=== PATIENT | female | born 1940 | race Caucasian/White ===

== ENCOUNTER 2016-03-13 22:19 | Emergency (ER) | payer MEDICARE, BC ==
[2016-03-13] MEDS ORDERED: DIAZEPAM 5 MG/ML 2 ML SYRINGE IVP STA (22:23)
[2016-03-13] MEDS ORDERED: HYDROmorphone 1 MG/ML 1 ML SYRINGE IVP STA ×2 (22:23→23:33)
--- NOTE | 2016-03-13 22:27 | ED ---
General Adult HPI - General Stated complaint: Generalized Pain Time Seen by Provider: 03/13/16 22:20 Source: RN notes reviewed - History of Present Illness Initial comments: This is a 75-year-old female who presents to the emergency department with a past medical history significant for renal failure she is on dialysis. Patient also has a history of chronic right-sided sciatica. Patient states her sciatica started acting up on Monday and is radiating down the back of her right leg like it always does. Patient states she's had 5 days of pain and couldn't take it anymore so she came to the emergency department. Patient states she's also noted some spasms in her back as well. Patient denies any recent injury or trauma. Patient denies any heavy lifting. Patient states she was much pain on Monday she missed dialysis. Patient states she has no other symptoms however other than her sciatica. Patient denies any chest pain palpitations difficulty breathing or shortness of breath. Patient denies headache patient denies numbness weakness. Patient denies any lightheadedness or dizziness. Patient denies abdominal pain patient denies nausea vomiting diarrhea. Patient denies any recent fever chills or cough - Related Data Home Medications Medication Instructions Recorded Confirmed Albuterol Nebulized [Ventolin 2.5 mg INHALATION RT-BID PRN 03/10/15 03/13/16 Nebulized] Aspirin EC [Ecotrin Low Dose] 81 mg PO DAILY 03/10/15 03/13/16 Budesonide/Formoterol Fumarate 2 puff INHALATION RT-BID 03/10/15 03/13/16 [Symbicort 160-4.5 Mcg Inhaler] Cholecalciferol [Vitamin D3] 5,000 unit PO DAILY 03/10/15 03/13/16 Clopidogrel [Plavix] 75 mg PO DAILY 03/10/15 03/13/16 Cyanocobalamin [Vitamin B-12] 500 mcg PO DAILY 03/10/15 03/13/16 Esomeprazole Magnesium [NexIUM] 40 mg PO DAILY 03/10/15 03/13/16 Montelukast [Singulair] 10 mg PO DAILY 03/10/15 03/13/16 Sevelamer [Renvela] 800 mg PO AC-TID 03/10/15 03/13/16 traZODone HCL 75 mg PO HS PRN 03/10/15 03/13/16 Insulin Detemir [Levemir] 32 unit SQ HS 07/21/15 03/13/16 Insulin Aspart [NovoLOG Flexpen] 13 units SQ AC-LUNCH 09/14/15 03/13/16 Insulin Aspart [NovoLOG Flexpen] 14 units SQ AC-SUPPER 09/14/15 03/13/16 Isosorbide Mononitrate ER [Imdur] 60 mg PO DAILY 09/14/15 03/13/16 Allopurinol [Zyloprim] 300 mg PO DAILY 12/15/15 03/13/16 Furosemide [Lasix] 40 mg PO DAILY PRN 12/15/15 03/13/16 Gabapentin 600 mg PO BID 12/15/15 03/13/16 Metolazone [Zaroxolyn] 2.5 mg PO MOFR 12/15/15 03/13/16 Midodrine HCl [ProAmatine] 10 mg PO MOWEFR 12/15/15 03/13/16 Pramipexole [Mirapex] 0.5 mg PO TID 12/15/15 03/13/16 Cyclobenzaprine [Flexeril] 10 mg PO BID 01/17/16 03/13/16 Ezetimibe [Zetia] 10 mg PO HS 01/17/16 03/13/16 HYDROcodone/APAP 5-325MG [[place] 1 tab PO Q6H PRN 01/17/16 03/13/16 5-325] Lisinopril [Zestril] 10 mg PO DAILY 01/17/16 03/13/16 Previous Rx's Medication Instructions Recorded Nitroglycerin Sl Tabs [Nitrostat] 0.4 mg SUBLINGUAL Q5M PRN #0 tab 03/26/15 Allergies Allergy/AdvReac Type Severity Reaction Status Date / Time atropine sulfate Allergy Rash/Hives Verified 03/13/16 22:32 [From Lomotil] cephalexin monohydrate Allergy Rash/Hives Verified 03/13/16 22:32 [From Keflex] diphenoxylate HCl Allergy Rash/Hives Verified 03/13/16 22:32 [From Lomotil] ibuprofen Allergy Swelling Verified 03/13/16 22:32 baclofen AdvReac Unknown Verified 03/13/16 22:32 tramadol AdvReac Unknown Verified 03/13/16 22:32 Review of Systems ROS Statement: Those systems with pertinent positive or pertinent negative responses have been documented in the HPI. ROS Other: All systems not noted in ROS Statement are negative. Past Medical History Past Medical History: Atrial Fibrillation, Asthma, Heart Failure, CVA/TIA, Diabetes Mellitus, Dialysis, Hyperlipidemia, Hypertension, Myocardial Infarction ([place]), Renal Disease Additional Past Medical History / Comment(s): Gout, neuropathy. wears O2 at home , has cpap at home. pneumonia, chf, and left sided weakness. acute renal failure, dehydration, Hemodialysis M-W-. pt stated she only has "40% lung function". pt also stated she had hepatitis as a child. Last Myocardial Infarction Date:: September 22, 2007 History of Any Multi-Drug Resistant Organisms: None Reported Past Surgical History: Bowel Resection, Heart Catheterization With Stent, Hysterectomy Additional Past Surgical History / Comment(s): Spur removal in bilateral feet twice and left shoulder once and groin, cataracts removed Past Anesthesia/Blood Transfusion Reactions: No Reported Reaction Date of Last Stent Placement:: September 22, 2007 Past Psychological History: No Psychological Hx Reported Additional Psychological History / Comment(s): patient currently lives at home with her son. Patient states she uses a walker at home stated lt leg drags a bit since stroke, son drives her to her appointments.gets visitng nurse 2x a week Smoking Status: Former smoker Past Alcohol Use History: None Reported Additional Past Alcohol Use History / Comment(s): STARTED SMOKING AT AGE 18 SMOKED 1.5 PPD ,QUIT 2007 Past Drug Use History: None Reported - Past Family History Mother Additional Family Medical History / Comment(s): pt stated was unknown. stated she had an iron lung. at age 31 Father Family Medical History: COPD, Diabetes Mellitus, Myocardial Infarction ([place]) Additional Family Medical History / Comment(s): at age 90. Sister(s) Family Medical History: Diabetes Mellitus Son(s) Family Medical History: Deep Vein Thrombosis (DVT), Myocardial Infarction ([place]) General Exam - General Exam Comments Initial Comments: GENERAL: Patient is well-developed and well-nourished. Patient is nontoxic and well- hydrated and is in mild distress. ENT: Neck is soft and supple. No significant lymphadenopathy is noted. Oropharynx is clear. Moist mucous membranes. Neck has full range of motion without eliciting any pain. EYES: The sclera were anicteric and conjunctiva were pink and moist. Extraocular movements were intact and pupils were equal round and reactive to light. Eyelids were unremarkable. PULMONARY: Unlabored respirations. Good breath sounds bilaterally. No audible rales rhonchi or wheezing was noted. CARDIOVASCULAR: There is a regular rate and rhythm without any murmurs gallops or rubs. ABDOMEN: Soft and nontender with normal bowel sounds. No palpable organomegaly was noted. There is no palpable pulsatile mass. SKIN: Skin is clear with no lesions or rashes and otherwise unremarkable. NEUROLOGIC: Patient is alert and oriented x3. Cranial nerves II through XII are grossly intact. Motor and sensory are also intact. Normal speech, volume and content. Symmetrical smile. MUSCULOSKELETAL: Normal extremities with adequate strength and full range of motion. 2+ edema bilaterally chronic cellulitis bilaterally. Patient has tenderness on palpation in the right buttocks area . Patient has positive straight leg test on the left but the pain she has is in the lower right back PSYCHIATRIC: Normal psychiatric evaluation. Course Vital Signs 03/13/16 03/13/16 22:25 23:22 Temperature 97.3 F L Pulse Rate 82 79 Respiratory 18 18 Rate Blood Pressure 128/89 105/56 O2 Sat by Pulse 97 100 Oximetry Medical Decision Making - Medical Decision Making Patient states she's getting get dialyzed tomorrow. Patient states she will take her [place] as a muscle relaxant when she gets home she has been avoiding them recently because she doesn't want to be constipated - Lab Data Result diagrams: 03/13/16 22:46 03/13/16 22:46 Lab Results 03/13/16 03/13/16 Range/Units 22:46 22:46 WBC 5.9 (3.8-10.6) k/uL RBC 3.29 L (3.80-5.40) m/uL Hgb 10.9 L (11.4-16.0) gm/dL Hct 35.9 (34.0-46.0) % MCV 109.4 H (80.0-100.0) fL MCH 33.2 (25.0-35.0) pg MCHC 30.3 L (31.0-37.0) g/dL RDW 17.5 H (11.5-15.5) % Plt Count 136 L (150-450) k/uL Neutrophils % 79 % Lymphocytes % 12 % Monocytes % 5 % Eosinophils % 3 % Basophils % 0 % Neutrophils # 4.6 (1.3-7.7) k/uL Lymphocytes # 0.7 L (1.0-4.8) k/uL Monocytes # 0.3 (0-1.0) k/uL Eosinophils # 0.2 (0-0.7) k/uL Basophils # 0.0 (0-0.2) k/uL Anisocytosis Slight Macrocytosis Marked Sodium 140 (137-145) mmol/L Potassium 5.8 H (3.5-5.1) mmol/L Chloride 101 (98-107) mmol/L Carbon Dioxide 23 (22-30) mmol/L Anion Gap 16 mmol/L BUN 82 H* (7-17) mg/dL Creatinine 5.90 H* (0.52-1.04) mg/dL Est GFR (MDRD) Af Amer 8 (>60 ml/min/1.73 sqM) Est GFR (MDRD) Non-Af 7 (>60 ml/min/1.73 sqM) Glucose 177 H (74-99) mg/dL Calcium 8.5 (8.4-10.2) mg/dL Total Bilirubin 0.7 (0.2-1.3) mg/dL AST 19 (14-36) U/L ALT 33 (9-52) U/L Alkaline Phosphatase 131 H (38-126) U/L Total Protein 7.0 (6.3-8.2) g/dL Albumin 3.8 (3.5-5.0) g/dL Disposition Clinical Impression: Chronic renal failure, Sciatica Disposition: HOME SELF-CARE Instructions: Sciatica (ED) Referrals: Chan Hernandez MD [Primary Care Provider] - 1-2 days Time of Disposition: 23:28
[2016-03-13 22:31] VITALS: RESP 18
[2016-03-13 22:55] LABS: Anisocytosis Slight; Basophils % (A) 0 %; CH 34.3; CHCM 31.5; Eosinophils # (A) 0.2 k/uL (0-0.7); Eosinophils % (A) 3 %; HCT 35.9 % (34.0-46.0); HDW 2.35; HGB 10.9 gm/dL (11.4-16.0); Luc # (Auto) 0.08; Luc % (Auto) 1; Lymphocytes # (A) 0.7 k/uL (1.0-4.8); Lymphocytes % (A) 12 %; MCH 33.2 pg (25.0-35.0); MCHC 30.3 g/dL (31.0-37.0); MCV 109.4 fL (80.0-100.0); Macrocytosis Marked; Mean Platelet Volume 8.4; Monocytes # (A) 0.3 k/uL (0-1.0); Monocytes % (A) 5 %; Neutrophils # (A) 4.6 k/uL (1.3-7.7); Neutrophils % (A) 79 %; RBC 3.29 m/uL (3.80-5.40); RDW 17.5 % (11.5-15.5); WBC 5.9 k/uL (3.8-10.6); WBC (Perox) 6.43
[2016-03-13 23:10] LABS: Calcium 8.5 mg/dL (8.4-10.2); Potassium 5.8 mmol/L (3.5-5.1); Total Bilirubin 0.7 mg/dL (0.2-1.3)
[2016-03-14 00:29] VITALS: BP 120/57; PULSE 73; TEMP 98
== END 2016-03-14 00:28 | disposition home or self-care (01) ==
LOC: EC 22:19
DX: E11.22 Type 2 diabetes mellitus with diabetic chronic kidney disease (principal); I12.9 Hypertensive chronic kidney disease with stage 1 through stage 4 chronic kidney disease, or unspecified chronic kidney disease; N18.9 Chronic kidney disease, unspecified; M54.31 Sciatica, right side; I48.91 Unspecified atrial fibrillation; J45.909 Unspecified asthma, uncomplicated; I50.9 Heart failure, unspecified; Z99.2 Dependence on renal dialysis; Z79.82 Long term (current) use of aspirin; Z79.899 Other long term (current) drug therapy; Z79.51 Long term (current) use of inhaled steroids; Z79.02 Long term (current) use of antithrombotics/antiplatelets; Z79.4 Long term (current) use of insulin; Z88.6 Allergy status to analgesic agent; Z88.1 Allergy status to other antibiotic agents; Z88.8 Allergy status to other drugs, medicaments and biological substances; M10.9 Gout, unspecified; Z99.81 Dependence on supplemental oxygen; Z95.5 Presence of coronary angioplasty implant and graft; Z87.891 Personal history of nicotine dependence
CPT/HCPCS: 99283; 96374; 96375; 96376; 36415; 80053; 85025; J3360; J1170

== ENCOUNTER 2016-04-25 19:43 | Inpatient (IN) | payer MEDICARE, BC ==
[2016-04-25] MEDS ORDERED: IV VANCOMYCIN PER PHARMACY 1 EACH MISC MISCELLANE PRN (20:40)
[2016-04-25] MEDS ORDERED: VANCOMYCIN 1,500 MG in SODIUM CHLORIDE 0.9% 250 ML IVPB STA (20:46)
[2016-04-25 20:58] LABS: Anisocytosis Slight; Basophils % (A) 1 %; CH 34.7; CHCM 31.1; Eosinophils # (A) 0.1 k/uL (0-0.7); Eosinophils % (A) 3 %; HCT 37.3 % (34.0-46.0); HDW 2.48; HGB 11.7 gm/dL (11.4-16.0); Hypochromasia Slight; Luc # (Auto) 0.15; Luc % (Auto) 3; Lymphocytes # (A) 0.6 k/uL (1.0-4.8); Lymphocytes % (A) 14 %; MCH 35.2 pg (25.0-35.0); MCHC 31.5 g/dL (31.0-37.0); Macrocytosis Marked; Mean Platelet Volume 7.6; Monocytes # (A) 0.3 k/uL (0-1.0); Monocytes % (A) 6 %; Neutrophils # (A) 3.5 k/uL (1.3-7.7); Neutrophils % (A) 74 %; RBC 3.33 m/uL (3.80-5.40); WBC 4.7 k/uL (3.8-10.6); WBC (Perox) 4.84
[2016-04-25 21:07] LABS: Magnesium 2.1 mg/dL (1.6-2.3); Total Bilirubin 1.3 mg/dL (0.2-1.3); Total Protein 7.4 g/dL (6.3-8.2)
--- NOTE | 2016-04-25 21:10 | XR ---
EXAMINATION TYPE: XR chest 1V portable DATE OF EXAM: 04/25/2016 9:00 PM COMPARISON: 01/17/2016 HISTORY: Short of breath TECHNIQUE: Single frontal view of the chest is obtained. FINDINGS: Heart is enlarged. There is mild pulmonary vascular congestion. I see no pleural effusion. There are no hilar masses. There are chest leads. IMPRESSION: Cardiomegaly. There is probably mild heart failure that is unchanged compared to old exa m. Old right-sided healed rib fractures are noted.
[2016-04-25 21:12] LABS: Potassium 6.2 mmol/L (3.5-5.1)
[2016-04-25 21:26] LABS: INR 1.2 (<1.1); Prothrombin Time 11.6 sec (9.0-12.0)
[2016-04-25 21:30] LABS: Creatine Kinase MB 1.5 ng/mL (0.0-2.4); Partial Thromboplastin Time 20.6 sec (22.0-30.0)
[2016-04-25 21:33] LABS: Troponin I 0.048 ng/mL (0.000-0.034)
[2016-04-25] MEDS ORDERED: SODIUM POLYSTYRENE SULFONATE 15 GM/60 ML BOTTLE PO STA (21:41)
[2016-04-25] MEDS ORDERED: ALBUTEROL NEBULIZED 2.5 MG/3 ML INHALATION PRN (21:43)
[2016-04-25] MEDS ORDERED: traZODone HCL 50 MG TAB PO PRN (21:43)
[2016-04-25] MEDS ORDERED: NITROGLYCERIN SL TABS 0.4 MG TAB SUBLINGUAL PRN (21:43)
--- NOTE | 2016-04-25 21:46 | ED ---
SOB HPI - General Chief Complaint: Shortness of Breath Stated Complaint: SOB/Chest Pain/pain & discharge from legs Time Seen by Provider: 04/25/16 20:23 Source: patient Mode of arrival: wheelchair Limitations: no limitations - History of Present Illness Initial Comments: This patient is a 75-year-old woman with history of end-stage renal disease, who complains of having some shortness of breath and also bilateral leg pain and swelling. The patient states that the symptoms have been worsening over the past 2-3 days. She states that her usual dialysis days are Monday and Monday, and that she is due for dialysis tomorrow morning. Her last session was on Monday and was normal. Related to the shortness of breath , the patient has had worsening if she lies flat. She has a little bit of cough with some clear sputum. She denies chest pain. Regarding the leg swelling has been getting progressively worse and she has redness and she notes that there is some weeping from the legs. MD Complaint: shortness of breath Onset/Timin -: days(s) Severity: moderate Quality: aching Consistency: constant Improves With: oxygen Worsens With: lying flat Known History Of: congestive heart failure, other (Kidney failure) Associated Symptoms: cough - Related Data Home Medications Medication Instructions Recorded Confirmed Albuterol Nebulized [Ventolin 2.5 mg INHALATION RT-QID PRN 03/10/15 04/25/16 Nebulized] Aspirin EC [Ecotrin Low Dose] 81 mg PO DAILY 03/10/15 04/25/16 Budesonide/Formoterol Fumarate 2 puff INHALATION RT-BID 03/10/15 04/25/16 [Symbicort 160-4.5 Mcg Inhaler] Cholecalciferol [Vitamin D3] 5,000 unit PO DAILY 03/10/15 04/25/16 Clopidogrel [Plavix] 75 mg PO DAILY 03/10/15 04/25/16 Cyanocobalamin [Vitamin B-12] 500 mcg PO DAILY 03/10/15 04/25/16 Esomeprazole Magnesium [NexIUM] 40 mg PO DAILY 03/10/15 04/25/16 Montelukast [Singulair] 10 mg PO DAILY 03/10/15 04/25/16 Sevelamer [Renvela] 800 mg PO AC-TID 03/10/15 04/25/16 traZODone HCL 75 mg PO HS PRN 03/10/15 04/25/16 Insulin Detemir [Levemir] 26 unit SQ HS 07/21/15 04/25/16 Insulin Aspart [NovoLOG Flexpen] 13 units SQ AC-BID@0800,1200 09/14/15 04/25/16 Insulin Aspart [NovoLOG Flexpen] 14 units SQ AC-SUPPER 09/14/15 04/25/16 Isosorbide Mononitrate ER [Imdur] 60 mg PO DAILY 09/14/15 04/25/16 Ezetimibe [Zetia] 10 mg PO HS 01/17/16 04/25/16 Allopurinol [Zyloprim] 100 mg PO DAILY 04/25/16 04/25/16 Atorvastatin [Lipitor] 80 mg PO DAILY 04/25/16 04/25/16 Gabapentin [Neurontin] 100 mg PO BID 04/25/16 04/25/16 HYDROcodone/APAP 10-325MG [[place] 1 tab PO Q4HR PRN 04/25/16 04/25/16 10-325] Ipratropium Nebulized [Atrovent 0.5 mg INHALATION RT-QID 04/25/16 04/25/16 Nebulized] Midodrine [ProAmatine] 15 mg PO MOWEFR 04/25/16 04/25/16 Pramipexole [Mirapex] 0.25 mg PO DAILY 04/25/16 04/25/16 Previous Rx's Medication Instructions Recorded Nitroglycerin Sl Tabs [Nitrostat] 0.4 mg SUBLINGUAL Q5M PRN #0 tab 03/26/15 Allergies Allergy/AdvReac Type Severity Reaction Status Date / Time atropine sulfate Allergy Rash/Hives Verified 04/25/16 19:57 [From Lomotil] cephalexin monohydrate Allergy Rash/Hives Verified 04/25/16 19:57 [From Keflex] diphenoxylate HCl Allergy Rash/Hives Verified 04/25/16 19:57 [From Lomotil] ibuprofen Allergy Swelling Verified 04/25/16 19:57 baclofen AdvReac Hallucinati Verified 04/25/16 20:47 ons tramadol AdvReac Hallucinati Verified 04/25/16 20:47 ons Review of Systems ROS Statement: Those systems with pertinent positive or pertinent negative responses have been documented in the HPI. ROS Other: All systems not noted in ROS Statement are negative. Constitutional: Reports: chills, weakness. Denies: fever Respiratory: Reports: cough, dyspnea. Denies: wheezes, hemoptysis Cardiovascular: Reports: orthopnea, edema. Denies: chest pain, palpitations, dyspnea on exertion, syncope Gastrointestinal: Denies: abdominal pain, nausea, vomiting Musculoskeletal: Denies: back pain Skin: Denies: rash Neurological: Denies: headache, weakness, numbness Past Medical History Past Medical History: Atrial Fibrillation, Asthma, Heart Failure, CVA/TIA, Diabetes Mellitus, Dialysis, Hyperlipidemia, Hypertension, Myocardial Infarction ([place]), Renal Disease Additional Past Medical History / Comment(s): Gout, neuropathy. wears O2 at home , has cpap at home. pneumonia, chf, and left sided weakness. acute renal failure, dehydration, Hemodialysis M-W-. pt stated she only has "40% lung function". pt also stated she had hepatitis as a child. Last Myocardial Infarction Date:: September 22, 2007 History of Any Multi-Drug Resistant Organisms: None Reported Past Surgical History: Bowel Resection, Heart Catheterization With Stent, Hysterectomy Additional Past Surgical History / Comment(s): Spur removal in bilateral feet twice and left shoulder once and groin, cataracts removed Past Anesthesia/Blood Transfusion Reactions: No Reported Reaction Date of Last Stent Placement:: September 22, 2007 Past Psychological History: No Psychological Hx Reported Additional Psychological History / Comment(s): patient currently lives at home with her son. Patient states she uses a walker at home stated lt leg drags a bit since stroke, son drives her to her appointments.gets visitng nurse 2x a week Smoking Status: Former smoker Past Alcohol Use History: None Reported Additional Past Alcohol Use History / Comment(s): STARTED SMOKING AT AGE 18 SMOKED 1.5 PPD ,QUIT 2007 Past Drug Use History: None Reported - Past Family History Mother Additional Family Medical History / Comment(s): pt stated was unknown. stated she had an iron lung. at age 31 Father Family Medical History: COPD, Diabetes Mellitus, Myocardial Infarction ([place]) Additional Family Medical History / Comment(s): at age 90. Sister(s) Family Medical History: Diabetes Mellitus Son(s) Family Medical History: Deep Vein Thrombosis (DVT), Myocardial Infarction ([place]) General Exam Limitations: no limitations General appearance: alert, obese Head exam: Present: atraumatic, normocephalic Eye exam: Present: normal appearance. Absent: scleral icterus, conjunctival injection ENT exam: Present: normal oropharynx Neck exam: Present: normal inspection Respiratory exam: Present: rales (Bilateral bases). Absent: respiratory distress, wheezes, rhonchi, stridor Cardiovascular Exam: Present: regular rate, irregular rhythm, systolic murmur. Absent: diastolic murmur, rubs, gallop GI/Abdominal exam: Present: soft. Absent: distended, tenderness, guarding, rebound Extremities exam: Present: normal inspection, normal capillary refill, pedal edema, other (There is erythema and warmth to the bilateral lower extremities consistent with cellulitis, greater on the right than left. On the right there is erythema from the toes to just below the knee. Patient does have a weeping ulcer lateral aspect of the leg.). Absent: calf tenderness Neurological exam: Present: alert Skin exam: Present: warm, dry, intact, erythema. Absent: petechiae (Bilateral lower extremities), pallor, mottled Course Vital Signs 04/25/16 04/25/16 19:55 22:21 Temperature 98 F 97.1 F L Pulse Rate 86 75 Respiratory 20 18 Rate Blood Pressure 120/71 104/59 O2 Sat by Pulse 99 Oximetry Medical Decision Making - Medical Decision Making Patient is 75-year-old woman who presents with bilateral lower extremity cellulitis. Started on vancomycin for this problem. Patient is also end-stage renal disease on hemodialysis and has some mild fluid overload and hyperkalemia. Patient given dose of Kayexalate and will be admitted to have dialysis. Case discussed with Dr. Munguia, as the admitting physician, consult to from nephrology, and also Dr. Hernandez, the patient's night supervisor. - Lab Data Result diagrams: 04/25/16 20:40 04/25/16 20:40 Lab Results 04/25/16 04/25/16 04/25/16 Range/Units 20:40 20:40 20:40 WBC 4.7 (3.8-10.6) k/uL RBC 3.33 L (3.80-5.40) m/uL Hgb 11.7 (11.4-16.0) gm/dL Hct 37.3 (34.0-46.0) % MCV 112.0 H (80.0-100.0) fL MCH 35.2 H (25.0-35.0) pg MCHC 31.5 (31.0-37.0) g/dL RDW 17.0 H (11.5-15.5) % Plt Count 149 L (150-450) k/uL Neutrophils % 74 % Lymphocytes % 14 % Monocytes % 6 % Eosinophils % 3 % Basophils % 1 % Neutrophils # 3.5 (1.3-7.7) k/uL Lymphocytes # 0.6 L (1.0-4.8) k/uL Monocytes # 0.3 (0-1.0) k/uL Eosinophils # 0.1 (0-0.7) k/uL Basophils # 0.0 (0-0.2) k/uL Hypochromasia Slight Anisocytosis Slight Macrocytosis Marked PT (9.0-12.0) sec INR (<1.1) APTT (22.0-30.0) sec D-Dimer (<0.60) mg/L FEU Sodium 139 (137-145) mmol/L Potassium 6.2 H* (3.5-5.1) mmol/L Chloride 99 (98-107) mmol/L Carbon Dioxide 27 (22-30) mmol/L Anion Gap 13 mmol/L BUN 42 H (7-17) mg/dL Creatinine 4.81 H (0.52-1.04) mg/dL Est GFR (MDRD) Af Amer 11 (>60 ml/min/1.73 sqM) Est GFR (MDRD) Non-Af 9 (>60 ml/min/1.73 sqM) Glucose 138 H (74-99) mg/dL Plasma Lactic Acid Wally (0.7-2.0) mmol/L Calcium 9.0 (8.4-10.2) mg/dL Magnesium 2.1 (1.6-2.3) mg/dL Total Bilirubin 1.3 (0.2-1.3) mg/dL AST 26 (14-36) U/L ALT 31 (9-52) U/L Alkaline Phosphatase 129 H (38-126) U/L Total Creatine Kinase 71 (30-135) U/L CK-MB (CK-2) 1.5 (0.0-2.4) ng/mL CK-MB (CK-2) Rel Index 2.1 Troponin I 0.048 H* (0.000-0.034) ng/mL NT-Pro-B Natriuret Pep pg/mL Total Protein 7.4 (6.3-8.2) g/dL Albumin 3.8 (3.5-5.0) g/dL 04/25/16 04/25/16 04/25/16 Range/Units 20:40 20:40 21:07 WBC (3.8-10.6) k/uL RBC (3.80-5.40) m/uL Hgb (11.4-16.0) gm/dL Hct (34.0-46.0) % MCV (80.0-100.0) fL MCH (25.0-35.0) pg MCHC (31.0-37.0) g/dL RDW (11.5-15.5) % Plt Count (150-450) k/uL Neutrophils % % Lymphocytes % % Monocytes % % Eosinophils % % Basophils % % Neutrophils # (1.3-7.7) k/uL Lymphocytes # (1.0-4.8) k/uL Monocytes # (0-1.0) k/uL Eosinophils # (0-0.7) k/uL Basophils # (0-0.2) k/uL Hypochromasia Anisocytosis Macrocytosis PT 11.6 (9.0-12.0) sec INR 1.2 (<1.1) APTT 20.6 L (22.0-30.0) sec D-Dimer 0.88 H (<0.60) mg/L FEU Sodium (137-145) mmol/L Potassium (3.5-5.1) mmol/L Chloride (98-107) mmol/L Carbon Dioxide (22-30) mmol/L Anion Gap mmol/L BUN (7-17) mg/dL Creatinine (0.52-1.04) mg/dL Est GFR (MDRD) Af Amer (>60 ml/min/1.73 sqM) Est GFR (MDRD) Non-Af (>60 ml/min/1.73 sqM) Glucose (74-99) mg/dL Plasma Lactic Acid Wally 1.6 (0.7-2.0) mmol/L Calcium (8.4-10.2) mg/dL Magnesium (1.6-2.3) mg/dL Total Bilirubin (0.2-1.3) mg/dL AST (14-36) U/L ALT (9-52) U/L Alkaline Phosphatase (38-126) U/L Total Creatine Kinase (30-135) U/L CK-MB (CK-2) (0.0-2.4) ng/mL CK-MB (CK-2) Rel Index Troponin I (0.000-0.034) ng/mL NT-Pro-B Natriuret Pep 36164 pg/mL Total Protein (6.3-8.2) g/dL Albumin (3.5-5.0) g/dL - EKG Data -: EKG Interpreted by Ct EKG shows normal: axis (Normal), intervals (Normal), QRS complexes (Normal), ST- T waves (Normal) Interpretation: other (Atrial fibrillation with a rate approximately 92 bpm) Disposition Clinical Impression: Chronic renal failure, Hyperkalemia, Cellulitis, Elevated troponin I measurement Disposition: ADMITTED IP TO THIS [facility] Condition: Serious
[2016-04-25 23:14] VITALS: BMI 33.8
[2016-04-25 23:14] LABS: Glucose,Whole Blood 101 mg/dL (75-99)
[2016-04-25] MEDS: INSULIN DETEMIR 100 UNIT/ML 10 ML VIAL SQ SCH (23:59)
[2016-04-25] MEDS: EZETIMIBE 10 MG TAB PO SCH (23:59)
[2016-04-26] MEDS ORDERED: INSULIN REGULAR 100 UNIT/ML VIAL IV ONE
[2016-04-26] MEDS ORDERED: DEXTROSE 50%-WATER 50 ML SYRINGE IVP STA (00:01)
[2016-04-26] MEDS: IPRATROPIUM-ALBUTEROL 3 ML NEB IH SCH ×5 (00:06→20:44)
[2016-04-26] MEDS: GABAPENTIN 100 MG CAP PO SCH ×3 (00:12→19:59)
[2016-04-26] MEDS: HYDROcodone/APAP 10-325MG 1 EACH TAB PO PRN ×4 (00:12→17:24)
[2016-04-26 02:08] LABS: Glucose,Whole Blood 76 mg/dL (75-99)
[2016-04-26 06:05] LABS: Glucose,Whole Blood 104 mg/dL (75-99)
[2016-04-26] MEDS: SEVELAMER 800 MG TAB PO SCH ×4 (06:07→17:54)
[2016-04-26] MEDS: PANTOPRAZOLE 40 MG TABLET PO SCH (06:10)
[2016-04-26 06:47] LABS: Calcium 8.4 mg/dL (8.4-10.2)
[2016-04-26] MEDS: SYMBICORT 160-4.5 MCG INHALER INHALATION SCH ×2 (07:17→20:44)
--- NOTE | 2016-04-26 08:10 | P.CRDCN ---
History of Present Illness Consult date: 04/26/16 Requesting physician: Daija Munguia Consult reason: shortness of breath Chief complaint: Shortness of breath and bilateral leg redness and swelling History of present illness: This is a pleasant 75-year-old female who follows with Dr. VC Arana in the office. She has a known history of coronary artery disease with prior stent placement, chronic persistent atrial fibrillation, hypertension, hyperlipidemia, congestive cardiac failure, diabetes, prior CVAs, COPD, sleep apnea, anemia, end-stage renal disease on dialysis. She presents to the hospital with symptoms of progressively worsening shortness of breath, mostly exertional in nature, positive orthopnea, progressive increase in leg swelling and redness. According to the patient, she states she's not been taking her medications at home, she felt like giving out. She is very frustrated with the way that she's been feeling over the past few years with dialysis and breathing difficulties. Chest x-ray on admission revealed cardiomegaly with mild heart failure. EKG showed atrial fibrillation with controlled ventricular response. Laboratory data was reviewed, hemoglobin 11.7, platelet count 149, d-dimer 0.88 , potassium 5.0, BUN 42, creatinine 5.0. Magnesium level 2.1, troponin 0.048, BNP level 62,600. Blood pressure 97/50 with heart rate in the 80s. At the time of my examination this morning, patient's complaints of shortness of breath however she states that when she sits still the breathing is much better than when she exerts herself even minimally. The patient states that she's also been getting intermittent pressure in the center of her chest when she exerts herself, symptoms seem to subside with rest. She also states that she has fallen at least 20 times in this past one month. Past Medical History Past Medical History: Atrial Fibrillation, Asthma, Heart Failure, CVA/TIA, Diabetes Mellitus, Dialysis, Hyperlipidemia, Hypertension, Myocardial Infarction ([place]), Renal Disease Additional Past Medical History / Comment(s): Gout, neuropathy. wears O2 at home , has cpap at home. pneumonia, chf, and left sided weakness. acute renal failure, dehydration, Hemodialysis M-W-. pt stated she only has "40% lung function". pt also stated she had hepatitis as a child. Last Myocardial Infarction Date:: September 22, 2007 History of Any Multi-Drug Resistant Organisms: None Reported Past Surgical History: Bowel Resection, Heart Catheterization With Stent, Hysterectomy Additional Past Surgical History / Comment(s): Spur removal in bilateral feet twice and left shoulder once and groin, cataracts removed Past Anesthesia/Blood Transfusion Reactions: No Reported Reaction Date of Last Stent Placement:: September 22, 2007 Past Psychological History: No Psychological Hx Reported Additional Psychological History / Comment(s): patient currently lives at home with her son. Patient states she uses a walker at home stated lt leg drags a bit since stroke, son drives her to her appointments.gets visitng nurse 2x a week Smoking Status: Former smoker Past Alcohol Use History: None Reported Additional Past Alcohol Use History / Comment(s): STARTED SMOKING AT AGE 18 SMOKED 1.5 PPD ,QUIT 2007 Past Drug Use History: None Reported - Past Family History Mother Additional Family Medical History / Comment(s): pt stated was unknown. stated she had an iron lung. at age 31 Father Family Medical History: COPD, Diabetes Mellitus, Myocardial Infarction ([place]) Additional Family Medical History / Comment(s): at age 90. Sister(s) Family Medical History: Diabetes Mellitus Son(s) Family Medical History: Deep Vein Thrombosis (DVT), Myocardial Infarction ([place]) Medications and Allergies Home Medications Medication Instructions Recorded Confirmed Type Albuterol Nebulized [Ventolin 2.5 mg INHALATION RT-QID PRN 03/10/15 04/25/16 History Nebulized] Aspirin EC [Ecotrin Low Dose] 81 mg PO DAILY 03/10/15 04/25/16 History Budesonide/Formoterol Fumarate 2 puff INHALATION RT-BID 03/10/15 04/25/16 History [Symbicort 160-4.5 Mcg Inhaler] Cholecalciferol [Vitamin D3] 5,000 unit PO DAILY 03/10/15 04/25/16 History Clopidogrel [Plavix] 75 mg PO DAILY 03/10/15 04/25/16 History Cyanocobalamin [Vitamin B-12] 500 mcg PO DAILY 03/10/15 04/25/16 History Esomeprazole Magnesium [NexIUM] 40 mg PO DAILY 03/10/15 04/25/16 History Montelukast [Singulair] 10 mg PO DAILY 03/10/15 04/25/16 History Sevelamer [Renvela] 800 mg PO AC-TID 03/10/15 04/25/16 History traZODone HCL 75 mg PO HS PRN 03/10/15 04/25/16 History Insulin Detemir [Levemir] 26 unit SQ HS 07/21/15 04/25/16 History Insulin Aspart [NovoLOG Flexpen] 13 units SQ AC-BID@0800,1200 09/14/15 04/25/16 History Insulin Aspart [NovoLOG Flexpen] 14 units SQ AC-SUPPER 09/14/15 04/25/16 History Isosorbide Mononitrate ER [Imdur] 60 mg PO DAILY 09/14/15 04/25/16 History Ezetimibe [Zetia] 10 mg PO HS 01/17/16 04/25/16 History Allopurinol [Zyloprim] 100 mg PO DAILY 04/25/16 04/25/16 History Atorvastatin [Lipitor] 80 mg PO DAILY 04/25/16 04/25/16 History Gabapentin [Neurontin] 100 mg PO BID 04/25/16 04/25/16 History HYDROcodone/APAP 10-325MG [[place] 1 tab PO Q4HR PRN 04/25/16 04/25/16 History 10-325] Ipratropium Nebulized [Atrovent 0.5 mg INHALATION RT-QID 04/25/16 04/25/16 History Nebulized] Midodrine [ProAmatine] 15 mg PO MOWEFR 04/25/16 04/25/16 History Pramipexole [Mirapex] 0.25 mg PO DAILY 04/25/16 04/25/16 History Allergies Allergy/AdvReac Type Severity Reaction Status Date / Time atropine sulfate Allergy Rash/Hives Verified 04/25/16 19:57 [From Lomotil] cephalexin monohydrate Allergy Rash/Hives Verified 04/25/16 19:57 [From Keflex] diphenoxylate HCl Allergy Rash/Hives Verified 04/25/16 19:57 [From Lomotil] ibuprofen Allergy Swelling Verified 04/25/16 19:57 baclofen AdvReac Hallucinati Verified 04/25/16 20:47 ons tramadol AdvReac Hallucinati Verified 04/25/16 20:47 ons Physical Exam Vitals: Vital Signs Temp Pulse Pulse Resp BP BP Pulse Ox 04/26/16 07:32 80 04/26/16 07:18 80 04/26/16 04:00 96.9 F L 80 18 97/54 94 L 04/26/16 00:00 96.8 F L 89 18 99/53 93 L 04/25/16 22:21 97.1 F L 75 18 104/59 Intake and Output 04/25/16 04/26/16 04/26/16 22:59 06:59 14:59 Intake Total 330 Output Total 0 Balance 330 Intake: IV 330 NS 80 Vancomycin 1,500 mg In 250 Sodium Chloride 0.9% 250 ml @ 125 mls/hr IVPB ONCE STA Rx#:[id number] Output: Urine 0 Other: # Voids 0 Weight 78.7 kg PHYSICAL EXAMINATION: HEENT: [Head is atraumatic, normocephalic. Pupils equal, round. Neck is supple. There is elevated jugular venous pressure.] HEART EXAMINATION: R S1 and S2 irregular irregular CHEST EXAMINATION: Lungs reveal diminished air entry to bilateral bases. ABDOMEN: [ Soft, nontender. Bowel sounds are heard. No organomegaly noted]. EXTREMITIES:[ 2+ peripheral pulses with 2+ evidence of peripheral edema, positive bilateral erythema. NEUROLOGIC [patient is awake, alert and oriented -3.] . Results 04/25/16 20:40 04/26/16 05:46 Comprehensive Metabolic Panel 04/26/16 Range/Units 05:46 Sodium 140 (137-145) mmol/L Potassium 5.0 (3.5-5.1) mmol/L Chloride 101 (98-107) mmol/L Carbon Dioxide 28 (22-30) mmol/L BUN 42 H (7-17) mg/dL Creatinine 5.00 H* (0.52-1.04) mg/dL Glucose 104 H (74-99) mg/dL Calcium 8.4 (8.4-10.2) mg/dL Current Medications Generic Name Dose Route Start Last Admin Trade Name Freq PRN Reason Stop Dose Admin Acetaminophen/Hydrocodone Bitart 1 each 04/25/16 21:43 04/26/16 06:06 [place] 10 PO 1 each Q4HR PRN Administration Pain Albuterol/Ipratropium 3 ml 04/25/16 22:15 04/26/16 07:17 Duoneb 0.5 Mg-3 Mg/3 Ml Soln IH 3 ml RT-QID [facility] Administration Aspirin 81 mg 04/26/16 09:00 Aspirin PO DAILY [facility] Atorvastatin Calcium 80 mg 04/26/16 09:00 Lipitor PO DAILY [facility] Budesonide/Formoterol Fumarate 2 puff 04/26/16 08:00 04/26/16 07:17 Symbicort 160-4.5 Mcg Inhaler INHALATION 2 puff RT-BID [facility] Administration Cholecalciferol 5,000 unit 04/26/16 12:00 Vitamin D3 PO DAILY@1200 [facility] Clopidogrel Bisulfate 75 mg 04/26/16 09:00 Plavix PO DAILY [facility] Cyanocobalamin 500 mcg 04/26/16 12:30 Vitamin B-12 PO W/LUNCH [facility] Ezetimibe 10 mg 04/25/16 22:00 04/25/16 23:59 Zetia PO Not Given HS [facility] Enoxaparin Sodium 30 mg 04/26/16 09:00 Lovenox SQ DAILY [facility] Gabapentin 100 mg 04/25/16 22:00 04/26/16 00:12 Neurontin PO 100 mg BID [facility] Administration Insulin Detemir 26 unit 04/25/16 22:00 04/25/16 23:59 Levemir SQ Not Given HS [facility] Insulin Human Lispro 14 unit 04/26/16 17:30 Humalog SQ AC-SUPPER [facility] Insulin Human Lispro 13 unit 04/26/16 08:00 Humalog SQ BID@0800,1200 [facility] Isosorbide Mononitrate 60 mg 04/26/16 09:00 Imdur PO DAILY [facility] Midodrine 15 mg 04/26/16 09:00 Proamatine PO MOWEFR [facility] Miscellaneous Information 1 each 04/25/16 20:40 Pharmacy To Dose Iv Vancomycin MISCELLANE DIRECTED PRN Per Protocol Montelukast Sodium 10 mg 04/26/16 09:00 Singulair PO DAILY [facility] Nitroglycerin 0.4 mg 04/25/16 21:43 Nitrostat SUBLINGUAL Q5M PRN Chest Pain Pantoprazole Sodium 40 mg 04/26/16 07:30 04/26/16 06:10 Protonix PO 40 mg AC-BRKFST [facility] Administration Pramipexole Dihydrochloride 0.25 mg 04/26/16 09:00 Mirapex PO DAILY [facility] Sevelamer Carbonate 800 mg 04/26/16 07:30 04/26/16 06:07 Renvela PO 800 mg AC-TID [facility] Administration Silver Sulfadiazine 1 applic 04/26/16 01:15 04/26/16 04:00 Silvadene Cream TOPICAL 1 applic DAILY [facility] Administration Sodium Chloride 10 ml 04/25/16 22:00 04/25/16 23:59 Saline Flush IV Not Given BID [facility] Trazodone HCl 75 mg 04/25/16 21:43 Desyrel PO HS PRN Insomnia Intake and Output 04/25/16 04/26/16 04/26/16 22:59 06:59 14:59 Intake Total 330 Output Total 0 Balance 330 Intake: IV 330 NS 80 Vancomycin 1,500 mg In 250 Sodium Chloride 0.9% 250 ml @ 125 mls/hr IVPB ONCE STA Rx#:[id number] Output: Urine 0 Other: # Voids 0 Weight 78.7 kg 04/26/16 05:46 EKG Interpretations (text) EKG shows atrial fibrillation with a controlled ventricular response Assessment and Plan Plan: Assessment and plan #1 systolic congestive heart failure acute on chronic. Most recent echocardiogram with Doppler study was performed in July of last year which revealed an ejection fraction of 40-45%. Mild to moderate mitral regurg and severe pulmonary hypertension. BNP level 62,600. #2 end-stage renal disease on dialysis, patient states she does produce minimal amounts of urine. #3 known history of coronary artery disease with prior PCI #4 hypertension Number 5 diabetes #6 chronic persistent atrial fibrillation, not on anticoagulation, patient has refused anticoagulation in the past. #7 hyperlipidemia #8 COPD #9 prior history of smoking #10 anemia, hemoglobin stable #11 sleep apnea #12 symptoms of exertional chest discomfort, initial troponin 0.048. EKG shows atrial fibrillation with no acute changes. Plan We will start the patient on a Lasix drip at 10 mg per hour. We will also obtain the office records to evaluate the patient's home medications. Repeat echocardiogram with Doppler study. Further recommendations to follow. DNP note has been reviewed, I agree with a documented findings and plan of care. Patient was seen and examined.
[2016-04-26] MEDS: ENOXAPARIN 30 MG/0.3 ML SYRINGE SQ SCH (08:37)
[2016-04-26] MEDS: ASPIRIN 81 MG CHEW PO SCH (09:18)
[2016-04-26] MEDS: FUROSEMIDE 250 MG in SODIUM CHLORIDE 0.9% 225 ML IVP SCH (09:18)
[2016-04-26] MEDS: MONTELUKAST 10 MG TAB PO SCH (09:19)
[2016-04-26] MEDS: CLOPIDOGREL 75 MG TAB PO SCH (09:19)
[2016-04-26] MEDS: MIDODRINE 5 MG TAB PO SCH ×2 (09:19→15:19)
[2016-04-26] MEDS: ATORVASTATIN 80 MG TAB PO SCH (09:19)
[2016-04-26] MEDS: ISOSORBIDE MONONITRATE ER 60 MG TAB.ER.24H PO SCH (09:19)
[2016-04-26] MEDS: PRAMIPEXOLE 0.25 MG TAB PO SCH (09:20)
[2016-04-26] MEDS: INSULIN LISPRO (humaLOG) 300 UNIT/3 ML VIAL SQ SCH ×3 (10:11→16:52)
--- NOTE | 2016-04-26 10:45 | P.PN ---
Progress Note - Text This is an addendum to the dictated cardiology consultation. The patient has a known history of chronic atrial fibrillation, refuses anticoagulation, history of CAD and end-stage renal failure who presents with symptoms of progressive dyspnea and worsening edema. Her last dialysis was on Monday. She has some chest discomfort that she feels is related to anxiety. She is very limited in her physical activity and has significant dyspnea on exertion. She has no syncopal episodes or palpitations. She falls out of her chair when she falls asleep sitting up. She has no clear PND or orthopnea. There is no significant change in her physical activity over the last few months. The patient is quite discouraged because of the lack of improvement and the significant limitations in her activity. Patient is scheduled to undergo dialysis today, we will start him on IV Lasix drip with the hope to improve her fluid volume. Her congestive heart failure as a combination of systolic and diastolic failure. Unfortunately the prognosis remains guarded. Thank you for this consult we will follow with you.
[2016-04-26 12:00] LABS: Glucose,Whole Blood 113 mg/dL (75-99)
[2016-04-26] MEDS: CYANOCOBALAMIN 500 MCG TAB PO SCH (12:05)
[2016-04-26] MEDS: CHOLECALCIFEROL 1,000 UNIT TAB PO SCH (12:05)
--- NOTE | 2016-04-26 12:09 | ECHOF ---
Referral Reason:CHF MEASUREMENTS -------- HEIGHT: 152.4 cm WEIGHT: 78.5 kg BP: RVIDd: 3.9 cm (< 3.3) IVSd: 1.5 cm (0.6 - 1.1) LVIDd: 4.1 cm (3.9 - 5.3) LVPWd: 1.3 cm (0.6 - 1.1) IVSs: 2.0 cm LVIDs: 3.2 cm LVPWs: 1.1 cm LA Diam: 5.2 cm (2.7 - 3.8) LAESV Index (A-L): 46.10 ml/m Ao Diam: 3.1 cm (2.0 - 3.7) AV Cusp: 1.2 cm (1.5 - 2.6) LA Diam: 5.1 cm (2.7 - 3.8) MV EXCURSION: 14.924 mm (> 18.000) MV EF SLOPE: 75 mm/s (70 - 150) EPSS: 0.2 cm MV E David: 1.22 m/s MV DecT: 185 ms MV A David: 0.35 m/s MV E/A Ratio: 3.49 RAP: 5.00 mmHg RVSP: 60.72 mmHg FINDINGS -------- Sinus rhythm. This was a technically adequate study. There is mild concentric left ventricular hypertrophy. Overall left ventricular systolic function is moderately impaired with, an EF between 35 - 40 %. Mitral Doppler inflow pattern suggests diastolic filling abnormality 33.54. Inferior Hypokinesis Basal inferolateral hypokinesis. The right ventricle is moderate to severely enlarged. LA is severely dilated >40 ml/m2 The right atrial size is normal. There is mild aortic valve sclerosis. There is no evidence of aortic regurgitation. Mild mitral annular calcification present. Moderate mitral regurgitation is present. Moderate tricuspid regurgitation present. There is moderate pulmonary hypertension. The right ventricular systolic pressure, as measured by Doppler, is 60.72mmHg. Trace/mild (physiologic) pulmonic regurgitation. The aortic root size is normal. There is no pericardial effusion. CONCLUSIONS -------- 1. There is mild concentric left ventricular hypertrophy. 2. Moderate mitral regurgitation is present. 3. Moderate tricuspid regurgitation present. 4. There is moderate pulmonary hypertension. 5. The right ventricular systolic pressure, as measured by Doppler, is 60.72mmHg. 6. Trace/mild (physiologic) pulmonic regurgitation. 7. The aortic root size is normal. 8. Overall left ventricular systolic function is moderately impaired with, an EF between 35 - 40 %. 9. Mitral Doppler inflow pattern suggest diastolic filling abnormality 33.54. 10. Inferior Hypokinesis 11. Basal inferolateral hypokinesis. 12. The right ventricle is moderate to severely enlarged. 13. LA is severely dilated >40 ml/m2 14. There is mild aortic valve sclerosis. 15. Mild mitral annular calcification present. AIR SAMPLER: Velma Sneed RDCS
[2016-04-26] MEDS: HYDROmorphone 1 MG/ML 1 ML SYRINGE IVP PRN (12:25)
--- NOTE | 2016-04-26 12:44 | CONS ---
DATE OF CONSULTATION: REASON FOR CONSULTATION: End-stage renal disease. HISTORY OF PRESENT ILLNESS: Patient is a 75-year-old white female with history of end-stage renal disease on hemodialysis on a Monday, Monday, Monday schedule. Recently switched to Monday, , Monday schedule as outpatient. She was admitted to the hospital with complaints of shortness of breath. She was dialyzed on Monday. She is volume overloaded again. Patient states she has not been drinking large amounts of fluid. She does have significant diastolic dysfunction and issues with diastolic heart failure previously. Echocardiogram shows moderate pulmonary hypertension with moderate tricuspid regurgitation also. Left atrium is severely dilated. Ejection fraction is at 35% to 40%. PAST MEDICAL HISTORY: End-stage renal disease, anemia of chronic disease, hypertension, asthma, history of atrial fibrillation, CVA/TIA. Type 2 diabetes, coronary artery disease, history of CT, gout, neuropathy. PAST SURGICAL HISTORY: Bowel resection, cardiac catheterization, coronary stent placement, hysterectomy, foot surgery, cataract surgery. SOCIAL HISTORY: The patient is an ex-smoker. No history of drug abuse or alcohol abuse. PARTNER MANAGEMENT CONSULTANT exam is grossly intact. REVIEW OF SYSTEMS: As per HPI. Other systems negative. Medications are reviewed. ALLERGIES INCLUDE LOMOTIL, KEFLEX, IBUPROFEN, BACLOFEN AND TRAMADOL. On examination, the patient is comfortable. She is mildly short of breath, not in any acute distress. Blood pressure is 96/50, heart rate 74 per minute. She is afebrile. Examination of the heart S1 and S2. Examination of the lungs: Bilateral breath sounds are heard. Decreased breath sounds in bases. ABDOMEN: Soft, morbidly obese. Examination of lower extremities shows chronic skin changes with edema 2+ bilaterally. PARTNER MANAGEMENT CONSULTANT exam is grossly intact. Labs show serum potassium of 5.0, sodium 140, calcium 8.4. Chest x-ray showed evidence of pulmonary vascular congestion. ASSESSMENT: 1. End-stage renal disease at evidence of volume overload. Will arrange for hemodialysis today and patient will be dialyzed again tomorrow. 2. Volume overload with evidence of cardiomyopathy, ejection fraction 30% to 35% with moderate pulmonary hypertension and tricuspid regurgitation; okay to start patient on Lasix drip since she has fair urine output, although I do not see any urine charted. If patient has no significant urine output, we will discontinue the Lasix drip. 3. Chronic kidney disease, bone mineral disorder, maintained on Renvela. PLAN: Hemodialysis today with ultrafiltration of about 3 liters as tolerated and we will give her a dose of Midodrine prior to dialysis. Thank you for this consultation. Will continue to follow the patient with you during her hospitalization.
--- NOTE | 2016-04-26 15:56 | US ---
EXAMINATION TYPE: US venous doppler duplex LE BI DATE OF EXAM: 04/26/2016 3:49 PM COMPARISON: NONE CLINICAL HISTORY: edema,dvt. SIDE PERFORMED: Bilateral VESSELS IMAGED: External Iliac Vein (EIV) Common Femoral Vein Deep Femoral Vein Greater Saphenous Vein * Femoral Vein unable to see for compression view distally Popliteal Vein Small Saphenous Vein * Proximal Calf Veins (* superficial vessels) Patient of large body habitus with extensive soft tissue edema, exam technically difficult and ceballos ited Right Leg: Appears negative for DVT in this somewhat limited study. Left Leg: Appears negative for DVT in this somewhat limited study. No evidence for DVT at this time. IMPRESSION: No evidence for DVT at this time.
[2016-04-26 17:07] LABS: Glucose,Whole Blood 58 mg/dL (75-99)
[2016-04-26] MEDS ORDERED: ALPRAZolam 0.25 MG TAB PO PRN (17:19)
[2016-04-26] MEDS ORDERED: TEMAZEPAM 15 MG CAP PO PRN (17:19)
[2016-04-26] MEDS ORDERED: MIDODRINE 5 MG TAB PO PRN (17:33)
[2016-04-26 17:36] LABS: Glucose,Whole Blood 57 mg/dL (75-99)
[2016-04-26] MEDS: ALLOPURINOL 100 MG TAB PO SCH (17:57)
--- NOTE | 2016-04-26 18:07 | P.CNPUL ---
History of Present Illness Consult date: 04/26/16 Reason for consult: dyspnea History of present illness: 75-year-old female patient, very well-known to me, coming into the hospital because of worsening shortness of breath along with signs of fluid overload and possible cellulitis of the lower extremities. The patient on admission was also found to have a potassium level of 6.2 that was treated appropriately with a combination of D50, insulin, and Kayexalate. Subsequent potassium levels improved and the patient will be undergoing dialysis today. She was given a dose of vancomycin regarding lower extremity cellulitis. Terms of her shortness of breath, this is a chronic dyspnea related to her multiple medical problems and comorbidities. The patient had a chest x-ray at time of admission that showed no evidence of acute pneumonia or any pulmonary edema or fluid overload. She is known to have cardiomyopathy with an ejection fraction of 35- 40%. She is been doing dialysis on a regular basis 3 times a week and she denies skipping any of her dialysis sessions. No chills. No fever. No change in mental status. No chest pain. 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 Last Myocardial Infarction Date:: September 22, 2007 History of Any Multi-Drug Resistant Organisms: None Reported Past Surgical History: Bowel Resection, Heart Catheterization With Stent, Hysterectomy Additional Past Surgical History / Comment(s): Spur removal in bilateral feet twice and left shoulder once and groin, cataracts removed Past Anesthesia/Blood Transfusion Reactions: No Reported Reaction Date of Last Stent Placement:: September 22, 2007 Past Psychological History: No Psychological Hx Reported Additional Psychological History / Comment(s): patient currently lives at home with her son. Patient states she uses a walker at home stated lt leg drags a bit since stroke, son drives her to her appointments.gets visitng nurse 2x a week Smoking Status: Former smoker Past Alcohol Use History: None Reported Additional Past Alcohol Use History / Comment(s): STARTED SMOKING AT AGE 18 SMOKED 1.5 PPD ,QUIT 2007 Past Drug Use History: None Reported - Past Family History Mother Additional Family Medical History / Comment(s): pt stated was unknown. stated she had an iron lung. at age 31 Father Family Medical History: COPD, Diabetes Mellitus, Myocardial Infarction ([place]) Additional Family Medical History / Comment(s): at age 90. Sister(s) Family Medical History: Diabetes Mellitus Son(s) Family Medical History: Deep Vein Thrombosis (DVT), Myocardial Infarction ([place]) Medications and Allergies Home Medications Medication Instructions Recorded Confirmed Type Albuterol Nebulized [Ventolin 2.5 mg INHALATION RT-QID PRN 03/10/15 04/25/16 History Nebulized] Aspirin EC [Ecotrin Low Dose] 81 mg PO DAILY 03/10/15 04/25/16 History Budesonide/Formoterol Fumarate 2 puff INHALATION RT-BID 03/10/15 04/25/16 History [Symbicort 160-4.5 Mcg Inhaler] Cholecalciferol [Vitamin D3] 5,000 unit PO DAILY 03/10/15 04/25/16 History Clopidogrel [Plavix] 75 mg PO DAILY 03/10/15 04/25/16 History Cyanocobalamin [Vitamin B-12] 500 mcg PO DAILY 03/10/15 04/25/16 History Esomeprazole Magnesium [NexIUM] 40 mg PO DAILY 03/10/15 04/25/16 History Montelukast [Singulair] 10 mg PO DAILY 03/10/15 04/25/16 History Sevelamer [Renvela] 800 mg PO AC-TID 03/10/15 04/25/16 History traZODone HCL 75 mg PO HS PRN 03/10/15 04/25/16 History Insulin Detemir [Levemir] 26 unit SQ HS 07/21/15 04/25/16 History Insulin Aspart [NovoLOG Flexpen] 13 units SQ AC-BID@0800,1200 09/14/15 04/25/16 History Insulin Aspart [NovoLOG Flexpen] 14 units SQ AC-SUPPER 09/14/15 04/25/16 History Isosorbide Mononitrate ER [Imdur] 60 mg PO DAILY 09/14/15 04/25/16 History Ezetimibe [Zetia] 10 mg PO HS 01/17/16 04/25/16 History Allopurinol [Zyloprim] 100 mg PO DAILY 04/25/16 04/25/16 History Atorvastatin [Lipitor] 80 mg PO DAILY 04/25/16 04/25/16 History Gabapentin [Neurontin] 100 mg PO BID 04/25/16 04/25/16 History HYDROcodone/APAP 10-325MG [[place] 1 tab PO Q4HR PRN 04/25/16 04/25/16 History 10-325] Ipratropium Nebulized [Atrovent 0.5 mg INHALATION RT-QID 04/25/16 04/25/16 History Nebulized] Midodrine [ProAmatine] 10 mg PO TUTHSA 04/25/16 04/26/16 History Pramipexole [Mirapex] 0.25 mg PO DAILY 04/25/16 04/25/16 History Midodrine [ProAmatine] 5 mg PO TUTHSA 04/26/16 04/26/16 History Allergies Allergy/AdvReac Type Severity Reaction Status Date / Time atropine sulfate Allergy Rash/Hives Verified 04/25/16 19:57 [From Lomotil] cephalexin monohydrate Allergy Rash/Hives Verified 04/25/16 19:57 [From Keflex] diphenoxylate HCl Allergy Rash/Hives Verified 04/25/16 19:57 [From Lomotil] ibuprofen Allergy Swelling Verified 04/25/16 19:57 baclofen AdvReac Hallucinati Verified 04/25/16 20:47 ons tramadol AdvReac Hallucinati Verified 04/25/16 20:47 ons Physical Exam Vitals: Vital Signs Temp Pulse Pulse Resp BP BP Pulse Ox 04/26/16 15:00 97.3 F L 80 18 97/53 98 04/26/16 11:32 80 04/26/16 11:22 80 04/26/16 11:21 97.6 F 80 18 96/50 100 04/26/16 09:00 74 18 04/26/16 08:39 97.3 F L 74 18 95/54 98 04/26/16 07:32 80 04/26/16 07:18 80 04/26/16 04:00 96.9 F L 80 18 97/54 94 L 04/26/16 00:00 96.8 F L 89 18 99/53 93 L 04/25/16 22:21 97.1 F L 75 18 104/59 Intake and Output 04/26/16 04/26/16 04/26/16 06:59 14:59 22:59 Intake Total 330 70 170 Output Total 0 0 Balance 330 70 170 Intake: IV 330 120 NS 80 120 Vancomycin 1,500 mg In 250 Sodium Chloride 0.9% 250 ml @ 125 mls/hr IVPB ONCE STA Rx#:[id number] Intake, IV Titration 70 50 Amount Furosemide 250 mg In 70 50 Sodium Chloride 0.9% 225 ml @ 10 MG/HR 10 mls/hr IVP .Q24H [facility] Rx#: [id number] Output: Urine 0 0 Other: # Voids 0 0 0 # Bowel Movements 0 Weight 78.7 kg 78.7 kg Patient Weight 04/27/16 06:59 Weight 78.7 kg Patient is calm and comfortable laying comfortably in bed. No acute distress. Following commands and answering questions appropriately.Head exam was generally normal. There was no scleral icterus or corneal arcus. Mucous membranes were moist. Oral hygiene is poor and the patient has multiple missing teeth no goiter or neck masses. No thrush. Lungs sounds are diminished in lung bases bilaterally. Cannot appreciate any wheezing. Crackles are minimal in the lung bases. Heart sounds are irregular positive S1- S2 there is no significant murmurs appreciated. Abdomen soft nontender there is no organomegaly. No direct tenderness or rebound tightness or guarding. Extremities are swollen and there is +1 pitting edema along with some superficial ulceration of the lower extremities bilaterally mainly over the shins along with some limited amount of fluid seeping from the skin and there is significant erythema extending to the ankles and the knees and suspected cellulitis. Pulses in lower extremities are quite diminished at this point. Results - Laboratory Findings CBC and BMP: 04/25/16 20:40 04/26/16 05:46 PT/INR, D-dimer PT 11.6 sec (9.0-12.0) 04/25/16 20:40 INR 1.2 (<1.1) 04/25/16 20:40 D-Dimer 0.88 mg/L FEU (<0.60) H 04/25/16 20:40 Abnormal lab findings: Abnormal Labs 04/25/16 04/26/16 04/26/16 23:12 05:46 06:02 BUN 42 H Creatinine 5.00 H* Glucose 104 H POC Glucose (mg/dL) 101 H 104 H 04/26/16 04/26/16 04/26/16 11:40 16:46 17:16 BUN Creatinine Glucose POC Glucose (mg/dL) 113 H 58 L 57 L - Diagnostic Findings Chest x-ray: image reviewed Assessment and Plan Plan: Assessment 1 chronic dyspnea, multifactorial, no signs of pulmonary edema or decompensated heart failure although the patient may be in some degree of fluid overload. 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 Plan Proceed with dialysis today. Continue vancomycin treatment. Monitor the lower extremity swelling and cellulitic changes. Apply Silvadene cream to lower oximetry wounds and appropriate dressing will be applied. Outpatient medication will be ordered resume. Monitor electrodes including potassium. Chest x-ray was reviewed. No evidence of pneumonia. Asthma is under good control. Allow this patient to use her CPAP machine from home. Unfortunately of perform self function status is poor and her overall prognosis poor based on her comorbidities.
[2016-04-26] MEDS: EZETIMIBE 10 MG TAB PO SCH (19:59)
--- NOTE | 2016-04-26 20:37 | P.CONS ---
History of Present Illness - Reason for Consult Consult date: 04/26/16 - Chief Complaint Lower extremity edema - History of Present Illness 75-year-old female presents to hospital with increasing shortness of breath. She has multiple underlying medical troubles that include end-stage renal disease, coronary artery disease, congestive heart failure, atrial fibrillation and diabetes. She's been dialysis dependent for the last year. Her scheduled be changing in the near future due to transportation problems. She does not relate to missing any recent dialysis but is now volume overloaded and also has hyperkalemia. She constantly was treated with dextrose, insulin and Kayexalate. She will have dialysis today. She was short of breath about at her baseline to slightly worse. Foresee no significant pneumonia but just has some fluid. It is noted that she has a baseline cardiomyopathy after her history of a myocardial infarction. She relates that she's not having high-grade fevers, chills or rigors. However her lower extremities have become much worse. They're much more swollen erythematous as well as uncomfortable. In the been leaking some fluid. Review of Systems HEENT:Denies headache or acute visual change. Denies sinus or mouth discomforts. Denies neck stiffness or pain. Denies significant oral cavity pain. Denies difficulty on swallowing. Lungs: Having some baseline shortness of breath and dyspnea on exertion. Was not having memo orthopnea denies hemoptysis Cardiovascular: Denies significant chest pain, chest wall pain, orthopnea, dyspnea on exertion, syncope Gastrointestinal:Denies nausea, vomiting, diarrhea, constipation, hematemesis, melena, hematochezia. No no significant change of bowel habit noticed. Musculoskeletal: denies significant myalgias or arthralgias. No new joint swelling. Denies new back pain. Skin: As per the HPI Neuro: Denies headache or visual change. Denies any new onset weakness or difficulty with ambulation. Denies falls or seizures. Psychiatric: Patient does not relate that she feels depressed but would like to consider stopping dialysis Endocrine: Chronic fatigue and weight gain Past Medical History Past Medical History: Atrial Fibrillation, Asthma, Heart Failure, CVA/TIA, Diabetes Mellitus, Dialysis, Hyperlipidemia, Hypertension, Myocardial Infarction ([place]), Renal Disease Additional Past Medical History / Comment(s): Obesity, bronchial asthma, obstructive sleep apnea, peripheral neuropathy, congestion heart failure with ejection fraction of 35-40%, multivessel coronary artery disease with previous myocardial infarction, history of CVA with some residual left-sided weakness, renal failure and the patient has end-stage renal disease and currently she is on hemodialysis 3 times a week, diabetes mellitus, peripheral neuropathy, hyperlipidemia, gout, chronic ulceration of the lower extremity with episodic cellulitis of the legs, 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 Last Myocardial Infarction Date:: September 22, 2007 History of Any Multi-Drug Resistant Organisms: None Reported Past Surgical History: Bowel Resection, Heart Catheterization With Stent, Hysterectomy Additional Past Surgical History / Comment(s): Spur removal in bilateral feet twice and left shoulder once and groin, cataracts removed Past Anesthesia/Blood Transfusion Reactions: No Reported Reaction Date of Last Stent Placement:: September 22, 2007 Past Psychological History: No Psychological Hx Reported Additional Psychological History / Comment(s): patient currently lives at home with her son. Patient states she uses a walker at home stated lt leg drags a bit since stroke, son drives her to her appointments.gets visitng nurse 2x a week. . Difficulties getting to her dialysis appointments. 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 No animal exposures. No international travel Smoking Status: Former smoker Past Alcohol Use History: None Reported Additional Past Alcohol Use History / Comment(s): STARTED SMOKING AT AGE 18 SMOKED 1.5 PPD ,QUIT 2007 Past Drug Use History: None Reported - Past Family History Mother Additional Family Medical History / Comment(s): pt stated was unknown. stated she had an iron lung. at age 31 Father Family Medical History: COPD, Diabetes Mellitus, Myocardial Infarction ([place]) Additional Family Medical History / Comment(s): at age 90. Sister(s) Family Medical History: Diabetes Mellitus Son(s) Family Medical History: Deep Vein Thrombosis (DVT), Myocardial Infarction ([place]) Medications and Allergies Home Medications and Allergies Comment(s): Current Medications Acetaminophen/Hydrocodone Bitart (Brickeys 10) 1 each PO Q4HR PRN PRN Reason: Pain Last Admin: 04/26/16 17:24 Dose: 1 each Albuterol/Ipratropium (Duoneb 0.5 Mg-3 Mg/3 Ml Soln) 3 ml IH RT-QID ZAKI Last Admin: 04/26/16 16:33 Dose: Not Given Allopurinol (Zyloprim) 100 mg PO DAILY [facility] Last Admin: 04/26/16 17:57 Dose: Not Given Alprazolam (Xanax) 0.25 mg PO TID PRN PRN Reason: Anxiety Aspirin (Aspirin) 81 mg PO DAILY [facility] Last Admin: 04/26/16 09:18 Dose: 81 mg Atorvastatin Calcium (Lipitor) 80 mg PO DAILY [facility] Last Admin: 04/26/16 09:19 Dose: 80 mg Budesonide/Formoterol Fumarate (Symbicort 160-4.5 Mcg Inhaler) 2 puff INHALATION RT-BID [facility] Last Admin: 04/26/16 07:17 Dose: 2 puff Cholecalciferol (Vitamin D3) 5,000 unit PO DAILY@1200 [facility] Last Admin: 04/26/16 12:05 Dose: 5,000 unit Clopidogrel Bisulfate (Plavix) 75 mg PO DAILY [facility] Last Admin: 04/26/16 09:19 Dose: 75 mg Cyanocobalamin (Vitamin B-12) 500 mcg PO W/LUNCH [facility] Last Admin: 04/26/16 12:05 Dose: 500 mcg Ezetimibe (Zetia) 10 mg PO HS [facility] Last Admin: 04/26/16 19:59 Dose: 10 mg Enoxaparin Sodium (Lovenox) 30 mg SQ DAILY [facility] Last Admin: 04/26/16 08:37 Dose: Not Given Gabapentin (Neurontin) 100 mg PO BID [facility] Last Admin: 04/26/16 19:59 Dose: 100 mg Hydromorphone HCl (Dilaudid) 0.25 mg IVP Q6HR PRN PRN Reason: Pain Last Admin: 04/26/16 12:25 Dose: 0.25 mg Furosemide 250 mg/ Sodium (Chloride) 250 mls @ 10 mls/hr IVP .Q24H [facility] PRN Reason: 10 MG/HR Last Admin: 04/26/16 09:18 Dose: 10 mg/hr, 10 mls/hr Vancomycin HCl 1,000 mg/ (Sodium Chloride) 250 mls @ 125 mls/hr IVPB ONCE ONE Stop: 04/26/16 22:59 Last Admin: 04/26/16 19:58 Dose: 125 mls/hr Insulin Detemir (Levemir) 26 unit SQ [facility] Last Admin: 04/25/16 23:59 Dose: Not Given Insulin Human Lispro (Humalog) 14 unit SQ AC-SUPPER [facility] Last Admin: 04/26/16 16:52 Dose: Not Given Insulin Human Lispro (Humalog) 13 unit SQ BID@0800,1200 [facility] Last Admin: 04/26/16 12:04 Dose: 5 unit Isosorbide Mononitrate (Imdur) 60 mg PO DAILY [facility] Last Admin: 04/26/16 09:19 Dose: 60 mg Midodrine (Proamatine) 5 mg PO TUTHSA PRN PRN Reason: HYPOTENSION DURING DIALYSIS Midodrine (Proamatine) 10 mg PO TuThSa PRN PRN Reason: DIALYSIS Miscellaneous Information (Pharmacy To Dose Iv Vancomycin) 1 each MISCELLANE DIRECTED PRN PRN Reason: Per Protocol Montelukast Sodium (Singulair) 10 mg PO DAILY [facility] Last Admin: 04/26/16 09:19 Dose: 10 mg Multivitamins (Theragran) 1 each PO DAILY@1200 [facility] Nitroglycerin (Nitrostat) 0.4 mg SUBLINGUAL Q5M PRN PRN Reason: Chest Pain Pantoprazole Sodium (Protonix) 40 mg PO AC-BRKFST [facility] Last Admin: 04/26/16 06:10 Dose: 40 mg Pramipexole Dihydrochloride (Mirapex) 0.25 mg PO DAILY [facility] Last Admin: 04/26/16 09:20 Dose: 0.25 mg Sevelamer Carbonate (Renvela) 1,600 mg PO AC-TID [facility] Last Admin: 04/26/16 17:54 Dose: 800 mg Silver Sulfadiazine (Silvadene Cream) 1 applic TOPICAL DAILY [facility] Last Admin: 04/26/16 12:25 Dose: 1 applic Sodium Chloride (Saline Flush) 10 ml IV BID [facility] Last Admin: 04/26/16 19:59 Dose: 10 ml Temazepam (Restoril) 15 mg PO HS PRN PRN Reason: Insomnia Trazodone HCl (Desyrel) 75 mg PO HS PRN PRN Reason: Insomnia Home Medications Medication Instructions Recorded Confirmed Type Albuterol Nebulized [Ventolin 2.5 mg INHALATION RT-QID PRN 03/10/15 04/25/16 History Nebulized] Aspirin EC [Ecotrin Low Dose] 81 mg PO DAILY 03/10/15 04/25/16 History Budesonide/Formoterol Fumarate 2 puff INHALATION RT-BID 03/10/15 04/25/16 History [Symbicort 160-4.5 Mcg Inhaler] Cholecalciferol [Vitamin D3] 5,000 unit PO DAILY 03/10/15 04/25/16 History Clopidogrel [Plavix] 75 mg PO DAILY 03/10/15 04/25/16 History Cyanocobalamin [Vitamin B-12] 500 mcg PO DAILY 03/10/15 04/25/16 History Esomeprazole Magnesium [NexIUM] 40 mg PO DAILY 03/10/15 04/25/16 History Montelukast [Singulair] 10 mg PO DAILY 03/10/15 04/25/16 History Sevelamer [Renvela] 800 mg PO AC-TID 03/10/15 04/25/16 History traZODone HCL 75 mg PO HS PRN 03/10/15 04/25/16 History Insulin Detemir [Levemir] 26 unit SQ HS 07/21/15 04/25/16 History Insulin Aspart [NovoLOG Flexpen] 13 units SQ AC-BID@0800,1200 09/14/15 04/25/16 History Insulin Aspart [NovoLOG Flexpen] 14 units SQ AC-SUPPER 09/14/15 04/25/16 History Isosorbide Mononitrate ER [Imdur] 60 mg PO DAILY 09/14/15 04/25/16 History Ezetimibe [Zetia] 10 mg PO HS 01/17/16 04/25/16 History Allopurinol [Zyloprim] 100 mg PO DAILY 04/25/16 04/25/16 History Atorvastatin [Lipitor] 80 mg PO DAILY 04/25/16 04/25/16 History Gabapentin [Neurontin] 100 mg PO BID 04/25/16 04/25/16 History HYDROcodone/APAP 10-325MG [Brickeys 1 tab PO Q4HR PRN 04/25/16 04/25/16 History 10-325] Ipratropium Nebulized [Atrovent 0.5 mg INHALATION RT-QID 04/25/16 04/25/16 History Nebulized] Midodrine [ProAmatine] 10 mg PO TUTHSA 04/25/16 04/26/16 History Pramipexole [Mirapex] 0.25 mg PO DAILY 04/25/16 04/25/16 History Midodrine [ProAmatine] 5 mg PO TUTHSA 04/26/16 04/26/16 History Allergies Allergy/AdvReac Type Severity Reaction Status Date / Time atropine sulfate Allergy Rash/Hives Verified 04/25/16 19:57 [From Lomotil] cephalexin monohydrate Allergy Rash/Hives Verified 04/25/16 19:57 [From Keflex] diphenoxylate HCl Allergy Rash/Hives Verified 04/25/16 19:57 [From Lomotil] ibuprofen Allergy Swelling Verified 04/25/16 19:57 baclofen AdvReac Hallucinati Verified 04/25/16 20:47 ons tramadol AdvReac Hallucinati Verified 04/25/16 20:47 ons Physical Exam Vitals: Vital Signs Temp Pulse Pulse Resp BP BP Pulse Ox 04/26/16 15:00 97.3 F L 80 18 97/53 98 04/26/16 11:32 80 04/26/16 11:22 80 04/26/16 11:21 97.6 F 80 18 96/50 100 04/26/16 09:00 74 18 04/26/16 08:39 97.3 F L 74 18 95/54 98 04/26/16 07:32 80 04/26/16 07:18 80 04/26/16 04:00 96.9 F L 80 18 97/54 94 L 04/26/16 00:00 96.8 F L 89 18 99/53 93 L 04/25/16 22:21 97.1 F L 75 18 104/59 Intake and Output 04/26/16 04/26/16 04/26/16 06:59 14:59 22:59 Intake Total 330 70 290 Output Total 0 0 Balance 330 70 290 Intake: IV 330 120 NS 80 120 Vancomycin 1,500 mg In 250 Sodium Chloride 0.9% 250 ml @ 125 mls/hr IVPB ONCE STA Rx#:[id number] Intake, IV Titration 70 50 Amount Furosemide 250 mg In 70 50 Sodium Chloride 0.9% 225 ml @ 10 MG/HR 10 mls/hr IVP .Q24H [facility] Rx#: [id number] Oral 120 Output: Urine 0 0 Other: # Voids 0 0 0 # Bowel Movements 0 0 Weight 78.7 kg 78.7 kg Patient Weight 04/27/16 06:59 Weight 78.7 kg 75-year-old woman who is pleasant and cooperative HEENT: Anicteric conjunctiva are pink and moist nasal mucosa grossly intact without significant lesions, there is no thrush. Edentulous Neck: The neck is supple without significant lymphadenopathy or thyromegaly. Lungs: Symmetrical air entry with basilar crackles and few expiratory wheeze without memo bronchial sounds The heart is regular with an audible S1 and S2 soft S4 2/6 systolic murmur left sternal border does not radiate PMI is nondisplaced Abdomen: Obese Positive bowel sounds soft and nontender without palpable masses or organomegaly. There was no guarding or rebound. Extremities: The upper extremities have excellent pulses they are symmetric, no significant petechiae or telangiectasia. No splinter hemorrhages were noted. Fistula for dialysis is in left arm. Has an easily palpated thrill, hand is warm. The lower extremities reveal evidence of the bilateral lower extremity edema. It is circumferential and present to the thighs bilaterally. There is dense erythema over the bilateral lower extremities with small open areas draining a scant amount of yellowish material over both legs. She would since coming to hospital and legs being elevated is slightly better. There is only tender to touch. There is no lymphadenopathy to either groin. No other abnormal lymph nodes are noted. Neuro: Awake alert oriented to person place and time. There are no acute new gross focal sensory motor deficits. Results CBC & Chem 7: 04/25/16 20:40 04/26/16 05:46 Labs: Abnormal Lab Results - Last 24 Hours (Table) 04/25/16 04/26/16 04/26/16 Range/Units 23:12 05:46 06:02 BUN 42 H (7-17) mg/dL Creatinine 5.00 H* (0.52-1.04) mg/dL Glucose 104 H (74-99) mg/dL POC Glucose (mg/dL) 101 H 104 H (75-99) mg/dL 04/26/16 04/26/16 04/26/16 Range/Units 11:40 16:46 17:16 BUN (7-17) mg/dL Creatinine (0.52-1.04) mg/dL Glucose (74-99) mg/dL POC Glucose (mg/dL) 113 H 58 L 57 L (75-99) mg/dL Laboratory Results WBC 4.7 k/uL (3.8-10.6) 04/25/16 20:40 RBC 3.33 m/uL (3.80-5.40) L 04/25/16 20:40 Hgb 11.7 gm/dL (11.4-16.0) 04/25/16 20:40 Hct 37.3 % (34.0-46.0) 04/25/16 20:40 MCV 112.0 fL (80.0-100.0) H 04/25/16 20:40 MCH 35.2 pg (25.0-35.0) H 04/25/16:40 MCHC 31.5 g/dL (31.0-37.0) 04/25/16 20:40 RDW 17.0 % (11.5-15.5) H 04/25/16 20:40 Plt Count 149 k/uL (150-450) L 04/25/16 20:40 Neutrophils % 74 % 04/25/16 20:40 Lymphocytes % 14 % 04/25/16 20:40 Monocytes % 6 % 04/25/16 20:40 Eosinophils % 3 % 04/25/16 20:40 Basophils % 1 % 04/25/16 20:40 Neutrophils # 3.5 k/uL (1.3-7.7) 04/25/16 20:40 Lymphocytes # 0.6 k/uL (1.0-4.8) L 04/25/16 20:40 Monocytes # 0.3 k/uL (0-1.0) 04/25/16 20:40 Eosinophils # 0.1 k/uL (0-0.7) 04/25/16 20:40 Basophils # 0.0 k/uL (0-0.2) 04/25/16 20:40 Hypochromasia Slight 04/25/16 20:40 Anisocytosis Slight 04/25/16 20:40 Macrocytosis Marked 04/25/16 20:40 PT 11.6 sec (9.0-12.0) 04/25/16 20:40 INR 1.2 (<1.1) 04/25/16 20:40 APTT 20.6 sec (22.0-30.0) L 04/25/16 20:40 D-Dimer 0.88 mg/L FEU (<0.60) H 04/25/16 20:40 Sodium 140 mmol/L (137-145) 04/26/16 05:46 Potassium 5.0 mmol/L (3.5-5.1) 04/26/16 05:46 Chloride 101 mmol/L (98-107) 04/26/16 05:46 Carbon Dioxide 28 mmol/L (22-30) 04/26/16 05:46 Anion Gap 11 mmol/L 04/26/16 05:46 BUN 42 mg/dL (7-17) H 04/26/16 05:46 Creatinine 5.00 mg/dL (0.52-1.04) H* 04/26/16 05:46 Est GFR (MDRD) Af Amer 10 (>60 ml/min/1.73 sqM) 04/26/16 05:46 Est GFR (MDRD) Non-Af 8 (>60 ml/min/1.73 sqM) 04/26/16 05:46 Glucose 104 mg/dL (74-99) H 04/26/16 05:46 POC Glucose (mg/dL) 57 mg/dL (75-99) L 04/26/16 17:16 POC Glu Local [employer] Legislator SHERINE Adriana Lundberg 04/26/16 17:16 Plasma Lactic Acid Wally 1.6 mmol/L (0.7-2.0) 04/25/16 21:07 Calcium 8.4 mg/dL (8.4-10.2) 04/26/16 05:46 Magnesium 2.1 mg/dL (1.6-2.3) 04/25/16 20:40 Total Bilirubin 1.3 mg/dL (0.2-1.3) 04/25/16 20:40 AST 26 U/L (14-36) 04/25/16 20:40 ALT 31 U/L (9-52) 04/25/16 20:40 Alkaline Phosphatase 129 U/L (38-126) H 04/25/16 20:40 Total Creatine Kinase 71 U/L (30-135) 04/25/16 20:40 CK-MB (CK-2) 1.5 ng/mL (0.0-2.4) 04/25/16 20:40 CK-MB (CK-2) Rel Index 2.1 04/25/16 20:40 Troponin I 0.048 ng/mL (0.000-0.034) H* 04/25/16 20:40 NT-Pro-B Natriuret Pep 90138 pg/mL 04/25/16 20:40 Total Protein 7.4 g/dL (6.3-8.2) 04/25/16 20:40 Albumin 3.8 g/dL (3.5-5.0) 04/25/16 20:40 Assessment and Plan (1) Cellulitis Narrative/Plan: 75-year-old woman who has multiple medical troubles presents to Hospital feeling shortness of breath and increasing weakness. Was found to have evidence of hyperkalemia has been treated and is receiving dialysis today. She is evidence of the bilateral lower extremity edema that is now much worse. She developed some discomfort increasing erythema and drainage. Vancomycin has been started while cultures are process. Local wound care with Silvadene and wraps has been requested. Elevation of legs while she is at rest. Adequate protein in her diet to help with her protein status. She will receiving dialysis to remove her volume overload. She may do well after discharge to have specialty stockings to help with the lower extremity edema that she is prone to. Venous and arterial Dopplers of lower extremities are requested The patient relates that she would like to consider stopping dialysis. Requesting the social media project manager to see her to make sure she is appropriate counseling for this type of decision. Status: Acute (2) Hyperkalemia Status: Acute (3) CHF (congestive heart failure) Status: Acute (4) ESRD on dialysis Status: Acute
[2016-04-26] MEDS ORDERED: VANCOMYCIN 1,000 MG in SODIUM CHLORIDE 0.9% 250 ML IVPB ONE (21:00)
--- NOTE | 2016-04-26 21:14 | HP ---
DATE OF ADMISSION: CHIEF COMPLAINT: Leg swelling as well as shortness of breath. HISTORY OF PRESENT ILLNESS: This 75-year-old woman with a past medical history of multiple medical problems, including atrial fibrillation, asthma, CHF, CVA, TIA, diabetes mellitus, hemodialysis, hypertension, hyperlipidemia, history of myocardial infarction, history of renal disease, being followed by Dr. Hernandez in the outpatient setting, was complaining of bilateral leg cellulitis, right more than left. The patient was also complaining of weeping from the legs and also complained of shortness of breath. Because of multiple complex medical issues, patient came to [facility] and was admitted for further evaluation and treatment. There is no history of any fever, rigor, chills. No history of headache, loss of consciousness, seizures. PAST MEDICAL HISTORY: 1. History of atrial fibrillation. 2. History of chronic kidney disease. 3. History of asthma. 4. CVA, TIA. 5. Diabetes mellitus, type 2. 6. History of hypertension. 7. Hyperlipidemia. 8. History of myocardial infarction. 9. History of gout. 10. Peripheral neuropathy. 11. History of chronic respiratory failure. Medication prior to admission included: 1. Proamatine 5 mg p.o. Monday, , Monday. 2. Midodrine 10 mg p.o. Monday, and Monday. 3. Zyloprim 100 mg p.o. daily. 4. Atrovent 0.5 q.i.d. 5. Lipitor 80 mg p.o. daily. 6. Ventolin 2.5 mg q.i.d. p.r.n. 7. Nexium 40 mg daily. 8. Vitamin B12 500 mcg p.o. daily. 9. Plavix 75 mg p.o. daily. 10. Vitamin D3 5000 daily. 11. Symbicort 160/4.5 two puffs b.i.d. 12. Ecotrin 81 mg. 13. Levemir 26 subcutaneously at bedtime. 14. Voss 10 mg q.4 p.r.n. 15. Neurontin 100 mg p.o. b.i.d. 16. Zetia 10 mg at bedtime. 17. NovoLog FlexPen 13 units subcutaneously b.i.d. and 14 units before supper. 18. Imdur 60 mg p.o. daily. 19. Singulair 10 mg p.o. daily. 20. Renvela 800 mg before meals t.i.d. 21. Mirapex 0.25 daily. 22. Nitrostat 0.4 sublingually q.5 p.r.n. 23. Trazodone 75 mg at bedtime p.r.n. ALLERGIES: 1. ATROPINE. 2. CEPHALEXIN. 3. DIPHENOXYLATE. 4. IBUPROFEN. 5. BACLOFEN. 6. ULTRAM. FAMILY HISTORY: History of COPD, diabetes mellitus and myocardial infarction in the family. SOCIAL HISTORY: Previous history of smoking. No currently smoking or alcohol intake. REVIEW OF SYSTEMS: ENT: Diminished hearing. Diminished vision. CARDIOVASCULAR SYSTEM: As mentioned earlier. RESPIRATORY SYSTEM: As mentioned earlier. GI: No nausea. : No dysuria. NERVOUS SYSTEM: No numbness or weakness. ALLERGY/IMMUNOLOGY: No asthma, hayfever. MUSCULOSKELETAL: As mentioned earlier. HEMATOLOGY/ONCOLOGY: As mentioned earlier. ENDOCRINE: As mentioned earlier. CONSTITUTIONAL: As mentioned earlier. DERMATOLOGY: As mentioned earlier. RHEUMATOLOGY: Negative.. PSYCHIATRY: As mentioned earlier. PHYSICAL EXAMINATION: Patient is alert and oriented x3. Pulse 80, blood pressure 97/53, respiration 18, temperature 97.2, pulse ox 98% on 2 L. HEENT: Conjunctivae normal. Oral mucosa moist. NECK: No jugular venous distention. No carotid bruit. No lymph node enlargement. CARDIOVASCULAR SYSTEM: S1, S2 muffled. Ejection systolic murmur. No S3. No S4. RESPIRATORY SYSTEM: Breath sounds diminished at the bases. A few scattered rhonchi. No crackles. ABDOMEN: Soft, non-tender. No mass palpable. LEGS: Bilateral leg edema present. Bilateral leg cellulitis. Weeping also present, especially on the right leg more than the left. Pulses diminished. LYMPHATICS: No lymph node palpable in neck, axilla or groin. SKIN: No ulcer, rash, bleeding. JOINTS: No active deformity. NERVOUS SYSTEM: Higher functions as mentioned earlier. Moves all 4 limbs. No focal motor or sensory deficit. LYMPHATICS: No lymph node palpable in neck, axillae or groin. SKIN: As mentioned earlier. LABS: Creatinine is 5. Glucose noted. WBC 4.6. Hemoglobin 11.7. MCV 112. D-dimer is 0.8. Potassium 6.2. ASSESSMENT: 1. Bilateral leg cellulitis, left more than the right. 2. Congestive heart failure, acute exacerbation, with acute on chronic systolic dysfunction; ejection fraction 35% to 40%. 3. Hyperkalemia. 4. Chronic renal failure; chronic kidney disease, stage V, on hemodialysis. 5. Troponin 0.048, indeterminate. 6. Increased mean corpuscular volume, possibly secondary to renal disease. 7. History of atrial fibrillation. 8. History of asthma. 9. History of congestive heart failure. 10. Cerebrovascular accident, transient ischemic attack. 11. History of diabetes mellitus, type 2. 12. Hyperlipidemia. 13. Hypertension. 14. History of myocardial infarction. 15. History of gout. 16. History of peripheral neuropathy. 17. Chronic hypoxic respiratory failure. 18. History of sleep apnea, on CPAP. 19. History of hemodialysis on Monday, Monday, Monday cycle. 20. Chronic obstructive pulmonary disease. 21. Hepatitis as a child. 22. History of bowel resection. 23. History of coronary artery disease and stent. 24. Remote history of nicotine dependence. 25. Obesity; body mass index 33.9. 26. NO CODE, NO CPR, NO VENT. RECOMMENDATIONS AND DISCUSSION: In this 75-year-old woman who presented with multiple complex medical issues, we will monitor the patient closely, continue the current medications, continue with symptomatic treatment. Otherwise, I would recommend broad-spectrum IV antibiotics. Cultures. Hemodialysis. We will monitor potassium. Two-D with Doppler was reviewed. We will continue to monitor. Guarded prognosis because of multiple complex medical issues. Further recommendations to follow.
[2016-04-26 21:31] LABS: Glucose,Whole Blood 99 mg/dL (75-99)
[2016-04-26] MEDS: INSULIN DETEMIR 100 UNIT/ML 10 ML VIAL SQ SCH (22:03)
[2016-04-27 06:35] LABS: Anisocytosis Slight; Basophils # (A) 0.1 k/uL (0-0.2); Basophils % (A) 1 %; CH 35.1; CHCM 30.4; Eosinophils # (A) 0.3 k/uL (0-0.7); Eosinophils % (A) 5 %; HCT 36.9 % (34.0-46.0); HDW 2.41; HGB 11.1 gm/dL (11.4-16.0); Hypochromasia Moderate; Luc # (Auto) 0.15; Luc % (Auto) 3; Lymphocytes # (A) 0.6 k/uL (1.0-4.8); Lymphocytes % (A) 11 %; MCHC 30.1 g/dL (31.0-37.0); MCV 116.2 fL (80.0-100.0); Macrocytosis Marked; Mean Platelet Volume 7.9; Monocytes # (A) 0.3 k/uL (0-1.0); Monocytes % (A) 5 %; Neutrophils # (A) 3.9 k/uL (1.3-7.7); Neutrophils % (A) 75 %; RBC 3.18 m/uL (3.80-5.40); RDW 16.9 % (11.5-15.5); WBC 5.2 k/uL (3.8-10.6); WBC (Perox) 5.88
[2016-04-27] MEDS: SEVELAMER 800 MG TAB PO SCH ×3 (06:47→17:31)
[2016-04-27 06:48] LABS: Glucose,Whole Blood 164 mg/dL (75-99)
[2016-04-27] MEDS: PANTOPRAZOLE 40 MG TABLET PO SCH (06:48)
[2016-04-27 06:51] LABS: Calcium 8.6 mg/dL (8.4-10.2); Potassium 5.8 mmol/L (3.5-5.1)
[2016-04-27] MEDS: CLOPIDOGREL 75 MG TAB PO SCH (08:16)
[2016-04-27] MEDS: FUROSEMIDE 250 MG in SODIUM CHLORIDE 0.9% 225 ML IVP SCH (08:16)
[2016-04-27] MEDS: ALLOPURINOL 100 MG TAB PO SCH (08:16)
[2016-04-27] MEDS: ATORVASTATIN 80 MG TAB PO SCH (08:16)
[2016-04-27] MEDS: ASPIRIN 81 MG CHEW PO SCH (08:16)
[2016-04-27] MEDS: ENOXAPARIN 30 MG/0.3 ML SYRINGE SQ SCH (08:17)
[2016-04-27] MEDS: GABAPENTIN 100 MG CAP PO SCH ×2 (08:17→20:55)
[2016-04-27] MEDS: MONTELUKAST 10 MG TAB PO SCH (08:18)
[2016-04-27] MEDS: ISOSORBIDE MONONITRATE ER 60 MG TAB.ER.24H PO SCH (08:18)
[2016-04-27] MEDS: PRAMIPEXOLE 0.25 MG TAB PO SCH (08:19)
[2016-04-27] MEDS: INSULIN LISPRO (humaLOG) 300 UNIT/3 ML VIAL SQ SCH ×3 (08:22→17:33)
[2016-04-27] MEDS: IPRATROPIUM-ALBUTEROL 3 ML NEB IH SCH ×4 (08:30→21:16)
[2016-04-27] MEDS: SYMBICORT 160-4.5 MCG INHALER INHALATION SCH ×2 (08:32→21:15)
[2016-04-27 08:38] LABS: Polychromasia Present
[2016-04-27] MEDS ORDERED: DOCUSATE 100 MG CAP PO PRN (10:53)
[2016-04-27] MEDS: MULTIVITAMINS, THERA 1 EACH TAB PO SCH (11:23)
[2016-04-27] MEDS: CHOLECALCIFEROL 1,000 UNIT TAB PO SCH (11:23)
[2016-04-27] MEDS: CYANOCOBALAMIN 500 MCG TAB PO SCH (11:23)
[2016-04-27] MEDS ORDERED: BISACODYL 10 MG SUPP RECTAL STA (11:39)
[2016-04-27] MEDS ORDERED: MIDODRINE 5 MG TAB PO ONE (11:47)
[2016-04-27] MEDS ORDERED: MIDODRINE 5 MG TAB PO PRN (11:49)
[2016-04-27] MEDS ORDERED: IV VANCOMYCIN PER PHARMACY 1 EACH MISC MISCELLANE PRN (12:19)
[2016-04-27 12:44] LABS: Glucose,Whole Blood 106 mg/dL (75-99)
--- NOTE | 2016-04-27 14:09 | P.PN ---
Subjective Principal diagnosis: CHF This is a pleasant 75-year-old female who follows with Dr. VC Arana in the office. She has a known history of coronary artery disease with prior stent placement, chronic persistent atrial fibrillation, hypertension, hyperlipidemia, congestive cardiac failure, diabetes, prior CVAs, COPD, sleep apnea, anemia, end-stage renal disease on dialysis. She presents to the hospital with symptoms of progressively worsening shortness of breath, mostly exertional in nature, positive orthopnea, progressive increase in leg swelling and redness. Patient was initiated on IV Lasix drip. She also underwent dialysis yesterday. Her weight is down a kilograms today. She is overall feeling significantly better. Scheduled again to undergo dialysis today. Urine output is extremely minimal. They did do a bladder scan for 500 mL. Patient is going to be straight cathed, if she continues to produce urine after that we will continue the IV Lasix drip, if patient does not produce further urine, Lasix drip will be discontinued. Blood pressure today 97/50 with a heart rate in the 80s to 90s. BUN 28, creatinine 3.7. Objective - Vital Signs Vital signs: Vital Signs Temp 97.3 F L 04/27/16 08:00 Pulse 88 04/27/16 08:45 Resp 18 04/27/16 08:00 BP 97/55 04/27/16 08:00 Pulse Ox 100 04/27/16 08:00 Intake & Output 04/26/16 04/27/16 04/27/16 18:59 06:59 18:59 Intake Total 360 60 229.667 Output Total 0 550 Balance 360 60 -320.333 Weight 78.7 kg 77.5 kg Intake: IV 120 60 NS 120 60 Intake, IV Titration 120 229.667 Amount Furosemide 250 mg In 120 229.667 Sodium Chloride 0.9% 225 ml @ 10 MG/HR 10 mls/hr IVP .Q24H [facility] Rx#: [id number] Oral 120 Output: Urine 0 550 Straight 550 Other: # Voids 0 # Bowel Movements 0 1 - Exam PHYSICAL EXAMINATION: HEENT: Head is atraumatic, normocephalic. Pupils equal, round. Neck is supple. There is no elevated jugular venous pressure. HEART EXAMINATION: Heart S1 and S2 irregular irregular CHEST EXAMINATION: Lungs are clear to auscultation and precussion. No chest wall tenderness is noted on palpation or with deep breathing. ABDOMEN: Soft, nontender. Bowel sounds are heard. No organomegaly noted. EXTREMITIES: 2+ peripheral pulses with trace evidence of peripheral edema and no calf tenderness noted. NEUROLOGIC patient is awake, alert and oriented -3. . - Labs CBC & Chem 7: 04/27/16 06:06 04/27/16 06:06 Labs: Abnormal Lab Results - Last 24 Hours (Table) 04/26/16 04/26/16 04/27/16 Range/Units 16:46 17:16 06:06 RBC 3.18 L (3.80-5.40) m/uL Hgb 11.1 L (11.4-16.0) gm/dL MCV 116.2 H (80.0-100.0) fL MCHC 30.1 L (31.0-37.0) g/dL RDW 16.9 H (11.5-15.5) % Plt Count 134 L (150-450) k/uL Lymphocytes # 0.6 L (1.0-4.8) k/uL Potassium (3.5-5.1) mmol/L BUN (7-17) mg/dL Creatinine (0.52-1.04) mg/dL Glucose (74-99) mg/dL POC Glucose (mg/dL) 58 L 57 L (75-99) mg/dL 04/27/16 04/27/16 04/27/16 Range/Units 06:06 06:32 12:00 RBC (3.80-5.40) m/uL Hgb (11.4-16.0) gm/dL MCV (80.0-100.0) fL MCHC (31.0-37.0) g/dL RDW (11.5-15.5) % Plt Count (150-450) k/uL Lymphocytes # (1.0-4.8) k/uL Potassium 5.8 H (3.5-5.1) mmol/L BUN 28 H (7-17) mg/dL Creatinine 3.70 H (0.52-1.04) mg/dL Glucose 165 H (74-99) mg/dL POC Glucose (mg/dL) 164 H 106 H (75-99) mg/dL Assessment and Plan Plan: Assessment and plan #1 systolic congestive heart failure acute on chronic. Most recent echocardiogram with Doppler study was performed in July of last year which revealed an ejection fraction of 40-45%. Mild to moderate mitral regurg and severe pulmonary hypertension. BNP level 62,600 on admission. #2 end-stage renal disease on dialysis, patient states she does produce minimal amounts of urine. #3 known history of coronary artery disease with prior PCI #4 hypertension #5 diabetes #6 chronic persistent atrial fibrillation, not on anticoagulation, patient has refused anticoagulation in the past. #7 hyperlipidemia #8 COPD #9 prior history of smoking #10 anemia, hemoglobin stable #11 sleep apnea #12 symptoms of exertional chest discomfort, initial troponin 0.048. EKG shows atrial fibrillation with no acute changes. Plan From cardiology's perspective, we will continue Lasix drip. If the patient does not produce further urine, Lasix drip will be discontinued. We will continue to monitor. DNP note has been reviewed, I agree with a documented findings and plan of care. Patient was seen and examined.
--- NOTE | 2016-04-27 15:45 | P.PN ---
Subjective 75-year-old female patient, very well-known to me, coming into the hospital because of worsening shortness of breath along with signs of fluid overload and possible cellulitis of the lower extremities. The patient on admission was also found to have a potassium level of 6.2 that was treated appropriately with a combination of D50, insulin, and Kayexalate. Subsequent potassium levels improved and the patient will be undergoing dialysis today. She was given a dose of vancomycin regarding lower extremity cellulitis. Terms of her shortness of breath, this is a chronic dyspnea related to her multiple medical problems and comorbidities. The patient had a chest x-ray at time of admission that showed no evidence of acute pneumonia or any pulmonary edema or fluid overload. She is known to have cardiomyopathy with an ejection fraction of 35- 40%. She is been doing dialysis on a regular basis 3 times a week and she denies skipping any of her dialysis sessions. No chills. No fever. No change in mental status. No chest pain. On 04/27/2016 the patient is being seen in follow-up. She underwent dialysis yesterday and she was supposed to have to undergo dialysis today and within 30 minutes to dialysis with interrupted knowing that her lines got infiltrated. Based on that, a repeat dialysis will be done tomorrow. Clinically the patient is doing well. No fever. No chills. No night sweats. No shortness of breath. Lower extremities swelling is slowly improving. Objective - Vital Signs Vital signs: Vital Signs Temp 97.1 F L 04/27/16 12:20 Pulse 87 04/27/16 12:20 Resp 18 04/27/16 12:20 BP 106/53 04/27/16 12:20 Pulse Ox 92 L 04/27/16 12:20 Intake & Output 04/26/16 04/27/16 04/27/16 18:59 06:59 18:59 Intake Total 360 60 229.667 Output Total 0 550 Balance 360 60 -320.333 Weight 78.7 kg 77.5 kg Intake: IV 120 60 NS 120 60 Intake, IV Titration 120 229.667 Amount Furosemide 250 mg In 120 229.667 Sodium Chloride 0.9% 225 ml @ 10 MG/HR 10 mls/hr IVP .Q24H [facility] Rx#: [id number] Oral 120 Output: Urine 0 550 Straight 550 Other: # Voids 0 0 # Bowel Movements 0 1 - Exam Patient is calm and comfortable laying comfortably in bed. No acute distress. Following commands and answering questions appropriately.Head exam was generally normal. There was no scleral icterus or corneal arcus. Mucous membranes were moist. Oral hygiene is poor and the patient has multiple missing teeth no goiter or neck masses. No thrush. Lungs sounds are diminished in lung bases bilaterally. Cannot appreciate any wheezing. Crackles are minimal in the lung bases. Heart sounds are irregular positive S1- S2 there is no significant murmurs appreciated. Abdomen soft nontender there is no organomegaly. No direct tenderness or rebound tightness or guarding. Extremities are swollen and there is +1 pitting edema along with some superficial ulceration of the lower extremities bilaterally mainly over the shins along with some limited amount of fluid seeping from the skin and there is significant erythema extending to the ankles and the knees and suspected cellulitis. Pulses in lower extremities are quite diminished at this point. - Labs CBC & Chem 7: 04/27/16 06:06 04/27/16 06:06 Labs: Abnormal Lab Results - Last 24 Hours (Table) 04/26/16 04/26/16 04/27/16 Range/Units 16:46 17:16 06:06 RBC 3.18 L (3.80-5.40) m/uL Hgb 11.1 L (11.4-16.0) gm/dL MCV 116.2 H (80.0-100.0) fL MCHC 30.1 L (31.0-37.0) g/dL RDW 16.9 H (11.5-15.5) % Plt Count 134 L (150-450) k/uL Lymphocytes # 0.6 L (1.0-4.8) k/uL Potassium (3.5-5.1) mmol/L BUN (7-17) mg/dL Creatinine (0.52-1.04) mg/dL Glucose (74-99) mg/dL POC Glucose (mg/dL) 58 L 57 L (75-99) mg/dL 04/27/16 04/27/16 04/27/16 Range/Units 06:06 06:32 12:00 RBC (3.80-5.40) m/uL Hgb (11.4-16.0) gm/dL MCV (80.0-100.0) fL MCHC (31.0-37.0) g/dL RDW (11.5-15.5) % Plt Count (150-450) k/uL Lymphocytes # (1.0-4.8) k/uL Potassium 5.8 H (3.5-5.1) mmol/L BUN 28 H (7-17) mg/dL Creatinine 3.70 H (0.52-1.04) mg/dL Glucose 165 H (74-99) mg/dL POC Glucose (mg/dL) 164 H 106 H (75-99) mg/dL Assessment and Plan Plan: Assessment 1 chronic dyspnea, multifactorial, no signs of pulmonary edema or decompensated heart failure although the patient may be in some degree of fluid overload. 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 Plan Patient will undergo another session of dialysis tomorrow. Continue antibiotics. Monitor the potassium levels. Condition is stable for now. We' ll continue to follow make further recommendations based on her progress. Doppler of the lower extremity showed no evidence of any DVT.
[2016-04-27] MEDS ORDERED: GELATIN SPONGE,ABSORB (SMALL) 1 EACH SPONGE ONE (16:00)
[2016-04-27 17:26] LABS: Glucose,Whole Blood 106 mg/dL (75-99)
--- NOTE | 2016-04-27 18:28 | PN ---
Patient was admitted to the hospital with shortness of breath and volume overload. She was dialyzed yesterday. She had about 3.5 L of ultrafiltration and is feeling much better. Patient was also started on Lasix drip, as it appeared that she had good urine output; however, she has not voided since yesterday, and on bladder scan she was noted to have about 500 mL of urine. A straight cath will be performed, after which she will be monitored, and if there continues to be no significant urine output, the Lasix drip will be discontinued. Patient was on dialysis today, as today is her regular treatment day, but she unfortunately developed infiltration of the needles when she moved her arm on coughing, and therefore the treatment was terminated. She had only 25 minutes of run time. On examination this morning, patient was comfortable. Blood pressure was 106/53, heart rate 87 per minute. She was afebrile. EXAMINATION OF THE HEART: S1 and S2. EXAMINATION OF THE LUNGS: Bilateral breath sounds were heard. ABDOMEN: Soft, obese. Examination of lower extremities showed bilateral extremities to be wrapped. STAFF TOXICOLOGIST EXAM: Patient was moving all 4 extremities. Labs show hemoglobin 11.1 g/dL, potassium 5.8, sodium 138. ASSESSMENT: 1. End-stage renal disease, on hemodialysis on Monday, Monday, Monday schedule as outpatient. Patient will be dialyzed again tomorrow, as she could not run her full treatment today. She had only 25 minutes of treatment, as her needles infiltrated when patient moved her arm upon coughing. We will rest the arm today and plan on dialysis again tomorrow. 2. Diastolic heart failure and volume overload, currently improved. 3. Hyperkalemia associated with end-stage renal disease. We will dialyze her tomorrow on a 2K bath. 4. Severe pulmonary hypertension. 5. Chronic obstructive pulmonary disease. 6. Chronic kidney disease bone mineral disorder, maintained on Renvela for hyperphosphatemia. PLAN: Repeat dialysis tomorrow, as patient was not able to get her treatment today secondary to infiltration of needles when patient moved her arm. Will continue to use midodrine prior to treatment to help with ultrafiltration.
[2016-04-27] MEDS: EZETIMIBE 10 MG TAB PO SCH (20:55)
[2016-04-27 20:57] LABS: Glucose,Whole Blood 122 mg/dL (75-99)
[2016-04-27] MEDS: HYDROmorphone 1 MG/ML 1 ML SYRINGE IVP PRN (21:01)
[2016-04-27] MEDS: INSULIN DETEMIR 100 UNIT/ML 10 ML VIAL SQ SCH (21:02)
--- NOTE | 2016-04-27 22:25 | PN ---
This 75-year-old woman who was admitted with bilateral leg cellulitis is being closely monitored. Patient still receiving hemodialysis at this time. The patient is feeling much better. No chest pain. No palpitations. No fever. Lower extremity ultrasound is pending at this time. Dr. Hernandez is following the patient. On exam, alert and oriented times three. Pulse 87. Blood pressure 106/56, respiratory rate 18, temperature 97.9, pulse ox 92% on room air. HEENT: Conjunctivae normal. Oral mucosa moist. NECK: No jugular venous distention. No carotid bruit. No lymph node enlargement. CARDIOVASCULAR: S1, S2 muffled. RESPIRATORY: Breath sounds diminished at the bases. A few scattered rhonchi and crackles. ABDOMEN: Soft, nontender. LEGS: Bilateral leg cellulitis. CENTRAL NERVOUS SYSTEM: No focal deficits. LABS: Hemoglobin 11.1, Sodium 130, potassium 5.8. ASSESSMENT: 1. Bilateral leg cellulitis, left more than the right. 2. Congestive heart failure acute exacerbation with acute on chronic systolic dysfunction, ejection fraction 35 to 40%. 3. Hyperkalemia. 4. Chronic renal failure with chronic kidney disease, stage V on hemodialysis. 5. Troponin 0.052 indeterminate. 6. Increased MCV, possibly secondary to renal disease. 7. History of atrial fibrillation. 8. History of asthma. 9. History of congestive heart failure. 10. History of cerebrovascular accident, transient ischemic attack. 11. Diabetes mellitus type 2. 12. Hypertension. 13. Hyperlipidemia. 14. History of myocardial infarction. 15. History of gout. 16. Peripheral neuropathy. 17. Chronic hypoxic respiratory failure. On home oxygen. 18. History of sleep apnea, on CPAP. 19. History of hemodialysis on Monday, Monday, Monday cycle. 20. History of chronic obstructive pulmonary disease. 21. Hepatitis as a child. 22. History of bowel resection. 23. History of coronary artery disease and stent. 24. History of nicotine dependence. 25. Obesity with body mass index of 33.9. 26. NO CODE, CPR, NO VENT. RECOMMENDATIONS AND DISCUSSION: Recommend to continue the current medications, continue with monitoring, symptomatic treatment. Otherwise continue antibiotics. Follow up the patient closely. Infectious disease and nephrology. Continue with hemodialysis. Guarded prognosis. Further recommendations to follow.
--- NOTE | 2016-04-27 22:34 | P.PN ---
Subjective Principal diagnosis: Lower extremity edema 75-year-old female presents to hospital with increasing shortness of breath. She has multiple underlying medical troubles that include end-stage renal disease, coronary artery disease, congestive heart failure, atrial fibrillation and diabetes. She's been dialysis dependent for the last year. Her scheduled be changing in the near future due to transportation problems. She does not relate to missing any recent dialysis but is now volume overloaded and also has hyperkalemia. She constantly was treated with dextrose, insulin and Kayexalate. She will have dialysis today. She was short of breath about at her baseline to slightly worse. Foresee no significant pneumonia but just has some fluid. It is noted that she has a baseline cardiomyopathy after her history of a myocardial infarction. She relates that she's not having high-grade fevers, chills or rigors. However her lower extremities have become much worse. They're much more swollen erythematous as well as uncomfortable. In the been leaking some fluid. Feeling better today. Dialysis however could not be completed due to difficulties at her dialysis cycle with a needle. They may try again tomorrow. She for some he does feel that her edema is improved today. She is elevated her legs but she does not routinely do while she is at home and is noticing improvement related to that. Objective - Vital Signs Vital signs: Vital Signs Temp 97 F L 04/27/16 19:53 Pulse 70 04/27/16 19:53 Resp 18 04/27/16 19:53 BP 99/50 04/27/16 19:53 Pulse Ox 99 04/27/16 19:53 Intake & Output 04/27/16 04/27/16 04/28/16 06:59 18:59 06:59 Intake Total 60 409.667 300 Output Total 550 Balance 60 -140.333 300 Weight 77.5 kg Intake: IV 60 NS 60 Intake, IV Titration 229.667 Amount Furosemide 250 mg In 229.667 Sodium Chloride 0.9% 225 ml @ 10 MG/HR 10 mls/hr IVP .Q24H [facility] Rx#: [id number] Oral 180 300 Output: Urine 550 Straight 550 Other: # Voids 0 # Bowel Movements 1 - Exam 75-year-old woman who is pleasant and cooperative HEENT: Anicteric conjunctiva are pink and moist nasal mucosa grossly intact without significant lesions, there is no thrush. Edentulous Neck: The neck is supple without significant lymphadenopathy or thyromegaly. Lungs: Symmetrical air entry with basilar crackles and few expiratory wheeze without memo bronchial sounds The heart is regular with an audible S1 and S2 soft S4 2/6 systolic murmur left sternal border does not radiate PMI is nondisplaced Abdomen: Obese Positive bowel sounds soft and nontender without palpable masses or organomegaly. There was no guarding or rebound. Extremities: The upper extremities have excellent pulses they are symmetric, no significant petechiae or telangiectasia. No splinter hemorrhages were noted. Fistula for dialysis is in left arm. Has an easily palpated thrill, hand is warm. The lower extremities reveal evidence of the bilateral lower extremity edema. It is circumferential and present to the thighs bilaterally. There is dense erythema over the bilateral lower extremities with small open areas draining a scant amount of yellowish material over both legs. She has noted since coming to hospital and legs being elevated are now further improved There is only minimal tenderness to touch. There is no lymphadenopathy to either groin. No other abnormal lymph nodes are noted. Neuro: Awake alert oriented to person place and time. There are no acute new gross focal sensory motor deficits. - Labs CBC & Chem 7: 04/27/16 06:06 04/27/16 06:06 Labs: Abnormal Lab Results - Last 24 Hours (Table) 04/27/16 04/27/16 04/27/16 Range/Units 06:06 06:06 06:32 RBC 3.18 L (3.80-5.40) m/uL Hgb 11.1 L (11.4-16.0) gm/dL MCV 116.2 H (80.0-100.0) fL MCHC 30.1 L (31.0-37.0) g/dL RDW 16.9 H (11.5-15.5) % Plt Count 134 L (150-450) k/uL Lymphocytes # 0.6 L (1.0-4.8) k/uL Potassium 5.8 H (3.5-5.1) mmol/L BUN 28 H (7-17) mg/dL Creatinine 3.70 H (0.52-1.04) mg/dL Glucose 165 H (74-99) mg/dL POC Glucose (mg/dL) 164 H (75-99) mg/dL 04/27/16 04/27/16 04/27/16 Range/Units 12:00 17:01 20:56 RBC (3.80-5.40) m/uL Hgb (11.4-16.0) gm/dL MCV (80.0-100.0) fL MCHC (31.0-37.0) g/dL RDW (11.5-15.5) % Plt Count (150-450) k/uL Lymphocytes # (1.0-4.8) k/uL Potassium (3.5-5.1) mmol/L BUN (7-17) mg/dL Creatinine (0.52-1.04) mg/dL Glucose (74-99) mg/dL POC Glucose (mg/dL) 106 H 106 H 122 H (75-99) mg/dL Laboratory Results WBC 5.2 k/uL (3.8-10.6) 04/27/16 06:06 RBC 3.18 m/uL (3.80-5.40) L 04/27/16 06:06 Hgb 11.1 gm/dL (11.4-16.0) L 04/27/16 06:06 Hct 36.9 % (34.0-46.0) 04/27/16 06:06 MCV 116.2 fL (80.0-100.0) H 04/27/16 06:06 MCH 35.0 pg (25.0-35.0) 04/27/16 06:06 MCHC 30.1 g/dL (31.0-37.0) L 04/27/16 06:06 RDW 16.9 % (11.5-15.5) H 04/27/16 06:06 Plt Count 134 k/uL (150-450) L 04/27/16 06:06 Neutrophils % 75 % 04/27/16 06:06 Lymphocytes % 11 % 04/27/16 06:06 Monocytes % 5 % 04/27/16 06:06 Eosinophils % 5 % 04/27/16 06:06 Basophils % 1 % 04/27/16 06:06 Neutrophils # 3.9 k/uL (1.3-7.7) 04/27/16 06:06 Lymphocytes # 0.6 k/uL (1.0-4.8) L 04/27/16 06:06 Monocytes # 0.3 k/uL (0-1.0) 04/27/16 06:06 Eosinophils # 0.3 k/uL (0-0.7) 04/27/16 06:06 Basophils # 0.1 k/uL (0-0.2) 04/27/16 06:06 Polychromasia Present 04/27/16 06:06 Hypochromasia Moderate 04/27/16 06:06 Poikilocytosis (manual Present 04/27/16 06:06 Anisocytosis Slight 04/27/16 06:06 Macrocytosis Marked 04/27/16 06:06 PT 11.6 sec (9.0-12.0) 04/25/16 20:40 INR 1.2 (<1.1) 04/25/16 20:40 APTT 20.6 sec (22.0-30.0) L 04/25/16 20:40 D-Dimer 0.88 mg/L FEU (<0.60) H 04/25/16 20:40 Sodium 138 mmol/L (137-145) 04/27/16 06:06 Potassium 5.8 mmol/L (3.5-5.1) H 04/27/16 06:06 Chloride 101 mmol/L (98-107) 04/27/16 06:06 Carbon Dioxide 24 mmol/L (22-30) 04/27/16 06:06 Anion Gap 13 mmol/L 04/27/16 06:06 BUN 28 mg/dL (7-17) H 04/27/16 06:06 Creatinine 3.70 mg/dL (0.52-1.04) H 04/27/16 06:06 Est GFR (MDRD) Af Amer 15 (>60 ml/min/1.73 sqM) 04/27/16 06:06 Est GFR (MDRD) Non-Af 12 (>60 ml/min/1.73 sqM) 04/27/16 06:06 Glucose 165 mg/dL (74-99) H 04/27/16 06:06 POC Glucose (mg/dL) 122 mg/dL (75-99) H 04/27/16 20:56 POC Glu Can Filling Room Sweeper ID Jacquelin Ornelas 04/27/16 20:56 Plasma Lactic Acid Wally 1.6 mmol/L (0.7-2.0) 04/25/16 21:07 Calcium 8.6 mg/dL (8.4-10.2) 04/27/16 06:06 Magnesium 2.1 mg/dL (1.6-2.3) 04/25/16 20:40 Total Bilirubin 1.3 mg/dL (0.2-1.3) 04/25/16 20:40 AST 26 U/L (14-36) 04/25/16 20:40 ALT 31 U/L (9-52) 04/25/16 20:40 Alkaline Phosphatase 129 U/L (38-126) H 04/25/16 20:40 Total Creatine Kinase 71 U/L (30-135) 04/25/16 20:40 CK-MB (CK-2) 1.5 ng/mL (0.0-2.4) 04/25/16 20:40 CK-MB (CK-2) Rel Index 2.1 04/25/16 20:40 Troponin I 0.048 ng/mL (0.000-0.034) H* 04/25/16 20:40 NT-Pro-B Natriuret Pep 90255 pg/mL 04/25/16 20:40 Total Protein 7.4 g/dL (6.3-8.2) 04/25/16 20:40 Albumin 3.8 g/dL (3.5-5.0) 04/25/16 20:40 Microbiology 04/25/16 21:18 Blood Blood Culture - Preliminary No Growth after 24 hours Assessment and Plan (1) Cellulitis Narrative/Plan: 75-year-old woman who has multiple medical troubles presents to Hospital feeling shortness of breath and increasing weakness. Was found to have evidence of hyperkalemia has been treated and is receiving dialysis today. She is evidence of the bilateral lower extremity edema that is now much worse. She developed some discomfort increasing erythema and drainage. Vancomycin has been started while cultures are process. Local wound care with Silvadene and wraps has been requested. Elevation of legs while she is at rest. Adequate protein in her diet to help with her protein status. She will receiving dialysis to remove her volume overload. She may do well after discharge to have specialty stockings to help with the lower extremity edema that she is prone to. Venous and arterial Dopplers of lower extremities are requested Patient is improved today. Continue the local care. Cultures are negative. There is no leukocytosis. We'll discontinue vancomycin therapy. Status: Acute (2) Hyperkalemia Status: Acute (3) CHF (congestive heart failure) Status: Acute (4) ESRD on dialysis Status: Acute
[2016-04-28 05:54] LABS: Glucose,Whole Blood 80 mg/dL (75-99)
[2016-04-28] MEDS: PANTOPRAZOLE 40 MG TABLET PO SCH (06:16)
[2016-04-28] MEDS: SEVELAMER 800 MG TAB PO SCH ×3 (06:16→17:30)
[2016-04-28 07:07] LABS: Anisocytosis Slight; Basophils % (A) 0 %; CHCM 30.1; Eosinophils # (A) 0.2 k/uL (0-0.7); Eosinophils % (A) 5 %; HCT 34.3 % (34.0-46.0); HGB 10.5 gm/dL (11.4-16.0); Hypochromasia Moderate; Luc # (Auto) 0.13; Luc % (Auto) 3; Lymphocytes # (A) 0.7 k/uL (1.0-4.8); Lymphocytes % (A) 15 %; MCH 34.6 pg (25.0-35.0); MCHC 30.5 g/dL (31.0-37.0); MCV 113.5 fL (80.0-100.0); Macrocytosis Marked; Mean Platelet Volume 7.5; Monocytes # (A) 0.3 k/uL (0-1.0); Monocytes % (A) 7 %; Neutrophils # (A) 3.3 k/uL (1.3-7.7); Neutrophils % (A) 71 %; RBC 3.02 m/uL (3.80-5.40); RDW 16.5 % (11.5-15.5); WBC 4.7 k/uL (3.8-10.6); WBC (Perox) 4.72
[2016-04-28 07:26] LABS: Calcium 8.6 mg/dL (8.4-10.2); Potassium 4.8 mmol/L (3.5-5.1)
[2016-04-28] MEDS: FUROSEMIDE 250 MG in SODIUM CHLORIDE 0.9% 225 ML IVP SCH (08:21)
[2016-04-28] MEDS: INSULIN LISPRO (humaLOG) 300 UNIT/3 ML VIAL SQ SCH ×3 (08:22→17:27)
[2016-04-28] MEDS: ENOXAPARIN 30 MG/0.3 ML SYRINGE SQ SCH ×2 (08:51→09:04)
[2016-04-28] MEDS: HYDROmorphone 1 MG/ML 1 ML SYRINGE IVP PRN (08:51)
[2016-04-28] MEDS: ASPIRIN 81 MG CHEW PO SCH (08:53)
[2016-04-28] MEDS: IPRATROPIUM-ALBUTEROL 3 ML NEB IH SCH ×4 (08:53→19:48)
[2016-04-28] MEDS: ALLOPURINOL 100 MG TAB PO SCH ×2 (08:53→09:09)
[2016-04-28] MEDS: GABAPENTIN 100 MG CAP PO SCH ×2 (08:53→20:52)
[2016-04-28] MEDS: SYMBICORT 160-4.5 MCG INHALER INHALATION SCH ×2 (08:53→19:48)
[2016-04-28] MEDS: ATORVASTATIN 80 MG TAB PO SCH (08:53)
[2016-04-28] MEDS: CLOPIDOGREL 75 MG TAB PO SCH (08:53)
[2016-04-28] MEDS: MONTELUKAST 10 MG TAB PO SCH (08:54)
[2016-04-28] MEDS: PRAMIPEXOLE 0.25 MG TAB PO SCH (08:54)
[2016-04-28] MEDS: ISOSORBIDE MONONITRATE ER 60 MG TAB.ER.24H PO SCH (08:54)
[2016-04-28 11:47] LABS: Glucose,Whole Blood 132 mg/dL (75-99)
[2016-04-28] MEDS: MIDODRINE 5 MG TAB PO PRN (12:15)
[2016-04-28] MEDS: MULTIVITAMINS, THERA 1 EACH TAB PO SCH (12:16)
[2016-04-28] MEDS: CYANOCOBALAMIN 500 MCG TAB PO SCH (12:16)
[2016-04-28] MEDS: CHOLECALCIFEROL 1,000 UNIT TAB PO SCH (12:16)
--- NOTE | 2016-04-28 12:44 | P.PN ---
Subjective Principal diagnosis: CHF This is a pleasant 75-year-old female who follows with Dr. VC Arana in the office. She has a known history of coronary artery disease with prior stent placement, chronic persistent atrial fibrillation, hypertension, hyperlipidemia, congestive cardiac failure, diabetes, prior CVAs, COPD, sleep apnea, anemia, end-stage renal disease on dialysis. She presents to the hospital with symptoms of progressively worsening shortness of breath, mostly exertional in nature, positive orthopnea, progressive increase in leg swelling and redness. Patient was initiated on IV Lasix drip. Scheduled to go under dialysis again today. IV Lasix drip was discontinued, patient has had no further noted urine production. Today she is feeling much better again overall. Breathing is stable, edema down. Objective - Vital Signs Vital signs: Vital Signs Temp 97 F L 04/28/16 08:25 Pulse 80 04/28/16 12:14 Resp 16 04/28/16 12:14 BP 100/49 04/28/16 12:14 Pulse Ox 95 04/28/16 12:14 Intake & Output 04/27/16 04/28/16 04/28/16 18:59 06:59 18:59 Intake Total 409.667 520 120 Output Total 550 500 Balance -140.333 20 120 Intake: IV 220 Furosemide 250 mg In 110 Sodium Chloride 0.9% 225 ml @ 10 MG/HR 10 mls/hr IVP .Q24H ZAKI Rx#: [id number] NS 110 Intake, IV Titration 229.667 Amount Furosemide 250 mg In 229.667 Sodium Chloride 0.9% 225 ml @ 10 MG/HR 10 mls/hr IVP .Q24H ZAKI Rx#: [id number] Oral 180 300 120 Output: Urine 550 500 Straight 550 500 Other: # Voids 0 - Exam PHYSICAL EXAMINATION: HEENT: Head is atraumatic, normocephalic. Pupils equal, round. Neck is supple. There is no elevated jugular venous pressure. HEART EXAMINATION: Heart S1 and S2 irregular irregular CHEST EXAMINATION: Lungs are clear to auscultation and precussion. No chest wall tenderness is noted on palpation or with deep breathing. ABDOMEN: Soft, nontender. Bowel sounds are heard. No organomegaly noted. EXTREMITIES: 2+ peripheral pulses with trace evidence of peripheral edema and no calf tenderness noted. NEUROLOGIC patient is awake, alert and oriented -3. . - Labs CBC & Chem 7: 04/28/16 06:37 04/28/16 06:37 Labs: Abnormal Lab Results - Last 24 Hours (Table) 04/27/16 04/27/16 04/27/16 Range/Units 12:00 17:01 20:56 RBC (3.80-5.40) m/uL Hgb (11.4-16.0) gm/dL MCV (80.0-100.0) fL MCHC (31.0-37.0) g/dL RDW (11.5-15.5) % Plt Count (150-450) k/uL Lymphocytes # (1.0-4.8) k/uL BUN (7-17) mg/dL Creatinine (0.52-1.04) mg/dL POC Glucose (mg/dL) 106 H 106 H 122 H (75-99) mg/dL 04/28/16 04/28/16 04/28/16 Range/Units 06:37 06:37 11:45 RBC 3.02 L (3.80-5.40) m/uL Hgb 10.5 L (11.4-16.0) gm/dL MCV 113.5 H (80.0-100.0) fL MCHC 30.5 L (31.0-37.0) g/dL RDW 16.5 H (11.5-15.5) % Plt Count 127 L (150-450) k/uL Lymphocytes # 0.7 L (1.0-4.8) k/uL BUN 38 H (7-17) mg/dL Creatinine 4.51 H (0.52-1.04) mg/dL POC Glucose (mg/dL) 132 H (75-99) mg/dL Assessment and Plan Plan: Assessment and plan #1 systolic congestive heart failure acute on chronic. Echo cardiogram with Doppler study revealed an ejection fraction of 35-40%. #2 end-stage renal disease on dialysis, patient states she does produce minimal amounts of urine. #3 known history of coronary artery disease with prior PCI #4 hypertension #5 diabetes #6 chronic persistent atrial fibrillation, not on anticoagulation, patient has refused anticoagulation in the past. #7 hyperlipidemia #8 COPD #9 prior history of smoking #10 anemia, hemoglobin stable #11 sleep apnea #12 symptoms of exertional chest discomfort, initial troponin 0.048. EKG shows atrial fibrillation with no acute changes. Plan From cardiology's perspective, IV Lasix drip has been discontinued. We will continue current medications. Discharge 1 cleared by nephrology and primary doctor. DNP note has been reviewed, I agree with a documented findings and plan of care. Patient was seen and examined.
--- NOTE | 2016-04-28 15:08 | PN ---
Patient is seen for follow-up for end-stage renal disease. She could not be dialyzed yesterday as her arm infiltrated 25 minutes into treatment. Patient is being dialyzed today. She is comfortable. She denies any major complaints. She had about 500 mL of urine overnight and had straight cath done at about 3:00 a.m. Lasix drip is now discontinued. On examination, blood pressure is 100/49, heart rate 76 per minute. She is afebrile. Examination of the heart S1 and S2. Examination of the lungs: Bilateral breath sounds are heard. Abdomen is soft, obese. Examination of lower extremities shows bilateral extremities to be wrapped, edema 2+ is noted bilaterally with chronic skin changes. Labs show potassium 4.8, sodium 137. Hemoglobin 10.5 g/dL. ASSESSMENT: 1. End-stage renal disease on hemodialysis now on a Monday, , Monday schedule as outpatient. Patient has recently switched. 2. Volume overload, currently improved. We will plan to dialyze her again tomorrow if she is still in the hospital. 3. Severe pulmonary hypertension. 4. Chronic obstructive pulmonary disease. 5. History of cerebrovascular accident. 6. Metabolic bone disease. PLAN: Hemodialysis today and repeat in a.m. if patient is still in the hospital.
[2016-04-28] MEDS: HYDROcodone/APAP 10-325MG 1 EACH TAB PO PRN (15:09)
--- NOTE | 2016-04-28 16:41 | P.PN ---
Katelyn Hermosillo is a pleasant 75-year-old female patient, very well-known to me, coming into the hospital because of worsening shortness of breath along with signs of fluid overload and possible cellulitis of the lower extremities. The patient on admission was also found to have a potassium level of 6.2 that was treated appropriately with a combination of D50, insulin, and Kayexalate. Subsequent potassium levels improved and the patient will be undergoing dialysis today. She was given a dose of vancomycin regarding lower extremity cellulitis. Terms of her shortness of breath, this is a chronic dyspnea related to her multiple medical problems and comorbidities. The patient had a chest x-ray at time of admission that showed no evidence of acute pneumonia or any pulmonary edema or fluid overload. She is known to have cardiomyopathy with an ejection fraction of 35-40%. She is been doing dialysis on a regular basis 3 times a week and she denies skipping any of her dialysis sessions. No chills. No fever. No change in mental status. No chest pain. On 04/27/2016 the patient is being seen in follow-up. She underwent dialysis yesterday and she was supposed to have to undergo dialysis today and within 30 minutes to dialysis with interrupted knowing that her lines got infiltrated. Based on that, a repeat dialysis will be done tomorrow. Clinically the patient is doing well. No fever. No chills. No night sweats. No shortness of breath. Lower extremities swelling is slowly improving. She is seen again today 04/28/2016 in follow-up on the selective care unit. She is awake and alert in no acute distress. Yesterday her dialysis treatment was discontinued early secondary to infiltration of her lines. She is due for repeat dialysis today. She denies any worsening shortness of breath, cough or congestion. The cellulitis of the lower extremities is slightly improved. The cultures reveal no growth. He is afebrile. No leukocytosis. Objective - Vital Signs Vital signs: Vital Signs Temp 97 F L 04/28/16 08:25 Pulse 76 04/28/16 15:38 Resp 16 04/28/16 12:14 BP 100/49 04/28/16 12:14 Pulse Ox 95 04/28/16 12:14 Intake & Output 04/27/16 04/28/16 04/28/16 18:59 06:59 18:59 Intake Total 409.667 520 720 Output Total 550 500 Balance -140.333 20 720 Intake: IV 220 10 Furosemide 250 mg In 110 10 Sodium Chloride 0.9% 225 ml @ 10 MG/HR 10 mls/hr IVP .Q24H ZAKI Rx#: [id number] NS 110 Intake, IV Titration 229.667 Amount Furosemide 250 mg In 229.667 Sodium Chloride 0.9% 225 ml @ 10 MG/HR 10 mls/hr IVP .Q24H ZAKI Rx#: [id number] Oral 180 300 710 Output: Urine 550 500 Straight 550 500 Other: # Voids 0 0 - Exam Patient is calm and comfortable laying comfortably in bed. No acute distress. Following commands and answering questions appropriately.Head exam was generally normal. There was no scleral icterus or corneal arcus. Mucous membranes were moist. Oral hygiene is poor and the patient has multiple missing teeth no goiter or neck masses. No thrush. Lungs sounds are diminished in lung bases bilaterally. Cannot appreciate any wheezing. Crackles are minimal in the lung bases. Heart sounds are irregular positive S1- S2 there is no significant murmurs appreciated. Abdomen soft nontender there is no organomegaly. No direct tenderness or rebound tightness or guarding. Extremities are swollen and there is +1 pitting edema along with some superficial ulceration of the lower extremities bilaterally mainly over the shins along with some limited amount of fluid seeping from the skin and there is significant erythema extending to the ankles and the knees and suspected cellulitis. Pulses in lower extremities are quite diminished at this point. - Labs CBC & Chem 7: 04/28/16 06:37 04/28/16 06:37 Labs: Abnormal Lab Results - Last 24 Hours (Table) 04/27/16 04/27/16 04/28/16 Range/Units 17:01 20:56 06:37 RBC 3.02 L (3.80-5.40) m/uL Hgb 10.5 L (11.4-16.0) gm/dL MCV 113.5 H (80.0-100.0) fL MCHC 30.5 L (31.0-37.0) g/dL RDW 16.5 H (11.5-15.5) % Plt Count 127 L (150-450) k/uL Lymphocytes # 0.7 L (1.0-4.8) k/uL BUN (7-17) mg/dL Creatinine (0.52-1.04) mg/dL POC Glucose (mg/dL) 106 H 122 H (75-99) mg/dL 04/28/16 04/28/16 Range/Units 06:37 11:45 RBC (3.80-5.40) m/uL Hgb (11.4-16.0) gm/dL MCV (80.0-100.0) fL MCHC (31.0-37.0) g/dL RDW (11.5-15.5) % Plt Count (150-450) k/uL Lymphocytes # (1.0-4.8) k/uL BUN 38 H (7-17) mg/dL Creatinine 4.51 H (0.52-1.04) mg/dL POC Glucose (mg/dL) 132 H (75-99) mg/dL Assessment and Plan Plan: Assessment 1 chronic dyspnea, multifactorial, no signs of pulmonary edema or decompensated heart failure although the patient may be in some degree of fluid overload. 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 Plan The patient was seen and evaluated by Dr. Hernandez. We'll continue with her current medications. She is stable from the pulmonary standpoint. She is to utilize her home CPAP nightly and throughout the day as needed. We will increase her activity as tolerated. We'll continue to follow make further recommendations based on her clinical status.
[2016-04-28] MEDS: HEPARIN SODIUM,PORCINE 5,000 UNIT/ML 1 ML VIAL SQ SCH ×2 (16:44→22:56)
[2016-04-28 16:52] LABS: Glucose,Whole Blood 44 mg/dL (75-99)
[2016-04-28 17:03] LABS: Glucose,Whole Blood 74 mg/dL (75-99)
--- NOTE | 2016-04-28 20:33 | PN ---
This 75-year-old female patient who was admitted ( ) exacerbation was initially on IV Lasix, which was subsequently discontinued, and patient was started on ( ). Patient has end-stage renal disease and patient's ejection fraction is 35% to 40%. Patient has bilateral lower extremity chronic venostasis. Patient is feeling better, undergoing hemodialysis, around 3.5 L, and patient will undergo hemodialysis tomorrow. Possibility of discharge after that. Patient still has a bit of crackles on the lung exam. REVIEW OF SYSTEMS: CARDIOVASCULAR: No chest pain, no orthopnea, no PND, no palpitations. PULMONARY: Improved shortness of breath. GASTROINTESTINAL: No diarrhea, nausea or vomiting. No abdominal pain. Normoactive bowel sounds. NEUROLOGIC: No headaches, no weakness, no numbness. Medications were reviewed. PHYSICAL EXAMINATION: VITAL SIGNS: Temperature 97.0, pulse of 86, respiratory rate of 16, blood pressure 101/50. Saturating at 95% on 2 L of oxygen by nasal cannula. GENERAL: The patient is alert and oriented x3, not in any acute distress. Well developed, well nourished. HEENT: Pupils are round and equally reacting to light. EOMI. No scleral icterus. No conjunctival pallor. Normocephalic, atraumatic. No pharyngeal erythema. No thyromegaly. CARDIOVASCULAR: S1 and S2 present. No murmurs, rubs, or gallops. PULMONARY: Bibasilar crackles were heard. Patient still has a little bit of JVD. ABDOMEN: Soft, nontender, nondistended, normoactive bowel sounds. No palpable organomegaly. MUSCULOSKELETAL: No joint swelling or deformity. EXTREMITIES: No cyanosis, clubbing, or pedal edema. NEUROLOGICAL: Gross neurological examination did not reveal any focal deficits. SKIN: No rashes. LABORATORY DATA: CBC, CMP are abnormal for elevated creatinine of 4.51 and BUN of 38. ASSESSMENT AND PLAN: 1. Acute hypoxic respiratory failure secondary to congestive heart failure, chronic systolic dysfunction, with acute exacerbation. 2. End-stage renal disease. Patient is currently on hemodialysis, which contributed to her pulmonary edema, too. 3. Hyperkalemia due to renal failure, which resolved at this point of time. 4. Bilateral chronic venostasis without any signs or symptoms of infection. Antibiotics were discontinued. 5. Atrial fibrillation. Patient is declining any kind of anticoagulation. Patient has even declined DVT prophylaxis with subcutaneous heparin. Enoxaparin was discontinued. 6. Obstructive sleep apnea, on CPAP. Patient will continue with CPAP machine. 7. History of cerebrovascular accident in the past. 8. Peripheral neuropathy. 9. Hyperlipidemia.
[2016-04-28 20:46] LABS: Glucose,Whole Blood 133 mg/dL (75-99)
[2016-04-28] MEDS: EZETIMIBE 10 MG TAB PO SCH (20:53)
[2016-04-28] MEDS: INSULIN DETEMIR 100 UNIT/ML 10 ML VIAL SQ SCH (20:59)
--- NOTE | 2016-04-28 22:31 | P.PN ---
Subjective Principal diagnosis: Lower extremity edema 75-year-old female presents to hospital with increasing shortness of breath. She has multiple underlying medical troubles that include end-stage renal disease, coronary artery disease, congestive heart failure, atrial fibrillation and diabetes. She's been dialysis dependent for the last year. Her scheduled be changing in the near future due to transportation problems. She does not relate to missing any recent dialysis but is now volume overloaded and also has hyperkalemia. She constantly was treated with dextrose, insulin and Kayexalate. She will have dialysis today. She was short of breath about at her baseline to slightly worse. Foresee no significant pneumonia but just has some fluid. It is noted that she has a baseline cardiomyopathy after her history of a myocardial infarction. She relates that she's not having high-grade fevers, chills or rigors. However her lower extremities have become much worse. They're much more swollen erythematous as well as uncomfortable. In the been leaking some fluid. Feeling better today. Dialysis yesterday could not be completed due to difficulties at her dialysis cycle with a needle. She for some he does feel that her edema is improved today. She is elevated her legs but she does not routinely do while she is at home and is noticing improvement related to that. Head dialysis and with this has been having some improved edema today Objective - Vital Signs Vital signs: Vital Signs Temp 97.6 F 04/28/16 19:27 Pulse 76 04/28/16 19:51 Resp 16 04/28/16 19:27 BP 109/51 04/28/16 19:27 Pulse Ox 97 04/28/16 19:27 Intake & Output 04/28/16 04/28/16 04/29/16 06:59 18:59 06:59 Intake Total 520 840 Output Total 500 Balance 20 840 Intake: IV 220 10 Furosemide 250 mg In 110 10 Sodium Chloride 0.9% 225 ml @ 10 MG/HR 10 mls/hr IVP .Q24H ZAKI Rx#: [id number] NS 110 Oral 300 830 Output: Urine 500 Straight 500 Other: # Voids 0 - Exam 75-year-old woman who is pleasant and cooperative HEENT: Anicteric conjunctiva are pink and moist nasal mucosa grossly intact without significant lesions, there is no thrush. Edentulous Neck: The neck is supple without significant lymphadenopathy or thyromegaly. Lungs: Symmetrical air entry with basilar crackles and few expiratory wheeze without memo bronchial sounds The heart is regular with an audible S1 and S2 soft S4 2/6 systolic murmur left sternal border does not radiate PMI is nondisplaced Abdomen: Obese Positive bowel sounds soft and nontender without palpable masses or organomegaly. There was no guarding or rebound. Extremities: The upper extremities have excellent pulses they are symmetric, no significant petechiae or telangiectasia. No splinter hemorrhages were noted. Fistula for dialysis is in left arm. Has an easily palpated thrill, hand is warm. The lower extremities reveal evidence of the bilateral lower extremity edema. It is circumferential and present to the thighs bilaterally. There is dense erythema over the bilateral lower extremities with small open areas draining a scant amount of yellowish material over both legs. She has noted since coming to hospital and legs being elevated are now further improved There is only minimal tenderness to touch. There is no lymphadenopathy to either groin. No other abnormal lymph nodes are noted. Neuro: Awake alert oriented to person place and time. There are no acute new gross focal sensory motor deficits. - Labs CBC & Chem 7: 04/28/16 06:37 04/28/16 06:37 Labs: Abnormal Lab Results - Last 24 Hours (Table) 04/28/16 04/28/16 04/28/16 Range/Units 06:37 06:37 11:45 RBC 3.02 L (3.80-5.40) m/uL Hgb 10.5 L (11.4-16.0) gm/dL MCV 113.5 H (80.0-100.0) fL MCHC 30.5 L (31.0-37.0) g/dL RDW 16.5 H (11.5-15.5) % Plt Count 127 L (150-450) k/uL Lymphocytes # 0.7 L (1.0-4.8) k/uL BUN 38 H (7-17) mg/dL Creatinine 4.51 H (0.52-1.04) mg/dL POC Glucose (mg/dL) 132 H (75-99) mg/dL 04/28/16 04/28/16 04/28/16 Range/Units 16:42 16:57 20:34 RBC (3.80-5.40) m/uL Hgb (11.4-16.0) gm/dL MCV (80.0-100.0) fL MCHC (31.0-37.0) g/dL RDW (11.5-15.5) % Plt Count (150-450) k/uL Lymphocytes # (1.0-4.8) k/uL BUN (7-17) mg/dL Creatinine (0.52-1.04) mg/dL POC Glucose (mg/dL) 44 L 74 L 133 H (75-99) mg/dL Laboratory Results WBC 4.7 k/uL (3.8-10.6) 04/28/16 06:37 RBC 3.02 m/uL (3.80-5.40) L 04/28/16 06:37 Hgb 10.5 gm/dL (11.4-16.0) L 04/28/16 06:37 Hct 34.3 % (34.0-46.0) 04/28/16 06:37 MCV 113.5 fL (80.0-100.0) H 04/28/16 06:37 MCH 34.6 pg (25.0-35.0) 04/28/16 06:37 MCHC 30.5 g/dL (31.0-37.0) L 04/28/16 06:37 RDW 16.5 % (11.5-15.5) H 04/28/16 06:37 Plt Count 127 k/uL (150-450) L 04/28/16 06:37 Neutrophils % 71 % 04/28/16 06:37 Lymphocytes % 15 % 04/28/16 06:37 Monocytes % 7 % 04/28/16 06:37 Eosinophils % 5 % 04/28/16 06:37 Basophils % 0 % 04/28/16 06:37 Neutrophils # 3.3 k/uL (1.3-7.7) 04/28/16 06:37 Lymphocytes # 0.7 k/uL (1.0-4.8) L 04/28/16 06:37 Monocytes # 0.3 k/uL (0-1.0) 04/28/16 06:37 Eosinophils # 0.2 k/uL (0-0.7) 04/28/16 06:37 Basophils # 0.0 k/uL (0-0.2) 04/28/16 06:37 Polychromasia Present 04/27/16 06:06 Hypochromasia Moderate 04/28/16 06:37 Poikilocytosis (manual Present 04/27/16 06:06 Anisocytosis Slight 04/28/16 06:37 Macrocytosis Marked 04/28/16 06:37 PT 11.6 sec (9.0-12.0) 04/25/16 20:40 INR 1.2 (<1.1) 04/25/16 20:40 APTT 20.6 sec (22.0-30.0) L 04/25/16 20:40 D-Dimer 0.88 mg/L FEU (<0.60) H 04/25/16 20:40 Sodium 137 mmol/L (137-145) 04/28/16 06:37 Potassium 4.8 mmol/L (3.5-5.1) 04/28/16 06:37 Chloride 101 mmol/L (98-107) 04/28/16 06:37 Carbon Dioxide 23 mmol/L (22-30) 04/28/16 06:37 Anion Gap 13 mmol/L 04/28/16 06:37 BUN 38 mg/dL (7-17) H 04/28/16 06:37 Creatinine 4.51 mg/dL (0.52-1.04) H 04/28/16 06:37 Est GFR (MDRD) Af Amer 12 (>60 ml/min/1.73 sqM) 04/28/16 06:37 Est GFR (MDRD) Non-Af 10 (>60 ml/min/1.73 sqM) 04/28/16 06:37 Glucose 81 mg/dL (74-99) 04/28/16 06:37 POC Glucose (mg/dL) 133 mg/dL (75-99) H 04/28/16 20:34 POC Glu [employer] Sales [employer] ID Alla Gallegos 04/28/16 20:34 Plasma Lactic Acid Wally 1.6 mmol/L (0.7-2.0) 04/25/16 21:07 Calcium 8.6 mg/dL (8.4-10.2) 04/28/16 06:37 Magnesium 2.1 mg/dL (1.6-2.3) 04/25/16 20:40 Total Bilirubin 1.3 mg/dL (0.2-1.3) 04/25/16 20:40 AST 26 U/L (14-36) 04/25/16 20:40 ALT 31 U/L (9-52) 04/25/16 20:40 Alkaline Phosphatase 129 U/L (38-126) H 04/25/16 20:40 Total Creatine Kinase 71 U/L (30-135) 04/25/16 20:40 CK-MB (CK-2) 1.5 ng/mL (0.0-2.4) 04/25/16 20:40 CK-MB (CK-2) Rel Index 2.1 04/25/16 20:40 Troponin I 0.048 ng/mL (0.000-0.034) H* 04/25/16 20:40 NT-Pro-B Natriuret Pep 86547 pg/mL 04/25/16 20:40 Total Protein 7.4 g/dL (6.3-8.2) 04/25/16 20:40 Albumin 3.8 g/dL (3.5-5.0) 04/25/16 20:40 Random Vancomycin 12.8 ug/mL 04/28/16 06:37 Microbiology 04/25/16 21:18 Blood Blood Culture - Preliminary No Growth after 48 hours Assessment and Plan (1) Cellulitis Narrative/Plan: 75-year-old woman who has multiple medical troubles presents to Hospital feeling shortness of breath and increasing weakness. Was found to have evidence of hyperkalemia has been treated and is receiving dialysis today. She is evidence of the bilateral lower extremity edema that is now much worse. She developed some discomfort increasing erythema and drainage. Vancomycin has been started while cultures are process. Local wound care with Silvadene and wraps has been requested. Elevation of legs while she is at rest. Adequate protein in her diet to help with her protein status. She will receiving dialysis to remove her volume overload. She may do well after discharge to have specialty stockings to help with the lower extremity edema that she is prone to. Venous and arterial Dopplers of lower extremities are requested Patient is improved today. Continue the local care. Cultures are negative. There is no leukocytosis. Vancomycin therapy discontinued with no worsening. Patient instructed in the importance of elevation. Status: Acute (2) Hyperkalemia Status: Acute (3) CHF (congestive heart failure) Status: Acute (4) ESRD on dialysis Status: Acute
[2016-04-29] MEDS ORDERED: NA PHOS,M-B/NA PHOS,DI-BA 133 ML ENEMA RECTAL STA (00:33)
[2016-04-29] MEDS ORDERED: GLYCERIN ADULT SUPPOSITORY 1 EACH RECTAL PRN (00:33)
[2016-04-29] MEDS ORDERED: MAGNESIUM HYDROXIDE 2,400 MG/10 ML CUP PO ONE (01:15)
[2016-04-29 06:48] LABS: Anisocytosis Slight; Basophils % (A) 0 %; CH 34.6; CHCM 31.1; Eosinophils # (A) 0.2 k/uL (0-0.7); Eosinophils % (A) 5 %; HCT 33.3 % (34.0-46.0); HDW 2.64; HGB 10.6 gm/dL (11.4-16.0); Hypochromasia Slight; Luc # (Auto) 0.12; Luc % (Auto) 3; Lymphocytes # (A) 0.6 k/uL (1.0-4.8); Lymphocytes % (A) 13 %; MCH 35.5 pg (25.0-35.0); MCHC 31.7 g/dL (31.0-37.0); MCV 111.9 fL (80.0-100.0); Macrocytosis Marked; Mean Platelet Volume 8.9; Monocytes # (A) 0.2 k/uL (0-1.0); Monocytes % (A) 5 %; Neutrophils # (A) 3.2 k/uL (1.3-7.7); Neutrophils % (A) 73 %; RBC 2.97 m/uL (3.80-5.40); RDW 16.7 % (11.5-15.5); WBC 4.4 k/uL (3.8-10.6); WBC (Perox) 4.97
[2016-04-29 07:10] LABS: Calcium 8.8 mg/dL (8.4-10.2); Magnesium 1.8 mg/dL (1.6-2.3); Potassium 4.5 mmol/L (3.5-5.1)
[2016-04-29] MEDS: INSULIN LISPRO (humaLOG) 300 UNIT/3 ML VIAL SQ SCH (07:41)
[2016-04-29] MEDS: HEPARIN SODIUM,PORCINE 5,000 UNIT/ML 1 ML VIAL SQ SCH (07:42)
[2016-04-29 07:46] LABS: Glucose,Whole Blood 98 mg/dL (75-99)
[2016-04-29 07:51] LABS: Manual Review Performed
[2016-04-29] MEDS: SEVELAMER 800 MG TAB PO SCH ×2 (07:54→14:24)
[2016-04-29] MEDS: PANTOPRAZOLE 40 MG TABLET PO SCH (07:55)
[2016-04-29] MEDS: ATORVASTATIN 80 MG TAB PO SCH (08:04)
[2016-04-29] MEDS: CLOPIDOGREL 75 MG TAB PO SCH (08:04)
[2016-04-29] MEDS: GABAPENTIN 100 MG CAP PO SCH (08:04)
[2016-04-29] MEDS: ASPIRIN 81 MG CHEW PO SCH (08:04)
[2016-04-29] MEDS: ALLOPURINOL 100 MG TAB PO SCH (08:04)
[2016-04-29] MEDS: MONTELUKAST 10 MG TAB PO SCH (08:04)
[2016-04-29] MEDS: PRAMIPEXOLE 0.25 MG TAB PO SCH (08:04)
[2016-04-29] MEDS: ISOSORBIDE MONONITRATE ER 60 MG TAB.ER.24H PO SCH (08:04)
[2016-04-29 08:16] VITALS: BP 101/51; TEMP 98.2
[2016-04-29 08:26] VITALS: RESP 16
[2016-04-29] MEDS: IPRATROPIUM-ALBUTEROL 3 ML NEB IH SCH ×2 (08:34→12:12)
[2016-04-29] MEDS: SYMBICORT 160-4.5 MCG INHALER INHALATION SCH (08:35)
--- NOTE | 2016-04-29 09:18 | XR ---
EXAMINATION TYPE: XR chest 1V DATE OF EXAM: 04/29/2016 9:06 AM HISTORY: Shortness of breath. COMPARISON: 04/25/2016 TECHNIQUE: Single view of the chest is submitted. FINDINGS: Demonstrated are scattered senescent parenchymal change. There is prominence of the pulmonary interstitium with pulmonary venous congestion. Mild cardiomegaly also seen. Hilar and mediastinal structures are within normal limits. Degenerative changes are seen of the dorsal spine. IMPRESSION: 1. Correlate for mild interstitial edema.
[2016-04-29 11:16] LABS: Glucose,Whole Blood 164 mg/dL (75-99)
[2016-04-29] MEDS: MIDODRINE 5 MG TAB PO PRN (11:27)
[2016-04-29 12:23] LABS: Hepatitis B Surface Ag Index 0.08
[2016-04-29 12:24] VITALS: PULSE 78
[2016-04-29] MEDS ORDERED: INSULIN LISPRO (humaLOG) 300 UNIT/3 ML VIAL SQ SCH (12:30)
--- NOTE | 2016-04-29 13:24 | PN ---
Patient is seen for follow-up for end-stage renal disease. She has been dialyzed on a daily basis for severe fluid overload on initial admission. Her volume status has significantly improved. The patient will be dialyzed again for about 2 hours today and she can be discharged after dialysis. On examination, blood pressure is 101/51, heart rate 83 per minute. She is afebrile. Examination of the heart S1 and S2. Examination of lungs: Decreased breath sounds at the bases. Abdomen is soft, obese. Examination of lower extremities shows bilateral extremities to be wrapped. Her edema has improved. Labs show sodium 137, potassium 4.5. Hemoglobin 10.6 g/dL. ASSESSMENT: 1. End-stage renal disease on hemodialysis on a Monday, , Monday schedule as outpatient. Patient will be dialyzed today for about 2 to 2-1/2 hours and then she can be discharged. She will follow up as outpatient on Monday for her regular outpatient schedule. 2. Fluid overload, currently improved. 3. Chronic diastolic heart failure. 4. Severe pulmonary hypertension. 5. Chronic obstructive pulmonary disease. 6. History of cerebrovascular accident. 7. Chronic kidney disease bone mineral disorder maintained on Renvela. 8. Type 2 diabetes. PLAN: The patient is stable for discharge post dialysis. Follow up as outpatient tomorrow.
[2016-04-29] MEDS ORDERED: GELATIN SPONGE,ABSORB (SMALL) 1 EACH SPONGE ONE (13:30)
[2016-04-29] MEDS: MULTIVITAMINS, THERA 1 EACH TAB PO SCH (14:24)
[2016-04-29] MEDS: CYANOCOBALAMIN 500 MCG TAB PO SCH (14:24)
[2016-04-29] MEDS: CHOLECALCIFEROL 1,000 UNIT TAB PO SCH (14:24)
--- NOTE | 2016-04-29 15:46 | P.PN ---
Katelyn Hermosillo is a pleasant 75-year-old female patient, very well-known to me, coming into the hospital because of worsening shortness of breath along with signs of fluid overload and possible cellulitis of the lower extremities. The patient on admission was also found to have a potassium level of 6.2 that was treated appropriately with a combination of D50, insulin, and Kayexalate. Subsequent potassium levels improved and the patient will be undergoing dialysis today. She was given a dose of vancomycin regarding lower extremity cellulitis. Terms of her shortness of breath, this is a chronic dyspnea related to her multiple medical problems and comorbidities. The patient had a chest x-ray at time of admission that showed no evidence of acute pneumonia or any pulmonary edema or fluid overload. She is known to have cardiomyopathy with an ejection fraction of 35-40%. She is been doing dialysis on a regular basis 3 times a week and she denies skipping any of her dialysis sessions. No chills. No fever. No change in mental status. No chest pain. On 04/27/2016 the patient is being seen in follow-up. She underwent dialysis yesterday and she was supposed to have to undergo dialysis today and within 30 minutes to dialysis with interrupted knowing that her lines got infiltrated. Based on that, a repeat dialysis will be done tomorrow. Clinically the patient is doing well. No fever. No chills. No night sweats. No shortness of breath. Lower extremities swelling is slowly improving. She is seen again today 04/28/2016 in follow-up on the selective care unit. She is awake and alert in no acute distress. Yesterday her dialysis treatment was discontinued early secondary to infiltration of her lines. She is due for repeat dialysis today. She denies any worsening shortness of breath, cough or congestion. The cellulitis of the lower extremities is slightly improved. The cultures reveal no growth. He is afebrile. No leukocytosis. The patient is seen again today 04/29/2016 in follow-up on the regular medical floor. She is awake and alert in no acute distress. She did receive another dialysis treatment earlier today. Current creatinine 3.95. She is doing quite well. Chest x-ray shows mild interstitial edema. She denies any worsening shortness of breath, cough or congestion. She is maintaining good O2 saturations in the upper 90s on 2 L/m per nasal cannula. Afebrile. Blood cultures reveal no growth to date. No leukocytosis. Objective - Vital Signs Vital signs: Vital Signs Temp 98.2 F 04/29/16 07:00 Pulse 78 04/29/16 12:21 Resp 16 04/29/16 08:00 BP 101/51 04/29/16 07:00 Pulse Ox 86 L 04/29/16 10:10 Intake & Output 04/28/16 04/29/16 04/29/16 18:59 06:59 18:59 Intake Total 840 360 10 Output Total 0 Balance 840 360 10 Intake: IV 10 160 10 Furosemide 250 mg In 10 Sodium Chloride 0.9% 225 ml @ 10 MG/HR 10 mls/hr IVP .Q24H ZAKI Rx#: [id number] NS 160 10 Oral 830 200 Output: Urine 0 Other: # Voids 0 0 # Bowel Movements 2 - Exam Patient is calm and comfortable laying comfortably in bed. No acute distress. Following commands and answering questions appropriately.Head exam was generally normal. There was no scleral icterus or corneal arcus. Mucous membranes were moist. Oral hygiene is poor and the patient has multiple missing teeth no goiter or neck masses. No thrush. Lungs sounds are diminished in lung bases bilaterally. Cannot appreciate any wheezing. Crackles are minimal in the lung bases. Heart sounds are irregular positive S1- S2 there is no significant murmurs appreciated. Abdomen soft nontender there is no organomegaly. No direct tenderness or rebound tightness or guarding. Extremities are swollen and there is +1 pitting edema along with some superficial ulceration of the lower extremities bilaterally mainly over the shins along with some limited amount of fluid seeping from the skin and there is significant erythema extending to the ankles and the knees and suspected cellulitis. Pulses in lower extremities are quite diminished at this point. - Labs CBC & Chem 7: 04/29/16 06:35 04/29/16 06:35 Labs: Abnormal Lab Results - Last 24 Hours (Table) 04/28/16 04/28/16 04/28/16 Range/Units 16:42 16:57 20:34 RBC (3.80-5.40) m/uL Hgb (11.4-16.0) gm/dL Hct (34.0-46.0) % MCV (80.0-100.0) fL MCH (25.0-35.0) pg RDW (11.5-15.5) % Plt Count (150-450) k/uL Lymphocytes # (1.0-4.8) k/uL BUN (7-17) mg/dL Creatinine (0.52-1.04) mg/dL Glucose (74-99) mg/dL POC Glucose (mg/dL) 44 L 74 L 133 H (75-99) mg/dL 04/29/16 04/29/16 04/29/16 Range/Units 06:35 06:35 11:14 RBC 2.97 L (3.80-5.40) m/uL Hgb 10.6 L (11.4-16.0) gm/dL Hct 33.3 L (34.0-46.0) % MCV 111.9 H (80.0-100.0) fL MCH 35.5 H (25.0-35.0) pg RDW 16.7 H (11.5-15.5) % Plt Count 132 L (150-450) k/uL Lymphocytes # 0.6 L (1.0-4.8) k/uL BUN 31 H (7-17) mg/dL Creatinine 3.95 H (0.52-1.04) mg/dL Glucose 103 H (74-99) mg/dL POC Glucose (mg/dL) 164 H (75-99) mg/dL Assessment and Plan Plan: Assessment 1 chronic dyspnea, multifactorial, no signs of pulmonary edema or decompensated heart failure although the patient may be in some degree of fluid overload. 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 Plan The patient was seen and evaluated by Dr. Hernandez. She is cleared for discharge from the pulmonary standpoint. Continue her home BiPAP. She can continue her current home pulmonary medications including albuterol updraft treatments 4 times a day and when necessary, Symbicort, Singulair. She'll follow-up in our office in 1 week's time. We will repeat her chest x-ray then. He is encouraged to call sooner if any recurrence of symptoms or other questions or concerns.
--- NOTE | 2016-04-29 17:47 | P.PN ---
Subjective Principal diagnosis: Lower extremity edema 75-year-old female presents to hospital with increasing shortness of breath. She has multiple underlying medical troubles that include end-stage renal disease, coronary artery disease, congestive heart failure, atrial fibrillation and diabetes. She's been dialysis dependent for the last year. Her scheduled be changing in the near future due to transportation problems. She does not relate to missing any recent dialysis but is now volume overloaded and also has hyperkalemia. She constantly was treated with dextrose, insulin and Kayexalate. She will have dialysis today. She was short of breath about at her baseline to slightly worse. Foresee no significant pneumonia but just has some fluid. It is noted that she has a baseline cardiomyopathy after her history of a myocardial infarction. She relates that she's not having high-grade fevers, chills or rigors. However her lower extremities have become much worse. They're much more swollen erythematous as well as uncomfortable. In the been leaking some fluid. Feeling better today. Dialysis yesterday , do as an outpatient tomorrow She notes that her edema is improved today. She is elevated her legs but she does not routinely do while she is at home and is noticing improvement related to that also. The current cycles of dialysis have helped her edema. Objective - Vital Signs Vital signs: Vital Signs Temp 98.2 F 04/29/16 07:00 Pulse 78 04/29/16 12:21 Resp 16 04/29/16 08:00 BP 101/51 04/29/16 07:00 Pulse Ox 86 L 04/29/16 10:10 Intake & Output 04/28/16 04/29/16 04/29/16 18:59 06:59 18:59 Intake Total 840 360 10 Output Total 0 Balance 840 360 10 Intake: IV 10 160 10 Furosemide 250 mg In 10 Sodium Chloride 0.9% 225 ml @ 10 MG/HR 10 mls/hr IVP .Q24H ZAKI Rx#: [id number] NS 160 10 Oral 830 200 Output: Urine 0 Other: # Voids 0 0 # Bowel Movements 2 - Exam 75-year-old woman who is pleasant and cooperative HEENT: Anicteric conjunctiva are pink and moist nasal mucosa grossly intact without significant lesions, there is no thrush. Edentulous Neck: The neck is supple without significant lymphadenopathy or thyromegaly. Lungs: Symmetrical air entry with basilar crackles and few expiratory wheeze without memo bronchial sounds The heart is regular with an audible S1 and S2 soft S4 2/6 systolic murmur left sternal border does not radiate PMI is nondisplaced Abdomen: Obese Positive bowel sounds soft and nontender without palpable masses or organomegaly. There was no guarding or rebound. Extremities: The upper extremities have excellent pulses they are symmetric, no significant petechiae or telangiectasia. No splinter hemorrhages were noted. Fistula for dialysis is in left arm. Has an easily palpated thrill, hand is warm. The lower extremities reveal evidence of the bilateral lower extremity edema. It is circumferential and present to the thighs bilaterally. There is dense erythema over the bilateral lower extremities with small open areas draining a scant amount of yellowish material over both legs. She has noted since coming to hospital and legs being elevated are now further improved There is only minimal tenderness to touch. There is no lymphadenopathy to either groin. No other abnormal lymph nodes are noted. Neuro: Awake alert oriented to person place and time. There are no acute new gross focal sensory motor deficits. - Labs CBC & Chem 7: 04/29/16 06:35 04/29/16 06:35 Labs: Abnormal Lab Results - Last 24 Hours (Table) 04/28/16 04/29/16 04/29/16 Range/Units 20:34 06:35 06:35 RBC 2.97 L (3.80-5.40) m/uL Hgb 10.6 L (11.4-16.0) gm/dL Hct 33.3 L (34.0-46.0) % MCV 111.9 H (80.0-100.0) fL MCH 35.5 H (25.0-35.0) pg RDW 16.7 H (11.5-15.5) % Plt Count 132 L (150-450) k/uL Lymphocytes # 0.6 L (1.0-4.8) k/uL BUN 31 H (7-17) mg/dL Creatinine 3.95 H (0.52-1.04) mg/dL Glucose 103 H (74-99) mg/dL POC Glucose (mg/dL) 133 H (75-99) mg/dL 04/29/16 Range/Units 11:14 RBC (3.80-5.40) m/uL Hgb (11.4-16.0) gm/dL Hct (34.0-46.0) % MCV (80.0-100.0) fL MCH (25.0-35.0) pg RDW (11.5-15.5) % Plt Count (150-450) k/uL Lymphocytes # (1.0-4.8) k/uL BUN (7-17) mg/dL Creatinine (0.52-1.04) mg/dL Glucose (74-99) mg/dL POC Glucose (mg/dL) 164 H (75-99) mg/dL Laboratory Results WBC 4.4 k/uL (3.8-10.6) 04/29/16 06:35 RBC 2.97 m/uL (3.80-5.40) L 04/29/16 06:35 Hgb 10.6 gm/dL (11.4-16.0) L 04/29/16 06:35 Hct 33.3 % (34.0-46.0) L 04/29/16 06:35 MCV 111.9 fL (80.0-100.0) H 04/29/16 06:35 MCH 35.5 pg (25.0-35.0) H 04/29/16 06:35 MCHC 31.7 g/dL (31.0-37.0) 04/29/16 06:35 RDW 16.7 % (11.5-15.5) H 04/29/16 06:35 Plt Count 132 k/uL (150-450) L 04/29/16 06:35 Neutrophils % 73 % 04/29/16 06:35 Lymphocytes % 13 % 04/29/16 06:35 Monocytes % 5 % 04/29/16 06:35 Eosinophils % 5 % 04/29/16 06:35 Basophils % 0 % 04/29/16 06:35 Neutrophils # 3.2 k/uL (1.3-7.7) 04/29/16 06:35 Lymphocytes # 0.6 k/uL (1.0-4.8) L 04/29/16 06:35 Monocytes # 0.2 k/uL (0-1.0) 04/29/16 06:35 Eosinophils # 0.2 k/uL (0-0.7) 04/29/16 06:35 Basophils # 0.0 k/uL (0-0.2) 04/29/16 06:35 Manual Slide Review Performed 04/29/16 06:35 Polychromasia Present 04/27/16 06:06 Hypochromasia Slight 04/29/16 06:35 Poikilocytosis (manual Present 04/29/16 06:35 Anisocytosis Slight 04/29/16 06:35 Macrocytosis Marked 04/29/16 06:35 PT 11.6 sec (9.0-12.0) 04/25/16 20:40 INR 1.2 (<1.1) 04/25/16 20:40 APTT 20.6 sec (22.0-30.0) L 04/25/16 20:40 D-Dimer 0.88 mg/L FEU (<0.60) H 04/25/16 20:40 Sodium 137 mmol/L (137-145) 04/29/16 06:35 Potassium 4.5 mmol/L (3.5-5.1) 04/29/16 06:35 Chloride 98 mmol/L (98-107) 04/29/16 06:35 Carbon Dioxide 29 mmol/L (22-30) 04/29/16 06:35 Anion Gap 10 mmol/L 04/29/16 06:35 BUN 31 mg/dL (7-17) H 04/29/16 06:35 Creatinine 3.95 mg/dL (0.52-1.04) H 04/29/16 06:35 Est GFR (MDRD) Af Amer 13 (>60 ml/min/1.73 sqM) 04/29/16 06:35 Est GFR (MDRD) Non-Af 11 (>60 ml/min/1.73 sqM) 04/29/16 06:35 Glucose 103 mg/dL (74-99) H 04/29/16 06:35 POC Glucose (mg/dL) 164 mg/dL (75-99) H 04/29/16 11:14 POC Glu [employer]rentice ID Paula Vaughan 04/29/16 11:14 Plasma Lactic Acid Wally 1.6 mmol/L (0.7-2.0) 04/25/16 21:07 Calcium 8.8 mg/dL (8.4-10.2) 04/29/16 06:35 Magnesium 1.8 mg/dL (1.6-2.3) 04/29/16 06:35 Total Bilirubin 1.3 mg/dL (0.2-1.3) 04/25/16 20:40 AST 26 U/L (14-36) 04/25/16 20:40 ALT 31 U/L (9-52) 04/25/16 20:40 Alkaline Phosphatase 129 U/L (38-126) H 04/25/16 20:40 Total Creatine Kinase 71 U/L (30-135) 04/25/16 20:40 CK-MB (CK-2) 1.5 ng/mL (0.0-2.4) 04/25/16 20:40 CK-MB (CK-2) Rel Index 2.1 04/25/16 20:40 Troponin I 0.048 ng/mL (0.000-0.034) H* 04/25/16 20:40 NT-Pro-B Natriuret Pep 92009 pg/mL 04/25/16 20:40 Total Protein 7.4 g/dL (6.3-8.2) 04/25/16 20:40 Albumin 3.8 g/dL (3.5-5.0) 04/25/16 20:40 Random Vancomycin 12.8 ug/mL 04/28/16 06:37 Hep Bs Antigen Negative 04/29/16 06:35 Microbiology 04/25/16 21:18 Blood Blood Culture - Preliminary No Growth after 72 hours Assessment and Plan (1) Cellulitis Narrative/Plan: 75-year-old woman who has multiple medical troubles presents to Hospital feeling shortness of breath and increasing weakness. Was found to have evidence of hyperkalemia has been treated and is receiving dialysis today. She is evidence of the bilateral lower extremity edema that is now much worse. She developed some discomfort increasing erythema and drainage. Vancomycin has been started while cultures are process. Local wound care with Silvadene and wraps has been requested. Elevation of legs while she is at rest. Adequate protein in her diet to help with her protein status. She will receiving dialysis to remove her volume overload. She may do well after discharge to have specialty stockings to help with the lower extremity edema that she is prone to. Venous and arterial Dopplers of lower extremities are requested Patient is improved today. Continue the local care. Cultures are negative. There is no leukocytosis. Vancomycin therapy discontinued with no worsening. Patient instructed in the importance of elevation. Status: Acute (2) Hyperkalemia Status: Acute (3) CHF (congestive heart failure) Status: Acute (4) ESRD on dialysis Status: Acute
--- NOTE | 2016-04-29 19:23 | DS ---
DATE OF ADMISSION: 04/25/2016 DATE OF DISCHARGE: 04/29/2016 PROGRESS NOTE/DISCHARGE SUMMARY: 75-year-old female admitted with CHF exacerbation and pulmonary edema. Patient does have chronic systolic dysfunction with ejection fraction of 35 to 40% and patient is admitted for acute exacerbation. Patient also has end stage renal disease because of which patient did not do well with IV Lasix and patient was initiated on hemodialysis and patient did undergo hemodialysis yesterday and patient hemodialysis will be done today as well as chest x-ray showing mild pulmonary which is expected to improve with hemodialysis and after that patient will be discharged. Patient is still requiring 2 L of oxygen, does wear 2 L of oxygen at home, up and ambulation, she is desaturating hopefully after a few sets of hemodialysis we can recheck her oxygen requirements upon ambulation and probably if oxygen can be stopped it can be stopped at that time and patient is not on YANELI inhibitor because of her unsettled creatinine from the past and also end stage renal disease. Blood pressure is on the low-normal side as well. Patient is actually on Midodrine and regarding her blood sugars, blood sugars are going down on some occasions because of which I decreased the premeal insulin as well as Levemir upon discharge. REVIEW OF SYSTEMS: CARDIOVASCULAR: No chest pain, no orthopnea, no PND, no palpitations. PULMONARY: Denied any shortness of breath. No cough or hemoptysis. GASTROINTESTINAL: No diarrhea, nausea or vomiting. No abdominal pain. Normoactive bowel sounds. NEUROLOGIC: No headaches, no weakness, no numbness. Medications were reviewed. PHYSICAL EXAMINATION: VITAL SIGNS: Temperature 98.2, pulse of 74, respiratory rate of 16, blood pressure is 101/51. Saturating at 86% upon ambulation without oxygen which means the patient will require oxygen at home. GENERAL: The patient is alert and oriented x3, not in any acute distress. Well developed, well nourished. HEENT: Pupils are round and equally reacting to light. EOMI. No scleral icterus. No conjunctival pallor. Normocephalic, atraumatic. No pharyngeal erythema. No thyromegaly. CARDIOVASCULAR: S1 and S2 present. No murmurs, rubs, or gallops. PULMONARY: Lung examinations minimal bibasilar crackles are still heard. Patient still has little bit of elevated JVD. ABDOMEN: Soft, nontender, nondistended, normoactive bowel sounds. No palpable organomegaly. MUSCULOSKELETAL: No joint swelling or deformity. EXTREMITIES: No cyanosis, clubbing, or pedal edema. NEUROLOGICAL: Gross neurological examination did not reveal any focal deficits. SKIN: No rashes. CBC BMP are significant for elevated BUN and creatinine 31 and 3.95 which is actually an improvement since yesterday. ASSESSMENT AND PLAN: 1. Acute hypoxic respiratory failure secondary to congestive heart failure, chronic systolic dysfunction with acute exacerbation. 2. End stage renal disease on hemodialysis and the patient did have pulmonary edema which is secondary to systolic dysfunction as well as renal dysfunction. 3. Hyperkalemia which resolved and that is the reason, the patient cannot be on secondary to renal failure and this is the reason the patient cannot be on YANELI inhibitor. 4. Bilateral chronic venostasis without any signs or symptoms of cellulitis. Will not require any antibiotics but the patient will need specialty stockings for that. 5. Atrial fibrillation, obstructive sleep apnea. 6. Cerebrovascular accident. 7. Peripheral neuropathy. 8. Hyperlipidemia. Patient if cleared by other consultants will be discharged home with home care. Patient will follow with Dr. Hernandez in 3 to 5 days. Activity as tolerated. Cardiac and diabetic 1800 calorie diet. Please refer to my depart summary for further list of discharge medications. Spent greater than 35 minutes in total discharge process.
--- NOTE | 2016-05-04 12:12 | P.ARTDOP ---
Arterial Doppler LOWER EXTREMITY ARTERIAL DOPPLER: DATE OF SERVICE: 04/27/2016 Reason for study: []. Doppler waveforms: Multiphasic bilaterally throughout. Pulse volume recording: Normal configuration. Pressure gradients: Mild distal gradients. Ankle-brachial indices: 0.92 on the right and one on the left. Toe pressures: 56 on the right, 48 on the left Impression: Suspect normal proximal flow. Either vasospasm or very distal disease at the infra-ankle area.
== END 2016-04-29 16:01 | disposition home health service (06) | DRG 291 ==
LOC: EC 19:43 → 6SEL 21:41 → 5MS5E 04-28 18:37
PROVIDERS: ADMIT Internal Medicine; ATTEND Internal Medicine
PROC: 5A1D60Z (ICD-10-PCS; principal; 2016-04-26)
DX: I13.2 Hypertensive heart and chronic kidney disease with heart failure and with stage 5 chronic kidney disease, or end stage renal disease (principal); N18.6 End stage renal disease; J96.21 Acute and chronic respiratory failure with hypoxia; E88.89 Other specified metabolic disorders; E11.22 Type 2 diabetes mellitus with diabetic chronic kidney disease; I27.2 Other secondary pulmonary hypertension; I50.33 Acute on chronic diastolic (congestive) heart failure; I48.1 Persistent atrial fibrillation; I69.354 Hemiplegia and hemiparesis following cerebral infarction affecting left non-dominant side; L03.115 Cellulitis of right lower limb; L03.116 Cellulitis of left lower limb; I07.1 Rheumatic tricuspid insufficiency; D63.8 Anemia in other chronic diseases classified elsewhere; Z99.2 Dependence on renal dialysis; E11.42 Type 2 diabetes mellitus with diabetic polyneuropathy; E78.5 Hyperlipidemia, unspecified; E83.39 Other disorders of phosphorus metabolism; E87.5 Hyperkalemia; F41.9 Anxiety disorder, unspecified; G47.33 Obstructive sleep apnea (adult) (pediatric); I25.10 Atherosclerotic heart disease of native coronary artery without angina pectoris; I25.2 Old myocardial infarction; I08.1 Rheumatic disorders of both mitral and tricuspid valves; I42.9 Cardiomyopathy, unspecified; I48.2 Chronic atrial fibrillation; J44.9 Chronic obstructive pulmonary disease, unspecified; J45.909 Unspecified asthma, uncomplicated; L89.891 Pressure ulcer of other site, stage 1; M10.9 Gout, unspecified; Z79.02 Long term (current) use of antithrombotics/antiplatelets; Z79.4 Long term (current) use of insulin; Z82.49 Family history of ischemic heart disease and other diseases of the circulatory system; Z86.14 Personal history of Methicillin resistant Staphylococcus aureus infection; Z87.891 Personal history of nicotine dependence; Z95.5 Presence of coronary angioplasty implant and graft; Z99.81 Dependence on supplemental oxygen; Z79.899 Other long term (current) drug therapy; Z88.6 Allergy status to analgesic agent; Z88.2 Allergy status to sulfonamides; E66.9 Obesity, unspecified; Z68.33 Body mass index [BMI] 33.0-33.9, adult
CPT/HCPCS: 36415; 71010; 80048; 80053; 80202; 82550; 82553; 83605; 83735; 83880; 84484; 85025; 85379; 85610; 85730; 87040; 87340; 90935; 93005; 93306; 93923; 93970; 94640; 96365; 99285

== ENCOUNTER 2016-05-19 16:42 | Inpatient (IN) | payer MEDICARE, BC ==
--- NOTE | 2016-05-19 17:05 | ED ---
General Adult HPI - General Chief complaint: Shortness of Breath Stated complaint: SOB Time Seen by Provider: 05/19/16 16:45 Source: EMS, RN notes reviewed, old records reviewed Mode of arrival: EMS Limitations: physical limitation - History of Present Illness Initial comments: This is a 75-year-old female here for evaluation. Patient states she does suffer from diarrhea for a week. Continuous diarrhea with no vomiting no blood. Patient is noted medications. Patient does admit to not taking any of her medications for quite some time now a month. Patient also admits is given doubts for the past week as she has been feeling well. Again denies fever no shortness of breath no chest pain. Continued diarrhea with nausea and vomiting. Decreased appetite and anorexia. - Related Data Home Medications Medication Instructions Recorded Confirmed Aspirin EC [Ecotrin Low Dose] 81 mg PO DAILY 03/10/15 05/19/16 Budesonide/Formoterol Fumarate 2 puff INHALATION RT-BID 03/10/15 05/19/16 [Symbicort 160-4.5 Mcg Inhaler] Cholecalciferol [Vitamin D3] 5,000 unit PO DAILY 03/10/15 05/19/16 Clopidogrel [Plavix] 75 mg PO DAILY 03/10/15 05/19/16 Cyanocobalamin [Vitamin B-12] 500 mcg PO DAILY 03/10/15 05/19/16 Esomeprazole Magnesium [NexIUM] 40 mg PO DAILY 03/10/15 05/19/16 Montelukast [Singulair] 10 mg PO DAILY 03/10/15 05/19/16 Sevelamer [Renvela] 800 mg PO AC-TID 03/10/15 05/19/16 traZODone HCL 75 mg PO HS PRN 03/10/15 05/19/16 Isosorbide Mononitrate ER [Imdur] 60 mg PO DAILY 09/14/15 05/19/16 Ezetimibe [Zetia] 10 mg PO HS 01/17/16 05/19/16 Allopurinol [Zyloprim] 100 mg PO DAILY 04/25/16 05/19/16 Midodrine [ProAmatine] 10 mg PO TUTHSA 04/25/16 05/19/16 Pramipexole [Mirapex] 0.25 mg PO HS 04/25/16 05/19/16 Midodrine [ProAmatine] 5 mg PO TUTHSA 04/26/16 05/19/16 Docusate [Colace] 100 mg PO DAILY 05/19/16 05/19/16 Furosemide [Lasix] 40 mg PO DAILY 05/19/16 05/19/16 Gabapentin [Neurontin] 300 mg PO DAILY 05/19/16 05/19/16 HYDROcodone/APAP 5-325MG [[place] 1 tab PO Q6H PRN 05/19/16 05/19/16 5-325] Metolazone [Zaroxolyn] 2.5 mg PO Q48H 05/19/16 05/19/16 Metoprolol Tartrate [Lopressor] 25 mg PO BID 05/19/16 05/19/16 Spironolactone [Aldactone] 25 mg PO DAILY 05/19/16 05/19/16 Torsemide [Demadex] 20 mg PO DAILY 05/19/16 05/19/16 Previous Rx's Medication Instructions Recorded Nitroglycerin Sl Tabs [Nitrostat] 0.4 mg SUBLINGUAL Q5M PRN #0 tab 03/26/15 Insulin Aspart [NovoLOG Flexpen] 10 units SQ AC-TID #0 04/29/16 Insulin Detemir [Levemir] 22 unit SQ HS #0 04/29/16 Allergies Allergy/AdvReac Type Severity Reaction Status Date / Time atropine sulfate Allergy Rash/Hives Verified 05/19/16 17:07 [From Lomotil] cephalexin monohydrate Allergy Rash/Hives Verified 05/19/16 17:07 [From Keflex] diphenoxylate HCl Allergy Rash/Hives Verified 05/19/16 17:07 [From Lomotil] ibuprofen Allergy Swelling Verified 05/19/16 17:07 baclofen AdvReac Hallucinati Verified 05/19/16 17:07 ons tramadol AdvReac Hallucinati Verified 05/19/16 17:07 ons Review of Systems ROS Statement: Those systems with pertinent positive or pertinent negative responses have been documented in the HPI. ROS Other: All systems not noted in ROS Statement are negative. Past Medical History Past Medical History: Atrial Fibrillation, Asthma, Heart Failure, CVA/TIA, Diabetes Mellitus, Dialysis, Hyperlipidemia, Hypertension, Myocardial Infarction ([place]), Renal Disease Additional Past Medical History / Comment(s): Obesity, bronchial asthma, obstructive sleep apnea, peripheral neuropathy, congestion heart failure with ejection fraction of 35-40%, multivessel coronary artery disease with previous myocardial infarction, history of CVA with some residual left-sided weakness, renal failure and the patient has end-stage renal disease and currently she is on hemodialysis 3 times a week, diabetes mellitus, peripheral neuropathy, hyperlipidemia, gout, chronic ulceration of the lower extremity with episodic cellulitis of the legs, 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 Last Myocardial Infarction Date:: September 22, 2007 History of Any Multi-Drug Resistant Organisms: None Reported Past Surgical History: Bowel Resection, Heart Catheterization With Stent, Hysterectomy Additional Past Surgical History / Comment(s): Spur removal in bilateral feet twice and left shoulder once and groin, cataracts removed Past Anesthesia/Blood Transfusion Reactions: No Reported Reaction Date of Last Stent Placement:: September 22, 2007 Past Psychological History: No Psychological Hx Reported Additional Psychological History / Comment(s): patient currently lives at home with her son. Patient states she uses a walker at home stated lt leg drags a bit since stroke, son drives her to her appointments.gets visitng nurse 2x a week. . Difficulties getting to her dialysis appointments. 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 No animal exposures. No international travel Smoking Status: Former smoker Past Alcohol Use History: None Reported Additional Past Alcohol Use History / Comment(s): STARTED SMOKING AT AGE 18 SMOKED 1.5 PPD ,QUIT 2007 Past Drug Use History: None Reported - Past Family History Mother Additional Family Medical History / Comment(s): pt stated was unknown. stated she had an iron lung. at age 32 Father Family Medical History: COPD, Diabetes Mellitus, Myocardial Infarction ([place]) Additional Family Medical History / Comment(s): at age 90. Sister(s) Family Medical History: Diabetes Mellitus Son(s) Family Medical History: Deep Vein Thrombosis (DVT), Myocardial Infarction ([place]) General Exam Limitations: physical limitation General appearance: alert, in no apparent distress, lethargic Head exam: Present: atraumatic, normocephalic, normal inspection Eye exam: Present: normal appearance, PERRL, EOMI. Absent: scleral icterus, conjunctival injection, periorbital swelling ENT exam: Present: normal exam, mucous membranes moist Neck exam: Present: normal inspection. Absent: tenderness, meningismus, lymphadenopathy Respiratory exam: Present: normal lung sounds bilaterally. Absent: respiratory distress, wheezes, rales, rhonchi, stridor Cardiovascular Exam: Present: regular rate, normal rhythm, normal heart sounds. Absent: systolic murmur, diastolic murmur, rubs, gallop, clicks GI/Abdominal exam: Present: soft, normal bowel sounds. Absent: distended, tenderness, guarding, rebound, rigid Extremities exam: Present: normal inspection, full ROM, normal capillary refill. Absent: tenderness, pedal edema, joint swelling, calf tenderness Back exam: Present: normal inspection Neurological exam: Present: alert, oriented X3, CN II-XII intact Psychiatric exam: Present: normal affect, normal mood Skin exam: Present: warm, dry, intact, normal color. Absent: rash Course Vital Signs 05/19/16 16:45 Temperature 97 F L Pulse Rate 99 Respiratory 22 Rate Blood Pressure 174/113 O2 Sat by Pulse 97 Oximetry - Reevaluation(s) Reevaluation #1: 05/19/16 17:42 patien still feeling weak, nauseous, not well EKG Findings - EKG Comments: EKG Findings:: EKG shows A. fib rate of 99, QRS 134, QTc 456 Medical Decision Making - Medical Decision Making 75 female ear with noncompliant, not taking medications not related to dialysis for the past week. Patient be admitted for nephrology evaluation and current and continue treatment of therapy - Lab Data Result diagrams: 05/19/16 17:48 05/19/16 17:48 Critical Care Time Critical Care Time: Yes Total Critical Care Time: 31 Disposition Clinical Impression: Non-compliant behavior, Elevated troponin I measurement, Acute renal failure on dialysis, Hyperkalemia Disposition: ADMITTED IP TO THIS [facility] Condition: Serious
[2016-05-19] MEDS ORDERED: SODIUM CHLORIDE 0.9% 1,000 ML IV ONE ×2 (17:43→18:12)
[2016-05-19 17:58] LABS: Anisocytosis Slight; Basophils % (A) 0 %; CH 35.7; CHCM 30.8; Eosinophils # (A) 0.1 k/uL (0-0.7); Eosinophils % (A) 2 %; HCT 36.1 % (34.0-46.0); HDW 2.23; HGB 11.3 gm/dL (11.4-16.0); Hypochromasia Slight; Luc # (Auto) 0.19; Luc % (Auto) 4; Lymphocytes # (A) 0.9 k/uL (1.0-4.8); Lymphocytes % (A) 17 %; MCH 36.5 pg (25.0-35.0); MCHC 31.3 g/dL (31.0-37.0); MCV 116.5 fL (80.0-100.0); Macrocytosis Marked; Mean Platelet Volume 8.4; Monocytes # (A) 0.3 k/uL (0-1.0); Monocytes % (A) 6 %; Neutrophils # (A) 3.6 k/uL (1.3-7.7); Neutrophils % (A) 72 %; RBC 3.09 m/uL (3.80-5.40); RDW 16.3 % (11.5-15.5); WBC 5.1 k/uL (3.8-10.6); WBC (Perox) 5.36
[2016-05-19 18:04] LABS: INR 1.4 (<1.1); Partial Thromboplastin Time 22.6 sec (22.0-30.0); Prothrombin Time 13.6 sec (9.0-12.0)
[2016-05-19 18:08] LABS: Calcium 8.4 mg/dL (8.4-10.2); Magnesium 2.3 mg/dL (1.6-2.3); Total Bilirubin 1.4 mg/dL (0.2-1.3); Total Protein 7.7 g/dL (6.3-8.2)
[2016-05-19 18:11] LABS: Potassium 7.5 mmol/L (3.5-5.1)
[2016-05-19] MEDS ORDERED: INSULIN REGULAR 100 UNIT/ML VIAL IV ONE (18:12)
[2016-05-19 18:16] LABS: Manual Review Performed; Polychromasia Present
[2016-05-19] MEDS: DEXTROSE 50%-WATER 50 ML SYRINGE IVP STA (18:38)
[2016-05-19 18:55] LABS: Troponin I 0.042 ng/mL (0.000-0.034)
[2016-05-19] MEDS ORDERED: traZODone HCL 50 MG TAB PO PRN (20:16)
[2016-05-19] MEDS ORDERED: NITROGLYCERIN SL TABS 0.4 MG TAB SUBLINGUAL PRN (20:16)
--- NOTE | 2016-05-19 20:36 | XR ---
EXAMINATION TYPE: XR chest 1V portable DATE OF EXAM: 05/19/2016 8:31 PM COMPARISON: NONE HISTORY: Weakness, CHF, renal failure, and chest pain. TECHNIQUE: Single frontal view of the chest is obtained. FINDINGS: There is redemonstration of cardia megaly. There is improvement in the previously seen pul monary vascular congestion, now mild. There is tortuosity of the descending thoracic aorta. Degenerat francisco changes are appreciated of the visualized thoracic spine. IMPRESSION: Improved pulmonary vascular congestion, now mild and stable cardiomegaly.
[2016-05-19] MEDS ORDERED: INSULIN DETEMIR 100 UNIT/ML 10 ML VIAL SQ SCH (21:00)
[2016-05-19] MEDS ORDERED: GELATIN SPONGE,ABSORB (SMALL) 1 EACH SPONGE ONE (21:40)
--- NOTE | 2016-05-19 22:28 | HP ---
DATE OF ADMISSION: 05/19/2016 CHIEF COMPLAINT: Shortness of breath. HISTORY OF PRESENT ILLNESS: This 75-year-old woman with a past medical history of multiple medical problems, including history of atrial fibrillation, history of asthma, CHF, CVA, TIA, history of diabetes mellitus, chronic kidney disease, stage IV, hemodialysis, history of hypertension, hyperlipidemia, history of myocardial infarction, renal disease, history of bowel resection, CAD, stent, being monitored by Dr. Hernandez in the outpatient setting, apparently was having diarrhea on multiple occasions for the last one week. The patient apparently missed at least 3 of her hemodialysis appointments. The patient is complaining of significant shortness of breath and the patient was taken to [facility] and admitted for further evaluation and treatment. Evaluation currently showed features of CHF. Creatinine was found to be 6.6. Troponin 0.042. There is no history of any fever, rigor, or chills. No history of any headache, loss of consciousness, seizures. PAST MEDICAL HISTORY: 1. History of atrial fibrillation. 2. History of asthma. 3. CHF. 4. History of CVA, TIA. 5. Diabetes mellitus, type 2. 6. Chronic kidney disease, stage IV. 7. Hyperlipidemia. 8. Hypertension. 9. History of myocardial infarction. 10. Obesity. 11. History of CAD, stent. HOME MEDICATIONS: 1. Midodrine (Proamatine) 5 mg p.o. Monday and . 2. Trazodone 75 mg p.o. at bedtime p.r.n. 3. Demadex 20 mg p.o. daily. 4. Aldactone 25 mg p.o. daily. 5. Renvela 800 mg before meals t.i.d. 6. Mirapex 0.2 at bedtime. 7. Nitrostat 0.4 sublingually q.5 p.r.n. 8. Singulair 10 mg p.o. daily. 9. Proamatine 10 mg Monday, and Monday. 10. Lopressor 25 mg b.i.d. 11. Zaroxolyn 2.5 mg q.48 hours. 12. Imdur 60 mg p.o. daily. 13. Levemir 22 units subcutaneously at bedtime. 14. NovoLog FlexPen 10 units before meals t.i.d. 15. Hydrocodone 5 mg q.6 p.r.n. 16. Neurontin 300 mg p.o. daily. 17. Lasix 40 mg p.o. daily. 18. Zetia 10 mg p.o. at bedtime. 19. Nexium 40 mg p.o. daily. 20. Colace 100 mg p.o. daily. 21. Vitamin B12 500 mcg p.o. daily. 22. Plavix 75 mg p.o. daily. 23. Vitamin D3 5000 daily. 24. Symbicort 160/4.5 two puffs b.i.d. 25. Ecotrin 81 mg p.o. daily. 26. Zyloprim 100 mg p.o. daily. ALLERGIES: 1. ATROPINE. 2. CEPHALEXIN. 3. DIPHENOXYLATE. 4. IBUPROFEN. 5. BACLOFEN. 6. ULTRAM. FAMILY HISTORY: History of COPD, diabetes mellitus, myocardial infarction in the family. SOCIAL HISTORY: Previous history of smoking. No current smoking or alcohol intake. REVIEW OF SYSTEMS: ENT: Diminished hearing. Diminished vision. CARDIOVASCULAR SYSTEM: As mentioned earlier. RESPIRATORY: As mentioned earlier. GI: As mentioned earlier. : No dysuria. NERVOUS SYSTEM: No numbness. Generalized weakness. ALLERGY/IMMUNOLOGY: No asthma or hayfever. MUSCULOSKELETAL: As mentioned earlier. HEMATOLOGY/ONCOLOGY: No history of anemia. ENDOCRINE: As mentioned earlier. CONSTITUTIONAL: As mentioned earlier. DERMATOLOGY: Negative. RHEUMATOLOGY: Negative. PSYCHIATRY: As mentioned earlier. PHYSICAL EXAMINATION: Alert and oriented x3. Pulse 79, blood pressure 100/56, respiration 18, temperature 97 degrees, pulse ox 93% on room air. HEENT: Conjunctivae normal. Oral mucosa: erythematous tongue present. Discomfort also present, according to the patient. NECK: No jugular venous distention. No carotid bruit. No lymph node enlargement. CARDIOVASCULAR SYSTEM: S1, S2 muffled. Ejection systolic murmur. No S3. No S4. RESPIRATORY SYSTEM: Breath sounds diminished at the bases. Bilateral scattered rhonchi and crackles. ABDOMEN: Soft, obese, nontender. LEGS: Minimal leg edema. NERVOUS SYSTEM: Higher functions as mentioned earlier. Moves all 4 limbs. No focal motor or sensory deficit. LYMPHATICS: No lymph node palpable in neck, axillae or groin. SKIN: No ulcer, rash, bleeding. JOINTS: No active deformity. LABS: WBC 5.1, hemoglobin 11.3, MCV 116.5. INR is 1.4. Sodium 137, patient 7.5. Creatinine is 6.61. Troponin 0.042. ASSESSMENT: 1. Acute on chronic renal failure secondary to missed dialysis. 2. Severe hyperkalemia. 3. Hyponatremia. 4. Possible congestive heart failure, acute exacerbation, secondary to acute on chronic diastolic dysfunction secondary to missed hemodialysis. 5. Anemia, macrocytic, secondary to renal failure. 6. Chronic kidney disease, stage IV, on hemodialysis. 7. Increased random blood sugar. 8. Increased bilirubin. 9. Troponin 0.042, indeterminate. 10. History of atrial fibrillation. 11. History of asthma. 12. History of congestive heart failure. 13. History of cerebrovascular accident, transient ischemic attack. 14. Diabetes mellitus, type 2. 15. History of hyperlipidemia. 16. Hypertension. 17. Myocardial infarction. 18. Obstructive sleep apnea. 19. History of peripheral neuropathy. 20. Congestive heart failure with chronic systolic dysfunction; ejection fraction 35% to 40%. 21. Multi-vessel coronary artery disease. 22. 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 23. Hyperlipidemia. 24. Gout. 25. Bilateral leg cellulitis and chronic ulcerations. 26. History of methicillin-resistant Staphylococcus aureus. 27. History of coronary artery disease with stent. 28. Remote history nicotine dependence. 29. Obesity; body mass index of 32. RECOMMENDATIONS AND DISCUSSION: In this 75-year-old woman who presented with multiple complex medical issues, we will monitor the patient closely, continue the current medications, continue symptomatic treatment. Emergent hemodialysis has been arranged for severe hyperkalemia as well as features of fluid overload. Other than that, we will continue the rest of the medications. I would also recommend PT, OT evaluation. Social work consultation regarding the compliance with hemodialysis. The prognosis is extremely guarded because of multiple complex medical problems. I would also recommend nephrology and cardiology consultations. I would recommend that the patient follow up with closely and Dr. Hernandez as well. Discussed with the patient, who understands and agrees. Further recommendations to follow. A copy of this dictation is being forwarded to Dr. Hernandez, who is the primary physician. See orders for further details. The exact etiology of diarrhea is unknown. Most likely it could be viral or related to renal failure as well. Will closely monitor. [facility]
[2016-05-19 23:23] LABS: Glucose,Whole Blood 45 mg/dL (75-99)
[2016-05-19] MEDS: EZETIMIBE 10 MG TAB PO SCH (23:31)
[2016-05-19] MEDS: PRAMIPEXOLE 0.25 MG TAB PO SCH (23:31)
[2016-05-19] MEDS: HEPARIN SODIUM,PORCINE 5,000 UNIT/ML 1 ML VIAL SQ SCH ×2 (23:31→23:34)
[2016-05-19 23:45] LABS: Glucose,Whole Blood 71 mg/dL (75-99)
[2016-05-20] MEDS: METOPROLOL TARTRATE 25 MG TAB PO SCH ×3 (01:11→23:07)
[2016-05-20 04:03] LABS: Calcium 7.9 mg/dL (8.4-10.2); Total Bilirubin 0.9 mg/dL (0.2-1.3); Total Protein 6.8 g/dL (6.3-8.2)
[2016-05-20 04:12] LABS: Potassium 6.3 mmol/L (3.5-5.1)
[2016-05-20 04:19] LABS: Anisocytosis Slight; Basophils % (A) 1 %; CH 34.9; CHCM 30.5; Eosinophils # (A) 0.2 k/uL (0-0.7); Eosinophils % (A) 4 %; HCT 35.4 % (34.0-46.0); HDW 2.22; HGB 10.9 gm/dL (11.4-16.0); Hypochromasia Slight; Luc # (Auto) 0.17; Luc % (Auto) 4; Lymphocytes # (A) 0.8 k/uL (1.0-4.8); Lymphocytes % (A) 16 %; MCH 35.3 pg (25.0-35.0); MCHC 30.7 g/dL (31.0-37.0); MCV 114.9 fL (80.0-100.0); Macrocytosis Marked; Mean Platelet Volume 8.1; Monocytes # (A) 0.2 k/uL (0-1.0); Monocytes % (A) 5 %; Neutrophils # (A) 3.4 k/uL (1.3-7.7); Neutrophils % (A) 71 %; RBC 3.08 m/uL (3.80-5.40); RDW 16.1 % (11.5-15.5); WBC 4.9 k/uL (3.8-10.6); WBC (Perox) 4.49
[2016-05-20] MEDS: HYDROcodone/APAP 5-325MG 1 EACH TAB PO PRN (06:03)
[2016-05-20 06:09] LABS: Manual Review Performed
[2016-05-20 06:11] LABS: Glucose,Whole Blood 185 mg/dL (75-99)
[2016-05-20 06:12] LABS: Polychromasia Present
[2016-05-20] MEDS: PANTOPRAZOLE 40 MG TABLET PO SCH (07:32)
[2016-05-20] MEDS: SEVELAMER 800 MG TAB PO SCH ×3 (07:32→17:14)
[2016-05-20] MEDS: SYMBICORT 160-4.5 MCG INHALER INHALATION SCH ×2 (08:06→20:32)
--- NOTE | 2016-05-20 08:26 | P.NPCON ---
History of Present Illness - Reason for Consult end stage renal disease - History of Present Illness Reason for consultation: End-stage renal disease History of present illness: Patient is a 75-year-old female seen in renal consultation for end- stage renal disease. She is maintained on hemodialysis on a Monday schedule. Patient missed her last 2 treatments of hemodialysis and her last hemodialysis treatment was on May 14. Patient states she' s been feeling quite weak and has been having loose bowel movements. Patient states last night she had 2 loose bowel movements and they were darker than usual. According to the nurse she did not have any bowel movements overnight. She does have dyspnea however this appears to be her baseline. She has history of severe pulmonary hypertension as well as chronic hypotension. Feels nauseous but denies any vomiting or diarrhea. Appetite is fair. Vital signs are stable. General: The patient appeared well nourished and normally developed. HEENT: Head exam is unremarkable. Neck is without jugular venous distension. LUNGS: Lungs are clear to auscultation and percussion. Breath sounds decreased. HEART: Rate and Rhythm are regular. First and second heart sounds normal. No murmurs, rubs or gallops. ABDOMEN: Abdominal exam reveals normal bowel sounds. Non-tender and non- distended. No evidence of peritonitis. EXTREMITITES: 1+ edema. Chronic changes. Past Medical History Past Medical History: Atrial Fibrillation, Asthma, Heart Failure, CVA/TIA, Diabetes Mellitus, Dialysis, Hyperlipidemia, Hypertension, Myocardial Infarction ([place]), Renal Disease Additional Past Medical History / Comment(s): Obesity, bronchial asthma, obstructive sleep apnea, peripheral neuropathy, congestion heart failure with ejection fraction of 35-40%, multivessel coronary artery disease with previous myocardial infarction, history of CVA with some residual left-sided weakness, renal failure and the patient has end-stage renal disease and currently she is on hemodialysis 3 times a week, diabetes mellitus, gout, chronic ulceration of the lower extremity with episodic cellulitis of the legs, history of MRSA infection of the lower extremities bilaterally Last Myocardial Infarction Date:: September 22, 2007 History of Any Multi-Drug Resistant Organisms: None Reported Past Surgical History: Bowel Resection, Heart Catheterization With Stent, Hysterectomy Additional Past Surgical History / Comment(s): Spur removal in bilateral feet twice and left shoulder once and groin, cataracts removed Past Anesthesia/Blood Transfusion Reactions: No Reported Reaction Date of Last Stent Placement:: September 22, 2007 Past Psychological History: No Psychological Hx Reported Additional Psychological History / Comment(s): patient currently lives at home with her son. Patient states she uses a walker at home stated lt leg drags a bit since stroke, patient uses [facility] bus to get to appointments, visiting nurse 3x a week. Difficulties getting to her dialysis appointments. 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 No animal exposures. No international travel Smoking Status: Former smoker Past Alcohol Use History: None Reported Additional Past Alcohol Use History / Comment(s): STARTED SMOKING AT AGE 18 SMOKED 1.5 PPD ,QUIT 2007 Past Drug Use History: None Reported - Past Family History Mother Additional Family Medical History / Comment(s): pt stated was unknown. stated she had an iron lung. at age 32 Father Family Medical History: COPD, Diabetes Mellitus, Myocardial Infarction ([place]) Additional Family Medical History / Comment(s): at age 90. Sister(s) Family Medical History: Diabetes Mellitus Son(s) Family Medical History: Deep Vein Thrombosis (DVT), Myocardial Infarction ([place]) Medications and Allergies Home Medications Medication Instructions Recorded Confirmed Type Aspirin EC [Ecotrin Low Dose] 81 mg PO DAILY 03/10/15 05/20/16 History Budesonide/Formoterol Fumarate 2 puff INHALATION RT-BID 03/10/15 05/20/16 History [Symbicort 160-4.5 Mcg Inhaler] Cholecalciferol [Vitamin D3] 5,000 unit PO DAILY 03/10/15 05/20/16 History Clopidogrel [Plavix] 75 mg PO DAILY 03/10/15 05/20/16 History Cyanocobalamin [Vitamin B-12] 500 mcg PO DAILY 03/10/15 05/20/16 History Esomeprazole Magnesium [NexIUM] 40 mg PO DAILY 03/10/15 05/20/16 History Montelukast [Singulair] 10 mg PO DAILY 03/10/15 05/20/16 History Sevelamer [Renvela] 800 mg PO AC-TID 03/10/15 05/20/16 History traZODone HCL 75 mg PO HS PRN 03/10/15 05/20/16 History Isosorbide Mononitrate ER [Imdur] 60 mg PO DAILY 09/14/15 05/20/16 History Ezetimibe [Zetia] 10 mg PO HS 01/17/16 05/20/16 History Allopurinol [Zyloprim] 100 mg PO DAILY 04/25/16 05/20/16 History Midodrine [ProAmatine] 10 mg PO TUTHSA 04/25/16 05/20/16 History Pramipexole [Mirapex] 0.25 mg PO HS 04/25/16 05/20/16 History Midodrine [ProAmatine] 5 mg PO TUTHSA 04/26/16 05/20/16 History Docusate [Colace] 100 mg PO DAILY 05/19/16 05/20/16 History Furosemide [Lasix] 40 mg PO DAILY 05/19/16 05/20/16 History Gabapentin [Neurontin] 300 mg PO DAILY 05/19/16 05/20/16 History HYDROcodone/APAP 5-325MG [[place] 1 tab PO Q6H PRN 05/19/16 05/20/16 History 5-325] Metolazone [Zaroxolyn] 2.5 mg PO Q48H 05/19/16 05/20/16 History Metoprolol Tartrate [Lopressor] 25 mg PO BID 05/19/16 05/20/16 History Spironolactone [Aldactone] 25 mg PO DAILY 05/19/16 05/20/16 History Torsemide [Demadex] 20 mg PO DAILY 05/19/16 05/20/16 History Allergies Allergy/AdvReac Type Severity Reaction Status Date / Time atropine sulfate Allergy Rash/Hives Verified 05/19/16 22:38 [From Lomotil] cephalexin monohydrate Allergy Rash/Hives Verified 05/19/16 22:38 [From Keflex] diphenoxylate HCl Allergy Rash/Hives Verified 05/19/16 22:38 [From Lomotil] ibuprofen Allergy Swelling Verified 05/19/16 22:38 baclofen AdvReac Hallucinati Verified 05/19/16 22:38 ons tramadol AdvReac Hallucinati Verified 05/19/16 22:38 ons Physical Exam Vitals: Vital Signs Temp Pulse Pulse Resp BP BP Pulse Ox 05/20/16 04:00 97.3 F L 84 18 92/53 95 05/20/16 00:00 97.8 F 72 18 90/51 94 L 05/19/16 22:04 97.0 F L 74 18 94/57 97 05/19/16 18:43 79 18 100/57 96 Intake and Output 05/19/16 05/20/16 05/20/16 22:59 06:59 14:59 Intake Total 100 Balance 100 Intake: IV 100 Sodium Chloride 0.9% 1, 100 000 ml @ 100 mls/hr IV . Q10H ONE Rx#:[id number] Other: Voiding Method Toilet # Bowel Movements 1 Weight 82 kg Results - Lab Results Most recent lab results Calcium 7.9 mg/dL (8.4-10.2) L 05/20/16 03:31 Phosphorus 7.0 mg/dL (2.5-4.5) H 05/19/16 17:48 Magnesium 2.3 mg/dL (1.6-2.3) 05/19/16 17:48 05/20/16 03:31 05/20/16 03:31 Assessment and Plan Plan: Assessment: #1. End-stage renal disease maintained on hemodialysis on a Monday schedule. #2. Hyperkalemia secondary to noncompliance with hemodialysis. #3. Chronic kidney disease mineral bone disease. #4. Severe pulmonary hypertension. #5. Chronic hypotension related to underlying cardiac status. #5. Loose bowel movements. Appears to have resolved. Plan: Hemodialysis today with goal 2 liters ultrafiltration. Another treatment tomorrow per her outpatient schedule. Midodrine 10 mg 3 times daily. Check phosphorus level. Maintain Renvela with meals. Nephrocaps daily. If again has diarrhea, will check stool for culture and C. diff as well. Thank you for the consultation. I will continue to follow the patient with you during her hospital stay.
--- NOTE | 2016-05-20 08:59 | CONS ---
DATE OF CONSULTATION: REASON FOR CONSULTATION: Cardiac evaluation and treatment. Patient is known to have atherosclerotic heart disease with history of stenting in 2007, follows with my associate, Dr. Chintan Arana. Patient has been known to have multiple medical problems atrial fibrillation, chronic and history of severe diabetes mellitus, chronic renal failure on dialysis, history of [place]. Patient missed 3 dialysis treatments, came into the hospital with hyperkalemia and patient is started on dialysis yesterday. Her potassium was 6.4. Patient denies any chest pain or pressure. Patient lives by herself on limited activities with multiple medical problems as mentioned above with multiple allergies also, which include ATROPINE, CEPHALEXIN, DIPHENOXYLATE, IBUPROFEN, BACLOFEN, ULTRAM. At this time patient's creatinine was noted to be 6.6. Troponin is mildly elevated, which is not critical value and probably with a creatinine of 6.6, it does not carry much value on it. Patient's past medical history has been coronary artery disease with unstable angina, chronic renal failure, stage IV on dialysis, hypertension, hyperlipidemia, history of atrial fibrillation, diabetes mellitus, history of CVA. REVIEW OF SYSTEMS: Essentially unremarkable other than what is stated in the presenting illness. Patient's home medications include: Demadex 20 mg p.o. daily, Aldactone 25 mg p.o. daily. We will discontinue the Aldactone because of the hyperkalemia. Renvela 800 mg p.o. t.i.d., Mirapex 0.2 mg p.o. at bedtime, midodrine 5 mg on Tuesdays and , trazodone 75 mg p.o. at bedtime p.r.n. , Singulair 10 mg, protamine 10 mg p.o. and Saturdays, Lopressor 25 mg p.o. daily, Zaroxolyn 2.5 mg q.48 hours, Imdur 60 mg p.o. daily, Levemir 22 units subcutaneously at bedtime, NovoLog FlexPen 10 units before meals t.i.d., hydrocodone 5 mg q.6 hours, Neurontin 300 mg p.o. daily, Lasix 40 mg p.o. daily, Zetia. There is a double dosing Zetia and Demadex, probably Demadex will be discontinued. Zetia 10 mg p.o. daily, Nexium 40 mg, Colace 100 mg p.o. daily, Plavix 75 mg, Symbicort 160/4.5 two puffs b.i.d. , aspirin 1 tablet daily, Zyloprim 100 mg p.o. daily. Physical examination revealed a 75-year-old female not in acute distress, oriented x3 with a pulse rate 80 beats per minute and regular, blood pressure of 100/60 mmHg, respirations is 18. HEAD: Normocephalic. HEENT unremarkable. NECK: Neck is supple. No ( ) enlargement. No JVD. CARDIAC EXAMINATION: S1 and S2. Short systolic murmur noted. No S3 or S4. LUNGS: Clinically clear except for crackles and scattered rhonchi. ABDOMEN: Soft. No organomegaly. EXTREMITIES: Minimal pedal edema. RETAIL SALES ADVISOR EXAMINATION: Grossly within normal limits. ASSESSMENT: 1. Acute on chronic renal failure on dialysis, missed 3 dialysis treatments with severe hyperkalemia. 2. Atherosclerotic heart disease, unstable angina. 3. Probably fluid retention secondary to not be on the dialysis. 4. Chronic kidney disease on dialysis. 5. Hypertension. 6. Hyperlipidemia. 7. Diabetes. 8. Asthma. 9. History of cerebrovascular accident. 10. Ejection fractions are around 35% to 40%. Concur with current therapy and going back on the dialysis. No cardiac interventions at the present time unless patient has any other problems.
[2016-05-20] MEDS ORDERED: ENOXAPARIN 40 MG/0.4 ML SYRINGE SQ SCH (09:00)
[2016-05-20] MEDS: HEPARIN SODIUM,PORCINE 5,000 UNIT/ML 1 ML VIAL SQ SCH ×2 (09:39→20:23)
[2016-05-20] MEDS: ISOSORBIDE MONONITRATE ER 60 MG TAB.ER.24H PO SCH (09:39)
[2016-05-20] MEDS: CHOLECALCIFEROL 1,000 UNIT TAB PO SCH (09:40)
[2016-05-20] MEDS: MONTELUKAST 10 MG TAB PO SCH (09:40)
[2016-05-20] MEDS: TORSEMIDE 20 MG TAB PO SCH (09:40)
[2016-05-20] MEDS: CLOPIDOGREL 75 MG TAB PO SCH (09:40)
[2016-05-20] MEDS: GABAPENTIN 300 MG CAP PO SCH (09:40)
[2016-05-20] MEDS: FUROSEMIDE 40 MG TAB PO SCH (09:41)
[2016-05-20] MEDS: ALLOPURINOL 100 MG TAB PO SCH (09:41)
[2016-05-20] MEDS: ASPIRIN 81 MG CHEW PO SCH (09:41)
[2016-05-20] MEDS: CYANOCOBALAMIN 500 MCG TAB PO SCH (09:41)
[2016-05-20] MEDS: METOLAZONE 2.5 MG TAB PO SCH (09:42)
[2016-05-20] MEDS: INSULIN LISPRO (humaLOG) 300 UNIT/3 ML VIAL SQ SCH ×2 (09:42→12:22)
[2016-05-20] MEDS: FOLIC ACID-VIT B COMPLEX-VIT C 1 CAP PO SCH (09:44)
[2016-05-20 11:45] LABS: Glucose,Whole Blood 104 mg/dL (75-99)
[2016-05-20] MEDS: MIDODRINE 5 MG TAB PO SCH ×2 (12:22→17:14)
[2016-05-20 14:12] VITALS: BMI 36.5
--- NOTE | 2016-05-20 16:00 | P.CNPUL ---
History of Present Illness Consult date: 05/20/16 Chief complaint: fluid overload, end-stage renal disease History of present illness: 75-year-old female patient is well-known to me. The patient is currently suffering from a incisional disease and she is currently on hemodialysis 3 days a week. The patient skipped 3 of her last dialysis sessions and she states that she was unable to go to the dialysis center for the past week as the patient was having episodes of diarrhea and she was unable to get herself to the bus which takes her back and forth to dialysis. Based on that, the patient became progressively more weak, lethargic, and she developed significant volume overload with increased edema in lower extremities bilaterally. No shortness of breath at rest however with activity she was getting progressively more dyspneic. She was having occasional double vision. No headache. No change in mental status. No focal neurological deficits. Diarrhea has subsided and there has been no further episodes of diarrhea since the patient come to the hospital. No nausea. No vomiting. No chest pain. No fever chills or night sweats. Potassium level was high at time of admission at 7.5 and the patient had a component of metabolic acidosis with a bicarb level of 19. No leukocytosis. Influenza screen was negative. Hyperkalemia was treated and the patient will be undergoing dialysis today. She has been already evaluated by nephrology. Follow-up potassium level from this morning is down to 6.3. She has single episode of hypoglycemia with a blood sugar initially was at 45. Subsequent blood sugars are all above 100. Review of Systems impaired performance and functional status. The patient is quite debilitated due to her multiple medical pounds and comorbidities. She has had multiple hospitalizations for complications of cardiac disease and renal failure. To my knowledge the patient does not have any previous history of C. diff colitis.she has had however previous urine checked infection with Klebsiella pneumoniae Past Medical History Past Medical History: Atrial Fibrillation, Asthma, Heart Failure, CVA/TIA, Diabetes Mellitus, Dialysis, Hyperlipidemia, Hypertension, Myocardial Infarction ([place]), Renal Disease Additional Past Medical History / Comment(s): Obesity, bronchial asthma, obstructive sleep apnea, peripheral neuropathy, congestion heart failure with ejection fraction of 35-40%, multivessel coronary artery disease with previous myocardial infarction, history of CVA with some residual left-sided weakness, renal failure and the patient has end-stage renal disease and currently she is on hemodialysis 3 times a week, diabetes mellitus, gout, chronic ulceration of the lower extremity with episodic cellulitis of the legs, history of MRSA infection of the lower extremities bilaterally, previous history of Klebsiella pneumonia urine checked infection Last Myocardial Infarction Date:: September 22, 2007 History of Any Multi-Drug Resistant Organisms: None Reported Past Surgical History: Bowel Resection, Heart Catheterization With Stent, Hysterectomy Additional Past Surgical History / Comment(s): Spur removal in bilateral feet twice and left shoulder once and groin, cataracts removed Past Anesthesia/Blood Transfusion Reactions: No Reported Reaction Date of Last Stent Placement:: September 22, 2007 Past Psychological History: No Psychological Hx Reported Additional Psychological History / Comment(s): patient currently lives at home with her son. Patient states she uses a walker at home stated lt leg drags a bit since stroke, patient uses [employer] bus to get to appointments, visiting nurse 3x a week. Difficulties getting to her dialysis appointments. 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 No animal exposures. No international travel Smoking Status: Former smoker Past Alcohol Use History: None Reported Additional Past Alcohol Use History / Comment(s): STARTED SMOKING AT AGE 18 SMOKED 1.5 PPD ,QUIT 2007 Past Drug Use History: None Reported - Past Family History Mother Additional Family Medical History / Comment(s): pt stated was unknown. stated she had an iron lung. at age 31 Father Family Medical History: COPD, Diabetes Mellitus, Myocardial Infarction ([place]) Additional Family Medical History / Comment(s): at age 90. Sister(s) Family Medical History: Diabetes Mellitus Son(s) Family Medical History: Deep Vein Thrombosis (DVT), Myocardial Infarction ([place]) Medications and Allergies Home Medications Medication Instructions Recorded Confirmed Type Aspirin EC [Ecotrin Low Dose] 81 mg PO DAILY 03/10/15 05/20/16 History Budesonide/Formoterol Fumarate 2 puff INHALATION RT-BID 03/10/15 05/20/16 History [Symbicort 160-4.5 Mcg Inhaler] Cholecalciferol [Vitamin D3] 5,000 unit PO DAILY 03/10/15 05/20/16 History Clopidogrel [Plavix] 75 mg PO DAILY 03/10/15 05/20/16 History Cyanocobalamin [Vitamin B-12] 500 mcg PO DAILY 03/10/15 05/20/16 History Esomeprazole Magnesium [NexIUM] 40 mg PO DAILY 03/10/15 05/20/16 History Montelukast [Singulair] 10 mg PO DAILY 03/10/15 05/20/16 History Sevelamer [Renvela] 800 mg PO AC-TID 03/10/15 05/20/16 History traZODone HCL 75 mg PO HS PRN 03/10/15 05/20/16 History Isosorbide Mononitrate ER [Imdur] 60 mg PO DAILY 09/14/15 05/20/16 History Ezetimibe [Zetia] 10 mg PO HS 01/17/16 05/20/16 History Allopurinol [Zyloprim] 100 mg PO DAILY 04/25/16 05/20/16 History Midodrine [ProAmatine] 10 mg PO [facility] 04/25/16 05/20/16 History Pramipexole [Mirapex] 0.25 mg PO HS 04/25/16 05/20/16 History Midodrine [ProAmatine] 5 mg PO TUTA 04/26/16 05/20/16 History Docusate [Colace] 100 mg PO DAILY 05/19/16 05/20/16 History Furosemide [Lasix] 40 mg PO DAILY 05/19/16 05/20/16 History Gabapentin [Neurontin] 300 mg PO DAILY 05/19/16 05/20/16 History HYDROcodone/APAP 5-325MG [[place] 1 tab PO Q6H PRN 05/19/16 05/20/16 History 5-325] Metolazone [Zaroxolyn] 2.5 mg PO Q48H 05/19/16 05/20/16 History Metoprolol Tartrate [Lopressor] 25 mg PO BID 05/19/16 05/20/16 History Spironolactone [Aldactone] 25 mg PO DAILY 05/19/16 05/20/16 History Torsemide [Demadex] 20 mg PO DAILY 05/19/16 05/20/16 History Allergies Allergy/AdvReac Type Severity Reaction Status Date / Time atropine sulfate Allergy Rash/Hives Verified 05/19/16 22:38 [From Lomotil] cephalexin monohydrate Allergy Rash/Hives Verified 05/19/16 22:38 [From Keflex] diphenoxylate HCl Allergy Rash/Hives Verified 05/19/16 22:38 [From Lomotil] ibuprofen Allergy Swelling Verified 05/19/16 22:38 baclofen AdvReac Hallucinati Verified 05/19/16 22:38 ons tramadol AdvReac Hallucinati Verified 05/19/16 22:38 ons Physical Exam Vitals: Vital Signs Temp Pulse Pulse Resp BP BP Pulse Ox 05/20/16 15:17 96.8 F L 73 18 104/55 94 L 05/20/16 12:00 96.9 F L 68 18 79/51 97 05/20/16 08:00 96.8 F L 79 18 106/52 97 05/20/16 04:00 97.3 F L 84 18 92/53 95 05/20/16 00:00 97.8 F 72 18 90/51 94 L 05/19/16 22:04 97.0 F L 74 18 94/57 97 05/19/16 18:43 79 18 100/57 96 Intake and Output 05/20/16 05/20/16 05/20/16 06:59 14:59 22:59 Intake Total 298 Output Total 0 Balance 298 Intake: Oral 298 Output: Emesis 0 Other: Voiding Method Toilet Toilet Toilet # Bowel Movements 1 Weight 82 kg 82 kg Patient Weight 05/21/16 06:59 Weight 82 kg Head exam was generally normal. There was no scleral icterus or corneal arcus. Mucous membranes were moist.Neck was supple and without jugular venous distension, thyromegaly, or carotid bruits. Carotids were easily palpable bilaterally. There was no adenopathy. The patient has significant crowding of the posterior pharynx and the patient has a short neck. No JVDs. His got poor oral hygiene and dental hygiene. Lung sounds are diminished in lung bases along with some limited bibasilar crackles. Heart sounds are irregular, positive S1-S2 and there is no significant murmurs appreciated. Abdomen is obese soft nontender. No direct tenderness, no rebound tests or guarding. Extremities show extensive edema in lower oximetry is bilaterally. No open wounds or sores or cellulitis. Neurologically she is awake alert and following commands and answering questions appropriately. However she remains quite weak and she is having difficulty with mobility and gait and balance. Results - Laboratory Findings CBC and BMP: 05/20/16 03:31 05/20/16 03:31 PT/INR, D-dimer PT 13.6 sec (9.0-12.0) H 05/19/16 17:48 INR 1.4 (<1.1) 05/19/16 17:48 Abnormal lab findings: Abnormal Labs 05/19/16 05/19/16 05/19/16 17:48 17:48 17:48 RBC 3.09 L Hgb 11.3 L MCV 116.5 H MCH 36.5 H MCHC RDW 16.3 H Plt Count 138 L Lymphocytes # 0.9 L PT 13.6 H Sodium 136 L Potassium 7.5 H* Carbon Dioxide 19 L BUN 87 H* Creatinine 6.61 H* Glucose 106 H POC Glucose (mg/dL) Calcium Phosphorus 7.0 H Total Bilirubin 1.4 H AST 38 H Alkaline Phosphatase 156 H CK-MB (CK-2) Troponin I Albumin 05/19/16 05/19/16 05/19/16 17:48 23:12 23:32 RBC Hgb MCV MCH MCHC RDW Plt Count Lymphocytes # PT Sodium Potassium Carbon Dioxide BUN Creatinine Glucose POC Glucose (mg/dL) 45 L 71 L Calcium Phosphorus Total Bilirubin AST Alkaline Phosphatase CK-MB (CK-2) 3.0 H* Troponin I 0.042 H* Albumin 05/20/16 05/20/16 05/20/16 03:31 03:31 06:09 RBC 3.08 L Hgb 10.9 L MCV 114.9 H MCH 35.3 H MCHC 30.7 L RDW 16.1 H Plt Count 128 L Lymphocytes # 0.8 L PT Sodium Potassium 6.3 H* Carbon Dioxide BUN 57 H Creatinine 4.97 H Glucose 177 H POC Glucose (mg/dL) 185 H Calcium 7.9 L Phosphorus Total Bilirubin AST Alkaline Phosphatase 132 H CK-MB (CK-2) Troponin I Albumin 3.4 L 05/20/16 11:43 RBC Hgb MCV MCH MCHC RDW Plt Count Lymphocytes # PT Sodium Potassium Carbon Dioxide BUN Creatinine Glucose POC Glucose (mg/dL) 104 H Calcium Phosphorus Total Bilirubin AST Alkaline Phosphatase CK-MB (CK-2) Troponin I Albumin - Diagnostic Findings Chest x-ray: image reviewed Assessment and Plan Plan: Assessment 1 fluid overload secondary to missed dialysis for one week. The patient will be restarted back on dialysis 2 acute hyperkalemia being managed and the potassium level is down to 6.3. 3 end-stage renal disease and currently on hemodialysis 3 times a week 4 limited diarrhea, recovered to rule out underlying C. diff colitis. Note that the patient has not had any further episodes of diarrhea since she arrived to the hospital 5 congestion heart failure with an ejection fraction of 35% with severe pulmonary hypertension 6 coronary artery disease with previous episodes of myocardial infarction 7 CVA, history of with left-sided residual weakness 8 obstructive sleep apnea. 9 Bronchial asthma 10 diabetes mellitus with complications of diabetic nephropathy and retinopathy and peripheral neuropathy 11 ataxia and increased risk of fall 12 hyperlipidemia 13 chronic atrial fibrillation, the patient's rate is controlled yet she has not been a good candidate for long-term and to coagulation due to previous episodes of bleeding complications 14 chronic lower extremity edema 15 peripheral neuropathy 16 chronic ulceration of the lower extremities with previous episodes of cellulitis including MRSA infection, currently inactive in stable Plan Pulmonary status is stable. Despite fluid overload there is no overt signs of heart failure. Chest x-ray was reviewed. Resume routine bronchodilators. Resume CPAP overnight. Resume hemodialysis and the patient will be undergoing ultrafiltration to optimize the fluid balance. Monitor the potassium. Nephrology consultation. Monitor the diarrhea and if needed check for C. diff infection. We'll continue to follow.. Prognosis unfortunately poor baseline above-mentioned comorbidities.
[2016-05-20] MEDS: DEXTROSE 50%-WATER 50 ML SYRINGE IVP ONE ×2 (16:42→18:27)
--- NOTE | 2016-05-20 16:45 | PN ---
DATE OF SERVICE: 05/20/2016 This 75-year-old woman who was admitted with shortness of breath has features of acute on chronic renal failure. The patient apparently missed hemodialysis for 3 days. The patient also has features of CHF and fluid load and severe hyperkalemia. Patient had hemodialysis yesterday. Hemodialysis is being planned for today, also. Potassium is 6.3. Creatinine is 4.97. Chest x-ray shows improvement. There is no history of any fever, rigor, or chills. Past medical history reviewed. REVIEW OF SYSTEMS: CARDIOVASCULAR SYSTEM: As mentioned earlier. RESPIRATORY SYSTEM: As mentioned earlier. GI: As mentioned earlier. : As mentioned earlier. NERVOUS SYSTEM: As mentioned earlier. Current medications are reviewed and include: 1. [place] 5 mg q.6 p.r.n. 2. Zyloprim 100 mg daily. 3. Aspirin 81 mg daily. 4. Symbicort 160/4.5 two puffs daily. 5. Vitamin D3 5000 daily. 6. Plavix 75 mg p.o. daily. 7. Vitamin B12 500 mcg p.o. daily. 8. Zetia 10 mg p.o. at bedtime. 9. Lasix 40 mg p.o. daily. 10. Neurontin 300 mg p.o. daily. 11. Heparin 5000 units subcutaneously b.i.d. 12. Levemir 22 units subcutaneously at bedtime. 13. Humalog 10 units before meals t.i.d. 14. Imdur 60 mg p.o. daily. 15. Zaroxolyn 2.5 q.48 hours. 16. Lopressor 25 mg p.o. b.i.d. 17. Midodrine 10 mg before meals t.i.d. 18. Singulair 10 mg daily. 19. Multivitamins 1 p.o. daily. 20. Nephrocaps 1 p.o. daily. 21. Nitrostat 0.4 sublingually p.r.n. 22. Protonix 40 mg p.o. daily. 23. Mirapex 0.25 mg at bedtime. 24. Renvela 800 mg before meals t.i.d. 25. Demadex 20 mg p.o. daily. 26. Desyrel 75 mg at bedtime p.r.n. PHYSICAL EXAMINATION: Patient is alert and oriented x2. Pulse 68, blood pressure 79/51, respiration 18, temperature 96.9, pulse ox 97% on 2 L. HEENT: Conjunctivae normal. Oral mucosa moist. NECK: No jugular venous distention. No carotid bruit. No lymph node enlargement. Pale. CARDIOVASCULAR SYSTEM: S1, S2 muffled. Ejection systolic murmur. RESPIRATORY SYSTEM: Breath sounds diminished at the bases. Scattered rhonchi and crackles. ABDOMEN: Soft, nontender. No mass palpable. LEGS: No edema. No swelling. NERVOUS SYSTEM: Higher functions as mentioned earlier. Moves all 4 limbs. No focal deficit. Labs at this time show WBC 4.9, hemoglobin 10.9, MCV 149. Potassium noted. Influenza negative. ASSESSMENT: 1. Acute on chronic renal failure secondary to missed hemodialysis with chronic kidney disease, stage V, on hemodialysis. 2. Severe hyperkalemia, on hemodialysis. 3. Hyponatremia. 4. Congestive heart failure, acute exacerbation, with acute on chronic systolic dysfunction; ejection fraction 35% to 40%, with fluid overload secondary to missed hemodialysis. 5. Anemia, macrocytic, secondary to renal failure. 6. Chronic kidney disease, stage V, on hemodialysis. 7. Increased random blood sugar. 8. Increased bilirubin. 9. Troponin 0.042, indeterminate. 10. History of atrial fibrillation. 11. History of asthma. 12. History of congestive heart failure. 13. History of cerebrovascular accident, transient ischemic attack. 14. Diabetes mellitus, type 2. 15. History of hyperlipidemia. 16. History of hypertension. 17. History of myocardial infarction. 18. History of obstructive sleep apnea. 19. History of diabetic peripheral neuropathy. 20. Multi-vessel coronary artery disease history. 21. Gout. 22. Bilateral leg cellulitis and chronic ulcerations. 23. History of methicillin-resistant Staphylococcus aureus. 24. History of coronary artery disease and stent. 25. Remote history of nicotine dependence. 26. Obesity with body mass index of 32. 27. FULL CODE. RECOMMENDATIONS AND DISCUSSION: In this 75-year-old woman who presented with multiple complex medical issues, we will monitor the patient closely, continue the current medications, continue with symptomatic treatment. Otherwise, continue with hemodialysis. Monitor potassium closely. Monitor. fluid/electrolyte balance also closely. Guarded prognosis. Discussed with the case therapist. Consider possibility of palliative care by the patient. Once again, the prognosis is guarded. Further recommendations to follow. MTDD
[2016-05-20 17:02] LABS: Glucose,Whole Blood 32 mg/dL (75-99)
[2016-05-20 17:35] LABS: Glucose,Whole Blood 106 mg/dL (75-99)
[2016-05-20 17:35] LABS: Glucose,Whole Blood 93 mg/dL (75-99)
[2016-05-20] MEDS ORDERED: DEXTROSE 50%-WATER 50 ML SYRINGE IVP ONE ×2 (18:26→20:54)
[2016-05-20 18:43] LABS: Glucose,Whole Blood 57 mg/dL (75-99)
[2016-05-20 19:09] LABS: Glucose,Whole Blood 66 mg/dL (75-99)
[2016-05-20] MEDS ORDERED: DEXTROSE 5% IN WATER 1,000 ML IV SCH (19:15)
[2016-05-20 19:45] LABS: Glucose,Whole Blood 67 mg/dL (75-99)
[2016-05-20 19:45] LABS: Glucose,Whole Blood 75 mg/dL (75-99)
[2016-05-20 20:09] LABS: Glucose,Whole Blood 63 mg/dL (75-99)
[2016-05-20 20:32] LABS: Glucose,Whole Blood 55 mg/dL (75-99)
[2016-05-20 20:53] LABS: Glucose,Whole Blood 44 mg/dL (75-99)
[2016-05-20] MEDS: DEXTROSE 50%-WATER 50 ML SYRINGE IVP STA (20:54)
[2016-05-20 21:21] LABS: Glucose,Whole Blood 127 mg/dL (75-99)
[2016-05-20 22:39] LABS: Glucose,Whole Blood 98 mg/dL (75-99)
[2016-05-20] MEDS: EZETIMIBE 10 MG TAB PO SCH (23:07)
[2016-05-20] MEDS: PRAMIPEXOLE 0.25 MG TAB PO SCH (23:07)
[2016-05-20 23:56] LABS: Glucose,Whole Blood 116 mg/dL (75-99)
[2016-05-21 02:10] LABS: Glucose,Whole Blood 144 mg/dL (75-99)
[2016-05-21 05:58] LABS: Glucose,Whole Blood 114 mg/dL (75-99)
[2016-05-21] MEDS: SEVELAMER 800 MG TAB PO SCH ×3 (06:27→17:55)
[2016-05-21] MEDS: PANTOPRAZOLE 40 MG TABLET PO SCH (06:27)
[2016-05-21] MEDS: MIDODRINE 5 MG TAB PO SCH ×3 (06:27→17:55)
[2016-05-21 06:46] LABS: Basophils % (A) 0 %; CHCM 30.1; Eosinophils # (A) 0.2 k/uL (0-0.7); Eosinophils % (A) 3 %; HCT 34.8 % (34.0-46.0); HDW 2.37; HGB 10.7 gm/dL (11.4-16.0); Hypochromasia Moderate; Luc # (Auto) 0.19; Luc % (Auto) 3; Lymphocytes # (A) 0.5 k/uL (1.0-4.8); Lymphocytes % (A) 9 %; MCH 35.8 pg (25.0-35.0); MCHC 30.7 g/dL (31.0-37.0); MCV 116.5 fL (80.0-100.0); Macrocytosis Marked; Mean Platelet Volume 8.4; Monocytes # (A) 0.5 k/uL (0-1.0); Monocytes % (A) 9 %; Neutrophils # (A) 4.5 k/uL (1.3-7.7); Neutrophils % (A) 77 %; RBC 2.99 m/uL (3.80-5.40); RDW 15.9 % (11.5-15.5); WBC 5.9 k/uL (3.8-10.6); WBC (Perox) 6.03
[2016-05-21 06:59] LABS: Phosphorous 5.4 mg/dL (2.5-4.5); Potassium 5.9 mmol/L (3.5-5.1)
[2016-05-21 07:02] LABS: Manual Review Performed
[2016-05-21] MEDS ORDERED: INSULIN LISPRO (humaLOG) 300 UNIT/3 ML VIAL SQ SCH (07:30)
--- NOTE | 2016-05-21 08:13 | P.PN ---
Subjective Patient is seen in follow-up for end-stage renal disease. She is maintained on hemodialysis on a Monday schedule. Patient missed 2 treatments of hemodialysis prior to admission and was noted to be hyperkalemic. She underwent hemodialysis the last 2 days and is scheduled to undergo another treatment today. Currently resting in bed. Denies any chest pain or shortness of breath. Denies diarrhea. No active complaints at this time. Vital signs are stable. General: The patient appeared well nourished and normally developed. HEENT: Head exam is unremarkable. Neck is without jugular venous distension. LUNGS: Lungs are clear to auscultation and percussion. Breath sounds decreased. HEART: Rate and Rhythm are regular. First and second heart sounds normal. No murmurs, rubs or gallops. ABDOMEN: Abdominal exam reveals normal bowel sounds. Non-tender and non- distended. No evidence of peritonitis. EXTREMITITES: Trace edema. Objective - Vital Signs Vital signs: Vital Signs Temp 96.7 F L 05/21/16 03:50 Pulse 79 05/21/16 03:50 Resp 16 05/21/16 03:50 BP 117/70 05/21/16 03:50 Pulse Ox 93 L 05/21/16 03:50 Intake & Output 05/20/16 05/21/16 05/21/16 18:59 06:59 18:59 Intake Total 298 800 Output Total 0 Balance 298 800 Weight 82 kg 82.5 kg Intake: IV 800 Dextrose 5% in Water 1, 800 000 ml @ 50 mls/hr IV . Q20H [facility] Rx#:[id number] Oral 298 Output: Emesis 0 Other: Voiding Method Toilet Toilet - Labs CBC & Chem 7: 05/21/16 05:59 05/21/16 05:59 Labs: Abnormal Lab Results - Last 24 Hours (Table) 05/20/16 05/20/16 05/20/16 Range/Units 11:43 16:35 17:02 RBC (3.80-5.40) m/uL Hgb (11.4-16.0) gm/dL MCV (80.0-100.0) fL MCH (25.0-35.0) pg MCHC (31.0-37.0) g/dL RDW (11.5-15.5) % Plt Count (150-450) k/uL Lymphocytes # (1.0-4.8) k/uL Potassium (3.5-5.1) mmol/L BUN (7-17) mg/dL Creatinine (0.52-1.04) mg/dL Glucose (74-99) mg/dL POC Glucose (mg/dL) 104 H 32 L 106 H (75-99) mg/dL Calcium (8.4-10.2) mg/dL Phosphorus (2.5-4.5) mg/dL 05/20/16 05/20/16 05/20/16 Range/Units 18:23 18:48 19:43 RBC (3.80-5.40) m/uL Hgb (11.4-16.0) gm/dL MCV (80.0-100.0) fL MCH (25.0-35.0) pg MCHC (31.0-37.0) g/dL RDW (11.5-15.5) % Plt Count (150-450) k/uL Lymphocytes # (1.0-4.8) k/uL Potassium (3.5-5.1) mmol/L BUN (7-17) mg/dL Creatinine (0.52-1.04) mg/dL Glucose (74-99) mg/dL POC Glucose (mg/dL) 57 L 66 L 67 L (75-99) mg/dL Calcium (8.4-10.2) mg/dL Phosphorus (2.5-4.5) mg/dL 05/20/16 05/20/16 05/20/16 Range/Units 20:09 20:31 20:52 RBC (3.80-5.40) m/uL Hgb (11.4-16.0) gm/dL MCV (80.0-100.0) fL MCH (25.0-35.0) pg MCHC (31.0-37.0) g/dL RDW (11.5-15.5) % Plt Count (150-450) k/uL Lymphocytes # (1.0-4.8) k/uL Potassium (3.5-5.1) mmol/L BUN (7-17) mg/dL Creatinine (0.52-1.04) mg/dL Glucose (74-99) mg/dL POC Glucose (mg/dL) 63 L 55 L 44 L (75-99) mg/dL Calcium (8.4-10.2) mg/dL Phosphorus (2.5-4.5) mg/dL 05/20/16 05/20/16 05/21/16 Range/Units 21:20 23:54 02:04 RBC (3.80-5.40) m/uL Hgb (11.4-16.0) gm/dL MCV (80.0-100.0) fL MCH (25.0-35.0) pg MCHC (31.0-37.0) g/dL RDW (11.5-15.5) % Plt Count (150-450) k/uL Lymphocytes # (1.0-4.8) k/uL Potassium (3.5-5.1) mmol/L BUN (7-17) mg/dL Creatinine (0.52-1.04) mg/dL Glucose (74-99) mg/dL POC Glucose (mg/dL) 127 H 116 H 144 H (75-99) mg/dL Calcium (8.4-10.2) mg/dL Phosphorus (2.5-4.5) mg/dL 05/21/16 05/21/16 05/21/16 Range/Units 05:54 05:59 05:59 RBC 2.99 L (3.80-5.40) m/uL Hgb 10.7 L (11.4-16.0) gm/dL MCV 116.5 H (80.0-100.0) fL MCH 35.8 H (25.0-35.0) pg MCHC 30.7 L (31.0-37.0) g/dL RDW 15.9 H (11.5-15.5) % Plt Count 97 L (150-450) k/uL Lymphocytes # 0.5 L (1.0-4.8) k/uL Potassium 5.9 H (3.5-5.1) mmol/L BUN 39 H (7-17) mg/dL Creatinine 3.86 H (0.52-1.04) mg/dL Glucose 119 H (74-99) mg/dL POC Glucose (mg/dL) 114 H (75-99) mg/dL Calcium 8.0 L (8.4-10.2) mg/dL Phosphorus 5.4 H (2.5-4.5) mg/dL Assessment and Plan Plan: Assessment: #1. End-stage renal disease maintained on hemodialysis on a Monday schedule. #2. Hyperkalemia secondary to noncompliance with hemodialysis. Improved. #3. Chronic kidney disease mineral bone disease. #4. Severe pulmonary hypertension. #5. Chronic hypotension related to underlying cardiac status. #5. Loose bowel movements. Appears to have resolved. Plan: Hemodialysis today with goal 2 liters ultrafiltration. Midodrine 10 mg 3 times daily. Maintain Renvela with meals. Nephrocaps daily. If again has diarrhea, will check stool for culture and C. diff as well.
[2016-05-21] MEDS: SYMBICORT 160-4.5 MCG INHALER INHALATION SCH ×2 (08:39→19:59)
[2016-05-21] MEDS: HEPARIN SODIUM,PORCINE 5,000 UNIT/ML 1 ML VIAL SQ SCH ×2 (11:23→20:14)
[2016-05-21 11:36] LABS: Glucose,Whole Blood 136 mg/dL (75-99)
[2016-05-21] MEDS ORDERED: MIDODRINE 5 MG TAB PO SCH ×2 (12:00→15:00)
--- NOTE | 2016-05-21 12:03 | P.PN ---
Subjective Principal diagnosis: CAD/CHF This is a pleasant 75-year-old female patient who sees Dr. VC Arana as an outpatient with known history of CAD, chronic A. fib, hypertension, dyslipidemia, and into stage renal disease on hemodialysis, presented to the hospital not feeling well. The patient was found to be hyperkalemic. She was not compliant with her dialysis. She was seen and evaluated by the nephrology service and she was restarted on dialysis again. From the cardiac standpoint overview, she denies having any chest pain or discomfort. She continues to have shortness of breath which seems to be chronic. Objective - Vital Signs Vital signs: Vital Signs Temp 97.1 F L 05/21/16 11:24 Pulse 70 05/21/16 11:24 Resp 20 05/21/16 11:24 BP 93/53 05/21/16 11:24 Pulse Ox 92 L 05/21/16 11:24 Intake & Output 05/20/16 05/21/16 05/21/16 18:59 06:59 18:59 Intake Total 298 800 Output Total 0 Balance 298 800 Weight 82 kg 82.5 kg Intake: IV 800 Dextrose 5% in Water 1, 800 000 ml @ 50 mls/hr IV . Q20H [facility] Rx#:[id number] Oral 298 Output: Emesis 0 Other: Voiding Method Toilet Toilet Toilet - Constitutional General appearance: Present: no acute distress - Labs CBC & Chem 7: 05/21/16 05:59 05/21/16 05:59 Labs: Abnormal Lab Results - Last 24 Hours (Table) 05/20/16 05/20/16 05/20/16 Range/Units 16:35 17:02 18:23 RBC (3.80-5.40) m/uL Hgb (11.4-16.0) gm/dL MCV (80.0-100.0) fL MCH (25.0-35.0) pg MCHC (31.0-37.0) g/dL RDW (11.5-15.5) % Plt Count (150-450) k/uL Lymphocytes # (1.0-4.8) k/uL Potassium (3.5-5.1) mmol/L BUN (7-17) mg/dL Creatinine (0.52-1.04) mg/dL Glucose (74-99) mg/dL POC Glucose (mg/dL) 32 L 106 H 57 L (75-99) mg/dL Calcium (8.4-10.2) mg/dL Phosphorus (2.5-4.5) mg/dL 05/20/16 05/20/16 05/20/16 Range/Units 18:48 19:43 20:09 RBC (3.80-5.40) m/uL Hgb (11.4-16.0) gm/dL MCV (80.0-100.0) fL MCH (25.0-35.0) pg MCHC (31.0-37.0) g/dL RDW (11.5-15.5) % Plt Count (150-450) k/uL Lymphocytes # (1.0-4.8) k/uL Potassium (3.5-5.1) mmol/L BUN (7-17) mg/dL Creatinine (0.52-1.04) mg/dL Glucose (74-99) mg/dL POC Glucose (mg/dL) 66 L 67 L 63 L (75-99) mg/dL Calcium (8.4-10.2) mg/dL Phosphorus (2.5-4.5) mg/dL 05/20/16 05/20/16 05/20/16 Range/Units 20:31 20:52 21:20 RBC (3.80-5.40) m/uL Hgb (11.4-16.0) gm/dL MCV (80.0-100.0) fL MCH (25.0-35.0) pg MCHC (31.0-37.0) g/dL RDW (11.5-15.5) % Plt Count (150-450) k/uL Lymphocytes # (1.0-4.8) k/uL Potassium (3.5-5.1) mmol/L BUN (7-17) mg/dL Creatinine (0.52-1.04) mg/dL Glucose (74-99) mg/dL POC Glucose (mg/dL) 55 L 44 L 127 H (75-99) mg/dL Calcium (8.4-10.2) mg/dL Phosphorus (2.5-4.5) mg/dL 05/20/16 05/21/16 05/21/16 Range/Units 23:54 02:04 05:54 RBC (3.80-5.40) m/uL Hgb (11.4-16.0) gm/dL MCV (80.0-100.0) fL MCH (25.0-35.0) pg MCHC (31.0-37.0) g/dL RDW (11.5-15.5) % Plt Count (150-450) k/uL Lymphocytes # (1.0-4.8) k/uL Potassium (3.5-5.1) mmol/L BUN (7-17) mg/dL Creatinine (0.52-1.04) mg/dL Glucose (74-99) mg/dL POC Glucose (mg/dL) 116 H 144 H 114 H (75-99) mg/dL Calcium (8.4-10.2) mg/dL Phosphorus (2.5-4.5) mg/dL 05/21/16 05/21/16 05/21/16 Range/Units 05:59 05:59 11:35 RBC 2.99 L (3.80-5.40) m/uL Hgb 10.7 L (11.4-16.0) gm/dL MCV 116.5 H (80.0-100.0) fL MCH 35.8 H (25.0-35.0) pg MCHC 30.7 L (31.0-37.0) g/dL RDW 15.9 H (11.5-15.5) % Plt Count 97 L (150-450) k/uL Lymphocytes # 0.5 L (1.0-4.8) k/uL Potassium 5.9 H (3.5-5.1) mmol/L BUN 39 H (7-17) mg/dL Creatinine 3.86 H (0.52-1.04) mg/dL Glucose 119 H (74-99) mg/dL POC Glucose (mg/dL) 136 H (75-99) mg/dL Calcium 8.0 L (8.4-10.2) mg/dL Phosphorus 5.4 H (2.5-4.5) mg/dL Assessment and Plan Plan: Assessment End-stage renal disease on hemodialysis Chronic A. fib with controlled heart rate Coronary artery disease and prior stenting Multiple comorbid conditions Plan Continue the patient on the current medical treatment The patient denies having any chest pain or worsening shortness of breath at this point Continue following up with her
--- NOTE | 2016-05-21 12:34 | P.PN ---
Subjective 75-year-old female patient is well-known to me. The patient is currently suffering from a incisional disease and she is currently on hemodialysis 3 days a week. The patient skipped 3 of her last dialysis sessions and she states that she was unable to go to the dialysis center for the past week as the patient was having episodes of diarrhea and she was unable to get herself to the bus which takes her back and forth to dialysis. Based on that, the patient became progressively more weak, lethargic, and she developed significant volume overload with increased edema in lower extremities bilaterally. No shortness of breath at rest however with activity she was getting progressively more dyspneic. She was having occasional double vision. No headache. No change in mental status. No focal neurological deficits. Diarrhea has subsided and there has been no further episodes of diarrhea since the patient come to the hospital. No nausea. No vomiting. No chest pain. No fever chills or night sweats. Potassium level was high at time of admission at 7.5 and the patient had a component of metabolic acidosis with a bicarb level of 19. No leukocytosis. Influenza screen was negative. Hyperkalemia was treated and the patient will be undergoing dialysis today. She has been already evaluated by nephrology. Follow-up potassium level from this morning is down to 6.3. She has single episode of hypoglycemia with a blood sugar initially was at 45. Subsequent blood sugars are all above 100. The patient is seen again today 05/21/2016 on the selective care unit. She is awake and alert in no acute distress. She is due for dialysis again today. Current creatinine 3.86. She denies any worsening shortness of breath, cough or congestion. she is maintaining good O2 saturations in the 90s on 2 L/m per nasal cannula. Afebrile. She remains quite weak and debilitated. We've asked physical therapy to start working with the patient. Objective - Vital Signs Vital signs: Vital Signs Temp 97.1 F L 05/21/16 11:24 Pulse 70 05/21/16 11:24 Resp 20 05/21/16 11:24 BP 93/53 05/21/16 11:24 Pulse Ox 92 L 05/21/16 11:24 Intake & Output 05/20/16 05/21/16 05/21/16 18:59 06:59 18:59 Intake Total 298 800 Output Total 0 Balance 298 800 Weight 82 kg 82.5 kg Intake: IV 800 Dextrose 5% in Water 1, 800 000 ml @ 50 mls/hr IV . Q20H [facility] Rx#:[id number] Oral 298 Output: Emesis 0 Other: Voiding Method Toilet Toilet Toilet - Exam Head exam was generally normal. There was no scleral icterus or corneal arcus. Mucous membranes were moist.Neck was supple and without jugular venous distension, thyromegaly, or carotid bruits. Carotids were easily palpable bilaterally. There was no adenopathy. The patient has significant crowding of the posterior pharynx and the patient has a short neck. No JVDs. His got poor oral hygiene and dental hygiene. Lung sounds are diminished in lung bases along with some limited bibasilar crackles. Heart sounds are irregular, positive S1-S2 and there is no significant murmurs appreciated. Abdomen is obese soft nontender. No direct tenderness, no rebound tests or guarding. Extremities show extensive edema in lower oximetry is bilaterally. No open wounds or sores or cellulitis. Neurologically she is awake alert and following commands and answering questions appropriately. However she remains quite weak and she is having difficulty with mobility and gait and balance. - Labs CBC & Chem 7: 05/21/16 05:59 05/21/16 05:59 Labs: Abnormal Lab Results - Last 24 Hours (Table) 05/20/16 05/20/16 05/20/16 Range/Units 16:35 17:02 18:23 RBC (3.80-5.40) m/uL Hgb (11.4-16.0) gm/dL MCV (80.0-100.0) fL MCH (25.0-35.0) pg MCHC (31.0-37.0) g/dL RDW (11.5-15.5) % Plt Count (150-450) k/uL Lymphocytes # (1.0-4.8) k/uL Potassium (3.5-5.1) mmol/L BUN (7-17) mg/dL Creatinine (0.52-1.04) mg/dL Glucose (74-99) mg/dL POC Glucose (mg/dL) 32 L 106 H 57 L (75-99) mg/dL Calcium (8.4-10.2) mg/dL Phosphorus (2.5-4.5) mg/dL 05/20/16 05/20/16 05/20/16 Range/Units 18:48 19:43 20:09 RBC (3.80-5.40) m/uL Hgb (11.4-16.0) gm/dL MCV (80.0-100.0) fL MCH (25.0-35.0) pg MCHC (31.0-37.0) g/dL RDW (11.5-15.5) % Plt Count (150-450) k/uL Lymphocytes # (1.0-4.8) k/uL Potassium (3.5-5.1) mmol/L BUN (7-17) mg/dL Creatinine (0.52-1.04) mg/dL Glucose (74-99) mg/dL POC Glucose (mg/dL) 66 L 67 L 63 L (75-99) mg/dL Calcium (8.4-10.2) mg/dL Phosphorus (2.5-4.5) mg/dL 05/20/16 05/20/16 05/20/16 Range/Units 20:31 20:52 21:20 RBC (3.80-5.40) m/uL Hgb (11.4-16.0) gm/dL MCV (80.0-100.0) fL MCH (25.0-35.0) pg MCHC (31.0-37.0) g/dL RDW (11.5-15.5) % Plt Count (150-450) k/uL Lymphocytes # (1.0-4.8) k/uL Potassium (3.5-5.1) mmol/L BUN (7-17) mg/dL Creatinine (0.52-1.04) mg/dL Glucose (74-99) mg/dL POC Glucose (mg/dL) 55 L 44 L 127 H (75-99) mg/dL Calcium (8.4-10.2) mg/dL Phosphorus (2.5-4.5) mg/dL 05/20/16 05/21/16 05/21/16 Range/Units 23:54 02:04 05:54 RBC (3.80-5.40) m/uL Hgb (11.4-16.0) gm/dL MCV (80.0-100.0) fL MCH (25.0-35.0) pg MCHC (31.0-37.0) g/dL RDW (11.5-15.5) % Plt Count (150-450) k/uL Lymphocytes # (1.0-4.8) k/uL Potassium (3.5-5.1) mmol/L BUN (7-17) mg/dL Creatinine (0.52-1.04) mg/dL Glucose (74-99) mg/dL POC Glucose (mg/dL) 116 H 144 H 114 H (75-99) mg/dL Calcium (8.4-10.2) mg/dL Phosphorus (2.5-4.5) mg/dL 05/21/16 05/21/16 05/21/16 Range/Units 05:59 05:59 11:35 RBC 2.99 L (3.80-5.40) m/uL Hgb 10.7 L (11.4-16.0) gm/dL MCV 116.5 H (80.0-100.0) fL MCH 35.8 H (25.0-35.0) pg MCHC 30.7 L (31.0-37.0) g/dL RDW 15.9 H (11.5-15.5) % Plt Count 97 L (150-450) k/uL Lymphocytes # 0.5 L (1.0-4.8) k/uL Potassium 5.9 H (3.5-5.1) mmol/L BUN 39 H (7-17) mg/dL Creatinine 3.86 H (0.52-1.04) mg/dL Glucose 119 H (74-99) mg/dL POC Glucose (mg/dL) 136 H (75-99) mg/dL Calcium 8.0 L (8.4-10.2) mg/dL Phosphorus 5.4 H (2.5-4.5) mg/dL Assessment and Plan Plan: Assessment 1 fluid overload secondary to missed dialysis for one week. The patient will be restarted back on dialysis 2 acute hyperkalemia being managed and the potassium level is down to 6.3. 3 end-stage renal disease and currently on hemodialysis 3 times a week 4 limited diarrhea, recovered to rule out underlying C. diff colitis. Note that the patient has not had any further episodes of diarrhea since she arrived to the hospital 5 congestion heart failure with an ejection fraction of 35% with severe pulmonary hypertension 6 coronary artery disease with previous episodes of myocardial infarction 7 CVA, history of with left-sided residual weakness 8 obstructive sleep apnea. 9 Bronchial asthma 10 diabetes mellitus with complications of diabetic nephropathy and retinopathy and peripheral neuropathy 11 ataxia and increased risk of fall 12 hyperlipidemia 13 chronic atrial fibrillation, the patient's rate is controlled yet she has not been a good candidate for long-term and to coagulation due to previous episodes of bleeding complications 14 chronic lower extremity edema 15 peripheral neuropathy 16 chronic ulceration of the lower extremities with previous episodes of cellulitis including MRSA infection, currently inactive in stable Plan: The patient was seen and evaluated by Dr. Hernandez. She is receiving hemodialysis again today. We will have physical therapy work with the patient and make sure she is ambulatory prior to her discharge possibly within the next 24-48 hours. We'll continue with her current medications. We'll continue to follow.
[2016-05-21] MEDS: ASPIRIN 81 MG CHEW PO SCH (13:26)
[2016-05-21] MEDS: FOLIC ACID-VIT B COMPLEX-VIT C 1 CAP PO SCH (13:26)
[2016-05-21] MEDS: GABAPENTIN 300 MG CAP PO SCH (14:31)
[2016-05-21] MEDS: CHOLECALCIFEROL 1,000 UNIT TAB PO SCH (14:31)
[2016-05-21] MEDS: CYANOCOBALAMIN 500 MCG TAB PO SCH (14:32)
[2016-05-21] MEDS: CLOPIDOGREL 75 MG TAB PO SCH (16:07)
[2016-05-21] MEDS: ISOSORBIDE MONONITRATE ER 60 MG TAB.ER.24H PO SCH (16:07)
[2016-05-21] MEDS: ALLOPURINOL 100 MG TAB PO SCH (16:08)
[2016-05-21] MEDS: TORSEMIDE 20 MG TAB PO SCH (16:08)
[2016-05-21] MEDS: MONTELUKAST 10 MG TAB PO SCH (16:08)
[2016-05-21] MEDS: HYDROcodone/APAP 5-325MG 1 EACH TAB PO PRN (16:46)
[2016-05-21] MEDS: METOPROLOL TARTRATE 25 MG TAB PO SCH (16:48)
[2016-05-21] MEDS: FUROSEMIDE 40 MG TAB PO SCH (16:48)
--- NOTE | 2016-05-21 17:51 | XR ---
EXAMINATION TYPE: XR chest 1V portable DATE OF EXAM: 05/21/2016 4:50 PM COMPARISON: Prior chest x-ray 19 May 2016 HISTORY: Congestive heart failure TECHNIQUE: Single frontal view of the chest is obtained. FINDINGS: Similar findings. The heart is enlarged. Interstitium and central vascularity are prominen t. Patient is rotated. There is retrocardiac density. IMPRESSION: Findings may represent congestive heart failure, there may be left lower lobe atelectasi s versus edema, effusion, difficult to exclude pneumonia, follow-up recommended
[2016-05-21] MEDS: METOPROLOL TARTRATE 12.5 MG TAB PO SCH (20:15)
[2016-05-21] MEDS: EZETIMIBE 10 MG TAB PO SCH (20:15)
[2016-05-21] MEDS: PRAMIPEXOLE 0.25 MG TAB PO SCH (20:15)
--- NOTE | 2016-05-21 20:52 | PN ---
DATE OF SERVICE: 05/21/2016 This 75-year-old woman was admitted with CHF exacerbation, also had noncompliance with medication. Patient also had diarrhea on and off for the last several days. The patient on hemodialysis. Patient apparently stopped some other medications. Patient has features of CHF. The patient also stopped dialysis for 3 times and the patient has severe hyperkalemia on admission and patient had dialysis 2 consecutive days and potassium has improved to 5.9 at this time. Shortness of breath is also improving. The patient also has MCV 116.5. PAST MEDICAL HISTORY: Reviewed. REVIEW OF SYSTEMS: CARDIOVASCULAR: No angina, palpitations. RESPIRATORY: As mentioned earlier. GI: As mentioned earlier. : As mentioned earlier. Current medications are reviewed and include: 1. Jefferson 5 mg every 6 hours p.r.n. 2. Zyloprim 100 mg daily. 3. Aspirin 81 mg. 4. Symbicort 160/4.5, 2 puffs b.i.d. 5. Vitamin D3 5000 units. 6. Plavix 75 mg daily. 7. Vitamin B12 500 mg daily. 8. Zetia 10 mg q.h.s. 9. Neurontin 300 mg daily. 10. Heparin 5 subcu b.i.d. 11. Imdur 60 mg daily. 12. Zaroxolyn 2.5 q.48 hours. 13. Lopressor 12.5 mg b.i.d. 14. Midodrine 10 mg a.c. t.i.d. 15. Singulair 10 mg p.o. daily. 16. Multivitamin 1 p.o. daily. 17. Nephrocaps 1 daily. 18. Nitrostat 0.4 sublingual p.r.n. 19. Protonix 40 mg daily. 21. Renvela 800 mg t.i.d. 22. Demadex 20 mg p.o. daily. 23. Desyrel 75 mg q.h.s. p.r.n. PHYSICAL EXAM: The patient is alert and oriented x3. Pulse 80, blood pressure 97/52, respirations 20, temperature 96.7, pulse ox 96% on 2L. HEENT: Conjunctivae normal. Oral mucosa moist. NECK: No jugular venous distension. No carotid bruits. No lymph node enlargement. CARDIOVASCULAR: S1 and S2 muffled. RESPIRATORY: Breath sounds diminished at the bases. There are scattered rhonchi and expiratory wheezing and crackles also heard. ABDOMEN: Soft, obese, nontender. LEGS: Bilateral leg edema. NERVOUS SYSTEM: No focal deficits. Mild diffuse weakness. LABS: WBC 5.0, hemoglobin 10.7, MCV 116.5. Creatinine is 3.86. ASSESSMENT: 1. Acute on chronic renal failure secondary to missed hemodialysis with chronic kidney disease, stage 4, on hemodialysis. 2. Congestive heart failure exacerbation, with systolic dysfunction, ejection fraction 35% to 40% with fluid overload secondary to missed hemodialysis. 3. Gait dysfunction and severe weakness. 4. Severe hyperkalemia on hemodialysis. 5. Hyponatremia. 6. Anemia, normocytic secondary to chronic kidney disease. 7. Chronic disease stage 5 on hemodialysis. 8. Increased random blood sugar. 9. Increased bilirubin. 10. Troponin 0.042, indeterminate. 11. History of atrial fibrillation. 12. History of asthma. 13. History of congestive heart failure. 14. History of cerebrovascular accident, transient ischemic attack. 15. Diabetes mellitus type 2. 16. History of hyperlipidemia. 17. Hypertension, essential. 18. History of myocardial infarction. 19. History of sleep apnea. 20. Diabetic peripheral neuropathy. 21. Multivessel coronary artery disease history. 22. Gout history. 23. Bilateral leg cellulitis and chronic ulcerations. 24. History of methicillin-resistant Staphylococcus aureus. 25. History of coronary artery disease and stent. 26. Remote history of nicotine dependence. 27. Obesity with a body mass index of 32. 28. FULL CODE. RECOMMENDATIONS AND DISCUSSION: Recommend to continue current medications, continue with monitoring and symptomatology treatment. Continue with hemodialysis. Potassium is still elevated. Low-potassium diet, Kayexalate. Will repeat potassium, continue to monitor. Other than that, I would also recommend a followup chest x-ray. PT, OT evaluation, possible ECF rehab. Guarded prognosis because of multiple complex medical issues. Further recommendations to follow. I discussed with the patient, who understands. BELLA
[2016-05-21 21:25] LABS: Glucose,Whole Blood 138 mg/dL (75-99)
[2016-05-22] MEDS: HYDROcodone/APAP 5-325MG 1 EACH TAB PO PRN (01:45)
[2016-05-22] MEDS: SYMBICORT 160-4.5 MCG INHALER INHALATION SCH ×2 (08:05→20:16)
[2016-05-22 08:22] LABS: Glucose,Whole Blood 103 mg/dL (75-99)
[2016-05-22 08:23] LABS: Calcium 8.6 mg/dL (8.4-10.2); Potassium 5.6 mmol/L (3.5-5.1)
[2016-05-22] MEDS: ISOSORBIDE MONONITRATE ER 60 MG TAB.ER.24H PO SCH (08:40)
[2016-05-22] MEDS: HEPARIN SODIUM,PORCINE 5,000 UNIT/ML 1 ML VIAL SQ SCH ×2 (08:40→20:49)
[2016-05-22] MEDS: METOPROLOL TARTRATE 12.5 MG TAB PO SCH ×2 (08:40→20:50)
[2016-05-22] MEDS: SEVELAMER 800 MG TAB PO SCH ×3 (08:40→17:20)
[2016-05-22] MEDS: TORSEMIDE 20 MG TAB PO SCH (08:41)
[2016-05-22] MEDS: CHOLECALCIFEROL 1,000 UNIT TAB PO SCH (08:41)
[2016-05-22] MEDS: MIDODRINE 5 MG TAB PO SCH ×3 (08:41→17:20)
[2016-05-22] MEDS: CLOPIDOGREL 75 MG TAB PO SCH (08:41)
[2016-05-22] MEDS: PANTOPRAZOLE 40 MG TABLET PO SCH (08:42)
[2016-05-22] MEDS: ALLOPURINOL 100 MG TAB PO SCH (08:42)
[2016-05-22] MEDS: METOLAZONE 2.5 MG TAB PO SCH (08:42)
[2016-05-22] MEDS: GABAPENTIN 300 MG CAP PO SCH (08:42)
[2016-05-22] MEDS: ASPIRIN 81 MG CHEW PO SCH (08:42)
[2016-05-22] MEDS: MONTELUKAST 10 MG TAB PO SCH (08:43)
--- NOTE | 2016-05-22 09:17 | P.PN ---
Subjective Patient is seen in follow-up for end-stage renal disease. She is maintained on hemodialysis on a Monday schedule. Patient missed 2 treatments of hemodialysis prior to admission and was noted to be hyperkalemic. She underwent hemodialysis the last 3 days. Currently resting in bed. Denies any chest pain or worsening of shortness of breath. Denies diarrhea - does have loose BMs. No active complaints at this time. Vital signs are stable. General: The patient appeared well nourished and normally developed. HEENT: Head exam is unremarkable. Neck is without jugular venous distension. LUNGS: Lungs are clear to auscultation and percussion. Breath sounds decreased. HEART: Rate and Rhythm are regular. First and second heart sounds normal. No murmurs, rubs or gallops. ABDOMEN: Abdominal exam reveals normal bowel sounds. Non-tender and non- distended. No evidence of peritonitis. EXTREMITITES: Trace edema. Objective - Vital Signs Vital signs: Vital Signs Temp 99.0 F 05/21/16 23:00 Pulse 74 05/22/16 00:00 Resp 18 05/22/16 00:00 BP 96/44 05/21/16 23:00 Pulse Ox 89 L 05/22/16 08:06 Intake & Output 05/21/16 05/22/16 05/22/16 18:59 06:59 18:59 Intake Total 80 480 Output Total 1532 Balance -1452 480 Intake: Oral 80 480 Output: Other 1532 Other: Voiding Method Toilet Toilet # Voids 0 0 - Labs CBC & Chem 7: 05/21/16 05:59 05/22/16 07:40 Labs: Abnormal Lab Results - Last 24 Hours (Table) 05/21/16 05/21/16 05/22/16 Range/Units 11:35 21:12 07:40 Potassium 5.6 H (3.5-5.1) mmol/L BUN 31 H (7-17) mg/dL Creatinine 3.59 H (0.52-1.04) mg/dL Glucose 104 H (74-99) mg/dL POC Glucose (mg/dL) 136 H 138 H (75-99) mg/dL 05/22/16 Range/Units 08:08 Potassium (3.5-5.1) mmol/L BUN (7-17) mg/dL Creatinine (0.52-1.04) mg/dL Glucose (74-99) mg/dL POC Glucose (mg/dL) 103 H (75-99) mg/dL Assessment and Plan Plan: Assessment: #1. End-stage renal disease maintained on hemodialysis on a Monday schedule. #2. Hyperkalemia secondary to noncompliance with hemodialysis. Improved. #3. Chronic kidney disease mineral bone disease. #4. Severe pulmonary hypertension. #5. Chronic hypotension related to underlying cardiac status. #5. Loose bowel movements. Plan: Hemodialysis Monday with goal 2 liters ultrafiltration. Midodrine 10 mg 3 times daily. Maintain Renvela with meals. Nephrocaps daily. If again has diarrhea, will check stool for culture and C. diff as well. Possible discharge tomorrow to rehab. Patient states she's had issues with transportation as she cannot drive anymore but has been using the bus to get to dialysis.
[2016-05-22 09:23] LABS: Anisocytosis Slight; Basophils # (A) 0.1 k/uL (0-0.2); Basophils % (A) 1 %; CH 35.3; CHCM 29.7; Eosinophils # (A) 0.2 k/uL (0-0.7); Eosinophils % (A) 2 %; HCT 38.6 % (34.0-46.0); HDW 2.43; HGB 11.6 gm/dL (11.4-16.0); Hypochromasia Marked; Luc # (Auto) 0.35; Luc % (Auto) 4; Lymphocytes # (A) 1.6 k/uL (1.0-4.8); Lymphocytes % (A) 19 %; MCHC 30.1 g/dL (31.0-37.0); MCV 119.7 fL (80.0-100.0); Macrocytosis Marked; Mean Platelet Volume 8.7; Monocytes # (A) 0.6 k/uL (0-1.0); Monocytes % (A) 8 %; Neutrophils # (A) 5.6 k/uL (1.3-7.7); Neutrophils % (A) 66 %; RBC 3.23 m/uL (3.80-5.40); RDW 16.2 % (11.5-15.5); WBC 8.4 k/uL (3.8-10.6); WBC (Perox) 8.22
[2016-05-22 09:59] LABS: Polychromasia Present
--- NOTE | 2016-05-22 10:23 | P.PN ---
Subjective Principal diagnosis: CAD/CHF This is a pleasant 75-year-old female patient who sees Dr. VC Arana as an outpatient with known history of CAD, chronic A. fib, hypertension, dyslipidemia, and into stage renal disease on hemodialysis, presented to the hospital not feeling well. The patient was found to be hyperkalemic. She was not compliant with her dialysis. She was seen and evaluated by the nephrology service and she was restarted on dialysis again. From the cardiac standpoint overview, she denies having any chest pain or discomfort. She continues to have shortness of breath which seems to be chronic. As a matter of fact, the patient is on 2 L of oxygen at home. Objective - Vital Signs Vital signs: Vital Signs Temp 96.9 F L 05/22/16 07:00 Pulse 78 05/22/16 07:00 Resp 18 05/22/16 08:00 BP 105/60 05/22/16 07:00 Pulse Ox 89 L 05/22/16 08:06 Intake & Output 05/21/16 05/22/16 05/22/16 18:59 06:59 18:59 Intake Total 80 480 Output Total 1532 0 Balance -1452 480 0 Intake: Oral 80 480 Output: Emesis 0 Other 1532 Other: Voiding Method Toilet Toilet # Voids 0 0 0 - Constitutional General appearance: Present: no acute distress - Respiratory Respiratory: bilateral: rales - Cardiovascular Rhythm: irregularly irregular Heart sounds: normal: S1, S2 - Labs CBC & Chem 7: 05/22/16 07:40 05/22/16 07:40 Labs: Abnormal Lab Results - Last 24 Hours (Table) 05/21/16 05/21/16 05/22/16 Range/Units 11:35 21:12 07:40 RBC 3.23 L (3.80-5.40) m/uL MCV 119.7 H (80.0-100.0) fL MCH 36.0 H (25.0-35.0) pg MCHC 30.1 L (31.0-37.0) g/dL RDW 16.2 H (11.5-15.5) % Plt Count 132 L (150-450) k/uL Potassium (3.5-5.1) mmol/L BUN (7-17) mg/dL Creatinine (0.52-1.04) mg/dL Glucose (74-99) mg/dL POC Glucose (mg/dL) 136 H 138 H (75-99) mg/dL 05/22/16 05/22/16 Range/Units 07:40 08:08 RBC (3.80-5.40) m/uL MCV (80.0-100.0) fL MCH (25.0-35.0) pg MCHC (31.0-37.0) g/dL RDW (11.5-15.5) % Plt Count (150-450) k/uL Potassium 5.6 H (3.5-5.1) mmol/L BUN 31 H (7-17) mg/dL Creatinine 3.59 H (0.52-1.04) mg/dL Glucose 104 H (74-99) mg/dL POC Glucose (mg/dL) 103 H (75-99) mg/dL Assessment and Plan Plan: Assessment End-stage renal disease on hemodialysis Chronic A. fib with controlled heart rate Coronary artery disease and prior stenting Multiple comorbid conditions Plan Continue the patient on the current medical treatment The patient denies having any chest pain or worsening shortness of breath at this point Follow-up with the patient on when necessary case
[2016-05-22 12:18] LABS: Glucose,Whole Blood 155 mg/dL (75-99)
[2016-05-22] MEDS: FOLIC ACID-VIT B COMPLEX-VIT C 1 CAP PO SCH (12:55)
[2016-05-22] MEDS: CYANOCOBALAMIN 500 MCG TAB PO SCH (12:55)
[2016-05-22 17:41] LABS: Glucose,Whole Blood 113 mg/dL (75-99)
[2016-05-22 20:39] LABS: Glucose,Whole Blood 187 mg/dL (75-99)
[2016-05-22] MEDS: PRAMIPEXOLE 0.25 MG TAB PO SCH (20:49)
[2016-05-22] MEDS: EZETIMIBE 10 MG TAB PO SCH (20:49)
[2016-05-23] MEDS: HYDROcodone/APAP 5-325MG 1 EACH TAB PO PRN ×2 (06:16→11:15)
[2016-05-23 07:23] LABS: Glucose,Whole Blood 123 mg/dL (75-99)
[2016-05-23] MEDS: ISOSORBIDE MONONITRATE ER 60 MG TAB.ER.24H PO SCH (08:18)
[2016-05-23] MEDS: METOPROLOL TARTRATE 12.5 MG TAB PO SCH (08:18)
[2016-05-23] MEDS: SYMBICORT 160-4.5 MCG INHALER INHALATION SCH ×2 (08:20→20:17)
[2016-05-23] MEDS: SEVELAMER 800 MG TAB PO SCH ×3 (08:20→18:04)
[2016-05-23] MEDS: PANTOPRAZOLE 40 MG TABLET PO SCH (08:20)
[2016-05-23] MEDS: MIDODRINE 5 MG TAB PO SCH ×3 (08:20→18:04)
[2016-05-23] MEDS: ALLOPURINOL 100 MG TAB PO SCH (08:21)
[2016-05-23] MEDS: ASPIRIN 81 MG CHEW PO SCH (08:21)
[2016-05-23] MEDS: CLOPIDOGREL 75 MG TAB PO SCH (08:21)
[2016-05-23] MEDS: TORSEMIDE 20 MG TAB PO SCH (08:22)
[2016-05-23] MEDS: MONTELUKAST 10 MG TAB PO SCH (08:22)
[2016-05-23] MEDS: GABAPENTIN 300 MG CAP PO SCH (08:22)
[2016-05-23] MEDS: HEPARIN SODIUM,PORCINE 5,000 UNIT/ML 1 ML VIAL SQ SCH ×2 (08:22→20:54)
[2016-05-23 10:02] LABS: Anisocytosis Slight; Basophils % (A) 1 %; CHCM 30.1; Eosinophils # (A) 0.3 k/uL (0-0.7); Eosinophils % (A) 4 %; HCT 35.2 % (34.0-46.0); HDW 2.53; HGB 10.5 gm/dL (11.4-16.0); Hypochromasia Moderate; Luc # (Auto) 0.19; Luc % (Auto) 3; Lymphocytes # (A) 0.9 k/uL (1.0-4.8); Lymphocytes % (A) 14 %; MCH 34.9 pg (25.0-35.0); MCHC 29.8 g/dL (31.0-37.0); Macrocytosis Marked; Mean Platelet Volume 7.7; Monocytes # (A) 0.5 k/uL (0-1.0); Monocytes % (A) 9 %; Neutrophils # (A) 4.1 k/uL (1.3-7.7); Neutrophils % (A) 69 %; RBC 3.01 m/uL (3.80-5.40); RDW 16.1 % (11.5-15.5); WBC (Perox) 6.83
--- NOTE | 2016-05-23 10:17 | P.PN ---
Subjective Patient is seen in follow-up for end-stage renal disease. She is maintained on hemodialysis on a Monday schedule. Patient missed 2 treatments of hemodialysis prior to admission and was noted to be hyperkalemic. She underwent hemodialysis for 3 consecutive days upon admission. Currently resting in bed. Denies any chest pain or worsening of shortness of breath. Denies diarrhea - does have loose BMs. No active complaints at this time. Vital signs are stable. General: The patient appeared well nourished and normally developed. HEENT: Head exam is unremarkable. Neck is without jugular venous distension. LUNGS: Lungs are clear to auscultation and percussion. Breath sounds decreased. HEART: Rate and Rhythm are regular. First and second heart sounds normal. No murmurs, rubs or gallops. ABDOMEN: Abdominal exam reveals normal bowel sounds. Non-tender and non- distended. No evidence of peritonitis. EXTREMITITES: Trace edema. Objective - Vital Signs Vital signs: Vital Signs Temp 96.6 F L 05/22/16 22:16 Pulse 71 05/23/16 07:00 Resp 18 05/23/16 07:00 BP 90/53 05/23/16 07:00 Pulse Ox 97 05/23/16 07:00 Intake & Output 05/22/16 05/23/16 05/23/16 18:59 06:59 18:59 Intake Total 350 Output Total 0 Balance 0 350 Intake: Oral 350 Output: Emesis 0 Other: Voiding Method Toilet Toilet Toilet # Voids 2 2 - Labs CBC & Chem 7: 05/23/16 07:56 05/22/16 07:40 Labs: Abnormal Lab Results - Last 24 Hours (Table) 05/22/16 05/22/16 05/22/16 Range/Units 12:05 17:35 20:37 RBC (3.80-5.40) m/uL Hgb (11.4-16.0) gm/dL MCV (80.0-100.0) fL MCHC (31.0-37.0) g/dL RDW (11.5-15.5) % Plt Count (150-450) k/uL POC Glucose (mg/dL) 155 H 113 H 187 H (75-99) mg/dL 03/20/17 03/20/17 Range/Units 07:05 07:56 RBC 3.01 L (3.80-5.40) m/uL Hgb 10.5 L (11.4-16.0) gm/dL MCV 117.0 H (80.0-100.0) fL MCHC 29.8 L (31.0-37.0) g/dL RDW 16.1 H (11.5-15.5) % Plt Count 129 L (150-450) k/uL POC Glucose (mg/dL) 123 H (75-99) mg/dL Assessment and Plan Plan: Assessment: #1. End-stage renal disease maintained on hemodialysis on a Monday schedule. #2. Hyperkalemia secondary to noncompliance with hemodialysis. Improved. #3. Chronic kidney disease mineral bone disease. #4. Severe pulmonary hypertension. #5. Chronic hypotension related to underlying cardiac status. #5. Loose bowel movements. Plan: Hemodialysis Monday with goal 2 liters ultrafiltration. Midodrine 10 mg 3 times daily. Maintain Renvela with meals. Nephrocaps daily. If again has diarrhea, will check stool for culture and C. diff as well. Possible discharge tomorrow to rehab. Patient states she's had issues with transportation as she cannot drive anymore but has been using the bus to get to dialysis. Patient prefers to go home.
[2016-05-23 10:19] LABS: Calcium 8.2 mg/dL (8.4-10.2); Potassium 5.8 mmol/L (3.5-5.1)
[2016-05-23] MEDS: CHOLECALCIFEROL 1,000 UNIT TAB PO SCH (11:14)
[2016-05-23] MEDS: CYANOCOBALAMIN 500 MCG TAB PO SCH (11:15)
[2016-05-23] MEDS: FOLIC ACID-VIT B COMPLEX-VIT C 1 CAP PO SCH (11:15)
--- NOTE | 2016-05-23 11:16 | PN ---
DATE OF SERVICE: 05/22/2016 This 75-year-old woman who was admitted with acute on chronic renal failure, also has significant respiratory difficulties. No chest pain or palpitations. The patient had hemodialysis today. Cardiology and multiple consultants are following the patient closely. No fever, no cough. On exam, alert, oriented x3. Pulse 63, blood pressure 93/50, respirations 20, temperature 97.2. Pulse ox is 90% on 2 L. HEENT: Conjunctivae normal. NECK: No JVD. No carotid bruits. RESPIRATORY: Breath sounds diminished at the bases. Few scattered rhonchi and crackles. ABDOMEN: Soft, nontender. No masses palpable. EXTREMITIES: Legs, minimal edema. NERVOUS SYSTEM: Diffusely weak. LABS: WBC 8.7, 98.7, creatinine 2.5, potassium 4.6. ASSESSMENT: 1. Acute on chronic renal failure secondary to missed hemodialysis with chronic kidney disease stage V, on hemodialysis. 2. Congestive heart failure, acute exacerbation, with acute on chronic systolic dysfunction. Ejection fraction 35% to 40% with fluid overload secondary to missed hemodialysis. 3. Gait dysfunction and severe weakness. 4. Severe hyperkalemia on presentation, on hemodialysis. 5. Hyponatremia. 6. Anemia, normocytic anemia, secondary to chronic kidney disease. 7. Chronic kidney disease, stage V, on hemodialysis. 8. Increased random blood sugar. 9. Increased bilirubin. 10. Troponin 0.04, indeterminate. 11. History of atrial fibrillation. 12. History of asthma. 13. History of cerebrovascular accident, transient ischemic attack. 14. History of diabetes type 2. 15. History of hyperlipidemia. 16. History of hypertension. 17. History of myocardial infarction. 18. History of sleep apnea. 19. History of diabetic peripheral neuropathy. 20. Multivessel coronary artery disease. 21. History of gout. 22. Bilateral leg cellulitis and chronic ulcerations. 23. History of methicillin resistant staphylococcus aureus. 24. History of coronary artery disease with stent. 25. Remote history of nicotine dependence. 26. Obesity with body mass index of 30. 27. FULL CODE. RECOMMENDATIONS AND DISCUSSION: This 75-year-old woman presented with multiple complex medical issues. We will monitor the patient closely. Continue the current medications. Continue symptomatic treatment. Otherwise at this time I recommend to continue to monitor fluids and electrolytes closely. Follow with nephrology. Guarded prognosis because of multiple complex medical issues. Further recommendations to follow. MTDD
[2016-05-23 12:13] LABS: Glucose,Whole Blood 134 mg/dL (75-99)
[2016-05-23 17:18] LABS: Glucose,Whole Blood 163 mg/dL (75-99)
[2016-05-23 20:10] LABS: Glucose,Whole Blood 171 mg/dL (75-99)
[2016-05-23] MEDS: EZETIMIBE 10 MG TAB PO SCH (20:53)
[2016-05-23] MEDS: PRAMIPEXOLE 0.25 MG TAB PO SCH (20:54)
[2016-05-24] MEDS: METOPROLOL TARTRATE 12.5 MG TAB PO SCH ×3 (00:59→20:44)
[2016-05-24 07:24] LABS: Glucose,Whole Blood 108 mg/dL (75-99)
[2016-05-24] MEDS: SYMBICORT 160-4.5 MCG INHALER INHALATION SCH ×2 (07:24→19:20)
[2016-05-24 07:58] LABS: Anisocytosis Slight; Basophils % (A) 0 %; CHCM 30.1; Eosinophils # (A) 0.2 k/uL (0-0.7); Eosinophils % (A) 3 %; HCT 38.3 % (34.0-46.0); HDW 2.52; HGB 11.5 gm/dL (11.4-16.0); Hypochromasia Moderate; Luc # (Auto) 0.22; Luc % (Auto) 3; Lymphocytes # (A) 0.8 k/uL (1.0-4.8); Lymphocytes % (A) 12 %; MCHC 29.9 g/dL (31.0-37.0); Macrocytosis Marked; Mean Platelet Volume 8.4; Monocytes # (A) 0.4 k/uL (0-1.0); Monocytes % (A) 6 %; Neutrophils # (A) 5.4 k/uL (1.3-7.7); Neutrophils % (A) 77 %; RBC 3.27 m/uL (3.80-5.40); RDW 16.1 % (11.5-15.5); WBC 7.1 k/uL (3.8-10.6); WBC (Perox) 7.53
[2016-05-24 08:19] LABS: Calcium 8.8 mg/dL (8.4-10.2)
[2016-05-24] MEDS: MIDODRINE 5 MG TAB PO SCH ×3 (08:32→17:11)
[2016-05-24] MEDS: ASPIRIN 81 MG CHEW PO SCH (08:32)
[2016-05-24] MEDS: CLOPIDOGREL 75 MG TAB PO SCH (08:32)
[2016-05-24] MEDS: PANTOPRAZOLE 40 MG TABLET PO SCH (08:32)
[2016-05-24] MEDS: SEVELAMER 800 MG TAB PO SCH ×3 (08:32→17:12)
[2016-05-24] MEDS: GABAPENTIN 300 MG CAP PO SCH (08:32)
[2016-05-24] MEDS: HEPARIN SODIUM,PORCINE 5,000 UNIT/ML 1 ML VIAL SQ SCH ×2 (08:32→20:42)
[2016-05-24] MEDS: ALLOPURINOL 100 MG TAB PO SCH (08:32)
[2016-05-24] MEDS: METOLAZONE 2.5 MG TAB PO SCH (08:33)
[2016-05-24] MEDS: ISOSORBIDE MONONITRATE ER 60 MG TAB.ER.24H PO SCH (08:33)
[2016-05-24] MEDS: MONTELUKAST 10 MG TAB PO SCH (08:33)
[2016-05-24 09:22] LABS: Potassium 6.5 mmol/L (3.5-5.1)
--- NOTE | 2016-05-24 10:16 | PN ---
DATE OF SERVICE: 05/23/2016 This 75-year-old woman who was admitted with acute on chronic renal failure as well as congestive heart failure acute exacerbation, is being closely monitored. The patient missed hemodialysis but is currently back on hemodialysis. The strength is also improving. The patient is able to ambulate with a walker. No fever. No fever. Occasional cough reported. On exam, alert, oriented x3. Pulse 79, blood pressure 114/50, respiration 18, temperature 97.4, pulse ox 92% on 2 L. HEENT: Conjunctivae normal. NECK: No JVD. CARDIOVASCULAR: S1 and S2 muffled. LUNGS: Breath sounds diminished at the bases. Few scattered rhonchi and crackles. ABDOMEN: Soft, nontender. EXTREMITIES: Bilateral leg edema. NERVOUS SYSTEM: Diffusely weak. No focal deficits. LABS: WBC 6, hemoglobin 10.5, sodium 130, potassium 5.8. ASSESSMENT: 1. Acute on chronic renal failure secondary to missed hemodialysis with chronic kidney diseases stage V, on hemodialysis. 2. Congestive heart failure, acute exacerbation, with acute on chronic systolic dysfunction, ejection fraction 35% to 40%, secondary to fluid overload, secondary to missed hemodialysis. 3. Gait dysfunction and severe weakness. 4. History of severe hyperkalemia on presentation, on hemodialysis secondary to acute on chronic kidney failure. 5. Hyponatremia. 6. Anemia, normocytic anemia now secondary to chronic disease. 7. Chronic kidney stage V on hemodialysis. 8. Increased random blood sugar. 9. Increased bilirubin. 10. Troponin 0.05, indeterminate. 11. Atrial fibrillation, paroxysmal. 12. History of asthma. 13. History of cerebrovascular accident, transient ischemic attack. 14. History of diabetes type 2. 15. History of hyperlipidemia. 16. Hypertension. 17. History of myocardial infarction. 18. History of sleep apnea. 19. History of diabetic neuropathy. 20. Multivessel coronary artery disease, history. 21. History of gout. 22. Leg cellulitis and chronic ulcerations. 23. History of methicillin-resistant Staphylococcus aureus. 24. History of coronary artery disease and stent. 25. Remote history of nicotine dependence. 26. Obesity with body mass index of 30. 27. FULL CODE. RECOMMENDATIONS: Recommend to continue current medications, continue with monitoring and symptomatic treatment. Otherwise at this time I would recommend to follow closely with nephrology, possible hemodialysis. Increase ambulation. At this time the patient would like to go home with home care rather than ECF rehab. Guarded prognosis because of multiple complex medical issues. Further recommendations to follow.
--- NOTE | 2016-05-24 10:53 | P.PN ---
Subjective Patient is seen in follow-up for end-stage renal disease. She is maintained on hemodialysis on a Monday schedule. Patient missed 2 treatments of hemodialysis prior to admission and was noted to be hyperkalemic. She underwent hemodialysis for 3 consecutive days upon admission. Currently undergoing hemodialysis. Her potassium level was elevated at 6.5 this morning. Denies any chest pain or worsening of shortness of breath. Denies diarrhea - does have loose BMs. No active complaints at this time. Vital signs are stable. General: The patient appeared well nourished and normally developed. HEENT: Head exam is unremarkable. Neck is without jugular venous distension. LUNGS: Lungs are clear to auscultation and percussion. Breath sounds decreased. HEART: Rate and Rhythm are regular. First and second heart sounds normal. No murmurs, rubs or gallops. ABDOMEN: Abdominal exam reveals normal bowel sounds. Non-tender and non- distended. No evidence of peritonitis. EXTREMITITES: Trace edema. Objective - Vital Signs Vital signs: Vital Signs Temp 96.8 F L 05/24/16 07:00 Pulse 76 05/24/16 08:00 Resp 20 05/24/16 08:00 BP 120/67 05/24/16 07:00 Pulse Ox 91 L 05/24/16 07:00 Intake & Output 05/23/16 05/24/16 05/24/16 18:59 06:59 18:59 Intake Total 840 Output Total 0 Balance 840 Intake: Oral 840 Output: Emesis 0 Other: Voiding Method Toilet Toilet Toilet # Voids 1 1 - Labs CBC & Chem 7: 05/24/16 07:29 05/24/16 07:29 Labs: Abnormal Lab Results - Last 24 Hours (Table) 05/23/16 05/23/16 05/23/16 Range/Units 07:56 12:08 17:12 RBC 3.01 L (3.80-5.40) m/uL Hgb 10.5 L (11.4-16.0) gm/dL MCV 117.0 H (80.0-100.0) fL MCHC 29.8 L (31.0-37.0) g/dL RDW 16.1 H (11.5-15.5) % Plt Count 129 L (150-450) k/uL Lymphocytes # 0.9 L (1.0-4.8) k/uL Potassium (3.5-5.1) mmol/L BUN (7-17) mg/dL Creatinine (0.52-1.04) mg/dL Glucose (74-99) mg/dL POC Glucose (mg/dL) 134 H 163 H (75-99) mg/dL 05/23/16 05/24/16 05/24/16 Range/Units 20:08 07:19 07:29 RBC 3.27 L (3.80-5.40) m/uL Hgb (11.4-16.0) gm/dL MCV 117.0 H (80.0-100.0) fL MCHC 29.9 L (31.0-37.0) g/dL RDW 16.1 H (11.5-15.5) % Plt Count 148 L (150-450) k/uL Lymphocytes # 0.8 L (1.0-4.8) k/uL Potassium (3.5-5.1) mmol/L BUN (7-17) mg/dL Creatinine (0.52-1.04) mg/dL Glucose (74-99) mg/dL POC Glucose (mg/dL) 171 H 108 H (75-99) mg/dL 05/24/16 Range/Units 07:29 RBC (3.80-5.40) m/uL Hgb (11.4-16.0) gm/dL MCV (80.0-100.0) fL MCHC (31.0-37.0) g/dL RDW (11.5-15.5) % Plt Count (150-450) k/uL Lymphocytes # (1.0-4.8) k/uL Potassium 6.5 H* (3.5-5.1) mmol/L BUN 47 H (7-17) mg/dL Creatinine 5.94 H* (0.52-1.04) mg/dL Glucose 109 H (74-99) mg/dL POC Glucose (mg/dL) (75-99) mg/dL Assessment and Plan Plan: Assessment: #1. End-stage renal disease maintained on hemodialysis on a Monday schedule. #2. Hyperkalemia secondary to noncompliance with hemodialysis. #3. Chronic kidney disease mineral bone disease. #4. Severe pulmonary hypertension. #5. Chronic hypotension related to underlying cardiac status. #5. Loose bowel movements. Plan: Hemodialysis today with goal 2-3 liters ultrafiltration. Midodrine 10 mg 3 times daily. Maintain Renvela with meals. Nephrocaps daily. Stable to be discharged home from nephrology standpoint after dialysis today. I encouraged her to be compliant with her dialysis treatments as an outpatient.
[2016-05-24 11:38] LABS: Glucose,Whole Blood 116 mg/dL (75-99)
[2016-05-24] MEDS ORDERED: GELATIN SPONGE,ABSORB (SMALL) 1 EACH SPONGE ONE (13:00)
[2016-05-24] MEDS: CHOLECALCIFEROL 1,000 UNIT TAB PO SCH (14:33)
[2016-05-24] MEDS: CYANOCOBALAMIN 500 MCG TAB PO SCH (14:34)
[2016-05-24] MEDS: FOLIC ACID-VIT B COMPLEX-VIT C 1 CAP PO SCH (14:35)
[2016-05-24] MEDS: TORSEMIDE 20 MG TAB PO SCH (14:35)
[2016-05-24 17:15] LABS: Glucose,Whole Blood 150 mg/dL (75-99)
[2016-05-24 18:26] LABS: Hemoglobin A1C 6.3 % (4.2-6.1)
[2016-05-24] MEDS: INSULIN LISPRO (humaLOG) 300 UNIT/3 ML VIAL SQ SCH ×2 (18:26→21:32)
[2016-05-24] MEDS: PRAMIPEXOLE 0.25 MG TAB PO SCH (20:41)
[2016-05-24] MEDS: EZETIMIBE 10 MG TAB PO SCH (20:41)
[2016-05-24 20:59] LABS: Glucose,Whole Blood 160 mg/dL (75-99)
--- NOTE | 2016-05-24 23:24 | PN ---
DATE OF SERVICE: 05/24/2016 This 75-year-old woman who was admitted with acute on chronic renal failure also had severe hyperkalemia today. The patient also had problems with the dialysis catheter today. Patient was originally scheduled to be discharged today. Patient is being closely monitored. She also had diarrhea; please note Kayexalate has been used sparingly. Past medical history reviewed. REVIEW OF SYSTEMS: CARDIOVASCULAR SYSTEM: No angina, palpitations. RESPIRATORY SYSTEM: As mentioned earlier. GI: As mentioned earlier. : No dysuria, retention. NERVOUS SYSTEM: As mentioned earlier. Current medications are reviewed and include: 1. [place] 5 mg q.6 p.r.n. 2. Zyloprim 100 mg daily. 3. Aspirin 81 mg daily. 4. Symbicort 160/4.5 two puffs b.i.d. 5. Vitamin D3 5000 daily. 6. Plavix 75 mg daily. 7. Vitamin B12 500 p.o. daily. 8. Zetia 10 mg at bedtime. 9. Neurontin 300 mg daily. 10. Heparin 5000 units subcutaneously b.i.d. 11. Humalog scale. 12. Imdur 60 mg p.o. daily. 13. Zaroxolyn 2.5 mg q.48 hours. 14. Lopressor 12.5 mg b.i.d. 15. Proamatine 10 mg before meals t.i.d. 16. Singulair 10 mg p.o. daily. 17. Nephrocaps. 18. Nitrostat 0.4 sublingually p.r.n. 19. Protonix 40 mg before breakfast. 20. Mirapex 0.25 mg at bedtime. 21. Renvela 800 mg before meals t.i.d. 22. Demadex 20 mg p.o. daily. 23. Desyrel 75 mg at bedtime p.r.n. PHYSICAL EXAMINATION: Patient is alert and oriented x3. Pulse is 69, blood pressure 78/52, respiration 22, temperature 97 degrees, pulse ox 90% on 2 L. HEENT: Conjunctivae normal. Oral mucosa moist. NECK: No jugular venous distention. No carotid bruit. No lymph node enlargement. CARDIOVASCULAR SYSTEM: S1, S2 muffled. RESPIRATORY SYSTEM: Breath sounds diminished at the bases. A few scattered rhonchi and crackles. ABDOMEN: Soft, nontender. No mass palpable. LEGS: No edema. No swelling. NERVOUS SYSTEM: Diffusely weak. LABS: WBC 7.1, hemoglobin 11.5. Sodium 136, potassium 6.5. Creatinine is 5.94. ASSESSMENT: 1. Acute on chronic renal failure secondary to missed hemodialysis with chronic kidney disease, stage IV, on hemodialysis. 2. Congestive heart failure, acute exacerbation, with acute on chronic systolic dysfunction, ejection fraction 35% to 40%, secondary to fluid overload secondary to missed hemodialysis. 3. Severe hyperkalemia secondary to renal failure. 4. Gait dysfunction and severe weakness. 5. Relative hypotension. 6. History of hyponatremia. 7. Anemia, normocytic; anemia of chronic disease. 8. Chronic kidney disease, stage V, on hemodialysis. 9. Increased random blood sugar. 10. Increased bilirubin. 11. Troponin 0.05, indeterminate. 12. Atrial fibrillation, paroxysmal. 13. History of asthma. 14. History of cerebrovascular accident, transient ischemic attack. 15. History of diabetes mellitus, type 2. 16. History of hyperlipidemia. 17. Hypertension. 18. History of myocardial infarction. 19. History of sleep apnea. 20. History of diabetic neuropathy. 21. Multi-vessel coronary artery disease history. 22. History of gout. 23. Leg cellulitis and chronic ulcerations. 24. History of methicillin-resistant Staphylococcus aureus. 25. History of coronary artery disease and stent. 26. Remote history of nicotine dependence. 27. Obesity; body mass index of 30. 28. FULL CODE. RECOMMENDATIONS AND DISCUSSION: I recommend to continue with the current medications, continue with the monitoring, symptomatic treatment. Otherwise, at this time I would recommend continuing with hemodialysis. Monitor electrolytes closely. If the blood pressure, we will hold the blood pressure medication midodrine. I would also recommend PT, OT to evaluate the patient and consider the possibility of ECF rehab also because of the multiple complex medical issues, as mentioned earlier. Once again, the prognosis is guarded. Further recommendations to follow. ARTUROD
[2016-05-25 07:21] LABS: Glucose,Whole Blood 93 mg/dL (75-99)
[2016-05-25] MEDS: MONTELUKAST 10 MG TAB PO SCH (07:23)
[2016-05-25] MEDS: METOPROLOL TARTRATE 12.5 MG TAB PO SCH ×2 (07:23→22:57)
[2016-05-25] MEDS: TORSEMIDE 20 MG TAB PO SCH (07:23)
[2016-05-25] MEDS: PANTOPRAZOLE 40 MG TABLET PO SCH (07:23)
[2016-05-25] MEDS: MIDODRINE 5 MG TAB PO SCH ×3 (07:23→19:37)
[2016-05-25] MEDS: ISOSORBIDE MONONITRATE ER 60 MG TAB.ER.24H PO SCH (07:24)
[2016-05-25] MEDS: SEVELAMER 800 MG TAB PO SCH ×3 (07:24→19:37)
[2016-05-25] MEDS: INSULIN LISPRO (humaLOG) 300 UNIT/3 ML VIAL SQ SCH ×4 (07:24→22:58)
[2016-05-25] MEDS: HEPARIN SODIUM,PORCINE 5,000 UNIT/ML 1 ML VIAL SQ SCH ×2 (07:25→22:57)
[2016-05-25] MEDS: ALLOPURINOL 100 MG TAB PO SCH (07:26)
[2016-05-25] MEDS: GABAPENTIN 300 MG CAP PO SCH (07:27)
[2016-05-25] MEDS: CLOPIDOGREL 75 MG TAB PO SCH (07:27)
[2016-05-25] MEDS: ASPIRIN 81 MG CHEW PO SCH (07:27)
[2016-05-25] MEDS: SYMBICORT 160-4.5 MCG INHALER INHALATION SCH ×2 (08:08→20:42)
[2016-05-25 08:37] LABS: Calcium 8.7 mg/dL (8.4-10.2); Total Bilirubin 1.2 mg/dL (0.2-1.3); Total Protein 6.6 g/dL (6.3-8.2)
[2016-05-25 08:38] LABS: Anisocytosis Slight; CH 34.9; CHCM 30.4; HCT 35.7 % (34.0-46.0); HDW 2.63; HGB 11.2 gm/dL (11.4-16.0); Hypochromasia Moderate; MCH 36.1 pg (25.0-35.0); MCHC 31.3 g/dL (31.0-37.0); MCV 115.4 fL (80.0-100.0); Macrocytosis Marked; Mean Platelet Volume 7.9; RBC 3.09 m/uL (3.80-5.40); RDW 16.2 % (11.5-15.5); WBC 6.3 k/uL (3.8-10.6); WBC (Perox) 6.93
--- NOTE | 2016-05-25 11:18 | P.PN ---
Subjective Patient is seen in follow-up for end-stage renal disease. She is maintained on hemodialysis on a Monday schedule. Patient missed 2 treatments of hemodialysis prior to admission and was noted to be hyperkalemic. She underwent hemodialysis for 3 consecutive days upon admission. Denies any chest pain or worsening of shortness of breath. Denies diarrhea - does have loose BMs. No active complaints at this time. There were issues with clotting off the AV graft yesterday during dialysis. Vital signs are stable. General: The patient appeared well nourished and normally developed. HEENT: Head exam is unremarkable. Neck is without jugular venous distension. LUNGS: Lungs are clear to auscultation and percussion. Breath sounds decreased. HEART: Rate and Rhythm are regular. First and second heart sounds normal. No murmurs, rubs or gallops. ABDOMEN: Abdominal exam reveals normal bowel sounds. Non-tender and non- distended. No evidence of peritonitis. EXTREMITITES: Trace edema. Thrill present in AV graft. Objective - Vital Signs Vital signs: Vital Signs Temp 98.4 F 05/25/16 09:14 Pulse 78 05/25/16 09:14 Resp 16 05/25/16 09:14 BP 132/68 05/25/16 09:14 Pulse Ox 98 05/25/16 09:14 Intake & Output 05/24/16 05/25/16 05/25/16 18:59 06:59 18:59 Intake Total 120 830 Balance 120 830 Intake: Oral 120 830 Other: Voiding Method Toilet Toilet Toilet # Voids 0 2 - Labs CBC & Chem 7: 05/25/16 08:11 05/25/16 08:11 Labs: Abnormal Lab Results - Last 24 Hours (Table) 05/24/16 05/24/16 05/24/16 Range/Units 07:29 11:09 17:12 RBC (3.80-5.40) m/uL Hgb (11.4-16.0) gm/dL MCV (80.0-100.0) fL MCH (25.0-35.0) pg RDW (11.5-15.5) % Plt Count (150-450) k/uL Lymphocytes # (1.0-4.8) k/uL Sodium (137-145) mmol/L Chloride (98-107) mmol/L BUN (7-17) mg/dL Creatinine (0.52-1.04) mg/dL Glucose (74-99) mg/dL POC Glucose (mg/dL) 116 H 150 H (75-99) mg/dL Hemoglobin A1c 6.3 H (4.2-6.1) % Albumin (3.5-5.0) g/dL 05/24/16 05/25/16 05/25/16 Range/Units 20:58 08:11 08:11 RBC 3.09 L (3.80-5.40) m/uL Hgb 11.2 L (11.4-16.0) gm/dL MCV 115.4 H (80.0-100.0) fL MCH 36.1 H (25.0-35.0) pg RDW 16.2 H (11.5-15.5) % Plt Count 143 L (150-450) k/uL Lymphocytes # 0.9 L (1.0-4.8) k/uL Sodium 133 L (137-145) mmol/L Chloride 97 L (98-107) mmol/L BUN 31 H (7-17) mg/dL Creatinine 4.45 H (0.52-1.04) mg/dL Glucose 102 H (74-99) mg/dL POC Glucose (mg/dL) 160 H (75-99) mg/dL Hemoglobin A1c (4.2-6.1) % Albumin 3.3 L (3.5-5.0) g/dL Assessment and Plan Plan: Assessment: #1. End-stage renal disease maintained on hemodialysis on a Monday schedule. #2. Hyperkalemia secondary to noncompliance with hemodialysis. #3. Chronic kidney disease mineral bone disease. #4. Severe pulmonary hypertension. #5. Chronic hypotension related to underlying cardiac status. #5. Loose bowel movements. Plan: Hemodialysis tomorrow with goal 2-3 liters ultrafiltration. Midodrine 10 mg 3 times daily. Maintain Renvela with meals. Nephrocaps daily. Vascular surgery following. Scheduled for potential fistulogram today.
[2016-05-25 11:36] LABS: Add Differential Manual Differential; Manual Review Performed
[2016-05-25 11:40] LABS: Band Neutrophils % 0.5 %; Metamyelocytes % 0.5 %; Myelocytes % 0.5 %; Nucleated Red Blood Cells 0 /100 WBC (0-0); Total Cells Counted 200
[2016-05-25 11:47] LABS: Glucose,Whole Blood 90 mg/dL (75-99)
--- NOTE | 2016-05-25 12:08 | P.PN ---
Progress Note - Text Patient is experiencing numbness, severe pain, and tingling in left hand with hemodialysis. This was less frequent recently but now has been present for 4 treatments in a row. States that this is similar to a past event when it was noted that she had a fistula stenosis and required angioplasty; her angioplasty was done in February 2016. She states that sometimes she develops numbness in her left hand when she is not undergoing dialysis. This is transient. PE; left arm; fistula is patent; there is a pulse noted proximally just distal to the AV anastomosis and a thrill noted distally in the venous limb of the fistula. The left radial pulse is palpable and the left hand is viable. Risks and benefits of left arm fistulogram and related procedures discussed with patient including infection, bleeding, site complications, left hand ischemia, recurrence of stenosis requiring re-intervention and possible stent placement vs. surgical intervention. Patient understands the risks and benfits of the procedure and is willing to have it performed. Scheduled in the very near future.
[2016-05-25] MEDS ORDERED: LIDOCAINE 2% INJ 20 MG/ML (20 ML MDV) ONE (13:01)
[2016-05-25] MEDS: CHOLECALCIFEROL 1,000 UNIT TAB PO SCH (13:03)
[2016-05-25] MEDS: CYANOCOBALAMIN 500 MCG TAB PO SCH (13:03)
[2016-05-25] MEDS ORDERED: CLINDAMYCIN 600 MG in DEXTROSE 5% IN WATER 50 ML IVPB STA ×2 (13:16)
[2016-05-25] MEDS ORDERED: fentaNYL (PF) 50 MCG/ML 2 ML AMP ONE (13:20)
[2016-05-25] MEDS ORDERED: fentaNYL (PF) 50 MCG/ML 2 ML AMP IV ONE (13:23)
[2016-05-25] MEDS ORDERED: MIDAZOLAM 2 MG/2 ML VIAL ONE (13:26)
[2016-05-25] MEDS ORDERED: MIDAZOLAM 2 MG/2 ML VIAL IVP ONE (13:28)
[2016-05-25] MEDS ORDERED: HEPARIN SODIUM 1,000 UNIT/ML VIAL ONE (13:42)
[2016-05-25] MEDS ORDERED: HEPARIN SODIUM 1,000 UNIT/ML VIAL IV ONE (13:43)
[2016-05-25] MEDS ORDERED: IODIXANOL 320 MG/ML 100 ML IV ONE (14:34)
[2016-05-25] MEDS ORDERED: SODIUM CHLORIDE 0.9% 500 ML IV ONE (14:35)
--- NOTE | 2016-05-25 14:43 | P.PCN ---
Date of Procedure: 05/25/16 Preoperative Diagnosis: failing left transposed basilic vein fistula Postoperative Diagnosis: same Procedure(s) Performed: fistulogram, central venogram, FLIGHT ENGINEER INSPECTOR of arterial limb stenosis with 5x40 and 6x40 balloon Anesthesia: other Surgeon: Georgina Gutiérrez Estimated Blood Loss (ml): 20 Pathology: none sent Condition: stable Disposition: floor Indications for Procedure: failing left arm fistula Operative Findings: high grade stenosis of arterial limb of fistula Description of Procedure: see dictation
--- NOTE | 2016-05-25 15:21 | IR ---
EXAMINATION TYPE: IR bar captain venous DATE OF EXAM: 05/25/2016 3:18 PM COMPARISON: NONE HISTORY: Dialysis Fluoroscopy was applied to the referring clinician. See dictated report from vascular surgery.
[2016-05-25] MEDS: FOLIC ACID-VIT B COMPLEX-VIT C 1 CAP PO SCH (16:02)
[2016-05-25 16:53] LABS: Glucose,Whole Blood 114 mg/dL (75-99)
[2016-05-25 20:06] LABS: Glucose,Whole Blood 146 mg/dL (75-99)
[2016-05-25] MEDS ORDERED: ALBUTEROL NEBULIZED 2.5 MG/3 ML INHALATION PRN (20:59)
[2016-05-25] MEDS: PRAMIPEXOLE 0.25 MG TAB PO SCH (22:57)
[2016-05-25] MEDS: EZETIMIBE 10 MG TAB PO SCH (22:58)
[2016-05-26] MEDS: guaiFENesin SYRUP 100MG/5ML 200 MG/10 ML CUP PO PRN ×2 (00:13→08:02)
[2016-05-26] MEDS: HYDROcodone/APAP 5-325MG 1 EACH TAB PO PRN (01:18)
[2016-05-26 07:19] LABS: Glucose,Whole Blood 158 mg/dL (75-99)
[2016-05-26] MEDS: INSULIN LISPRO (humaLOG) 300 UNIT/3 ML VIAL SQ SCH ×2 (07:43→12:20)
[2016-05-26] MEDS: METOPROLOL TARTRATE 12.5 MG TAB PO SCH (07:45)
[2016-05-26] MEDS: SEVELAMER 800 MG TAB PO SCH ×2 (07:45→12:20)
[2016-05-26] MEDS: ASPIRIN 81 MG CHEW PO SCH (07:45)
[2016-05-26] MEDS: ISOSORBIDE MONONITRATE ER 60 MG TAB.ER.24H PO SCH (07:45)
[2016-05-26] MEDS: METOLAZONE 2.5 MG TAB PO SCH (07:45)
[2016-05-26] MEDS: MIDODRINE 5 MG TAB PO SCH ×2 (07:45→12:16)
[2016-05-26] MEDS: CLOPIDOGREL 75 MG TAB PO SCH (07:46)
[2016-05-26] MEDS: ALLOPURINOL 100 MG TAB PO SCH (07:46)
[2016-05-26] MEDS: PANTOPRAZOLE 40 MG TABLET PO SCH (07:46)
[2016-05-26] MEDS: TORSEMIDE 20 MG TAB PO SCH (07:47)
[2016-05-26] MEDS: HEPARIN SODIUM,PORCINE 5,000 UNIT/ML 1 ML VIAL SQ SCH (07:47)
[2016-05-26] MEDS: MONTELUKAST 10 MG TAB PO SCH (07:47)
[2016-05-26] MEDS: GABAPENTIN 300 MG CAP PO SCH (07:47)
[2016-05-26] MEDS: SYMBICORT 160-4.5 MCG INHALER INHALATION SCH (08:00)
[2016-05-26 08:02] VITALS: BP 117/55; PULSE 81; RESP 18; TEMP 96.8
--- NOTE | 2016-05-26 08:25 | PN ---
DATE OF SERVICE: 05/25/2016 This 75-year-old woman who was admitted with acute and chronic renal failure secondary to missed hemodialysis is being closely monitored. The patient also underwent fistulogram and a PTBA of arterial limb stenosis by Dr. Gutiérrez. No chest pain. No palpitation. No fever. Occasional cough is reported. On exam, alert and oriented times three. Pulse is 78, blood pressure 102/55. respiratory rate 15, temperature 98 degrees, pulse ox 98% on 2 L. HEENT: Conjunctivae normal. NECK: No jugular venous distention. CARDIOVASCULAR: S1, S2 muffled. RESPIRATORY: Breath sounds diminished at the bases. A few scattered rhonchi. ABDOMEN: Soft, nontender. LEGS: No edema. No swelling. CENTRAL NERVOUS SYSTEM: No focal deficits. LABS: Hemoglobin 11.2, sodium 133. ASSESSMENT: 1. Acute on chronic renal failure secondary to missed hemodialysis with chronic kidney disease Stage IV for hemodialysis. 2. Congestive heart failure acute exacerbation acute on chronic systolic dysfunction, ejection fraction 35 to 40% secondary to fluid overload secondary to missed hemodialysis. 3. Severe hyperkalemia from acute renal failure. 4. Failing left transposed basilic vein fistula status post fistulogram as well as EDUCATIONAL CONSULTANT of arterial limb stenosis with balloon. 5. Gait dysfunction and severe weakness. 6. Relative hypotension. 7. History of hyponatremia. 8. Anemia, normocytic, anemia of chronic disease. 9. Chronic kidney disease, stage V on hemodialysis. 10. Increased random blood sugar. 11. Increased bilirubin. 12. Troponin 0.06, indeterminate. 13. Atrial fibrillation paroxysmal. 14. History of asthma. 15. History of cerebrovascular accident, transient ischemic attack. 16. History of diabetes type 2. 17. History of hyperlipidemia. 18. History of hypertension. 19. History of myocardial infarction. 20. History of sleep apnea. 21. History of diabetic peripheral neuropathy. 22. Two vessel coronary artery disease, history. 23. History of gout. 24. Leg cellulitis and chronic ulceration. 25. History Methicillin-resistant Staph aureus. 26. History of coronary artery disease and stent. 27. Remote history of nicotine dependence. 28. Obesity body mass index of 30. 29. FULL CODE. RECOMMENDATIONS AND DISCUSSION: Recommend to continue current medications. Continue with monitoring, symptomatic treatment. Otherwise, at this time, I would recommend continue with fluid and electrolytes balance management. Otherwise, closely monitored. Hemodialysis tomorrow. Guarded prognosis. Further recommendations to follow.
--- NOTE | 2016-05-26 10:42 | OP ---
DATE OF SERVICE: 05/25/2016 SURGEON: Georgina Gutiérrez M.D. PREOPERATIVE DIAGNOSIS: Failing left transposed basilic vein fistula. POSTOPERATIVE DIAGNOSIS: Failing left transposed basilic vein fistula. OPERATION: Fistulogram, central venogram, angioplasty of arterial limb stenosis of fistula. ANESTHESIA: Local with IV sedation. INDICATIONS: The patient is a 75-year-old woman with a left basilic vein transposition for hemodialysis. She was noted to have pain and tingling in her left hand during hemodialysis, that was similar to a previous episode where she had an arterial limb stenosis that required angioplasty. On physical exam, the patient had a pulse in the arterial limb of her fistula and a thrill distally, suggesting an area of stenosis. She was unable to have her dialysis treatment completed secondary to clotting of the system on 05/24/2016. The patient is currently scheduled for fistulogram and related procedures. DESCRIPTION OF PROCEDURE: After induction of adequate IV sedation, the patient's left arm was prepped and draped in the usual sterile fashion. The area overlying the venous limb of the fistula was infiltrated with a solution of a 1% lidocaine and a 21 gauge needle was placed. An 0.0181 was threaded toward the arterial limb of the fistula, followed by sheath and core. The wire and core were removed. A fistulogram was performed, findings are noted below. There was a 4 cm area of high-grade stenosis in the arteria limb of the fistula, just distal to the AV anastomosis. The patient was given 3000 units of heparin IV. An 0.035 glidewire was threaded into the arterial limb of the fistula and finally into the brachial artery. The area of stenosis was initially dilated with a 5 mm balloon with approximately 60% to 70% residual stenosis. Finally, a 6 mm balloon was used to dilate the area with approximately 40% to 50% residual stenosis. There was a small area of extravasation noted outside the fistula suggesting a small rupture. There was excellent flow through the fistula at the completion of this portion of the procedure. No further intervention was performed. All wires, catheters and sheaths were removed. Hemostasis was assured with a 4-0 nylon pursestring suture. The patient was returned to her room in satisfactory condition. She had a thrill throughout her fistula. She had a palpable left radial pulse. Her left hand was viable. There was no evidence of an expanding hematoma at the fistula site. IMPRESSION: 1. Widely patent arteriovenous anastomosis with patent brachial artery. 2. High-grade (greater than 80%) 4 cm length stenosis at the arterial limb of a transposed basilic vein fistula, left arm. This was successfully dilated with a 5 and 6 mm balloon with a residual of 40% to 50%. There was a small amount of extravasation noted at the completion of the procedure that was self-contained. 3. Widely patent venous limb, left transposed basilic vein fistula. 4. Widely patent left axillary, subclavian and brachiocephalic veins. Widely patent superior vena cava. MTDD
--- NOTE | 2016-05-26 11:14 | P.PN ---
Subjective Patient is seen in follow-up for end-stage renal disease. She is maintained on hemodialysis on a Monday schedule. Patient missed 2 treatments of hemodialysis prior to admission and was noted to be hyperkalemic. She underwent hemodialysis for 3 consecutive days upon admission. Denies any chest pain or worsening of shortness of breath. Denies diarrhea - does have loose BMs. No active complaints at this time. There were issues with clotting off the AV graft yesterday during dialysis and she underwent SANDBLAST OPERATOR of the arterial limb on 05/25. Vital signs are stable. General: The patient appeared well nourished and normally developed. HEENT: Head exam is unremarkable. Neck is without jugular venous distension. LUNGS: Lungs are clear to auscultation and percussion. Breath sounds decreased. HEART: Rate and Rhythm are regular. First and second heart sounds normal. No murmurs, rubs or gallops. ABDOMEN: Abdominal exam reveals normal bowel sounds. Non-tender and non- distended. No evidence of peritonitis. EXTREMITITES: Trace edema. Thrill present in AV graft. Objective - Vital Signs Vital signs: Vital Signs Temp 96.8 F L 05/26/16 07:00 Pulse 81 05/26/16 07:00 Resp 18 05/26/16 07:00 BP 117/55 05/26/16 07:00 Pulse Ox 96 05/26/16 07:00 Intake & Output 05/25/16 05/26/16 05/26/16 18:59 06:59 18:59 Intake Total 594 720 Output Total 0 Balance 594 720 0 Intake: IV 354 Oral 240 720 Output: Emesis 0 Other: Voiding Method Toilet Toilet Toilet # Voids 1 1 1 - Labs CBC & Chem 7: 05/25/16 08:11 05/25/16 08:11 Labs: Abnormal Lab Results - Last 24 Hours (Table) 05/25/16 05/25/16 05/25/16 Range/Units 08:11 16:51 20:04 RBC 3.09 L (3.80-5.40) m/uL Hgb 11.2 L (11.4-16.0) gm/dL MCV 115.4 H (80.0-100.0) fL MCH 36.1 H (25.0-35.0) pg RDW 16.2 H (11.5-15.5) % Plt Count 143 L (150-450) k/uL POC Glucose (mg/dL) 114 H 146 H (75-99) mg/dL 05/26/16 Range/Units 07:17 RBC (3.80-5.40) m/uL Hgb (11.4-16.0) gm/dL MCV (80.0-100.0) fL MCH (25.0-35.0) pg RDW (11.5-15.5) % Plt Count (150-450) k/uL POC Glucose (mg/dL) 158 H (75-99) mg/dL Assessment and Plan Plan: Assessment: #1. End-stage renal disease maintained on hemodialysis on a Monday schedule. #2. Hyperkalemia secondary to noncompliance with hemodialysis. #3. Chronic kidney disease mineral bone disease. #4. Severe pulmonary hypertension. #5. Chronic hypotension related to underlying cardiac status. #5. Loose bowel movements. Plan: Hemodialysis today with goal 2-3 liters ultrafiltration. Midodrine 10 mg 3 times daily. Maintain Renvela with meals. Nephrocaps daily. Vascular surgery following. She will need further intervention in the near future. Patient wishes to follow-up with Dr. Yousif as an outpatient.
[2016-05-26 11:21] LABS: Glucose,Whole Blood 158 mg/dL (75-99)
[2016-05-26] MEDS: CHOLECALCIFEROL 1,000 UNIT TAB PO SCH (12:19)
[2016-05-26] MEDS: CYANOCOBALAMIN 500 MCG TAB PO SCH (12:19)
[2016-05-26] MEDS: FOLIC ACID-VIT B COMPLEX-VIT C 1 CAP PO SCH (12:19)
[2016-05-26] MEDS ORDERED: GELATIN SPONGE,ABSORB (SMALL) 1 EACH SPONGE ONE (15:00)
--- NOTE | 2016-05-27 14:34 | DS ---
DATE OF ADMISSION: 05/19/2016 DATE OF DISCHARGE: 05/26/2016 FINAL DIAGNOSES: 1. Acute on chronic renal failure secondary to missed hemodialysis with chronic kidney disease stage IV, on hemodialysis. 2. Congestive heart failure, acute exacerbation, with acute on chronic systolic dysfunction, ejection fraction 35 to 40% secondary to fluid overload, secondary to missed hemodialysis. 3. Severe hyperkalemia from acute renal failure improved. 4. Failing left transposed basilic vein fistula status post fistulogram as well as DIRECTOR SURGICAL of the arterial limb stenosis with balloon. 5. Gait dysfunction with severe weakness. 6. Relative hypotension, improved. 7. History of hyponatremia. 8. Anemia, normocytic, anemia of chronic disease. 9. Increased random blood sugar. 10. Increased bilirubin. 11. Troponin 0.06 indeterminate. 12. Atrial fibrillation, paroxysmal, chronic. 13. History of asthma. 14. History of cerebrovascular accident, transient ischemic attack. 15. History of diabetes type 2. 16. History of hyperlipidemia. 17. History of hypertension. 18. History of myocardial infarction. 19. History of sleep apnea. 20. History of diabetic peripheral neuropathy. 21. Two vessel coronary artery disease history. 22. History of gout. 23. History of leg cellulitis and ( ). 24. History of Methicillin-resistant Staph aureus. 25. History of coronary artery disease/stent. 26. History of remote history of nicotine dependence. 27. Obesity with body mass index ( ). 28. FULL CODE. DISCHARGE DISPOSITION: The patient will be discharged in stable condition with guarded prognosis. Total time taken 35 minutes. HISTORY OF PRESENT ILLNESS: This 75-year-old woman with a past medical history of multiple medical problems as mentioned earlier, being followed by no primary physician in the outpatient setting, has acute on chronic failure, because of missed hemodialysis. Patient had some diarrhea. The patient was restarted on hemodialysis. The patient also has hyperkalemia, congestive heart failure which is improved significantly. Dialysis AV fistula was not working but Dr. Gutiérrez saw the patient and performed fistulogram and ( ) arterial limb. The patient improved significantly. On exam, vital signs stable. CARDIOVASCULAR: S1, S2 muffled. Respiratory: A few scattered rhonchi. Abdomen soft, nontender. Nervous system: No focal deficits. DISCHARGE ADVICE AND MEDICATIONS: 1. Diet is cardiac. 2. Activity limited until follow-up. 3. Follow up with Dr. Hernandez in 2 to 3 days. 4. Follow up with Dr. Gutiérrez as advised. 5. Medications are albuterol 2.5 q.i.d. p.r.n. 6. Zyloprim 100 mg p.o. daily. 7. Ecotrin 81 mg p.o. daily. 8. Symbicort 2 puffs b.i.d. 9. Vitamin D3, 5000 daily. 10. Plavix 75 mg daily. 11. Vitamin B12 500 mcg p.o. daily. 12. Colace 100 milligrams p.o. daily. 13. esomoprazole 40 mg p.o. daily. 14. Zetia 10 mg q.h.s. 15. Folvite 1 p.o. daily. 16. Neurontin 300 mg p.o. daily. 17. [place] 5 mg q.6 p.r.n. 18. Humalog a.c. and at bedtime, that is 150 to 200 2 units, 200 to 250 4 units, 250-300 6 units, 300 to 350 8 units and 350 to 400 10 units, more than 400, call. 19. Imdur ER 60 mg p.o. daily. 20. Zaroxolyn 2.5 mg q.48 hours. 21. Lopressor 12.5 b.i.d. 22. ProAmatine 10 mg a.c. t.i.d. 23. Singulair 10 mg p.o. daily. 24. Nitrostat 0.4 sublingual p.r.n. 25. mirapex 0.25 mg q.h.s. 26. renvela 800 mg p.o. t.i.d. 27. Demadex 20 mg p.o. daily. 28. Guaifenesin 200 mg p.o. t.i.d. 29. Trazodone 75 mg q.h.s. p.r.n. Once again, the patient will be discharged in stable condition with guarded prognosis. MTDD
== END 2016-05-26 17:40 | disposition home health service (06) | DRG 252 ==
LOC: EC 16:42 → 6SEL 17:43 → 5MS5E 05-21 16:24
PROVIDERS: ADMIT Hospitalist; ATTEND Hospitalist
PROC: 5A1D60Z (ICD-10-PCS; 2016-05-19)
PROC: B3111ZZ Fluoroscopy of Right Brachiocephalic-Subclavian Artery using Low Osmolar Contrast (ICD-10-PCS; 2016-05-25)
PROC: B51W1ZZ Fluoroscopy of Dialysis Shunt/Fistula using Low Osmolar Contrast (ICD-10-PCS; 2016-05-25)
PROC: 03783ZZ Dilation of Left Brachial Artery, Percutaneous Approach (ICD-10-PCS; principal; 2016-05-25 12:50)
DX: I13.2 Hypertensive heart and chronic kidney disease with heart failure and with stage 5 chronic kidney disease, or end stage renal disease (principal); I50.23 Acute on chronic systolic (congestive) heart failure; N17.9 Acute kidney failure, unspecified; E87.2 Acidosis; I27.2 Other secondary pulmonary hypertension; N18.6 End stage renal disease; I95.89 Other hypotension; E87.1 Hypo-osmolality and hyponatremia; I69.354 Hemiplegia and hemiparesis following cerebral infarction affecting left non-dominant side; T82.858A Stenosis of other vascular prosthetic devices, implants and grafts, initial encounter; I48.0 Paroxysmal atrial fibrillation; Z99.81 Dependence on supplemental oxygen; E87.5 Hyperkalemia; E11.319 Type 2 diabetes mellitus with unspecified diabetic retinopathy without macular edema; E11.21 Type 2 diabetes mellitus with diabetic nephropathy; E11.42 Type 2 diabetes mellitus with diabetic polyneuropathy; E11.22 Type 2 diabetes mellitus with diabetic chronic kidney disease; D63.1 Anemia in chronic kidney disease; I48.2 Chronic atrial fibrillation; Z99.2 Dependence on renal dialysis; E87.79 Other fluid overload; E11.649 Type 2 diabetes mellitus with hypoglycemia without coma; E78.5 Hyperlipidemia, unspecified; I25.2 Old myocardial infarction; T50.0X5A Adverse effect of mineralocorticoids and their antagonists, initial encounter; G47.33 Obstructive sleep apnea (adult) (pediatric); J45.909 Unspecified asthma, uncomplicated; I25.10 Atherosclerotic heart disease of native coronary artery without angina pectoris; R19.7 Diarrhea, unspecified; D53.9 Nutritional anemia, unspecified; H53.2 Diplopia; R53.1 Weakness; M10.9 Gout, unspecified; E66.9 Obesity, unspecified; R26.9 Unspecified abnormalities of gait and mobility; R11.0 Nausea; R74.8 Abnormal levels of other serum enzymes; R20.0 Anesthesia of skin; H54.7 Unspecified visual loss; H91.90 Unspecified hearing loss, unspecified ear; Z88.6 Allergy status to analgesic agent; Z71.3 Dietary counseling and surveillance; Z95.5 Presence of coronary angioplasty implant and graft; Z88.1 Allergy status to other antibiotic agents; Z88.5 Allergy status to narcotic agent; Z88.8 Allergy status to other drugs, medicaments and biological substances; Z83.3 Family history of diabetes mellitus; Z82.5 Family history of asthma and other chronic lower respiratory diseases; Z86.14 Personal history of Methicillin resistant Staphylococcus aureus infection; Z82.49 Family history of ischemic heart disease and other diseases of the circulatory system; Z87.891 Personal history of nicotine dependence; Z79.899 Other long term (current) drug therapy; Z79.4 Long term (current) use of insulin; Z79.02 Long term (current) use of antithrombotics/antiplatelets; Z68.32 Body mass index [BMI] 32.0-32.9, adult; Z86.19 Personal history of other infectious and parasitic diseases; Z87.440 Personal history of urinary (tract) infections; Z79.82 Long term (current) use of aspirin; Z79.891 Long term (current) use of opiate analgesic; Z90.49 Acquired absence of other specified parts of digestive tract; Z91.15 Patient's noncompliance with renal dialysis; Z91.14 Patient's other noncompliance with medication regimen; Z91.81 History of falling; Z98.42 Cataract extraction status, left eye; Z98.41 Cataract extraction status, right eye; Z90.710 Acquired absence of both cervix and uterus
CPT/HCPCS: 36415; 36902; 71010; 76080; 80048; 80053; 82550; 82553; 83036; 83735; 84100; 84484; 85025; 85610; 85730; 87502; 90935; 93005; 94640; 94760; 96361; 96374; 96375; 99291

== ENCOUNTER 2016-06-06 12:01 | Inpatient (IN) | payer MEDICARE, BC ==
[2016-06-06] MEDS ORDERED: IPRATROPIUM-ALBUTEROL 3 ML NEB INHALATION STA (12:18)
[2016-06-06] MEDS ORDERED: VANCOMYCIN 1,500 MG in SODIUM CHLORIDE 0.9% 250 ML IVPB STA (12:20)
[2016-06-06] MEDS ORDERED: IV VANCOMYCIN PER PHARMACY 1 EACH MISC MISCELLANE PRN (12:20)
[2016-06-06] MEDS ORDERED: NITROGLYCERIN OINT 1 INCH/GM PACKET TOPICAL STA (12:21)
[2016-06-06] MEDS ORDERED: ASPIRIN 81 MG CHEW PO STA (12:21)
[2016-06-06 12:45] LABS: Basophils % (A) 1 %; CH 35.5; CHCM 30.8; Eosinophils # (A) 0.1 k/uL (0-0.7); Eosinophils % (A) 2 %; HCT 37.3 % (34.0-46.0); HDW 2.42; HGB 11.7 gm/dL (11.4-16.0); Hypochromasia Slight; Luc # (Auto) 0.15; Luc % (Auto) 2; Lymphocytes # (A) 0.6 k/uL (1.0-4.8); Lymphocytes % (A) 10 %; MCH 36.5 pg (25.0-35.0); MCHC 31.5 g/dL (31.0-37.0); MCV 115.8 fL (80.0-100.0); Macrocytosis Marked; Mean Platelet Volume 7.9; Monocytes # (A) 0.3 k/uL (0-1.0); Monocytes % (A) 4 %; Neutrophils % (A) 81 %; RBC 3.22 m/uL (3.80-5.40); RDW 15.7 % (11.5-15.5); WBC 6.2 k/uL (3.8-10.6); WBC (Perox) 6.53
[2016-06-06 12:57] LABS: Partial Thromboplastin Time 22.6 sec (22.0-30.0)
[2016-06-06 13:01] LABS: Total Bilirubin 1.8 mg/dL (0.2-1.3); Total Protein 7.7 g/dL (6.3-8.2)
[2016-06-06 13:07] LABS: INR 1.4 (<1.1); Prothrombin Time 14.1 sec (9.0-12.0)
--- NOTE | 2016-06-06 13:14 | XR ---
EXAMINATION TYPE: XR chest 2V DATE OF EXAM: 06/06/2016 1:09 PM HISTORY: difficulty breathing. REFERENCE: Previous study dated 05/21/2016. FINDINGS: The lungs are overinflated. The heart is enlarged. There is vascular congestion and pulmona ry edema. I suspect small effusions. IMPRESSION: 1. COPD. 2. CARDIOMEGALY. 3. CHANGES CONSISTENT WITH CONGESTIVE HEART FAILURE.
[2016-06-06 13:15] LABS: Potassium 7.5 mmol/L (3.5-5.1)
[2016-06-06] MEDS ORDERED: ALBUTEROL NEB (CONC) 2.5 MG/0.5 ML INHALATION ONE (13:16)
[2016-06-06] MEDS ORDERED: DEXTROSE 50%-WATER 50 ML SYRINGE IVP ONE ×2 (13:16→18:25)
[2016-06-06] MEDS ORDERED: SODIUM BICARB 8.4% 50 ML SYR (1 MEQ/ML) IV ONE (13:16)
[2016-06-06] MEDS ORDERED: INSULIN REGULAR 100 UNIT/ML VIAL IV ONE (13:16)
--- NOTE | 2016-06-06 13:16 | ED ---
General Adult HPI - General Chief complaint: Shortness of Breath Stated complaint: kanika Time Seen by Provider: 06/06/16 12:07 Source: patient, EMS Mode of arrival: EMS Limitations: physical limitation - History of Present Illness Initial comments: This 75-year-old female presents complaining of difficulty in breathing present for last 2 days. She's felt dizzy at times and very weak. She states that she is weak to the point that she cannot ambulate. She has a history of renal failure and normally gets dialysis on Tuesdays, , and Saturdays. She missed her Monday dialysis as she was having diarrhea. She denies any fevers or chills. She states that her left shunt apparently collapsed of this past week. She then developed some left breast swelling and redness. She also complains of occasional left-sided chest pressure. She does complain of bilateral lower extremity chronic edema. She states that she may have slightly injured her right leg transferring and vehicle to come here and is complaining of exquisite pain to her right lateral leg distal to the knee. She complains of some bruising to this area as well. She denies any other complaints or modifying factors. - Related Data Home Medications Medication Instructions Recorded Confirmed Aspirin EC [Ecotrin Low Dose] 81 mg PO DAILY 03/10/15 06/06/16 Budesonide/Formoterol Fumarate 2 puff INHALATION RT-BID 03/10/15 06/06/16 [Symbicort 160-4.5 Mcg Inhaler] Cholecalciferol [Vitamin D3] 5,000 unit PO DAILY 03/10/15 06/06/16 Clopidogrel [Plavix] 75 mg PO DAILY 03/10/15 06/06/16 Cyanocobalamin [Vitamin B-12] 500 mcg PO DAILY 03/10/15 06/06/16 Esomeprazole Magnesium [NexIUM] 40 mg PO DAILY 03/10/15 06/06/16 Montelukast [Singulair] 10 mg PO DAILY 03/10/15 06/06/16 Sevelamer [Renvela] 800 mg PO AC-TID 03/10/15 06/06/16 traZODone HCL 75 mg PO HS PRN 03/10/15 06/06/16 Isosorbide Mononitrate ER [Imdur] 60 mg PO DAILY 09/14/15 06/06/16 Ezetimibe [Zetia] 10 mg PO HS 01/17/16 06/06/16 Allopurinol [Zyloprim] 100 mg PO DAILY 04/25/16 06/06/16 Pramipexole [Mirapex] 0.25 mg PO HS 04/25/16 06/06/16 Docusate [Colace] 100 mg PO DAILY 05/19/16 06/06/16 Gabapentin [Neurontin] 300 mg PO DAILY 05/19/16 06/06/16 HYDROcodone/APAP 5-325MG [[place] 1 tab PO Q6H PRN 05/19/16 06/06/16 5-325] Metolazone [Zaroxolyn] 2.5 mg PO Q48H 05/19/16 06/06/16 Torsemide [Demadex] 20 mg PO DAILY 05/19/16 06/06/16 Previous Rx's Medication Instructions Recorded Nitroglycerin Sl Tabs [Nitrostat] 0.4 mg SUBLINGUAL Q5M PRN #0 tab 03/26/15 Albuterol Nebulized [Ventolin 2.5 mg INHALATION RT-QID #120 nebu 05/26/16 Nebulized] Folic Acid-Vit B Complex-Vit C 1 each PO DAILY@1200 #30 cap 05/26/16 [Nephrocaps] INSULIN LISPRO (HumaLOG) [humaLOG] 0 unit SQ ACHS #1 vial 05/26/16 Metoprolol Tartrate [Lopressor] 12.5 mg PO BID #60 tab 05/26/16 Midodrine [ProAmatine] 10 mg PO AC-TID tab 05/26/16 guaiFENesin SYRUP 100MG/5ML 200 mg PO TID PRN #0 cup 05/26/16 [Robitussin] Allergies Allergy/AdvReac Type Severity Reaction Status Date / Time atropine sulfate Allergy Rash/Hives Verified 06/06/16 13:21 [From Lomotil] cephalexin monohydrate Allergy Rash/Hives Verified 06/06/16 13:21 [From Keflex] diphenoxylate HCl Allergy Rash/Hives Verified 06/06/16 13:21 [From Lomotil] ibuprofen Allergy Swelling Verified 06/06/16 13:21 baclofen AdvReac Hallucinati Verified 06/06/16 13:21 ons tramadol AdvReac Hallucinati Verified 06/06/16 13:21 ons Review of Systems ROS Statement: Those systems with pertinent positive or pertinent negative responses have been documented in the HPI. ROS Other: All systems not noted in ROS Statement are negative. Past Medical History Past Medical History: Atrial Fibrillation, Asthma, Heart Failure, CVA/TIA, Diabetes Mellitus, Dialysis, Hyperlipidemia, Hypertension, Myocardial Infarction ([place]), Renal Disease Additional Past Medical History / Comment(s): Obesity, bronchial asthma, obstructive sleep apnea, peripheral neuropathy, congestion heart failure with ejection fraction of 35-40%, multivessel coronary artery disease with previous myocardial infarction, history of CVA with some residual left-sided weakness, renal failure and the patient has end-stage renal disease and currently she is on hemodialysis 3 times a week, diabetes mellitus, gout, chronic ulceration of the lower extremity with episodic cellulitis of the legs, history of MRSA infection of the lower extremities bilaterally, previous history of Klebsiella pneumonia urine checked infection Last Myocardial Infarction Date:: September 22, 2007 History of Any Multi-Drug Resistant Organisms: None Reported Past Surgical History: Bowel Resection, Heart Catheterization With Stent, Hysterectomy Additional Past Surgical History / Comment(s): Spur removal in bilateral feet twice and left shoulder once and groin, cataracts removed Past Anesthesia/Blood Transfusion Reactions: No Reported Reaction Date of Last Stent Placement:: September 22, 2007 Past Psychological History: No Psychological Hx Reported Additional Psychological History / Comment(s): patient currently lives at home with her son. Patient states she uses a walker at home stated lt leg drags a bit since stroke, patient uses senior bus to get to appointments, visiting nurse 3x a week. Difficulties getting to her dialysis appointments. 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 No animal exposures. No international travel Smoking Status: Former smoker Past Alcohol Use History: None Reported Additional Past Alcohol Use History / Comment(s): STARTED SMOKING AT AGE 18 SMOKED 1.5 PPD ,QUIT 2007 Past Drug Use History: None Reported - Past Family History Mother Additional Family Medical History / Comment(s): pt stated was unknown. stated she had an iron lung. at age 31 Father Family Medical History: COPD, Diabetes Mellitus, Myocardial Infarction ([place]) Additional Family Medical History / Comment(s): at age 90. Sister(s) Family Medical History: Diabetes Mellitus Son(s) Family Medical History: Deep Vein Thrombosis (DVT), Myocardial Infarction ([place]) General Exam - General Exam Comments Initial Comments: GENERAL: The patient is well nourished and well hydrated. VITAL SIGNS: Heart rate, blood pressure, respiratory rate reviewed as recorded in nurse's notes. EYES: Pupils are round and reactive. Extraocular movements are intact. No conjunctival / lid redness or swelling. ENT: No external evidence of injury, swelling, or ecchymosis. Airway is patent. Throat is clear. NECK: Nontender. No swelling or evidence of injury. No subcutaneous emphysema. Trachea is midline. No thyroid mass. HEART: Regular rate and rhythm. Good peripheral pulses. LUNGS/CHEST: Breath sounds clear and equal bilaterally. No rales, rhonchi, or wheezes. No ecchymosis, subcutaneous emphysema, or tenderness. ABDOMEN: Abdomen soft without tenderness. No palpable masses or organomegaly. No peritoneal signs. No abdominal wall swelling or ecchymosis. EXTREMITIES: No extremity tenderness. Normal muscle tone and function. No thoracolumbar tenderness. NEUROLOGIC: Sensation is grossly intact. Cranial nerve exam reveals face is symmetrical, tongue is midline, speech is clear. SKIN: No abrasions or ecchymosis is noted. No induration or masses noted. The patient has a shunt present in her left proximal arm. A good thrill is noted. No signs of erythema or drainage. PSYCHIATRIC: Alert and oriented. Appropriate behavior and judgment. Breast exam: There is significant swelling noted to the left breast with mild erythema but no evidence of abscess. Limitations: physical limitation Course Vital Signs 06/06/16 06/06/16 06/06/16 12:03 12:09 12:41 Temperature 96.9 F L Pulse Rate 47 L 89 Respiratory 18 18 20 Rate Blood Pressure 100/56 114/68 O2 Sat by Pulse 98 99 Oximetry 06/06/16 06/06/16 06/06/16 13:06 13:16 14:10 Temperature Pulse Rate 87 86 66 Respiratory Rate Blood Pressure O2 Sat by Pulse Oximetry 06/06/16 14:20 Temperature Pulse Rate 67 Respiratory 18 Rate Blood Pressure 107/59 O2 Sat by Pulse 98 Oximetry Medical Decision Making - Medical Decision Making The patient is seen and examined. All diagnostics are reviewed. The EKG shows atrial fibrillation with a heart rate of 89. There is no acute ST-T wave changes identified. The QRS duration is 124, and the QTc interval is 491. The chest x-ray shows evidence of congestive heart failure with cardiomegaly and COPD. The laboratory came back showing a severely elevated creatinine at 6.68 and potassium at 7.5. Patient is given bicarb, dextrose, insulin, Kayexalate, and an albuterol breathing treatment. It is felt as though the congestive heart failure is related to fluid overload from her missing her dialysis. It is felt as though she would require admission to the hospital for further treatment. She is also given some aspirin, Nitropaste, and vancomycin. Case is discussed with Dr. Riddle and she will arrange dialysis for this afternoon. Case is discussed with Dr. Hernandez and he would like the patient to be on vancomycin for the left breast cellulitis and would like the patient admitted to Dr. Cunningham's group. Case will be discussed with internal medicine in the near future and patient will be admitted to the hospital for further treatment. - Lab Data Result diagrams: 06/06/16 12:25 06/06/16 12:25 Lab Results 06/06/16 06/06/16 06/06/16 Range/Units 12:25 12:25 12:25 WBC 6.2 (3.8-10.6) k/uL RBC 3.22 L (3.80-5.40) m/uL Hgb 11.7 (11.4-16.0) gm/dL Hct 37.3 (34.0-46.0) % MCV 115.8 H (80.0-100.0) fL MCH 36.5 H (25.0-35.0) pg MCHC 31.5 (31.0-37.0) g/dL RDW 15.7 H (11.5-15.5) % Plt Count 177 (150-450) k/uL Neutrophils % 81 % Lymphocytes % 10 % Monocytes % 4 % Eosinophils % 2 % Basophils % 1 % Neutrophils # 5.0 (1.3-7.7) k/uL Lymphocytes # 0.6 L (1.0-4.8) k/uL Monocytes # 0.3 (0-1.0) k/uL Eosinophils # 0.1 (0-0.7) k/uL Basophils # 0.0 (0-0.2) k/uL Manual Slide Review Performed Polychromasia Present Hypochromasia Slight Macrocytosis Marked PT (9.0-12.0) sec INR (<1.1) APTT (22.0-30.0) sec Sodium 136 L (137-145) mmol/L Potassium 7.5 H* (3.5-5.1) mmol/L Chloride 97 L (98-107) mmol/L Carbon Dioxide 20 L (22-30) mmol/L Anion Gap 19 mmol/L BUN 61 H (7-17) mg/dL Creatinine 6.68 H* (0.52-1.04) mg/dL Est GFR (MDRD) Af Amer 7 (>60 ml/min/1.73 sqM) Est GFR (MDRD) Non-Af 6 (>60 ml/min/1.73 sqM) Glucose 81 (74-99) mg/dL Calcium 9.0 (8.4-10.2) mg/dL Total Bilirubin 1.8 H (0.2-1.3) mg/dL AST 32 (14-36) U/L ALT 28 (9-52) U/L Alkaline Phosphatase 128 H (38-126) U/L Total Creatine Kinase 43 (30-135) U/L CK-MB (CK-2) 1.9 (0.0-2.4) ng/mL CK-MB (CK-2) Rel Index 4.4 Troponin I 0.038 H* (0.000-0.034) ng/mL NT-Pro-B Natriuret Pep pg/mL Total Protein 7.7 (6.3-8.2) g/dL Albumin 4.0 (3.5-5.0) g/dL 06/06/16 06/06/16 Range/Units 12:25 12:25 WBC (3.8-10.6) k/uL RBC (3.80-5.40) m/uL Hgb (11.4-16.0) gm/dL Hct (34.0-46.0) % MCV (80.0-100.0) fL MCH (25.0-35.0) pg MCHC (31.0-37.0) g/dL RDW (11.5-15.5) % Plt Count (150-450) k/uL Neutrophils % % Lymphocytes % % Monocytes % % Eosinophils % % Basophils % % Neutrophils # (1.3-7.7) k/uL Lymphocytes # (1.0-4.8) k/uL Monocytes # (0-1.0) k/uL Eosinophils # (0-0.7) k/uL Basophils # (0-0.2) k/uL Manual Slide Review Polychromasia Hypochromasia Macrocytosis PT 14.1 H (9.0-12.0) sec INR 1.4 (<1.1) APTT 22.6 (22.0-30.0) sec Sodium (137-145) mmol/L Potassium (3.5-5.1) mmol/L Chloride (98-107) mmol/L Carbon Dioxide (22-30) mmol/L Anion Gap mmol/L BUN (7-17) mg/dL Creatinine (0.52-1.04) mg/dL Est GFR (MDRD) Af Amer (>60 ml/min/1.73 sqM) Est GFR (MDRD) Non-Af (>60 ml/min/1.73 sqM) Glucose (74-99) mg/dL Calcium (8.4-10.2) mg/dL Total Bilirubin (0.2-1.3) mg/dL AST (14-36) U/L ALT (9-52) U/L Alkaline Phosphatase (38-126) U/L Total Creatine Kinase (30-135) U/L CK-MB (CK-2) (0.0-2.4) ng/mL CK-MB (CK-2) Rel Index Troponin I (0.000-0.034) ng/mL NT-Pro-B Natriuret Pep 89650 pg/mL Total Protein (6.3-8.2) g/dL Albumin (3.5-5.0) g/dL Disposition Clinical Impression: Congestive heart failure with cardiomyopathy, Chest pain, Diabetes, Chronic a- fib, Weakness, Chronic renal failure, Renal failure (ARF), acute on chronic, Cellulitis of left breast, Contusion of right leg, Elevated troponin Disposition: ADMITTED IP TO THIS [facility] Condition: Fair Referrals: Chan Hernandez MD [Primary Care Provider] - 1-2 days Time of Disposition: 13:28 Decision Date: 06/06/16 Decision Time: 13:28
[2016-06-06 13:34] LABS: Manual Review Performed; Polychromasia Present
[2016-06-06 13:38] LABS: Creatine Kinase MB 1.9 ng/mL (0.0-2.4)
[2016-06-06 13:42] LABS: Troponin I 0.038 ng/mL (0.000-0.034)
[2016-06-06] MEDS ORDERED: HYDROmorphone 1 MG/ML 1 ML SYRINGE IVP STA (14:00)
[2016-06-06] MEDS: SODIUM POLYSTYRENE SULFONATE 15 GM/60 ML BOTTLE PO SCH ×2 (14:01→21:38)
--- NOTE | 2016-06-06 14:40 | XR ---
EXAMINATION TYPE: XR tibia fibula RT DATE OF EXAM ORDERED: 06/06/2016 2:35 PM HISTORY: Pain. COMPARISON: None. FINDINGS: There is peaking of intercondylar spines. There is medial joint space loss. No fracture or dislocation is seen. No bony destructive lesion is seen. IMPRESSION: 1. NO ACUTE OSSEOUS LESION. 2. OSTEOARTHRITIS OF THE RIGHT KNEE.
[2016-06-06] MEDS ORDERED: ASPIRIN 325 MG TAB PO STA (14:59)
[2016-06-06 15:03] LABS: Glucose,Whole Blood 92 mg/dL (75-99)
[2016-06-06] MEDS ORDERED: guaiFENesin SYRUP 100MG/5ML 200 MG/10 ML CUP PO PRN (15:05)
[2016-06-06] MEDS ORDERED: NITROGLYCERIN SL TABS 0.4 MG TAB SUBLINGUAL PRN (15:05)
[2016-06-06] MEDS ORDERED: traZODone HCL 50 MG TAB PO PRN (15:05)
[2016-06-06] MEDS ORDERED: GELATIN SPONGE,ABSORB (SMALL) 1 EACH SPONGE ONE (16:00)
--- NOTE | 2016-06-06 17:28 | US ---
EXAMINATION TYPE: US venous doppler duplex LE BI DATE OF EXAM: 06/06/2016 5:23 PM COMPARISON: on PACS CLINICAL HISTORY: Pain. Bilateral leg pain and swelling SIDE PERFORMED: Bilateral VESSELS IMAGED: External Iliac Vein (EIV) Common Femoral Vein Deep Femoral Vein Greater Saphenous Vein * Femoral Vein Popliteal Vein Small Saphenous Vein * Proximal Calf Veins (* superficial vessels) Suboptimal visualization due to bilateral leg edema Right Leg: appears negative for acute DVT Left Leg: appears negative for acute DVT IMPRESSION: Normal exam. No evidence of deep venous thrombosis in the left and right leg.
[2016-06-06 18:07] LABS: Glucose,Whole Blood 61 mg/dL (75-99)
[2016-06-06 18:31] LABS: Glucose,Whole Blood 66 mg/dL (75-99)
[2016-06-06] MEDS: INSULIN LISPRO (humaLOG) 300 UNIT/3 ML VIAL SQ SCH ×2 (18:35→21:38)
[2016-06-06] MEDS: ALBUTEROL NEBULIZED 2.5 MG/3 ML INHALATION SCH ×2 (18:35→20:03)
[2016-06-06] MEDS: SEVELAMER 800 MG TAB PO SCH (18:36)
[2016-06-06] MEDS: MIDODRINE 5 MG TAB PO SCH (18:36)
[2016-06-06 18:43] LABS: Glucose,Whole Blood 147 mg/dL (75-99)
[2016-06-06] MEDS: SYMBICORT 160-4.5 MCG INHALER INHALATION SCH (20:03)
[2016-06-06 20:27] LABS: Glucose,Whole Blood 144 mg/dL (75-99)
--- NOTE | 2016-06-06 21:03 | P.CNPUL ---
History of Present Illness Consult date: 06/06/16 Reason for consult: dyspnea History of present illness: 75-year-old female patient who is coming into the emergency department this afternoon because of progressive increase in shortness of breath over the past few days. The patient is very well-known to me. I taken care of Ayala for years. Unfortunately health in general is gradually declining. Her condition decompensated since the patient went on dialysis approximately year ago. Currently she still requiring dialysis 3 times a week Tuesdays and Saturdays. She has a AV fistula in her left upper extremity that was recently angioplastied by vascular surgery. The patient was in the hospital approximately 3 weeks ago due to failure to present to the dialysis center for dialysis for almost a week. Back then she came into the hospital because of fluid overload and hyperkalemia. She did the same thing this week and she missed dialysis on Monday. As such her last dialysis was approximately 4 days ago. She came in with worsening shortness of breath. She has some signs of fluid overload. She has increased edema in lower extremities and early lytic changes. She also had developed a mastitis of her left breast and it was noted during her earlier office visit with her breast was getting more erythematous and swollen. I discussed this with Dr. Riddle penile also put the patient on Augmentin. The plan was to add vancomycin during dialysis however the patient did not make it to dialysis as the patient was having diarrhea and she did not want to go to the dialysis center due to concern of having an accident. She is not known to have any C. diff colitis. It's possible that the diarrhea was antibiotic-induced knowing that she was started on Augmentin. No bloody bowel movements. No abdominal pain. No abdominal distention. No nausea or vomiting. No fever or chills. No other complaints otherwise. Her potassium level at time of admission was at 7.3. The patient received insulin with dextrose along with bicarb and calcium. No complications related was given. EKG is not showing any acute changes consistent with potassium cardiotoxicity. Her EKG showing controlled atrial fibrillation. The chest x- ray showed cardiomegaly and changes consistent with CHF with pulmonary vessel congestion. She is currently on 2 L of oxygen by nasal cannula and his saturations around 95%. The patient will be started on dialysis soon. Review of Systems Progressive debility secondary to above-mentioned comorbidities. The patient is considering hospice care and to stop dialysis. Past Medical History Past Medical History: Atrial Fibrillation, Asthma, Heart Failure, CVA/TIA, Diabetes Mellitus, Dialysis, GERD/Reflux, Hyperlipidemia, Hypertension, Myocardial Infarction (SC), Osteoarthritis (OA), Renal Disease Additional Past Medical History / Comment(s): Obesity,hiatal [id number] LITERS N /C, bronchial asthma, obstructive sleep apnea-"has cPAP but does'nt use it", peripheral neuropathy, congestion heart failure with ejection fraction of 35-40% , multivessel coronary artery disease with previous myocardial infarction, atrial fibrillation, history of CVA with some residual left-sided weakness, renal failure and the patient has end-stage renal disease and currently she is on hemodialysis 3 times a week(), diabetes mellitus, gout, chronic ulceration of the lower extremity with episodic cellulitis of the legs,spoke with infection control-no documeated mrsa on record her but had history of MSSA ALONG WITH GRAM-NEGATIVE INFECTION INCLUDING ACINETOBACTER AND STENOTROPHOMONAS LT ANKLE 12-16-15 , previous history of Klebsiella pneumonia urine checked infection,osteoporsois, diverticular dx Last Myocardial Infarction Date:: September 22, 2007 History of Any Multi-Drug Resistant Organisms: None Reported Past Surgical History: Bowel Resection, Heart Catheterization With Stent, Hysterectomy Additional Past Surgical History / Comment(s): Spur removal in bilateral feet twice and left shoulder once , cataracts removed, bowel resection for a previous bowel obstruction, left oophorectomy for a benign tumor, hysterectomy, right oophorectomy, colonoscopy , fistulogram angioplasty arterial limb stenosis of fistual(lt arm) Past Anesthesia/Blood Transfusion Reactions: No Reported Reaction Date of Last Stent Placement:: September 22, 2007 Past Psychological History: Depression Additional Psychological History / Comment(s): patient currently lives at home with her son. Patient states she uses a walker at home stated lt leg drags a bit since stroke, patient uses senior bus to get to appointments, visiting nurse . Difficulties getting to her dialysis appointments. PT stated has some depression d/t all medical problems but no thoughts of wanting to harm self. Smoking Status: Former smoker Past Alcohol Use History: None Reported Additional Past Alcohol Use History / Comment(s): STARTED SMOKING AT AGE 18 SMOKED 1.5 PPD ,QUIT 2007 Past Drug Use History: None Reported - Past Family History Mother Additional Family Medical History / Comment(s): pt stated was unknown. stated she had an iron lung. at age 32 Father Family Medical History: COPD, Diabetes Mellitus, Myocardial Infarction (SC) Additional Family Medical History / Comment(s): at age 90. Sister(s) Family Medical History: Diabetes Mellitus Son(s) Family Medical History: Deep Vein Thrombosis (DVT), Myocardial Infarction (SC) Medications and Allergies Home Medications Medication Instructions Recorded Confirmed Type Aspirin EC [Ecotrin Low Dose] 81 mg PO DAILY 03/10/15 06/06/16 History Budesonide/Formoterol Fumarate 2 puff INHALATION RT-BID 03/10/15 06/06/16 History [Symbicort 160-4.5 Mcg Inhaler] Cholecalciferol [Vitamin D3] 5,000 unit PO DAILY 03/10/15 06/06/16 History Clopidogrel [Plavix] 75 mg PO DAILY 03/10/15 06/06/16 History Cyanocobalamin [Vitamin B-12] 500 mcg PO DAILY 03/10/15 06/06/16 History Esomeprazole Magnesium [NexIUM] 40 mg PO DAILY 03/10/15 06/06/16 History Montelukast [Singulair] 10 mg PO DAILY 03/10/15 06/06/16 History Sevelamer [Renvela] 800 mg PO AC-TID 03/10/15 06/06/16 History traZODone HCL 75 mg PO HS PRN 03/10/15 06/06/16 History Isosorbide Mononitrate ER [Imdur] 60 mg PO DAILY 09/14/15 06/06/16 History Ezetimibe [Zetia] 10 mg PO HS 01/17/16 06/06/16 History Allopurinol [Zyloprim] 100 mg PO DAILY 04/25/16 06/06/16 History Pramipexole [Mirapex] 0.25 mg PO HS 04/25/16 06/06/16 History Docusate [Colace] 100 mg PO DAILY 05/19/16 06/06/16 History Gabapentin [Neurontin] 300 mg PO DAILY 05/19/16 06/06/16 History HYDROcodone/APAP 5-325MG [Leigh 1 tab PO Q6H PRN 05/19/16 06/06/16 History 5-325] Metolazone [Zaroxolyn] 2.5 mg PO Q48H 05/19/16 06/06/16 History Torsemide [Demadex] 20 mg PO DAILY 05/19/16 06/06/16 History Allergies Allergy/AdvReac Type Severity Reaction Status Date / Time atropine sulfate Allergy Rash/Hives Verified 06/06/16 13:21 [From Lomotil] cephalexin monohydrate Allergy Rash/Hives Verified 06/06/16 13:21 [From Keflex] diphenoxylate HCl Allergy Rash/Hives Verified 06/06/16 13:21 [From Lomotil] ibuprofen Allergy Swelling Verified 06/06/16 13:21 baclofen AdvReac Hallucinati Verified 06/06/16 13:21 ons tramadol AdvReac Hallucinati Verified 06/06/16 13:21 ons Physical Exam Vitals: Vital Signs Temp Pulse Resp BP Pulse Ox 06/06/16 20:17 71 06/06/16 20:05 75 06/06/16 19:00 77 14 86/52 97 06/06/16 18:45 97.5 F L 70 14 79/48 99 06/06/16 18:00 97.6 F 67 16 98/54 100 06/06/16 17:30 97.4 F L 65 16 99/58 94 L 06/06/16 16:30 97.5 F L 71 16 104/57 95 06/06/16 15:32 97.6 F 73 16 102/57 95 06/06/16 15:06 72 16 100/56 95 Intake and Output 06/06/16 06/06/16 06/06/16 06:59 14:59 22:59 Intake Total 5 Balance 5 Intake: IV 5 0.9 normal saline 5 Other: Voiding Method Bedpan Weight 86.1 kg Patient Weight 06/07/16 06:59 Weight 86.1 kg Head exam was generally normal. There was no scleral icterus or corneal arcus. Mucous membranes were moist. Neck is short and supple and the patient has significant crowding of the posterior pharynx. There is no goiter or neck masses. Lungs sounds are diminished and there is some bibasilar crackles. No wheezes or rhonchi. Heart sounds are irregular, positive S1-S2 and there is accentuation of the second heart sound.Abdominal exam revealed normal bowel sounds. The abdomen was soft, non-tender, and without masses, organomegaly, or appreciable enlargement of the abdominal aorta. Extremities are swollen and there is some mild erythema in the lower extremity below the knees all the way down to the ankles. No open wounds or sores. Neurologically, the patient is awake and alert and she is moving all 4 extremities without any limitation. Examination of the left breast shows some swelling and tenderness and erythema and the size of the breast is approximately 2.5 times the normal size. No active drainage from the nipple. No open wounds or sores. Results - Laboratory Findings CBC and BMP: 06/06/16 12:25 06/06/16 14:23 PT/INR, D-dimer PT 14.1 sec (9.0-12.0) H 06/06/16 12:25 INR 1.4 (<1.1) 06/06/16 12:25 Abnormal lab findings: Abnormal Labs 06/06/16 06/06/16 06/06/16 18:03 18:23 18:40 POC Glucose (mg/dL) 61 L 66 L 147 H 06/06/16 20:26 POC Glucose (mg/dL) 144 H - Diagnostic Findings Chest x-ray: image reviewed Assessment and Plan Plan: Assessment 1 acute shortness of breath on top of chronic hypoxic respiratory failure. The patient is in CHF/fluid overload that the patient missed a session of dialysis days ago and she's been off dialysis for almost 4 days. 2 acute hyperkalemia secondary to above 3 end-stage renal disease on hemodialysis, 3 times a week, TTS 4 left breast mastitis 5 lower extremity cellulitis suspected with chronic edema in lower extremities with negative Dopplers for DVT 6 multivessel coronary artery disease, not candidate for any interventions. The patient has been involved in previous NSTEMI 7 CHF with impaired LV function of 3035% ejection fraction 8 chronic atrial fibrillation, not a candidate for anticoagulation 9 chronic bronchial asthma 10 obstructive sleep apnea. 11 diabetes mellitus that has been difficult to control over the years along with diabetic nephropathy and retinopathy 12 hyperlipidemia 13 hypotension, on midodrine and doubt septic 14 wound infection lower extremities including MSSA and gram negatives bacteria 15 CVA with some residual left-sided weakness 16 chronic anemia, hemoglobin stable at 11.7 17 gout 18 previous history of urine checked infection with Klebsiella pneumoniae 19 diarrhea, possibly antibiotic induced Plan Completed dialysis and repeat the potassium level. May need to be done for another dialysis session tomorrow. This will be coordinated with nephrology. Start the patient IV vancomycin. The first dose was given to her to the emergency department and the trough levels will be measures during dialysis and this can be continued accordingly. Resume outpatient medications. Long-term prognosis poor baseline above-mentioned comorbidities. We'll check stool for C. diff if diarrhea recurs. We'll continue to follow. Consider hospice of the patient and her family are agreeable.
[2016-06-06] MEDS: METOPROLOL TARTRATE 12.5 MG TAB PO SCH (21:39)
[2016-06-06] MEDS: MELATONIN 3 MG TABLET PO SCH (21:44)
[2016-06-06] MEDS: ALPRAZolam 0.25 MG TAB PO PRN (21:44)
[2016-06-06] MEDS: PRAMIPEXOLE 0.25 MG TAB PO SCH (21:44)
[2016-06-06] MEDS: EZETIMIBE 10 MG TAB PO SCH (21:44)
--- NOTE | 2016-06-06 22:36 | HP ---
DATE OF ADMISSION: 06/06/2016 CHIEF COMPLAINT: Shortness of breath and diarrhea. HISTORY OF PRESENT ILLNESS: This 75-year-old woman with a past history of multiple medical problems including atrial fibrillation, history of chronic renal failure and history of congestive heart failure, history of asthma, diabetes, history of GERD, hypertension, hyperlipidemia, myocardial infarction, being followed by Dr. Hernandez in the outpatient setting was recently admitted to [facility] with features of acute on chronic renal failure and congestive heart failure. The patient apparently missed hemodialysis previously. The patient had diarrhea, but after hospital admission, the patient improved significantly. Patient went home, but the diarrhea recurred according to her and the patient missed hemodialysis for Monday. The patient complaining of shortness of breath and the patient unable to walk and the patient came to [facility] and admitted to the hospital for further evaluation and treatment. The patient has severe hyperkalemia 7.5, creatinine 6.68. The patient also had florid congestive heart failure in the chest x-ray. The patient admitted. Emergent hemodialysis being arranged at this time. There is no history of fever, rigors, chills, no history of headache, loss of consciousness or seizures. Past medical history of renal failure, history of congestive heart failure, history of atrial fibrillation, asthma, cerebrovascular accident, transient ischemic attack, Type 2 diabetes mellitus, GERD, hypertension, hyperlipidemia. Medications prior to admission include home medications are: 1. Trazodone 75 mg q.h.s. p.r.n. 2. 200 mg p.o. t.i.d. p.r.n. 4. Renvela t.i.d. 5. 0.25 mg q.h.s. 6. Nitrostat 0.4 sublingual q5 p.r.n. 7. Singulair 10 mg daily. 8. ProAmatine 10 mg a.c. t.i.d. 9. Lopressor 12.5 mg p.o. b.i.d. 10. Zaroxolyn 2.5 mg q.48 hours. 11. Imdur 60 mg b.i.d. 12. Humalog a.c. and q.h.s. 13. [place] 5 mg q.6h p.r.n. 14. Neurontin 300 mg p.o. daily. 15. Nephrocaps one p.o. daily. 16. Zetia 10 mg daily. 17. Nexium 40 mg p.o. daily. 18. Colace 100 mg p.o. daily. 19. Vitamin B12 500 mcg p.o. daily. 20. Plavix 75 mg p.o. daily. 21. Vitamin D3 5000 daily. 22. Symbicort 160/4.5, 2 puffs b.i.d. 23. Ecotrin 81 mg p.o. daily. 24. Zyloprim 100 mg p.o. daily. 25. Ventolin 2.5 q.i.d. ALLERGIES ARE ATROPINE, CEPHALEXIN AND IBUPROFEN, ULTRAM. FAMILY HISTORY: History of COPD, diabetes mellitus, myocardial infarction. SOCIAL HISTORY: History of smoking previously. No history of alcohol or smoking currently. REVIEW OF SYSTEMS: ENT: Diminishing hearing, diminished vision. CARDIOVASCULAR SYSTEM: As mentioned earlier. RESPIRATORY: As mentioned earlier. GI: As mentioned earlier. : As mentioned earlier. CENTRAL NERVOUS SYSTEM: No numbness. Generalized weakness. Allergy/immunology: No asthma or hayfever. MUSCULOSKELETAL: As mentioned earlier. HEMATOLOGY/ONCOLOGY: As mentioned earlier. ENDOCRINE: As mentioned earlier. CONSTITUTIONAL: As mentioned earlier. DERMATOLOGY: Negative. RHEUMATOLOGY: Negative. PSYCHIATRY: As mentioned earlier. PHYSICAL EXAMINATION: The patient is alert and oriented times three. Pulse 67, blood pressure 107/59, respirations 18, temperature normal, pulse ox 98% on 2 liters. HEENT: Conjunctivae normal. Oral mucosa is moist. NECK: Jugular venous distention at the root of the neck. CARDIOVASCULAR: ejection systolic murmur RESPIRATORY: Bilateral scattered rhonchi and crackles. ABDOMEN: Soft, obese, nontender. LEGS: Bilateral leg edema. Nervous system: Higher functions as mentioned earlier. Moves all 4 limbs. Mild diffuse weakness. LYMPHATICS: No lymph nodes palpable in the neck, axillae or groin. SKIN: No ulcer, rash or bleeding. LABS: WBC 6.2, hemoglobin 11.7. MCV 115. INR is 1.4, potassium 7.5. Sodium 136, troponin 0.038. The chest x-ray was noted as chronic obstructive pulmonary disease, cardiomegaly, congestive heart failure and venous Doppler pending. osteoarthritis of the right knee. ASSESSMENT: 1. Congestive heart failure, acute exacerbation, with acute on chronic systolic dysfunction, ejection 35 to 40% with fluid overload secondary to missed hemodialysis. 2. Chronic kidney diseases stage V on hemodialysis. 3. Severe hyperkalemia from renal hemodialysis. 4. Failed left transposed basilic vein fistula status post fistulogram as well as [employer] of arterial limb and stenosis ballooned recently. 5. Gait dysfunction and severe weakness. 6. Degenerative joint disease and knee joint arthritis. 7. Anemia, normocytic anemia of chronic disease. 8. Atrial fibrillation, paroxysmal chronic. 9. History of asthma, chronic intermittent. 10. History of cerebrovascular accident, transient ischemic attack. 11. History of diabetes type 2. 12. Hypertension, essential. 13. Hyperlipidemia. 14. History of myocardial infarction. 15. History of sleep apnea. 16. History of diabetic peripheral neuropathy. 17. History two vessel coronary disease. 18. History of gout. 19. History of leg cellulitis. 20. History of Methicillin-resistant Staph aureus. 21. History of coronary artery disease and stent. 22. Remote history of nicotine dependence. 23. Obesity with body mass index of 34.9. 24. FULL CODE. RECOMMENDATIONS AND DISCUSSION: In this 75-year-old woman who presented with multiple complex medical issues, we will monitor the patient closely. Continue with the current medications. Continue symptomatic treatment. Otherwise, resume the home medications. Monitor blood sugars closely. I would also recommend nephrology consultation and urgent hemodialysis. Repeat labs. As far as diarrhea is concerned I will consult gastroenterology as well. Check stool for Clostridium difficile and stool studies. Guarded prognosis because of multiple complex medical issues. Further recommendations to follow. MTDD
[2016-06-06 22:45] LABS: Hemoglobin A1C 5.9 % (4.2-6.1)
[2016-06-06] MEDS ORDERED: NOREPINEPHRINE 16 MG in SODIUM CHLORIDE 0.9% 250 ML IV SCH (23:00)
[2016-06-07 00:23] LABS: Calcium 8.6 mg/dL (8.4-10.2); Potassium 5.4 mmol/L (3.5-5.1); Total Bilirubin 1.4 mg/dL (0.2-1.3); Total Protein 7.3 g/dL (6.3-8.2)
[2016-06-07 00:42] LABS: Troponin I 0.031 ng/mL (0.000-0.034)
[2016-06-07 05:20] LABS: CH 35.3; HCT 34.9 % (34.0-46.0); HDW 2.39; HGB 11.4 gm/dL (11.4-16.0); Hypochromasia Slight; MCH 37.5 pg (25.0-35.0); MCHC 32.7 g/dL (31.0-37.0); MCV 114.6 fL (80.0-100.0); Macrocytosis Marked; Mean Platelet Volume 7.5; RBC 3.04 m/uL (3.80-5.40); RDW 15.6 % (11.5-15.5); WBC 8.2 k/uL (3.8-10.6)
[2016-06-07 05:37] LABS: Calcium 8.5 mg/dL (8.4-10.2); Magnesium 2.2 mg/dL (1.6-2.3); Phosphorous 5.7 mg/dL (2.5-4.5)
[2016-06-07 05:47] LABS: Potassium 6.2 mmol/L (3.5-5.1)
[2016-06-07 05:53] LABS: Creatine Kinase MB 1.6 ng/mL (0.0-2.4); Troponin I 0.032 ng/mL (0.000-0.034)
[2016-06-07 07:28] LABS: Glucose,Whole Blood 108 mg/dL (75-99)
[2016-06-07] MEDS: ALBUTEROL NEBULIZED 2.5 MG/3 ML INHALATION SCH ×4 (07:48→21:36)
[2016-06-07] MEDS: SYMBICORT 160-4.5 MCG INHALER INHALATION SCH ×2 (07:48→21:36)
[2016-06-07] MEDS: SEVELAMER 800 MG TAB PO SCH ×3 (08:09→18:00)
[2016-06-07] MEDS: INSULIN LISPRO (humaLOG) 300 UNIT/3 ML VIAL SQ SCH ×4 (08:09→20:57)
[2016-06-07] MEDS: PANTOPRAZOLE 40 MG TABLET PO SCH (08:10)
[2016-06-07] MEDS: MIDODRINE 5 MG TAB PO SCH ×3 (08:10→18:00)
[2016-06-07] MEDS: ALLOPURINOL 100 MG TAB PO SCH (08:11)
[2016-06-07] MEDS: ASPIRIN 81 MG CHEW PO SCH (08:11)
[2016-06-07] MEDS: CHOLECALCIFEROL 1,000 UNIT TAB PO SCH (08:11)
[2016-06-07] MEDS: CLOPIDOGREL 75 MG TAB PO SCH (08:11)
[2016-06-07] MEDS: CYANOCOBALAMIN 500 MCG TAB PO SCH (08:12)
[2016-06-07] MEDS: GABAPENTIN 300 MG CAP PO SCH (08:12)
[2016-06-07] MEDS: METOLAZONE 2.5 MG TAB PO SCH (08:13)
[2016-06-07] MEDS: MONTELUKAST 10 MG TAB PO SCH (08:14)
[2016-06-07] MEDS: ISOSORBIDE MONONITRATE ER 60 MG TAB.ER.24H PO SCH (08:23)
[2016-06-07] MEDS: DOCUSATE 100 MG CAP PO SCH (08:23)
[2016-06-07] MEDS: METOPROLOL TARTRATE 12.5 MG TAB PO SCH ×2 (08:23→20:57)
[2016-06-07] MEDS: TORSEMIDE 20 MG TAB PO SCH (08:24)
[2016-06-07] MEDS ORDERED: VANCOMYCIN 1,500 MG in SODIUM CHLORIDE 0.9% 250 ML IVPB ONE (08:30)
--- NOTE | 2016-06-07 08:38 | P.CONS ---
History of Present Illness - Reason for Consult Consult date: 06/07/16 diarrhea Requesting physician: Isaiah Cunningham - History of Present Illness 75-year-old femalewith a past medical history of end-stage renal disease hemodialysis, atrial fibrillation, bowel resection for obstruction,asthma/COPD O2 dependent, heart failure, CVA/TIA, diabetes mellitus,GERD, hyperlipidemia, hypertension, AZ, MSSA, and osteoarthritis. Admitted with shortness of breath over the last few days missed dialysis treatment,as well as left breast cellulitis. Considering hospice possibly stopping dialysis. Consultation requested for diarrhea. Patient states she's had nonbloodydiarrhea for the last 4 months treating it with Imodium with improvement. Since hospital admission no episodes of diarrhea. Denies abdominal pain. Recent antibiotic use Augmentin. No recent colonoscopy. Patient states she has been told she is not medically stable for such a procedure.hemoglobin 11.4. White count 8.2. MCV 114. Platelet 160. Potassium 6.2. Sodium 136. BUN 43. Creatinine 4.9. Review of Systems Constitutional: Denies fever, chills, sweats, weight gain, or loss. HEENT: Negative for migraines, blurred vision or loss, earaches, drainage, tinnitus, oral mucosal lesions, dysphagia, or odynophagia. CARDIAC: heart failure. AZ. CAD.Atrial fibrillation. Negative for chest pain. RESPIRATORY:COPD. Asthma. chronic shortness of breath, denieshemoptysis, cough , or sputum production. GI: See HPI for pertinent findings. : Negative for hematuria, urgency, frequency, polyuria, or dysuria. GYNc: Negative vaginal discharge.left breast erythema. MUSCULOSKELETAL: Negative for muscle aches, swelling, arthritis, and arthralgias. NEUROLOGIC: history of CVA-TIA. nephrology: end-stage renal disease hemodialysis dependent ENDOCRINE: Negative for thyroid problems. SKIN: left breast cellulitis. Chronic lower extremity venous stasis skin changes with mild erythema.Negative for rash or itching. PSYCHIATRIC: Negative history for depression and anxiety Past Medical History Past Medical History: Atrial Fibrillation, Asthma, Heart Failure, CVA/TIA, Diabetes Mellitus, Dialysis, GERD/Reflux, Hyperlipidemia, Hypertension, Myocardial Infarction (AZ), Osteoarthritis (OA), Renal Disease Additional Past Medical History / Comment(s): Obesity,hiatal [id number] LITERS N /C, bronchial asthma, obstructive sleep apnea-"has cPAP but does'nt use it", peripheral neuropathy, congestion heart failure with ejection fraction of 35-40% , multivessel coronary artery disease with previous myocardial infarction, atrial fibrillation, history of CVA with some residual left-sided weakness, renal failure and the patient has end-stage renal disease and currently she is on hemodialysis 3 times a week(t-ur-sat), diabetes mellitus, gout, chronic ulceration of the lower extremity with episodic cellulitis of the legs,spoke with infection control-no documeated mrsa on record her but had history of MSSA ALONG WITH GRAM-NEGATIVE INFECTION INCLUDING ACINETOBACTER AND STENOTROPHOMONAS LT ANKLE 12-15- , previous history of Klebsiella pneumonia urine checked infection,osteoporsois, diverticular dx Last Myocardial Infarction Date:: September 22, 2007 History of Any Multi-Drug Resistant Organisms: None Reported Past Surgical History: Bowel Resection, Heart Catheterization With Stent, Hysterectomy Additional Past Surgical History / Comment(s): Spur removal in bilateral feet twice and left shoulder once , cataracts removed, bowel resection for a previous bowel obstruction, left oophorectomy for a benign tumor, hysterectomy, right oophorectomy, colonoscopy , fistulogram angioplasty arterial limb stenosis of fistual(lt arm) Past Anesthesia/Blood Transfusion Reactions: No Reported Reaction Date of Last Stent Placement:: September 22, 2007 Past Psychological History: Depression Additional Psychological History / Comment(s): patient currently lives at home with her son. Patient states she uses a walker at home stated lt leg drags a bit since stroke, patient uses senior bus to get to appointments, visiting nurse . Difficulties getting to her dialysis appointments. PT stated has some depression d/t all medical problems but no thoughts of wanting to harm self. Smoking Status: Former smoker Past Alcohol Use History: None Reported Additional Past Alcohol Use History / Comment(s): STARTED SMOKING AT AGE 18 SMOKED 1.5 PPD ,QUIT 2007 Past Drug Use History: None Reported - Past Family History Mother Additional Family Medical History / Comment(s): pt stated was unknown. stated she had an iron lung. at age 32 Father Family Medical History: COPD, Diabetes Mellitus, Myocardial Infarction (AZ) Additional Family Medical History / Comment(s): at age 90. Sister(s) Family Medical History: Diabetes Mellitus Son(s) Family Medical History: Deep Vein Thrombosis (DVT), Myocardial Infarction (AZ) Medications and Allergies Home Medications Medication Instructions Recorded Confirmed Type Aspirin EC [Ecotrin Low Dose] 81 mg PO DAILY 03/10/15 06/06/16 History Budesonide/Formoterol Fumarate 2 puff INHALATION RT-BID 03/10/15 06/06/16 History [Symbicort 160-4.5 Mcg Inhaler] Cholecalciferol [Vitamin D3] 5,000 unit PO DAILY 03/10/15 06/06/16 History Clopidogrel [Plavix] 75 mg PO DAILY 03/10/15 06/06/16 History Cyanocobalamin [Vitamin B-12] 500 mcg PO DAILY 03/10/15 06/06/16 History Esomeprazole Magnesium [NexIUM] 40 mg PO DAILY 03/10/15 06/06/16 History Montelukast [Singulair] 10 mg PO DAILY 03/10/15 06/06/16 History Sevelamer [Renvela] 800 mg PO AC-TID 03/10/15 06/06/16 History traZODone HCL 75 mg PO HS PRN 03/10/15 06/06/16 History Isosorbide Mononitrate ER [Imdur] 60 mg PO DAILY 09/14/15 06/06/16 History Ezetimibe [Zetia] 10 mg PO HS 01/17/16 06/06/16 History Allopurinol [Zyloprim] 100 mg PO DAILY 04/25/16 06/06/16 History Pramipexole [Mirapex] 0.25 mg PO HS 04/25/16 06/06/16 History Docusate [Colace] 100 mg PO DAILY 05/19/16 06/06/16 History Gabapentin [Neurontin] 300 mg PO DAILY 05/19/16 06/06/16 History HYDROcodone/APAP 5-325MG [[place] 1 tab PO Q6H PRN 05/19/16 06/06/16 History 5-325] Metolazone [Zaroxolyn] 2.5 mg PO Q48H 05/19/16 06/06/16 History Torsemide [Demadex] 20 mg PO DAILY 05/19/16 06/06/16 History Allergies Allergy/AdvReac Type Severity Reaction Status Date / Time atropine sulfate Allergy Rash/Hives Verified 06/06/16 13:21 [From Lomotil] cephalexin monohydrate Allergy Rash/Hives Verified 06/06/16 13:21 [From Keflex] diphenoxylate HCl Allergy Rash/Hives Verified 06/06/16 13:21 [From Lomotil] ibuprofen Allergy Swelling Verified 06/06/16 13:21 baclofen AdvReac Hallucinati Verified 06/06/16 13:21 ons tramadol AdvReac Hallucinati Verified 06/06/16 13:21 ons Physical Exam Vitals: Vital Signs Temp Pulse Resp BP Pulse Ox 06/07/16 07:59 87 06/07/16 07:48 76 06/07/16 07:00 78 23 86/64 93 L 06/07/16 06:00 75 22 97/47 93 L 06/07/16 05:00 77 17 100/48 94 L 06/07/16 04:00 77 28 H 98/49 93 L 06/07/16 03:00 75 14 105/51 95 06/07/16 02:30 78 14 101/48 94 L 06/07/16 02:00 65 13 102/48 94 L 06/07/16 01:00 79 12 99/44 97 06/07/16 00:00 97.1 F L 78 12 115/53 95 06/06/16 23:00 72 16 73/37 96 06/06/16 22:30 76 72/36 97 06/06/16 22:00 78 56/39 99 06/06/16 21:30 65 87/47 100 06/06/16 21:00 71 16 90/46 100 06/06/16 20:30 73 71/44 99 06/06/16 20:17 71 06/06/16 20:05 75 06/06/16 20:00 96.5 F L 75 12 80/41 98 06/06/16 19:30 70 74/44 99 06/06/16 19:00 77 14 86/52 97 06/06/16 18:45 97.5 F L 70 14 79/48 99 06/06/16 18:00 97.6 F 67 16 98/54 100 06/06/16 17:30 97.4 F L 65 16 99/58 94 L 06/06/16 16:30 97.5 F L 71 16 104/57 95 06/06/16 15:32 97.6 F 73 16 102/57 95 06/06/16 15:06 72 16 100/56 95 Intake and Output 06/06/16 06/07/16 06/07/16 22:59 06:59 14:59 Intake Total 20 76.557 9.184 Balance 20 76.557 9.184 Intake: IV 20 45 0.9 normal saline 20 45 Intake, IV Titration 31.557 9.184 Amount Norepinephrine 16 mg In 31.557 9.184 Sodium Chloride 0.9% 250 ml @ Titrate IV .Q0M [facility] Rx#:[id number] Other: Voiding Method Bedpan Bedpan Weight 86.1 kg 83.8 kg General appearance: The patient is alert, oriented, in no acute distress. HET: Head is normocephalic and atraumatic. Pupils are equal and reactive. Oropharynx is clear without lesions. Neck: Supple without lymphadenopathy. Trachea midline. Heart: S1 S2. Lungs: diminished bases bilaterally. Abdomen: Soft, nontender, nondistended with bowel sounds. No peritoneal signs. No palpable organomegaly or masses. Extremities: bilateral lower extremity mild edema with mild erythema chronic venous stasis skin-like changes. Neurological: No focal deficits. Strength and sensation are grossly intact. Breast: erythema to left breast. No palpable masses bilaterally. No nipple discharge bilaterally. Results CBC & Chem 7: 06/07/16 04:53 06/07/16 04:53 Labs: Abnormal Lab Results - Last 24 Hours (Table) 06/06/16 06/06/16 06/06/16 Range/Units 18:03 18:23 18:40 RBC (3.80-5.40) m/uL MCV (80.0-100.0) fL MCH (25.0-35.0) pg RDW (11.5-15.5) % Sodium (137-145) mmol/L Potassium (3.5-5.1) mmol/L BUN (7-17) mg/dL Creatinine (0.52-1.04) mg/dL Glucose (74-99) mg/dL POC Glucose (mg/dL) 61 L 66 L 147 H (75-99) mg/dL Phosphorus (2.5-4.5) mg/dL Total Bilirubin (0.2-1.3) mg/dL 06/06/16 06/06/16 06/07/16 Range/Units 20:26 23:58 04:53 RBC 3.04 L (3.80-5.40) m/uL MCV 114.6 H (80.0-100.0) fL MCH 37.5 H (25.0-35.0) pg RDW 15.6 H (11.5-15.5) % Sodium (137-145) mmol/L Potassium 5.4 H (3.5-5.1) mmol/L BUN 41 H (7-17) mg/dL Creatinine 4.80 H (0.52-1.04) mg/dL Glucose 101 H (74-99) mg/dL POC Glucose (mg/dL) 144 H (75-99) mg/dL Phosphorus (2.5-4.5) mg/dL Total Bilirubin 1.4 H (0.2-1.3) mg/dL 06/07/16 06/07/16 Range/Units 04:53 07:27 RBC (3.80-5.40) m/uL MCV (80.0-100.0) fL MCH (25.0-35.0) pg RDW (11.5-15.5) % Sodium 136 L (137-145) mmol/L Potassium 6.2 H* (3.5-5.1) mmol/L BUN 43 H (7-17) mg/dL Creatinine 4.90 H (0.52-1.04) mg/dL Glucose 112 H (74-99) mg/dL POC Glucose (mg/dL) 108 H (75-99) mg/dL Phosphorus 5.7 H (2.5-4.5) mg/dL Total Bilirubin (0.2-1.3) mg/dL Assessment and Plan (1) Diarrhea Narrative/Plan: acute diarrheal illness 1 month possibly antibiotic-induced however underlying self-limiting infectious colitis possible inflammatory cannot be entirely excluded. Currently diarrhea has abated. Status: Acute (2) End stage renal disease on dialysis Status: Acute (3) Cellulitis of left breast Status: Acute (4) Shortness of breath Status: Acute Plan: 1. If diarrhea recurs will obtain stool studies including clostridium difficile toxin. 2. Patient is not iinterested in colonoscopy at this time she feels she is not medically stable to undergo procedure. 3. We'll follow with you. Thank you for this kind referral and the opportunity to participate in the care of your patient. This consultation was discussed with Dr. Baird. The impression and plan of care have been directed as dictated.
[2016-06-07] MEDS ORDERED: ASPIRIN 325 MG TAB PO SCH (09:00)
[2016-06-07] MEDS ORDERED: ENOXAPARIN 40 MG/0.4 ML SYRINGE SQ SCH (09:00)
--- NOTE | 2016-06-07 10:10 | P.PN ---
Subjective 75-year-old female patient who is coming into the emergency department this afternoon because of progressive increase in shortness of breath over the past few days. The patient is very well-known to me. I taken care of Ayala for years. Unfortunately health in general is gradually declining. Her condition decompensated since the patient went on dialysis approximately year ago. Currently she still requiring dialysis 3 times a week Tuesdays and Saturdays. She has a AV fistula in her left upper extremity that was recently angioplastied by vascular surgery. The patient was in the hospital approximately 3 weeks ago due to failure to present to the dialysis center for dialysis for almost a week. Back then she came into the hospital because of fluid overload and hyperkalemia. She did the same thing this week and she missed dialysis on Monday. As such her last dialysis was approximately 4 days ago. She came in with worsening shortness of breath. She has some signs of fluid overload. She has increased edema in lower extremities and early lytic changes. She also had developed a mastitis of her left breast and it was noted during her earlier office visit with her breast was getting more erythematous and swollen. I discussed this with Dr. Riddle penile also put the patient on Augmentin. The plan was to add vancomycin during dialysis however the patient did not make it to dialysis as the patient was having diarrhea and she did not want to go to the dialysis center due to concern of having an accident. She is not known to have any C. diff colitis. It's possible that the diarrhea was antibiotic-induced knowing that she was started on Augmentin. No bloody bowel movements. No abdominal pain. No abdominal distention. No nausea or vomiting. No fever or chills. No other complaints otherwise. Her potassium level at time of admission was at 7.3. The patient received insulin with dextrose along with bicarb and calcium. No complications related was given. EKG is not showing any acute changes consistent with potassium cardiotoxicity. Her EKG showing controlled atrial fibrillation. The chest x- ray showed cardiomegaly and changes consistent with CHF with pulmonary vessel congestion. She is currently on 2 L of oxygen by nasal cannula and his saturations around 95%. The patient will be started on dialysis soon. The patient is seen again today in follow-up 06/07/2016 in the intensive care unit. She did require some pressor support throughout the evening and currently on levophed at 4 mcg/m. Her current potassium is 6.2, creatinine 4.90 She did undergo dialysis yesterday and the plan is for repeat dialysis today. She denies any worsening shortness of breath, cough or congestion. She is maintaining good O2 saturations in the mid 90s on 2 L/m per nasal cannula. She's been afebrile. No leukocytosis. She's been initiated on vancomycin. Her left breast is slightly improved today as compared to yesterday. An ultrasound is pending. Dopplers of the lower extremity is negative. X-ray of the right lower extremity is negative for fracture. There is some continued pain and bruising. No open areas no weeping. Objective - Vital Signs Vital signs: Vital Signs Temp 97.1 F L 06/07/16 00:00 Pulse 87 06/07/16 07:59 Resp 23 06/07/16 07:00 BP 86/64 06/07/16 07:00 Pulse Ox 93 L 06/07/16 07:00 Intake & Output 06/06/16 06/07/16 06/07/16 18:59 06:59 18:59 Intake Total 96.557 9.184 Balance 96.557 9.184 Weight 86.1 kg 83.8 kg Intake: IV 65 0.9 normal saline 65 Intake, IV Titration 31.557 9.184 Amount Norepinephrine 16 mg In 31.557 9.184 Sodium Chloride 0.9% 250 ml @ Titrate IV .Q0M [facility] Rx#:[id number] Other: Voiding Method Bedpan - Exam GENERAL EXAM: Alert, active, comfortable in no apparent distress. HEAD: Normocephalic. EYES: Normal reaction of pupils, equal size. NOSE: Clear with pink turbinates. THROAT: There is crowding the posterior pharynx. Short. No erythema or exudates. NECK: No masses, no JVD. CHEST: No chest wall deformity. LUNGS: Equal air entry with crackles in the posterior bases.. CVS: S1 and S2 normal with no audible murmurs, regular rhythm. ABDOMEN: Obese, normal bowel sounds, no guarding or rigidity. SKIN: Cellulitis of the lower extremities, left breast. CENTRAL NERVOUS SYSTEM: No focal deficits, tone is normal in all 4 extremities. Extremities: Redness and edema of the lower extremities. Ecchymosis of the right lateral lower extremity. Peripheral pulses are intact. - Labs CBC & Chem 7: 06/07/16 04:53 06/07/16 04:53 Labs: Abnormal Lab Results - Last 24 Hours (Table) 06/06/16 06/06/16 06/06/16 Range/Units 18:03 18:23 18:40 RBC (3.80-5.40) m/uL MCV (80.0-100.0) fL MCH (25.0-35.0) pg RDW (11.5-15.5) % Sodium (137-145) mmol/L Potassium (3.5-5.1) mmol/L BUN (7-17) mg/dL Creatinine (0.52-1.04) mg/dL Glucose (74-99) mg/dL POC Glucose (mg/dL) 61 L 66 L 147 H (75-99) mg/dL Phosphorus (2.5-4.5) mg/dL Total Bilirubin (0.2-1.3) mg/dL 06/06/16 06/06/16 06/07/16 Range/Units 20:26 23:58 04:53 RBC 3.04 L (3.80-5.40) m/uL MCV 114.6 H (80.0-100.0) fL MCH 37.5 H (25.0-35.0) pg RDW 15.6 H (11.5-15.5) % Sodium (137-145) mmol/L Potassium 5.4 H (3.5-5.1) mmol/L BUN 41 H (7-17) mg/dL Creatinine 4.80 H (0.52-1.04) mg/dL Glucose 101 H (74-99) mg/dL POC Glucose (mg/dL) 144 H (75-99) mg/dL Phosphorus (2.5-4.5) mg/dL Total Bilirubin 1.4 H (0.2-1.3) mg/dL 06/07/16 06/07/16 Range/Units 04:53 07:27 RBC (3.80-5.40) m/uL MCV (80.0-100.0) fL MCH (25.0-35.0) pg RDW (11.5-15.5) % Sodium 136 L (137-145) mmol/L Potassium 6.2 H* (3.5-5.1) mmol/L BUN 43 H (7-17) mg/dL Creatinine 4.90 H (0.52-1.04) mg/dL Glucose 112 H (74-99) mg/dL POC Glucose (mg/dL) 108 H (75-99) mg/dL Phosphorus 5.7 H (2.5-4.5) mg/dL Total Bilirubin (0.2-1.3) mg/dL Assessment and Plan Plan: Assessment 1 acute shortness of breath on top of chronic hypoxic respiratory failure. The patient is in CHF/fluid overload that the patient missed a session of dialysis days ago and she's been off dialysis for almost 4 days. 2 acute hyperkalemia secondary to above 3 end-stage renal disease on hemodialysis, 3 times a week, TTS 4 left breast mastitis 5 lower extremity cellulitis suspected with chronic edema in lower extremities with negative Dopplers for DVT 6 multivessel coronary artery disease, not candidate for any interventions. The patient has been involved in previous NSTEMI 7 CHF with impaired LV function of 3035% ejection fraction 8 chronic atrial fibrillation, not a candidate for anticoagulation 9 chronic bronchial asthma 10 obstructive sleep apnea. 11 diabetes mellitus that has been difficult to control over the years along with diabetic nephropathy and retinopathy 12 hyperlipidemia 13 hypotension, on midodrine and doubt septic 14 wound infection lower extremities including MSSA and gram negatives bacteria 15 CVA with some residual left-sided weakness 16 chronic anemia, hemoglobin stable at 11.7 17 gout 18 previous history of urine checked infection with Klebsiella pneumoniae 19 diarrhea, possibly antibiotic induced 20 poor overall functional performance based on multiple above-mentioned comorbidities. Plan: The patient was seen and evaluated by Dr. Hernandez. We will attempt to wean off her pressors while maintaining mean arterial pressures greater than 65. However the plan is for repeat dialysis today. We'll continue with IV vancomycin. Will await results of the left breast ultrasound. Her overall prognosis remains quite poor based on her multiple comorbidities. We'll continue to monitor her here closely in the intensive care unit. She is a DO NOT RESUSCITATE/DO NOT INTUBATE CODE STATUS.
[2016-06-07 10:34] VITALS: BMI 37.3
[2016-06-07] MEDS ORDERED: NOREPINEPHRINE 4 MG in SODIUM CHLORIDE 0.9% 250 ML IV SCH (10:45)
--- NOTE | 2016-06-07 10:56 | USB ---
Reason for exam: clinical finding. US Breast LT Left breast ultrasound includes all four quadrants, the retroareolar region and axilla. Finding demonstrates a 3.1 x 1.2 x 2.9cm oval, circumscribed, solid, homogeneously, isoechoic lesion with out vascularity at 2 o'clock. This appears solid and a benign lesion possibly lipoma is favored. Biopsy as an outpatient recommended. Diffuse breast edema without abnormal fluid collection. Extensive edema throughout breast. Patient states has not had a mammogram in 20 years. ASSESSMENT: Suspicious, BI-RAD 4 RECOMMENDATION: Ultrasound core biopsy of the left breast. This would be appropriately performed in the outpatient setting. Manage patient on a clinical basis. (Breast edema versus mastitis). MTDD
[2016-06-07 11:49] LABS: Glucose,Whole Blood 120 mg/dL (75-99)
[2016-06-07] MEDS ORDERED: GELATIN SPONGE,ABSORB (SMALL) 1 EACH SPONGE ONE (12:00)
[2016-06-07] MEDS: HYDROcodone/APAP 5-325MG 1 EACH TAB PO PRN (12:27)
[2016-06-07] MEDS: FOLIC ACID-VIT B COMPLEX-VIT C 1 CAP PO SCH (12:27)
[2016-06-07 16:56] LABS: Glucose,Whole Blood 121 mg/dL (75-99)
--- NOTE | 2016-06-07 17:58 | PN ---
DATE OF SERVICE: 06/07/2016 This 75-year-old woman who was admitted with shortness of breath and diarrhea is being closely monitored. The patient has CHF acute exacerbation. Apparently missed hemodialysis. Patient not compliant with the medication. The patient also complaining of left-sided breast redness, breast ultrasound has been ordered. The patient is on empiric antibiotics. Breast biopsy recommended by radiology. No chest pain. No palpitations. No fever. On exam, alert and oriented times three. Pulse 65, blood pressure 98/46, respiratory rate 12, temperature 98.1. Pulse ox 98% on room air. HEENT: Conjunctivae normal. NECK: No jugular venous distention. CARDIOVASCULAR: S1, S2 muffled. RESPIRATORY: Breath sounds diminished in the bases. A few scattered rhonchi and crackles. ABDOMEN: Soft, nontender. No mass palpable. LEGS: Minimal edema. No swelling. Nervous system: No focal deficits. LABS: MCV 114.6, potassium 6.2, glucose 112. ASSESSMENT: 1. Congestive heart failure exacerbation, with acute on chronic systolic dysfunction, ejection to 35 to 40% with fluid overload secondary to missed hemodialysis. 2. Chronic kidney disease, stage V, on hemodialysis. 3. Possible right breast cellulitis and breast lesions. 4. Severe hyperkalemia from missed hemodialysis. 5. Failed left transposed t/e fistula status post fistulogram as well as THROUGH OPERATOR of the arterial limb stenosis ballooned recently. 6. Gait dysfunction and severe weakness. 7. History of degenerative joint disease and knee joint arthritis. 8. Anemia, normocytic anemia of chronic disease. 9. Atrial fibrillation, paroxysmal chronic. 10. History of asthma chronic intermittent. 11. History of cerebrovascular accident, transient ischemic attack. 12. History of diabetes mellitus type 2. 13. Hypertension, essential. 14. Hyperlipidemia. 15. History of myocardial infarction. 16. History of sleep apnea. 17. History of diabetic peripheral neuropathy. 18. History of 2 vessel coronary artery disease. 19. History of gout. 20. History of leg cellulitis. 21. History of methicillin-resistant Staphylococcus aureus. 22. History of coronary artery disease and stent. 23. Remote history nicotine dependence. 24. Obesity with body mass index 34.9. 25. FULL CODE. RECOMMENDATIONS AND DISCUSSION: In this 75 -year-old woman who presented with multiple complex medical issues, we will monitor the patient closely. Continue the current medications. Continue symptomatic treatment. Continue hemodialysis. Low potassium. Otherwise, repeat labs. Monitor fluid and electrolytes closely. Shortness of breath appears to be improving at this time. Otherwise, closely follow with Dr. Hernandez. Further recommendations to follow. We will also obtain an infectious disease evaluation also. [facility]
[2016-06-07 20:57] LABS: Glucose,Whole Blood 125 mg/dL (75-99)
[2016-06-07] MEDS: EZETIMIBE 10 MG TAB PO SCH (20:57)
[2016-06-07] MEDS: MELATONIN 3 MG TABLET PO SCH (20:57)
[2016-06-07] MEDS: PRAMIPEXOLE 0.25 MG TAB PO SCH (20:57)
--- NOTE | 2016-06-07 21:20 | CONS ---
DATE OF CONSULTATION: 06/07/2016 REASON FOR CONSULTATION: End-stage renal disease. HISTORY OF PRESENT ILLNESS: Patient is a 75-year-old female with a history of end-stage renal disease on hemodialysis on a Monday, , Monday schedule. Patient missed her dialysis on Monday and came in with complaints of severe shortness of breath, fluid overload. She has also been complaining of increased swelling and pain in her left breast and she noticed this after intervention of her left arm AV fistula. Patient was started on antibiotics as outpatient. She also has cellulitis in the lower extremities for which she is maintained on vancomycin. Patient was dialyzed yesterday. Her potassium was at 7.5 mEq/L and this morning she was at 6.2. PAST MEDICAL HISTORY: COPD, pulmonary hypertension, end-stage renal disease, CKD mineral bone disorder, chronic lower extremity edema, dyslipidemia, hypotension during dialysis, maintained on midodrine, diabetes, A. fib., coronary artery disease, obesity, cardiomyopathy with ejection fraction 35% to 40%, history of MRSA infection previously in the lower extremities. ALLERGIES INCLUDE IBUPROFEN, LOMOTIL, BACLOFEN, KEFLEX, LOMOTIL, TRAMADOL. PAST SURGICAL HISTORY: Bowel resection, cardiac catheterization and stent placement, hysterectomy, foot surgery, cataract surgery, AV fistula with recent intervention by Dr. Georges. SOCIAL HISTORY: Positive for patient being an ex-smoker. No history of drug abuse or alcohol abuse. On examination, she is currently seen on dialysis. Patient is tolerating her treatment fairly well; however, later on during her treatment, about 1-1/2 hours into treatment, patient complained of severe pain in her left arm and therefore the TPN was discontinued. She had about 1 L of ultrafiltration. HEART: S1 and S2. LUNGS: Decreased breath sounds in bases. Abdomen is soft, obese. Lower extremities show edema with chronic skin changes and edema bilaterally. Blood pressure was 97/50, heart rate 66 per minute. The patient is afebrile. Labs show sodium of 136, potassium 6.2 this morning. Hemoglobin 11.4. Phosphorus 5.7. ASSESSMENT: 1. End-stage renal disease on hemodialysis on a Monday, , Monday schedule. 2. Volume overload. Status post dialysis yesterday, mainly secondary to noncompliance with treatment as outpatient. 3. Severe hyperkalemia on admission secondary to noncompliance with treatment as outpatient, currently improved. Patient had only about 1-1/2 hours of treatment. We will repeat another potassium level this evening and hopefully it is lower than 6.2 and we will plan to dialyze her again tomorrow and her left arm fistula will be accessed again. If she continues to complain of pain, Vascular Surgery will be consulted. 4. Lower extremity cellulitis, maintained on vancomycin. 5. Left breast edema and tenderness, currently being treated for cellulitis; however, there may be some relation to the recent angioplasty on her left arm. The ultrasound did show nodule. PLAN: Repeat dialysis in a.m. The patient is stable to transfer out of the ICU. Thank you for this consultation.
[2016-06-08 08:04] LABS: Glucose,Whole Blood 135 mg/dL (75-99)
[2016-06-08] MEDS: ALBUTEROL NEBULIZED 2.5 MG/3 ML INHALATION SCH ×4 (08:12→19:38)
[2016-06-08] MEDS: SYMBICORT 160-4.5 MCG INHALER INHALATION SCH ×2 (08:14→19:38)
[2016-06-08] MEDS: MIDODRINE 5 MG TAB PO SCH ×3 (08:15→17:18)
[2016-06-08] MEDS: SEVELAMER 800 MG TAB PO SCH ×3 (08:16→17:18)
[2016-06-08] MEDS: ALLOPURINOL 100 MG TAB PO SCH (08:16)
[2016-06-08] MEDS: INSULIN LISPRO (humaLOG) 300 UNIT/3 ML VIAL SQ SCH ×4 (08:16→21:58)
[2016-06-08] MEDS: PANTOPRAZOLE 40 MG TABLET PO SCH (08:16)
[2016-06-08] MEDS: CHOLECALCIFEROL 1,000 UNIT TAB PO SCH (08:17)
[2016-06-08] MEDS: GABAPENTIN 300 MG CAP PO SCH (08:17)
[2016-06-08] MEDS: DOCUSATE 100 MG CAP PO SCH (08:17)
[2016-06-08] MEDS: CYANOCOBALAMIN 500 MCG TAB PO SCH (08:17)
[2016-06-08] MEDS: ENOXAPARIN 30 MG/0.3 ML SYRINGE SQ SCH ×2 (08:17→08:25)
[2016-06-08] MEDS: ASPIRIN 81 MG CHEW PO SCH (08:17)
[2016-06-08] MEDS: CLOPIDOGREL 75 MG TAB PO SCH (08:17)
[2016-06-08] MEDS: METOPROLOL TARTRATE 12.5 MG TAB PO SCH ×2 (08:18→21:58)
[2016-06-08] MEDS: MONTELUKAST 10 MG TAB PO SCH (08:18)
[2016-06-08] MEDS: TORSEMIDE 20 MG TAB PO SCH (08:18)
[2016-06-08] MEDS: ISOSORBIDE MONONITRATE ER 60 MG TAB.ER.24H PO SCH (08:18)
[2016-06-08 10:10] LABS: CHCM 30.1; HCT 32.2 % (34.0-46.0); HDW 2.46; Hypochromasia Marked; MCH 36.2 pg (25.0-35.0); MCHC 30.9 g/dL (31.0-37.0); MCV 116.9 fL (80.0-100.0); Macrocytosis Marked; RBC 2.75 m/uL (3.80-5.40); RDW 15.8 % (11.5-15.5); WBC 6.7 k/uL (3.8-10.6)
[2016-06-08 10:15] LABS: HGB 9.9 gm/dL (11.4-16.0)
[2016-06-08 10:53] LABS: Calcium 8.3 mg/dL (8.4-10.2); Magnesium 2.1 mg/dL (1.6-2.3); Phosphorous 5.1 mg/dL (2.5-4.5); Potassium 5.5 mmol/L (3.5-5.1)
--- NOTE | 2016-06-08 11:31 | P.PN ---
Subjective Principal diagnosis: Diarrhea 75-year-old female history of of end-stage renal disease hemodialysis reevaluated in regards to diarrhea 1 month. No recurrence of diarrhea since admission. Tolerating renal diet. Receiving hemodialysis today. Breast ultrasound reported circumscribed solid so echoic lesion without vascularity at 2 o'clock position. Objective - Vital Signs Vital signs: Vital Signs Temp 96.7 F L 06/08/16 07:00 Pulse 72 06/08/16 08:25 Resp 16 06/08/16 07:00 BP 96/43 06/08/16 07:00 Pulse Ox 97 06/08/16 07:00 Intake & Output 06/07/16 06/08/16 06/08/16 18:59 06:59 18:59 Intake Total 1182.418 500 Output Total 1335 Balance -152.582 500 Weight 83.8 kg 70 kg Intake: IV 70 0.9 normal saline 70 Intake, IV Titration 272.418 Amount Norepinephrine 16 mg In 22.418 Sodium Chloride 0.9% 250 ml @ Titrate IV .Q0M [facility] Rx#:[id number] Vancomycin 1,500 mg In 250 Sodium Chloride 0.9% 250 ml @ 125 mls/hr IVPB ONCE ONE Rx#:[id number] Oral 840 500 Output: Other 1335 Other: Voiding Method Bedside Commode Bedside Commode Toilet # Voids 0 # Bowel Movements 1 1 - Exam General appearance: The patient is alert, oriented, in no acute distress. HET: Head is normocephalic and atraumatic. Pupils are equal and reactive. Oropharynx is clear without lesions. Neck: Supple without lymphadenopathy. Trachea midline. Heart: S1 S2. Regular rate and rhythm. Breasts erythema. Lungs: No bases diminished bilaterally. Abdomen: Soft, nontender, nondistended with bowel sounds. No peritoneal signs. No palpable organomegaly or masses. Extremities: Mild bilateral lower extremity edema with mild erythema venous stasis changes. Neurological: No focal deficits. Strength and sensation are grossly intact. - Labs CBC & Chem 7: 06/08/16 09:30 06/08/16 09:30 Labs: Abnormal Lab Results - Last 24 Hours (Table) 06/07/16 06/07/16 06/07/16 Range/Units 11:47 16:40 16:54 RBC (3.80-5.40) m/uL Hgb (11.4-16.0) gm/dL Hct (34.0-46.0) % MCV (80.0-100.0) fL MCH (25.0-35.0) pg MCHC (31.0-37.0) g/dL RDW (11.5-15.5) % Plt Count (150-450) k/uL Sodium (137-145) mmol/L Potassium 5.2 H (3.5-5.1) mmol/L BUN (7-17) mg/dL Creatinine (0.52-1.04) mg/dL Glucose (74-99) mg/dL POC Glucose (mg/dL) 120 H 121 H (75-99) mg/dL Calcium (8.4-10.2) mg/dL Phosphorus (2.5-4.5) mg/dL 06/07/16 06/08/16 06/08/16 Range/Units 20:54 08:02 09:30 RBC 2.75 L (3.80-5.40) m/uL Hgb 9.9 L D (11.4-16.0) gm/dL Hct 32.2 L (34.0-46.0) % MCV 116.9 H (80.0-100.0) fL MCH 36.2 H (25.0-35.0) pg MCHC 30.9 L (31.0-37.0) g/dL RDW 15.8 H (11.5-15.5) % Plt Count 125 L (150-450) k/uL Sodium (137-145) mmol/L Potassium (3.5-5.1) mmol/L BUN (7-17) mg/dL Creatinine (0.52-1.04) mg/dL Glucose (74-99) mg/dL POC Glucose (mg/dL) 125 H 135 H (75-99) mg/dL Calcium (8.4-10.2) mg/dL Phosphorus (2.5-4.5) mg/dL 06/08/16 Range/Units 09:30 RBC (3.80-5.40) m/uL Hgb (11.4-16.0) gm/dL Hct (34.0-46.0) % MCV (80.0-100.0) fL MCH (25.0-35.0) pg MCHC (31.0-37.0) g/dL RDW (11.5-15.5) % Plt Count (150-450) k/uL Sodium 134 L (137-145) mmol/L Potassium 5.5 H (3.5-5.1) mmol/L BUN 37 H (7-17) mg/dL Creatinine 5.06 H* (0.52-1.04) mg/dL Glucose 194 H (74-99) mg/dL POC Glucose (mg/dL) (75-99) mg/dL Calcium 8.3 L (8.4-10.2) mg/dL Phosphorus 5.1 H (2.5-4.5) mg/dL Microbiology - Last 24 Hours (Table) 06/07/16 17:38 Stool for WBCs - Final Stool Assessment and Plan (1) Diarrhea Narrative/Plan: acute diarrheal illness 1 month possibly antibiotic-induced however underlying self-limiting infectious colitis possible inflammatory cannot be entirely excluded. Currently diarrhea has abated. Status: Acute (2) End stage renal disease on dialysis Status: Acute (3) Cellulitis of left breast Narrative/Plan: Ultrasound left breast reported lesion Status: Acute (4) Shortness of breath Narrative/Plan: CHF exacerbation and acute on chronic systolic dysfunction with fluid overload secondary to missed hemodialysis. Status: Acute Plan: 1. If diarrhea recurs will obtain stool studies including clostridium difficile toxin. 2. Supportive measures. We'll follow as needed. Endoscopy not planned patient is not interested. Assessment and plan of care discussed with Dr. Baird.
[2016-06-08 12:24] LABS: Glucose,Whole Blood 179 mg/dL (75-99)
[2016-06-08] MEDS ORDERED: DARBEPOETIN ALFA 25 MCG/0.42 ML SYRINGE SQ SCH (13:00)
--- NOTE | 2016-06-08 13:18 | PN ---
Patient is seen for followup for end-stage renal disease. Currently she is seen on dialysis, tolerating her treatment fairly well. The left breast tenderness has improved with antibiotics. I did discuss with Dr. Gutiérrez who stated that she had good venous flow and she was not anywhere close to her central veins during the intervention on the AV fistula. On examination, blood pressure is 96/43, heart rate 70 per minute. She is afebrile. EXAMINATION OF THE HEART: S1 and S2. EXAMINATION OF THE LUNGS: Bilateral breath sounds are heard. ABDOMEN: Soft, obese, nontender. Examination of lower extremities shows chronic skin changes, chronic edema, some erythema which has improved. Labs show sodium 134, potassium 5.5. Hemoglobin 9.9 g/dL. ASSESSMENT: 1. End-stage renal disease on hemodialysis on a Monday, , Monday schedule. 2. Severe hyperkalemia, currently improved. The patient will be dialyzed again tomorrow as tomorrow is her regular day. 3. Left breast swelling and tenderness currently seems to have improved. Continue with the antibiotics. 4. Lower extremity cellulitis, also improving. 5. Severe chronic obstructive pulmonary disease. 6. Anemia of chronic disease. Maintain patient on Aranesp. 7. Chronic kidney disease bone mineral disorder, maintained on Renvela. PLAN: Start Aranesp and repeat hemodialysis again tomorrow as tomorrow is her regular day.
[2016-06-08] MEDS: FOLIC ACID-VIT B COMPLEX-VIT C 1 CAP PO SCH (13:22)
[2016-06-08] MEDS: ALPRAZolam 0.25 MG TAB PO PRN (14:25)
[2016-06-08] MEDS: HYDROcodone/APAP 5-325MG 1 EACH TAB PO PRN (14:25)
[2016-06-08] MEDS ORDERED: GELATIN SPONGE,ABSORB (LARGE) 1 EACH SPONGE ONE (15:00)
[2016-06-08 17:17] LABS: Glucose,Whole Blood 101 mg/dL (75-99)
--- NOTE | 2016-06-08 19:11 | P.PN ---
Subjective 75-year-old female patient who is coming into the emergency department this afternoon because of progressive increase in shortness of breath over the past few days. The patient is very well-known to me. I taken care of Ayala for years. Unfortunately health in general is gradually declining. Her condition decompensated since the patient went on dialysis approximately year ago. Currently she still requiring dialysis 3 times a week Tuesdays and Saturdays. She has a AV fistula in her left upper extremity that was recently angioplastied by vascular surgery. The patient was in the hospital approximately 3 weeks ago due to failure to present to the dialysis center for dialysis for almost a week. Back then she came into the hospital because of fluid overload and hyperkalemia. She did the same thing this week and she missed dialysis on Monday. As such her last dialysis was approximately 4 days ago. She came in with worsening shortness of breath. She has some signs of fluid overload. She has increased edema in lower extremities and early lytic changes. She also had developed a mastitis of her left breast and it was noted during her earlier office visit with her breast was getting more erythematous and swollen. I discussed this with Dr. Riddle penile also put the patient on Augmentin. The plan was to add vancomycin during dialysis however the patient did not make it to dialysis as the patient was having diarrhea and she did not want to go to the dialysis center due to concern of having an accident. She is not known to have any C. diff colitis. It's possible that the diarrhea was antibiotic-induced knowing that she was started on Augmentin. No bloody bowel movements. No abdominal pain. No abdominal distention. No nausea or vomiting. No fever or chills. No other complaints otherwise. Her potassium level at time of admission was at 7.3. The patient received insulin with dextrose along with bicarb and calcium. No complications related was given. EKG is not showing any acute changes consistent with potassium cardiotoxicity. Her EKG showing controlled atrial fibrillation. The chest x- ray showed cardiomegaly and changes consistent with CHF with pulmonary vessel congestion. She is currently on 2 L of oxygen by nasal cannula and his saturations around 95%. The patient will be started on dialysis soon. The patient is seen again today in follow-up 06/07/2016 in the intensive care unit. She did require some pressor support throughout the evening and currently on levophed at 4 mcg/m. Her current potassium is 6.2, creatinine 4.90 She did undergo dialysis yesterday and the plan is for repeat dialysis today. She denies any worsening shortness of breath, cough or congestion. She is maintaining good O2 saturations in the mid 90s on 2 L/m per nasal cannula. She's been afebrile. No leukocytosis. She's been initiated on vancomycin. Her left breast is slightly improved today as compared to yesterday. An ultrasound is pending. Dopplers of the lower extremity is negative. X-ray of the right lower extremity is negative for fracture. There is some continued pain and bruising. No open areas no weeping. The patient is seen again today 06/08/2016 in follow-up on the regular medical floor. She is awake and alert in no acute distress. She is receiving hemodialysis as scheduled. She does have continued complaints of loose stool. She has no pulmonary complaints. No shortness of breath, cough or congestion. The cellulitis of the left breast and lower extremities both appear improved today as compared to yesterday. The ultrasound of the breasts revealed a 3.1 x 1.2 x 2.9 cm oval, circumscribed, solid, homogeneously, Isoechoic lesion without vascularity at 2:00. Venous Doppler of the lower extremities were negative. Objective - Vital Signs Vital signs: Vital Signs Temp 96.9 F L 06/08/16 15:00 Pulse 69 06/08/16 15:00 Resp 16 06/08/16 15:00 BP 101/45 06/08/16 15:00 Pulse Ox 98 06/08/16 15:00 Intake & Output 06/08/16 06/08/16 06/09/16 06:59 18:59 06:59 Intake Total 500 Balance 500 Weight 70 kg Intake: Oral 500 Other: Voiding Method Bedside Commode Toilet # Voids 0 1 # Bowel Movements 1 2 - Exam GENERAL EXAM: Alert, active, comfortable in no apparent distress. HEAD: Normocephalic. EYES: Normal reaction of pupils, equal size. NOSE: Clear with pink turbinates. THROAT: There is crowding the posterior pharynx. Short. No erythema or exudates. NECK: No masses, no JVD. CHEST: No chest wall deformity. LUNGS: Equal air entry with crackles in the posterior bases.. CVS: S1 and S2 normal with no audible murmurs, regular rhythm. ABDOMEN: Obese, normal bowel sounds, no guarding or rigidity. SKIN: Cellulitis of the lower extremities, left breast. CENTRAL NERVOUS SYSTEM: No focal deficits, tone is normal in all 4 extremities. Extremities: Redness and edema of the lower extremities. Ecchymosis of the right lateral lower extremity. Peripheral pulses are intact. - Labs CBC & Chem 7: 06/08/16 09:30 06/08/16 09:30 Labs: Abnormal Lab Results - Last 24 Hours (Table) 06/07/16 06/08/16 06/08/16 Range/Units 20:54 08:02 09:30 RBC 2.75 L (3.80-5.40) m/uL Hgb 9.9 L D (11.4-16.0) gm/dL Hct 32.2 L (34.0-46.0) % MCV 116.9 H (80.0-100.0) fL MCH 36.2 H (25.0-35.0) pg MCHC 30.9 L (31.0-37.0) g/dL RDW 15.8 H (11.5-15.5) % Plt Count 125 L (150-450) k/uL Sodium (137-145) mmol/L Potassium (3.5-5.1) mmol/L BUN (7-17) mg/dL Creatinine (0.52-1.04) mg/dL Glucose (74-99) mg/dL POC Glucose (mg/dL) 125 H 135 H (75-99) mg/dL Calcium (8.4-10.2) mg/dL Phosphorus (2.5-4.5) mg/dL 06/08/16 06/08/16 06/08/16 Range/Units 09:30 12:20 17:15 RBC (3.80-5.40) m/uL Hgb (11.4-16.0) gm/dL Hct (34.0-46.0) % MCV (80.0-100.0) fL MCH (25.0-35.0) pg MCHC (31.0-37.0) g/dL RDW (11.5-15.5) % Plt Count (150-450) k/uL Sodium 134 L (137-145) mmol/L Potassium 5.5 H (3.5-5.1) mmol/L BUN 37 H (7-17) mg/dL Creatinine 5.06 H* (0.52-1.04) mg/dL Glucose 194 H (74-99) mg/dL POC Glucose (mg/dL) 179 H 101 H (75-99) mg/dL Calcium 8.3 L (8.4-10.2) mg/dL Phosphorus 5.1 H (2.5-4.5) mg/dL Microbiology - Last 24 Hours (Table) 06/07/16 17:38 Stool for WBCs - Final Stool Assessment and Plan Plan: Assessment 1 acute shortness of breath on top of chronic hypoxic respiratory failure. The patient is in CHF/fluid overload that the patient missed a session of dialysis days ago and she's been off dialysis for almost 4 days. 2 acute hyperkalemia secondary to above 3 end-stage renal disease on hemodialysis, 3 times a week, TTS 4 left breast mastitis, improved. Ultrasound revealed no vascularity but there is a lesion at 2:00. Recommended biopsy in the outpatient setting. 5 lower extremity cellulitis suspected with chronic edema in lower extremities with negative Dopplers for DVT 6 multivessel coronary artery disease, not candidate for any interventions. The patient has been involved in previous NSTEMI 7 CHF with impaired LV function of 3035% ejection fraction 8 chronic atrial fibrillation, not a candidate for anticoagulation 9 chronic bronchial asthma 10 obstructive sleep apnea. 11 diabetes mellitus that has been difficult to control over the years along with diabetic nephropathy and retinopathy 12 hyperlipidemia 13 hypotension, on midodrine and doubt septic 14 wound infection lower extremities including MSSA and gram negatives bacteria 15 CVA with some residual left-sided weakness 16 chronic anemia, hemoglobin stable at 11.7 17 gout 18 previous history of urine checked infection with Klebsiella pneumoniae 19 diarrhea, possibly antibiotic induced 20 poor overall functional performance based on multiple above-mentioned comorbidities. Plan: The patient was seen and evaluated by Dr. Hernandez. She is currently stable from the pulmonary standpoint. We'll continue with her current medications. We will increase her activity as tolerated. We'll continue to follow.
[2016-06-08 21:23] LABS: Glucose,Whole Blood 259 mg/dL (75-99)
[2016-06-08] MEDS: MELATONIN 3 MG TABLET PO SCH (21:58)
[2016-06-08] MEDS: EZETIMIBE 10 MG TAB PO SCH (21:58)
[2016-06-08] MEDS: PRAMIPEXOLE 0.25 MG TAB PO SCH (21:58)
--- NOTE | 2016-06-08 23:18 | PN ---
DATE OF SERVICE: 06/08/2016 This 75 -year-old woman was admitted with shortness of breath and congestive heart failure acute exacerbation, being closely monitored. The patient also had significant diarrhea also. Gastroenterology is following the patient closely. The patient is being closely monitored at this time. On exam, alert and oriented x 3. Pulse is 69, blood pressure 101/45, respiration 16, temperature 97.9, pulse ox 98% on 2 liters. HEENT: Conjunctivae normal. NECK: No jugular venous distention. CARDIOVASCULAR: S1, S2 muffled. RESPIRATORY: Breath sounds diminished in the bases. A few scattered rhonchi, no crackles. ABDOMEN: Soft, nontender. LEGS: Minimal edema. No swelling. CENTRAL NERVOUS SYSTEM: No focal deficits. LABS: WBC 6.7, hemoglobin is 10.7, sodium 134, potassium 5.5. ASSESSMENT: 1. Congestive heart failure, acute exacerbation, with acute on chronic systolic dysfunction, ejection fraction 35% to 40% with fluid overload secondary to missed hemodialysis. 2. Chronic kidney disease, stage V, on hemodialysis. 3. Possible right breast cellulitis and breast lesion. 4. Severe hyperkalemia from missed hemodialysis. 5. 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 6. Gait dysfunction and severe weakness. 7. History of degenerative joint disease and knee joint arthritis. 8. Anemia, normocytic anemia of chronic disease. 9. Atrial fibrillation, paroxysmal chronic. 10. History of asthma, chronic, intermittent. 11. History of cerebrovascular accident, transient ischemic attack. 12. History of diabetes type 2. 13. Hypertension, essential. 14. Hyperlipidemia. 15. History of myocardial infarction. 16. History of sleep apnea. 17. History of diabetic peripheral neuropathy. 18. History of two-vessel coronary artery disease. 19. History of gout. 20. History of leg cellulitis. 21. History of Methicillin-resistant Staph aureus. 22. History of coronary artery disease and stent. 23. Remote history of nicotine dependence. 24. Obesity with body mass index of 34.9. 25. FULL CODE. RECOMMENDATIONS AND DISCUSSION: Recommend to continue current medications. Continue with monitoring. Symptomatic treatment. Continue with hemodialysis. 3 L of fluid has been removed today. Otherwise, continue to monitor. Further recommendations to follow. Prognosis guarded.
[2016-06-09 07:23] LABS: Glucose,Whole Blood 74 mg/dL (75-99)
[2016-06-09] MEDS: INSULIN LISPRO (humaLOG) 300 UNIT/3 ML VIAL SQ SCH ×4 (07:46→22:05)
[2016-06-09] MEDS: CLOPIDOGREL 75 MG TAB PO SCH (08:08)
[2016-06-09] MEDS: MIDODRINE 5 MG TAB PO SCH ×3 (08:08→17:43)
[2016-06-09] MEDS: CYANOCOBALAMIN 500 MCG TAB PO SCH (08:08)
[2016-06-09] MEDS: ASPIRIN 81 MG CHEW PO SCH (08:08)
[2016-06-09] MEDS: PANTOPRAZOLE 40 MG TABLET PO SCH (08:08)
[2016-06-09] MEDS: SEVELAMER 800 MG TAB PO SCH ×3 (08:08→17:43)
[2016-06-09] MEDS: ALLOPURINOL 100 MG TAB PO SCH (08:08)
[2016-06-09] MEDS: CHOLECALCIFEROL 1,000 UNIT TAB PO SCH (08:08)
[2016-06-09] MEDS: GABAPENTIN 300 MG CAP PO SCH (08:09)
[2016-06-09] MEDS: METOLAZONE 2.5 MG TAB PO SCH (08:09)
[2016-06-09] MEDS: ISOSORBIDE MONONITRATE ER 60 MG TAB.ER.24H PO SCH (08:09)
[2016-06-09] MEDS: ENOXAPARIN 30 MG/0.3 ML SYRINGE SQ SCH (08:09)
[2016-06-09] MEDS: DOCUSATE 100 MG CAP PO SCH (08:09)
[2016-06-09] MEDS: TORSEMIDE 20 MG TAB PO SCH (08:10)
[2016-06-09] MEDS: METOPROLOL TARTRATE 12.5 MG TAB PO SCH ×2 (08:10→21:18)
[2016-06-09] MEDS: MONTELUKAST 10 MG TAB PO SCH (08:10)
[2016-06-09 09:00] LABS: Calcium 8.7 mg/dL (8.4-10.2); Phosphorous 4.2 mg/dL (2.5-4.5); Potassium 5.4 mmol/L (3.5-5.1)
[2016-06-09 09:03] LABS: CHCM 29.7; HCT 34.1 % (34.0-46.0); HDW 2.38; HGB 10.4 gm/dL (11.4-16.0); Hypochromasia Marked; MCH 36.3 pg (25.0-35.0); MCHC 30.6 g/dL (31.0-37.0); MCV 118.8 fL (80.0-100.0); Macrocytosis Marked; Mean Platelet Volume 8.2; RBC 2.87 m/uL (3.80-5.40); WBC 6.9 k/uL (3.8-10.6)
[2016-06-09] MEDS: SYMBICORT 160-4.5 MCG INHALER INHALATION SCH ×2 (09:05→20:01)
[2016-06-09] MEDS: ALBUTEROL NEBULIZED 2.5 MG/3 ML INHALATION SCH ×4 (09:05→20:01)
[2016-06-09 12:10] LABS: Glucose,Whole Blood 221 mg/dL (75-99)
[2016-06-09] MEDS: FOLIC ACID-VIT B COMPLEX-VIT C 1 CAP PO SCH (12:38)
--- NOTE | 2016-06-09 14:26 | PN ---
Patient is seen for follow-up for end-stage renal disease. She is currently resting comfortably. Her volume status has improved significantly. Left breast tenderness has also improved with improvement in lower extremity edema and cellulitis. On examination, the patient is comfortable. Blood pressure is 86/47 earlier this morning, heart rate about 72 per minute. Examination of the heart S1 and S2. Examination of the lungs: Bilateral breath sounds are heard. Abdomen is soft, nontender. Examination of the lower extremities shows chronic skin changes. Improvement in erythema bilaterally. OCCUPATIONAL HEALTH PHYSIOTHERAPIST exam is grossly intact. Labs show potassium 5.4, hemoglobin 10.4 g/dL. ASSESSMENT: 1. End-stage renal disease on hemodialysis on a Monday, , Monday schedule. The patient will be dialyzed again today. We have had about 3 liters of ultrafiltration and her volume status is improved. Will try again for about the same today. 2. Hyperkalemia. Patient is encouraged to maintain low potassium diet. She will be dialyzed again today. 3. Chronic kidney disease bone mineral disorder, currently stable. Phosphorus is 4.2. Patient is maintained on Renvela. 4. Lower extremity cellulitis and cellulitis in the left breast also, currently improved significantly with antibiotics. 5. Chronic hypotension, partly associated with inaccurate measurement of blood pressure. PLAN: Repeat dialysis today. Continue with antibiotics. Possible discharge today after dialysis. Patient is maintained on midodrine. She is stable at about 80 to 90 mmHg systolic.
[2016-06-09] MEDS ORDERED: ACETAMINOPHEN TAB 325 MG TAB PO PRN (15:51)
[2016-06-09 16:52] LABS: Glucose,Whole Blood 114 mg/dL (75-99)
[2016-06-09] MEDS ORDERED: GELATIN SPONGE,ABSORB (SMALL) 1 EACH SPONGE ONE (17:00)
--- NOTE | 2016-06-09 17:03 | P.PN ---
Subjective 75-year-old female patient who is coming into the emergency department this afternoon because of progressive increase in shortness of breath over the past few days. The patient is very well-known to me. I taken care of Ayala for years. Unfortunately health in general is gradually declining. Her condition decompensated since the patient went on dialysis approximately year ago. Currently she still requiring dialysis 3 times a week Tuesdays and Saturdays. She has a AV fistula in her left upper extremity that was recently angioplastied by vascular surgery. The patient was in the hospital approximately 3 weeks ago due to failure to present to the dialysis center for dialysis for almost a week. Back then she came into the hospital because of fluid overload and hyperkalemia. She did the same thing this week and she missed dialysis on Monday. As such her last dialysis was approximately 4 days ago. She came in with worsening shortness of breath. She has some signs of fluid overload. She has increased edema in lower extremities and early lytic changes. She also had developed a mastitis of her left breast and it was noted during her earlier office visit with her breast was getting more erythematous and swollen. I discussed this with Dr. Riddle penile also put the patient on Augmentin. The plan was to add vancomycin during dialysis however the patient did not make it to dialysis as the patient was having diarrhea and she did not want to go to the dialysis center due to concern of having an accident. She is not known to have any C. diff colitis. It's possible that the diarrhea was antibiotic-induced knowing that she was started on Augmentin. No bloody bowel movements. No abdominal pain. No abdominal distention. No nausea or vomiting. No fever or chills. No other complaints otherwise. Her potassium level at time of admission was at 7.3. The patient received insulin with dextrose along with bicarb and calcium. No complications related was given. EKG is not showing any acute changes consistent with potassium cardiotoxicity. Her EKG showing controlled atrial fibrillation. The chest x- ray showed cardiomegaly and changes consistent with CHF with pulmonary vessel congestion. She is currently on 2 L of oxygen by nasal cannula and his saturations around 95%. The patient will be started on dialysis soon. The patient is seen again today in follow-up 06/07/2016 in the intensive care unit. She did require some pressor support throughout the evening and currently on levophed at 4 mcg/m. Her current potassium is 6.2, creatinine 4.90 She did undergo dialysis yesterday and the plan is for repeat dialysis today. She denies any worsening shortness of breath, cough or congestion. She is maintaining good O2 saturations in the mid 90s on 2 L/m per nasal cannula. She's been afebrile. No leukocytosis. She's been initiated on vancomycin. Her left breast is slightly improved today as compared to yesterday. An ultrasound is pending. Dopplers of the lower extremity is negative. X-ray of the right lower extremity is negative for fracture. There is some continued pain and bruising. No open areas no weeping. The patient is seen again today 06/08/2016 in follow-up on the regular medical floor. She is awake and alert in no acute distress. She is receiving hemodialysis as scheduled. She does have continued complaints of loose stool. She has no pulmonary complaints. No shortness of breath, cough or congestion. The cellulitis of the left breast and lower extremities both appear improved today as compared to yesterday. The ultrasound of the breasts revealed a 3.1 x 1.2 x 2.9 cm oval, circumscribed, solid, homogeneously, Isoechoic lesion without vascularity at 2:00. Venous Doppler of the lower extremities were negative. The patient is seen again today 06/09/2016. She is awake and alert in no acute distress, she is currently receiving hemodialysis. She denies any worsening shortness of breath at this time. No cough or congestion. Her left breast inflammation is improved and less painful. The cellulitis of the lower extremities has also improved. Objective - Vital Signs Vital signs: Vital Signs Temp 96.5 F L 06/09/16 07:00 Pulse 64 06/09/16 14:46 Resp 22 06/09/16 14:46 BP 117/47 06/09/16 14:46 Pulse Ox 98 06/09/16 09:07 Intake & Output 06/08/16 06/09/16 06/09/16 18:59 06:59 18:59 Intake Total 200 Balance 200 Weight 70.5 kg Intake: Oral 200 Other: Voiding Method Toilet Toilet Toilet # Voids 1 1 0 # Bowel Movements 2 1 - Exam GENERAL EXAM: Alert, active, comfortable in no apparent distress. HEAD: Normocephalic. EYES: Normal reaction of pupils, equal size. NOSE: Clear with pink turbinates. THROAT: There is crowding the posterior pharynx. Short. No erythema or exudates. NECK: No masses, no JVD. CHEST: No chest wall deformity. LUNGS: Equal air entry with crackles in the posterior bases.. CVS: S1 and S2 normal with no audible murmurs, regular rhythm. ABDOMEN: Obese, normal bowel sounds, no guarding or rigidity. SKIN: Cellulitis of the lower extremities, left breast. CENTRAL NERVOUS SYSTEM: No focal deficits, tone is normal in all 4 extremities. Extremities: Redness and edema of the lower extremities. Ecchymosis of the right lateral lower extremity. Peripheral pulses are intact. - Labs CBC & Chem 7: 06/09/16 07:59 06/09/16 07:59 Labs: Abnormal Lab Results - Last 24 Hours (Table) 06/08/16 06/08/16 06/09/16 Range/Units 17:15 21:20 07:15 RBC (3.80-5.40) m/uL Hgb (11.4-16.0) gm/dL MCV (80.0-100.0) fL MCH (25.0-35.0) pg MCHC (31.0-37.0) g/dL RDW (11.5-15.5) % Plt Count (150-450) k/uL Potassium (3.5-5.1) mmol/L BUN (7-17) mg/dL Creatinine (0.52-1.04) mg/dL Glucose (74-99) mg/dL POC Glucose (mg/dL) 101 H 259 H 74 L (75-99) mg/dL 06/09/16 06/09/16 06/09/16 Range/Units 07:59 07:59 12:06 RBC 2.87 L (3.80-5.40) m/uL Hgb 10.4 L (11.4-16.0) gm/dL MCV 118.8 H (80.0-100.0) fL MCH 36.3 H (25.0-35.0) pg MCHC 30.6 L (31.0-37.0) g/dL RDW 16.0 H (11.5-15.5) % Plt Count 135 L (150-450) k/uL Potassium 5.4 H (3.5-5.1) mmol/L BUN 30 H (7-17) mg/dL Creatinine 4.40 H (0.52-1.04) mg/dL Glucose 72 L (74-99) mg/dL POC Glucose (mg/dL) 221 H (75-99) mg/dL /08/20 Range/Units 16:49 RBC (3.80-5.40) m/uL Hgb (11.4-16.0) gm/dL MCV (80.0-100.0) fL MCH (25.0-35.0) pg MCHC (31.0-37.0) g/dL RDW (11.5-15.5) % Plt Count (150-450) k/uL Potassium (3.5-5.1) mmol/L BUN (7-17) mg/dL Creatinine (0.52-1.04) mg/dL Glucose (74-99) mg/dL POC Glucose (mg/dL) 114 H (75-99) mg/dL Assessment and Plan Plan: Assessment 1 acute shortness of breath on top of chronic hypoxic respiratory failure. The patient is in CHF/fluid overload that the patient missed a session of dialysis days ago and she's been off dialysis for almost 4 days. 2 acute hyperkalemia secondary to above 3 end-stage renal disease on hemodialysis, 3 times a week, TTS 4 left breast mastitis, improved. Ultrasound revealed no vascularity but there is a lesion at 2:00. Recommended biopsy in the outpatient setting. 5 lower extremity cellulitis suspected with chronic edema in lower extremities with negative Dopplers for DVT 6 multivessel coronary artery disease, not candidate for any interventions. The patient has been involved in previous NSTEMI 7 CHF with impaired LV function of 30-35% ejection fraction 8 chronic atrial fibrillation, not a candidate for anticoagulation 9 chronic bronchial asthma 10 obstructive sleep apnea. 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 Plan: The patient was seen and evaluated by Dr. Hernandez. She is currently stable from the pulmonary standpoint. We'll continue with her current medications. She remains on vancomycin. We will increase her activity as tolerated. We'll continue to follow.
--- NOTE | 2016-06-09 17:35 | P.PN ---
Subjective Date of service 06/09/2016. Progress note being dictated for Dr. Cunningham. Interval history: This a 75-year-old female admitted with acute exacerbation of CHF, COPD and multiple other medical issues. Maintained on nebulized bronchodilators, vancomycin with improvement noted in breathing, bilateral lower extremity cellulitis, left breast cellulitis. Pain improving. Scheduled for hemodialysis today. Potassium 5.4. Loose stools improving. Denies chest pain, palpitations or increased shortness of breath. Objective - Vital Signs Vital signs: Vital Signs Temp 96.5 F L 06/09/16 07:00 Pulse 64 06/09/16 14:46 Resp 22 06/09/16 14:46 BP 117/47 06/09/16 14:46 Pulse Ox 98 06/09/16 09:07 Intake & Output 06/08/16 06/09/16 06/09/16 18:59 06:59 18:59 Intake Total 200 Balance 200 Weight 70.5 kg Intake: Oral 200 Other: Voiding Method Toilet Toilet Toilet # Voids 1 1 0 # Bowel Movements 2 1 - Exam PHYSICAL EXAM: VITAL SIGNS: As above GENERAL: [Sitting up in bed, no acute distress, visiting with family] HEENT: [Pupils equal conjunctiva normal.] NECK: [Supple, no JVD] RESPIRATORY EFFORT:[Normal] LUNGS: [Basilar crackles, no wheezing, occasional rhonchi] CARDIOVASCULAR[regular S1 and S2, no murmurs rubs or gallops, decreasing edema] GI: [Abdomen soft, nontender, positive bowel sounds.] PSYCH: [Alert and oriented -3, mood and affect normal.] SKIN: Left breast and Bilateral lower extremity edema/redness improving. NEURO: No focal deficits, moves all 4 extremities, gait dysfunction with severe weakness - Labs CBC & Chem 7: 06/09/16 07:59 06/09/16 07:59 Labs: Abnormal Lab Results - Last 24 Hours (Table) 06/08/16 06/08/16 06/09/16 Range/Units 17:15 21:20 07:15 RBC (3.80-5.40) m/uL Hgb (11.4-16.0) gm/dL MCV (80.0-100.0) fL MCH (25.0-35.0) pg MCHC (31.0-37.0) g/dL RDW (11.5-15.5) % Plt Count (150-450) k/uL Potassium (3.5-5.1) mmol/L BUN (7-17) mg/dL Creatinine (0.52-1.04) mg/dL Glucose (74-99) mg/dL POC Glucose (mg/dL) 101 H 259 H 74 L (75-99) mg/dL 06/09/16 06/09/16 06/09/16 Range/Units 07:59 07:59 12:06 RBC 2.87 L (3.80-5.40) m/uL Hgb 10.4 L (11.4-16.0) gm/dL MCV 118.8 H (80.0-100.0) fL MCH 36.3 H (25.0-35.0) pg MCHC 30.6 L (31.0-37.0) g/dL RDW 16.0 H (11.5-15.5) % Plt Count 135 L (150-450) k/uL Potassium 5.4 H (3.5-5.1) mmol/L BUN 30 H (7-17) mg/dL Creatinine 4.40 H (0.52-1.04) mg/dL Glucose 72 L (74-99) mg/dL POC Glucose (mg/dL) 221 H (75-99) mg/dL 06/09/16 Range/Units 16:49 RBC (3.80-5.40) m/uL Hgb (11.4-16.0) gm/dL MCV (80.0-100.0) fL MCH (25.0-35.0) pg MCHC (31.0-37.0) g/dL RDW (11.5-15.5) % Plt Count (150-450) k/uL Potassium (3.5-5.1) mmol/L BUN (7-17) mg/dL Creatinine (0.52-1.04) mg/dL Glucose (74-99) mg/dL POC Glucose (mg/dL) 114 H (75-99) mg/dL Assessment and Plan Plan: 1. Acute on chronic exacerbation of CHF, systolic dysfunction, EF 35-40% with fluid overload secondary to missed hemodialysis. 2. [CKD, stage IV, on hemodialysis]. 3. Possible Left breast cellulitis, mastitis and breast lesion, ultrasound core biopsy outpatient recommended , ]. 4. [Severe hyperkalemia from missed hemodialysis, improving]. 5. [Failed left transposed fistula status post fistulogram as well as TPA of the arterial limb stenosis status post balloon recently]. 6. [Gait dysfunction with severe weakness]. 7. [Degenerative joint disease with knee joint arthritis 8. Anemia, normocytic, of chronic disease 9. Paroxysmal chronic atrial fibrillation, not a candidate for anticoagulation 10. History of chronic intermittent asthma 11. History of CVA, TIA 12. Diabetes mellitus type 2 13. Essential hypertension 14. Hyperlipidemia 15. Multivessel CAD with history of FL, stent 16. Sleep apnea 17. Obesity, BMI 31.4 18. Diabetic peripheral neuropathy 19.]. Remote history of nicotine dependence 20. Lower extremity cellulitis, chronic edema, Dopplers negative for DVT 21. hypotension, on Midrin 22. Medical debility, declining ECF Plan: Continue on current medication regime ,monitoring and symptomatic treatment. Hemodialysis as per nephrology. Again discussed recommendations for subacute rehab, patient continues to decline. Close monitoring of electrolytes and renal function with repeat labs ordered for a.m. Discharge planning in progress for tomorrow. Prognosis guarded given multiple complex medical issues. The impression and plan of care has been dictated as directed. : I performed a H&P examination of this patient and discussed the same with the dictator. I agree with the dictator's note. Any additional findings/opinions/ etc. will be noted.
[2016-06-09] MEDS ORDERED: VANCOMYCIN 1,500 MG in SODIUM CHLORIDE 0.9% 250 ML IVPB ONE (21:00)
[2016-06-09 21:07] LABS: Glucose,Whole Blood 158 mg/dL (75-99)
[2016-06-09] MEDS: PRAMIPEXOLE 0.25 MG TAB PO SCH (21:18)
[2016-06-09] MEDS: EZETIMIBE 10 MG TAB PO SCH (21:18)
[2016-06-09] MEDS: MELATONIN 3 MG TABLET PO SCH (21:19)
[2016-06-10] MEDS: HYDROcodone/APAP 5-325MG 1 EACH TAB PO PRN (03:19)
[2016-06-10] MEDS: ALBUTEROL NEBULIZED 2.5 MG/3 ML INHALATION SCH ×4 (03:34→16:00)
--- NOTE | 2016-06-10 06:57 | PN ---
DATE OF SERVICE: 06/09/2016 This 75-year-old woman who was admitted with shortness of breath, CHF acute exacerbation is being closely monitored. Seen and evaluated the patient along with the nurse practitioner. Please refer to nurse practitioner notes and impression documented for further information. Further recommendations to follow. Continue the hemodialysis today. Increase ambulation. Closely follow with Dr. Hernandez.
[2016-06-10] MEDS: SYMBICORT 160-4.5 MCG INHALER INHALATION SCH (07:15)
[2016-06-10] MEDS: INSULIN LISPRO (humaLOG) 300 UNIT/3 ML VIAL SQ SCH ×2 (07:33→12:21)
[2016-06-10] MEDS: MIDODRINE 5 MG TAB PO SCH ×2 (07:37→12:21)
[2016-06-10] MEDS: PANTOPRAZOLE 40 MG TABLET PO SCH (07:37)
[2016-06-10] MEDS: ALLOPURINOL 100 MG TAB PO SCH (07:38)
[2016-06-10] MEDS: SEVELAMER 800 MG TAB PO SCH ×2 (07:38→12:21)
[2016-06-10] MEDS: CHOLECALCIFEROL 1,000 UNIT TAB PO SCH (07:39)
[2016-06-10] MEDS: ENOXAPARIN 30 MG/0.3 ML SYRINGE SQ SCH (07:39)
[2016-06-10] MEDS: CLOPIDOGREL 75 MG TAB PO SCH (07:39)
[2016-06-10] MEDS: DOCUSATE 100 MG CAP PO SCH (07:39)
[2016-06-10] MEDS: ASPIRIN 81 MG CHEW PO SCH (07:39)
[2016-06-10] MEDS: CYANOCOBALAMIN 500 MCG TAB PO SCH (07:39)
[2016-06-10] MEDS: MONTELUKAST 10 MG TAB PO SCH (07:40)
[2016-06-10] MEDS: METOPROLOL TARTRATE 12.5 MG TAB PO SCH (07:40)
[2016-06-10] MEDS: ISOSORBIDE MONONITRATE ER 60 MG TAB.ER.24H PO SCH (07:40)
[2016-06-10] MEDS: GABAPENTIN 300 MG CAP PO SCH (07:40)
[2016-06-10 07:41] LABS: Glucose,Whole Blood 114 mg/dL (75-99)
[2016-06-10] MEDS: TORSEMIDE 20 MG TAB PO SCH (07:41)
[2016-06-10 07:52] VITALS: BP 83/50; RESP 16; TEMP 96.8
[2016-06-10 09:32] LABS: Calcium 8.6 mg/dL (8.4-10.2); Magnesium 1.9 mg/dL (1.6-2.3); Phosphorous 3.7 mg/dL (2.5-4.5); Potassium 5.1 mmol/L (3.5-5.1)
[2016-06-10 11:42] LABS: Glucose,Whole Blood 146 mg/dL (75-99)
[2016-06-10] MEDS: FOLIC ACID-VIT B COMPLEX-VIT C 1 CAP PO SCH (12:21)
--- NOTE | 2016-06-10 13:17 | P.PN ---
Subjective 75-year-old female patient who is coming into the emergency department this afternoon because of progressive increase in shortness of breath over the past few days. The patient is very well-known to me. I taken care of Ayala for years. Unfortunately health in general is gradually declining. Her condition decompensated since the patient went on dialysis approximately year ago. Currently she still requiring dialysis 3 times a week Tuesdays and Saturdays. She has a AV fistula in her left upper extremity that was recently angioplastied by vascular surgery. The patient was in the hospital approximately 3 weeks ago due to failure to present to the dialysis center for dialysis for almost a week. Back then she came into the hospital because of fluid overload and hyperkalemia. She did the same thing this week and she missed dialysis on Monday. As such her last dialysis was approximately 4 days ago. She came in with worsening shortness of breath. She has some signs of fluid overload. She has increased edema in lower extremities and early lytic changes. She also had developed a mastitis of her left breast and it was noted during her earlier office visit with her breast was getting more erythematous and swollen. I discussed this with Dr. Riddle penile also put the patient on Augmentin. The plan was to add vancomycin during dialysis however the patient did not make it to dialysis as the patient was having diarrhea and she did not want to go to the dialysis center due to concern of having an accident. She is not known to have any C. diff colitis. It's possible that the diarrhea was antibiotic-induced knowing that she was started on Augmentin. No bloody bowel movements. No abdominal pain. No abdominal distention. No nausea or vomiting. No fever or chills. No other complaints otherwise. Her potassium level at time of admission was at 7.3. The patient received insulin with dextrose along with bicarb and calcium. No complications related was given. EKG is not showing any acute changes consistent with potassium cardiotoxicity. Her EKG showing controlled atrial fibrillation. The chest x- ray showed cardiomegaly and changes consistent with CHF with pulmonary vessel congestion. She is currently on 2 L of oxygen by nasal cannula and his saturations around 95%. The patient will be started on dialysis soon. The patient is seen again today in follow-up 06/07/2016 in the intensive care unit. She did require some pressor support throughout the evening and currently on levophed at 4 mcg/m. Her current potassium is 6.2, creatinine 4.90 She did undergo dialysis yesterday and the plan is for repeat dialysis today. She denies any worsening shortness of breath, cough or congestion. She is maintaining good O2 saturations in the mid 90s on 2 L/m per nasal cannula. She's been afebrile. No leukocytosis. She's been initiated on vancomycin. Her left breast is slightly improved today as compared to yesterday. An ultrasound is pending. Dopplers of the lower extremity is negative. X-ray of the right lower extremity is negative for fracture. There is some continued pain and bruising. No open areas no weeping. The patient is seen again today 06/08/2016 in follow-up on the regular medical floor. She is awake and alert in no acute distress. She is receiving hemodialysis as scheduled. She does have continued complaints of loose stool. She has no pulmonary complaints. No shortness of breath, cough or congestion. The cellulitis of the left breast and lower extremities both appear improved today as compared to yesterday. The ultrasound of the breasts revealed a 3.1 x 1.2 x 2.9 cm oval, circumscribed, solid, homogeneously, Isoechoic lesion without vascularity at 2:00. Venous Doppler of the lower extremities were negative. The patient is seen again today 06/09/2016. She is awake and alert in no acute distress, she is currently receiving hemodialysis. She denies any worsening shortness of breath at this time. No cough or congestion. Her left breast inflammation is improved and less painful. The cellulitis of the lower extremities has also improved. She is seen again today 06/10/2016 in follow-up on the regular medical floor. She is awake and alert in no acute distress. She did improve after her hemodialysis treatment yesterday. The plan is for discharge home today. She is again instructed regarding the importance of strict follow-up with her dialysis treatments. She currently denies any shortness of breath, cough or congestion. Her left breast cellulitis and lower extremity cellulitis has improved. Blood cultures revealed no growth. Objective - Vital Signs Vital signs: Vital Signs Temp 96.8 F L 06/10/16 07:00 Pulse 72 06/10/16 11:17 Resp 16 06/10/16 07:00 BP 83/50 06/10/16 07:00 Pulse Ox 98 06/10/16 07:16 Intake & Output 06/09/16 06/10/16 06/10/16 18:59 06:59 18:59 Intake Total 250 Balance 250 Weight 78.5 kg Intake: IV 0 0.9 normal saline 0 Intake, IV Titration 250 Amount Vancomycin 1,500 mg In 250 Sodium Chloride 0.9% 250 ml @ 125 mls/hr IVPB ONCE ONE Rx#:[id number] Other: Voiding Method Toilet Toilet # Voids 0 - Exam GENERAL EXAM: Alert, active, comfortable in no apparent distress. HEAD: Normocephalic. EYES: Normal reaction of pupils, equal size. NOSE: Clear with pink turbinates. THROAT: There is crowding the posterior pharynx. Short. No erythema or exudates. NECK: No masses, no JVD. CHEST: No chest wall deformity. LUNGS: Equal air entry with crackles in the posterior bases.. CVS: S1 and S2 normal with no audible murmurs, regular rhythm. ABDOMEN: Obese, normal bowel sounds, no guarding or rigidity. SKIN: Cellulitis of the lower extremities, left breast. CENTRAL NERVOUS SYSTEM: No focal deficits, tone is normal in all 4 extremities. Extremities: Redness and edema of the lower extremities. Ecchymosis of the right lateral lower extremity. Peripheral pulses are intact. - Labs CBC & Chem 7: 06/09/16 07:59 06/10/16 08:38 Labs: Abnormal Lab Results - Last 24 Hours (Table) 06/09/16 06/09/16 06/10/16 Range/Units 16:49 21:06 07:33 BUN (7-17) mg/dL Creatinine (0.52-1.04) mg/dL Glucose (74-99) mg/dL POC Glucose (mg/dL) 114 H 158 H 114 H (75-99) mg/dL 06/10/16 06/10/16 Range/Units 08:38 11:36 BUN 29 H (7-17) mg/dL Creatinine 4.09 H (0.52-1.04) mg/dL Glucose 152 H (74-99) mg/dL POC Glucose (mg/dL) 146 H (75-99) mg/dL Assessment and Plan Plan: Assessment 1 acute shortness of breath on top of chronic hypoxic respiratory failure. The patient is in CHF/fluid overload that the patient missed a session of dialysis days ago and she's been off dialysis for almost 4 days. 2 acute hyperkalemia secondary to above 3 end-stage renal disease on hemodialysis, 3 times a week, TTS 4 left breast mastitis, improved. Ultrasound revealed no vascularity but there is a lesion at 2:00. Recommended biopsy in the outpatient setting. 5 lower extremity cellulitis suspected with chronic edema in lower extremities with negative Dopplers for DVT 6 multivessel coronary artery disease, not candidate for any interventions. The patient has been involved in previous NSTEMI 7 CHF with impaired LV function of 30-35% ejection fraction 8 chronic atrial fibrillation, not a candidate for anticoagulation 9 chronic bronchial asthma 10 obstructive sleep apnea. 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 Plan: The patient was seen and evaluated by Dr. Hernandez. She is cleared for discharge from the pulmonary standpoint. We'll continue with her current medications. She'll follow-up in our office in 1-2 weeks' time. She is encouraged to call sooner with any recurrence of symptoms or other questions or concerns. Discharge planning did discuss with the patient the possible need for guardian to assure the patient does continue with hemodialysis compliance which may be considered at a later date.
[2016-06-10 13:46] LABS: Anisocytosis Slight; CH 35.7; CHCM 29.6; HCT 34.1 % (34.0-46.0); HDW 2.38; HGB 10.4 gm/dL (11.4-16.0); Hypochromasia Marked; MCH 36.9 pg (25.0-35.0); MCHC 30.4 g/dL (31.0-37.0); MCV 121.4 fL (80.0-100.0); Macrocytosis Marked; Mean Platelet Volume 8.3; RBC 2.81 m/uL (3.80-5.40); RDW 16.5 % (11.5-15.5); WBC 6.4 k/uL (3.8-10.6)
[2016-06-10 16:08] VITALS: PULSE 80
--- NOTE | 2016-06-11 10:52 | DS ---
DATE OF ADMISSION: 06/06/2016 DATE OF DISCHARGE: 06/10/2016 DATE OF SERVICE: 06/10/2016 FINAL DIAGNOSES: 1. Congestive heart failure acute exacerbation with acute on chronic systolic dysfunction, ejection fraction 35% to 40 % with fluid overload secondary to missed hemodialysis. 2. Chronic kidney disease, stage IV, on hemodialysis. 3. Possible left breast cellulitis and mastitis or breast lesion. Recommend ultrasound and core biopsy as outpatient. 4. Severe hyperkalemia from missed hemodialysis and renal failure improving. 5. 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 6. Gait dysfunction and severe weakness. 7. Degenerative joint disease because of the knee joints. 8. Anemia, normocytic, anemia of chronic disease. 9. Paroxysmal atrial fibrillation, not a candidate for anticoagulation. 10. History of chronic intermittent asthma. 11. History of cerebrovascular accident, transient ischemic attack. 12. History of diabetes mellitus type 2. 13. Essential hypertension. 14. Hyperlipidemia. 15. Multivessel coronary artery disease with history of myocardial infarction, stent. 16. Sleep apnea. 17. Obesity, body mass index 31.4. 18. Diabetic peripheral neuropathy. 19. Remote history of nicotine dependence. 20. Lower extremity cellulitis, chronic edema. Doppler negative for deep venous thrombosis. 21. Hypotension on Midrin. 22. Medical debility, declining ECF. 23. NO CODE, NO CPR, NO VENTILATOR. DISCHARGE DISPOSITION: The patient will be discharged in a stable condition with guarded prognosis. Total time taken 35 minutes. HISTORY OF PRESENT ILLNESS: This 75-year-old woman with a past medical history of shortness of breath and CHF after missed hemodialysis. Patient complains of some diarrhea, which the patient says is the cause for missed hemodialysis; but, however, after admission, the diarrhea subsided .The patient also had breast ultrasound, results are as above. Recommend outpatient followup. The patient was seen by Dr. Hernandez during the hospitalization and Dr. Riddle for the kidney failure and care was coordinated. No chest pain or palpitation. On exam, alert and oriented x2. Vitals are stable. CARDIOVASCULAR SYSTEM: S1, S2 muffled. RESPIRATORY: A few scattered rhonchi. ABDOMEN: Soft. NERVOUS SYSTEM: No focal deficits. DISCHARGE ADVICE: 1. Diet is cardiac. 2. Activity limited until followup. 3. Follow up with Dr. Hernandez in 2 to 3 days. 4. Follow up with for breast biopsy. 5. Follow up with Dr. Riddle in one week. 6. Follow up with Dr. Hernandez as recommended. The home medications are: 1. Albuterol 2.5 q.i.d. and p.r.n. 2. Zyloprim 100 mg p.o. daily. 3. Ecotrin 81 mg p.o. daily. 4. Symbicort 2 puffs b.i.d. 5. Vitamin D3, 5000 daily. 6. Plavix 75 mg p.o. daily. 7. Vitamin B12, 500 mcg p.o. daily. 8. Colace 100 mg p.o. daily. 9. esomoprazole 40 mg p.o. daily. 10. Zetia 10 mg q.h.s. 11. Folic acid 1 p.o. daily. 12. Neurontin 300 mg p.o. daily. 13. [place] 5 mg q.6 p.r.n. 14. Humalog scale. 15. Imdur ER 60 mg p.o. daily. 16. Zaroxolyn 2.5 mg q.48 hours. 17. Lopressor 12.5 mg p.o. b.i.d. 18. ProAmatine 10 mg a.c. t.i.d. 19. Singulair 10 mg p.o. daily. 20. Nitrostat 0.4 sublingual p.r.n. 21. Mirapex 0.25 mg q.h.s. 22. Renvela 800 mg a.c. t.i.d. 23. Demadex 20 mg p.o. daily. 24. Guaifenesin 200 mg p.o. t.i.d. p.r.n. 25. Trazodone 75 mg q.h.s. p.r.n. Once again, the patient will be discharged in stable condition with guarded prognosis. Follow up with Dr. Hines regarding the recurrent chronic diarrhea. [facility]
== END 2016-06-10 17:15 | disposition home health service (06) | DRG 291 ==
LOC: EC 12:01 → 6ICU 14:59 → 4MS4W 06-07 19:35
PROVIDERS: ADMIT Hospitalist; ATTEND Hospitalist
PROC: 5A1D60Z (ICD-10-PCS; principal; 2016-06-06)
DX: I13.0 Hypertensive heart and chronic kidney disease with heart failure and stage 1 through stage 4 chronic kidney disease, or unspecified chronic kidney disease (principal); I50.23 Acute on chronic systolic (congestive) heart failure; N18.4 Chronic kidney disease, stage 4 (severe); I95.89 Other hypotension; J96.11 Chronic respiratory failure with hypoxia; N17.9 Acute kidney failure, unspecified; I27.2 Other secondary pulmonary hypertension; E11.21 Type 2 diabetes mellitus with diabetic nephropathy; L03.115 Cellulitis of right lower limb; I69.354 Hemiplegia and hemiparesis following cerebral infarction affecting left non-dominant side; L03.116 Cellulitis of left lower limb; I42.9 Cardiomyopathy, unspecified; E11.42 Type 2 diabetes mellitus with diabetic polyneuropathy; Z99.81 Dependence on supplemental oxygen; E87.5 Hyperkalemia; I48.0 Paroxysmal atrial fibrillation; N61.0 Mastitis without abscess; Z99.2 Dependence on renal dialysis; Z91.15 Patient's noncompliance with renal dialysis; J45.20 Mild intermittent asthma, uncomplicated; K21.9 Gastro-esophageal reflux disease without esophagitis; E78.5 Hyperlipidemia, unspecified; I25.2 Old myocardial infarction; M17.11 Unilateral primary osteoarthritis, right knee; D63.8 Anemia in other chronic diseases classified elsewhere; E11.22 Type 2 diabetes mellitus with diabetic chronic kidney disease; J44.9 Chronic obstructive pulmonary disease, unspecified; Z86.14 Personal history of Methicillin resistant Staphylococcus aureus infection; E11.319 Type 2 diabetes mellitus with unspecified diabetic retinopathy without macular edema; M10.9 Gout, unspecified; I25.10 Atherosclerotic heart disease of native coronary artery without angina pectoris; G47.33 Obstructive sleep apnea (adult) (pediatric); M89.9 Disorder of bone, unspecified; E66.9 Obesity, unspecified; Z68.34 Body mass index [BMI] 34.0-34.9, adult; R26.2 Difficulty in walking, not elsewhere classified; R19.7 Diarrhea, unspecified; F32.9 Major depressive disorder, single episode, unspecified; Z66 Do not resuscitate; Z90.710 Acquired absence of both cervix and uterus; Z87.891 Personal history of nicotine dependence; Z95.5 Presence of coronary angioplasty implant and graft; Z98.42 Cataract extraction status, left eye; Z98.41 Cataract extraction status, right eye; Z90.49 Acquired absence of other specified parts of digestive tract; Z90.721 Acquired absence of ovaries, unilateral; Z82.49 Family history of ischemic heart disease and other diseases of the circulatory system; Z83.3 Family history of diabetes mellitus; Z79.02 Long term (current) use of antithrombotics/antiplatelets; Z79.82 Long term (current) use of aspirin; Z79.4 Long term (current) use of insulin; Z79.51 Long term (current) use of inhaled steroids; Z79.899 Other long term (current) drug therapy
CPT/HCPCS: 36415; 71020; 80048; 80053; 80202; 82550; 82553; 83036; 83735; 83880; 84100; 84132; 84484; 85025; 85027; 85610; 85730; 87040; 89055; 90935; 93005; 93970; 94640; 94760; 96365; 96366; 96375; 99285

== ENCOUNTER → 2016-07-25 | Day surgery (SDC) | payer MEDICARE, BC ==
[~2016-07-25] MED LIST: ALPRAZolam 0.25 MG TAB ONE; BACITRACIN OINT 1 EACH PACKET TOPICAL ONE; LIDOCAINE 1% INJ 10MG/ML (20 ML MDV) ONE; LIDOCAINE 1%-EPI 1:100,000 20 ML VIAL ONE
[2016-07-25 12:43] LABS: INR 1.2 (<1.1)
[2016-07-25 12:44] LABS: Partial Thromboplastin Time 23.9 sec (22.0-30.0)
--- NOTE | 2016-07-25 13:51 | USB ---
EXAMINATION TYPE: US biopsy breast VAD LT DATE OF EXAM: 07/25/2016 1:42 PM CLINICAL HISTORY: Breast Mass N63. TECHNIQUE: Ultrasound guided core biopsy of left breast. COMPARISON: NONE FINDINGS: The procedure of ultrasound guided core biopsy was explained to the patient. Benefits, alternatives, and risks were discussed. An informed consent was then obtained. The patient was placed in supine positioning for imaging and for the procedure. The overlying skin was prepped and draped in usual sterile fashion. Lidocaine was used as anesthetic into the skin and subcutaneous tissue up to area of concern in the left breast. Under ultrasound guidance, a 12-gauge vacuum assisted biopsy gun device was used to obtain 6 core samples. Following this, a biopsy clip was left in lesion. The patient tolerated the procedure well without any immediate complication. The patient was kept in the radiology department for short stay after the procedure and then discharged home in stable condition. IMPRESSION: SUCCESSFUL ULTRASOUND-GUIDED VAD BIOPSY OF THE LEFT BREAST. Pathology Results: Benign BREAST, LEFT, CORE BIOPSY: BENIGN ADIPOSE TISSUE SUGGESTIVE OF A LIPOMA. Recommendation Follow up mammogram of both breasts in 6 months. BELLA
== END ==
LOC: RADUSWWP 10:57
PROVIDERS: ATTEND Surgery
DX: N63 Unspecified lump in breast (principal); Z88.5 Allergy status to narcotic agent; Z88.8 Allergy status to other drugs, medicaments and biological substances
CPT/HCPCS: 88305; 85610; 85730; 19083; A4648; J2001

== ENCOUNTER 2016-08-09 07:41 | Inpatient (IN) | payer MEDICARE, BC ==
--- NOTE | 2016-08-09 07:56 | ED ---
General Adult HPI - General Stated complaint: Alter mental status Time Seen by Provider: 08/09/16 07:45 Source: EMS, RN notes reviewed Mode of arrival: EMS Limitations: altered mental status, physical limitation - History of Present Illness Initial comments: Patient is unresponsive 76-year-old female presenting to the emergency department by EMS, priority 1. Patient reportedly was found in the bathroom unable to get up. EMS reported decreased responsiveness and snoring respirations. They state patient did somewhat improve responsiveness in route however has limited ability to communicate at this time. Patient is unable to provide any history. Unclear if history of similar symptoms previously. - Related Data Home Medications Medication Instructions Recorded Confirmed Aspirin EC [Ecotrin Low Dose] 81 mg PO DAILY 03/10/15 06/06/16 Budesonide/Formoterol Fumarate 2 puff INHALATION RT-BID 03/10/15 06/06/16 [Symbicort 160-4.5 Mcg Inhaler] Cholecalciferol [Vitamin D3] 5,000 unit PO DAILY 03/10/15 06/06/16 Clopidogrel [Plavix] 75 mg PO DAILY 03/10/15 06/06/16 Cyanocobalamin [Vitamin B-12] 500 mcg PO DAILY 03/10/15 06/06/16 Esomeprazole Magnesium [NexIUM] 40 mg PO DAILY 03/10/15 06/06/16 Montelukast [Singulair] 10 mg PO DAILY 03/10/15 06/06/16 Sevelamer [Renvela] 800 mg PO AC-TID 03/10/15 06/06/16 traZODone HCL 75 mg PO HS PRN 03/10/15 06/06/16 Isosorbide Mononitrate ER [Imdur] 60 mg PO DAILY 09/14/15 06/06/16 Ezetimibe [Zetia] 10 mg PO HS 01/17/16 06/06/16 Allopurinol [Zyloprim] 100 mg PO DAILY 04/25/16 06/06/16 Pramipexole [Mirapex] 0.25 mg PO HS 04/25/16 06/06/16 Docusate [Colace] 100 mg PO DAILY 05/19/16 06/06/16 Gabapentin [Neurontin] 300 mg PO DAILY 05/19/16 06/06/16 HYDROcodone/APAP 5-325MG [[place] 1 tab PO Q6H PRN 05/19/16 06/06/16 5-325] Metolazone [Zaroxolyn] 2.5 mg PO Q48H 05/19/16 06/06/16 Torsemide [Demadex] 20 mg PO DAILY 05/19/16 06/06/16 Previous Rx's Medication Instructions Recorded Nitroglycerin Sl Tabs [Nitrostat] 0.4 mg SUBLINGUAL Q5M PRN #0 tab 03/26/15 Albuterol Nebulized [Ventolin 2.5 mg INHALATION RT-QID #120 nebu 05/26/16 Nebulized] Folic Acid-Vit B Complex-Vit C 1 each PO DAILY@1200 #30 cap 05/26/16 [Nephrocaps] INSULIN LISPRO (HumaLOG) [humaLOG] 0 unit SQ ACHS #1 vial 05/26/16 Metoprolol Tartrate [Lopressor] 12.5 mg PO BID #60 tab 05/26/16 Midodrine [ProAmatine] 10 mg PO AC-TID tab 05/26/16 guaiFENesin SYRUP 100MG/5ML 200 mg PO TID PRN #0 cup 05/26/16 [Robitussin] Allergies Allergy/AdvReac Type Severity Reaction Status Date / Time atropine sulfate Allergy Rash/Hives Verified 08/09/16 09:41 [From Lomotil] cephalexin monohydrate Allergy Rash/Hives Verified 08/09/16 09:41 [From Keflex] diphenoxylate HCl Allergy Rash/Hives Verified 08/09/16 09:41 [From Lomotil] ibuprofen Allergy Swelling Verified 08/09/16 09:41 baclofen AdvReac Hallucinati Verified 08/09/16 09:41 ons tramadol AdvReac Hallucinati Verified 08/09/16 09:41 ons Review of Systems ROS Statement: Those systems with pertinent positive or pertinent negative responses have been documented in the HPI. ROS Other: All systems not noted in ROS Statement are negative. Limitations: ROS unobtainable due to patients medical condition Past Medical History Past Medical History: Atrial Fibrillation, Asthma, Heart Failure, CVA/TIA, Diabetes Mellitus, Dialysis, GERD/Reflux, Hyperlipidemia, Hypertension, Myocardial Infarction (CT), Osteoarthritis (OA), Renal Disease Additional Past Medical History / Comment(s): Obesity,hiatal [id number] LITERS N /C, bronchial asthma, obstructive sleep apnea-"has cPAP but does'nt use it", peripheral neuropathy, congestion heart failure with ejection fraction of 35-40% , multivessel coronary artery disease with previous myocardial infarction, atrial fibrillation, history of CVA with some residual left-sided weakness, renal failure and the patient has end-stage renal disease and currently she is on hemodialysis 3 times a week(t--[facility] [place]), diabetes mellitus, gout, chronic ulceration of the lower extremity with episodic cellulitis of the legs,spoke with infection control-no documeated mrsa on record her but had history of MSSA ALONG WITH GRAM-NEGATIVE INFECTION INCLUDING ACINETOBACTER AND STENOTROPHOMONAS LT ANKLE 12-16-15 , previous history of Klebsiella pneumonia urine checked infection,osteoporsois, diverticular dx Last Myocardial Infarction Date:: September 22, 2007 History of Any Multi-Drug Resistant Organisms: None Reported Past Surgical History: Bowel Resection, Heart Catheterization With Stent, Hysterectomy Additional Past Surgical History / Comment(s): Spur removal in bilateral feet twice and left shoulder once , cataracts removed, bowel resection for a previous bowel obstruction, left oophorectomy for a benign tumor, hysterectomy, right oophorectomy, colonoscopy , fistulogram angioplasty arterial limb stenosis of fistual(lt arm) Past Anesthesia/Blood Transfusion Reactions: No Reported Reaction Date of Last Stent Placement:: September 22, 2007 Past Psychological History: Depression Additional Psychological History / Comment(s): patient currently lives at home with her son. Patient states she uses a walker at home stated lt leg drags a bit since stroke, patient uses senior bus to get to appointments, visiting nurse . Difficulties getting to her dialysis appointments. PT stated has some depression d/t all medical problems but no thoughts of wanting to harm self. Smoking Status: Former smoker Past Alcohol Use History: None Reported Additional Past Alcohol Use History / Comment(s): STARTED SMOKING AT AGE 18 SMOKED 1.5 PPD ,QUIT 2007 Past Drug Use History: None Reported - Past Family History Mother Additional Family Medical History / Comment(s): pt stated was unknown. stated she had an iron lung. at age 31 Father Family Medical History: COPD, Diabetes Mellitus, Myocardial Infarction (CT) Additional Family Medical History / Comment(s): at age 90. Sister(s) Family Medical History: Diabetes Mellitus Son(s) Family Medical History: Deep Vein Thrombosis (DVT), Myocardial Infarction (CT) General Exam Limitations: altered mental status, physical limitation General appearance: alert, other (Nonverbal. Does not follow commands.) Head exam: Present: atraumatic Eye exam: Present: other (Left pupil nonreactive) ENT exam: Present: normal oropharynx Neck exam: Absent: tenderness Respiratory exam: Present: normal lung sounds bilaterally Cardiovascular Exam: Present: regular rate, irregular rhythm, other (Pulses diminished throughout) GI/Abdominal exam: Present: soft. Absent: tenderness Extremities exam: Present: pedal edema. Absent: calf tenderness Neurological exam: Present: alert, altered Expanded Neurological exam: Present: protecting the airway, other (Unable to assess extraocular muscles. Unable to assess sensation. Patient has movement of the right side spontaneously. Left arm does not move with pain. Minimal left leg movement to pain. Unable to assess finger-nose. Limited exam.) Eye Response: (4) open spontaneously Motor Response: (4) withdraws to pain Verbal Response: (3) inappropriate words Psychiatric exam: Present: other (Nonverbal) Skin exam: Present: other (Purplish colored feet with cap refill approximately 3 seconds) Course Vital Signs 08/09/16 08/09/16 07:45 08:00 Temperature 96.7 F L Pulse Rate 97 86 Respiratory 22 18 Rate Blood Pressure 119/82 119/62 O2 Sat by Pulse 97 95 Oximetry - Reevaluation(s) Reevaluation #1: 08/09/16 07:57 EMS questions if onset was a half an hour prior to arrival however is not certain upon this. Family is not present at this time. At this time onset is unknown. EMS did state that family stated patient was more responsive prior to their arrival. 08/09/16 08:28 Patient reevaluated and significantly improved. Patient is alert and oriented 3. Patient is able to move all extremities however does have decreased strength in all extremities, left side is weaker than the right side. Patient states she feels more weak than normal throughout. Patient also complains of nausea. Patient does not recall this morning at all. Onset is still unclear. Patient is not a TPA candidate at this time secondary to significant improvement of symptoms and unclear onset. 08/09/16 08:40 Case was discussed with neuro interventionalist Dr. Zhang who agrees patient is not a TPA candidate. He also questions possible seizure. He does want CTA done. He also recommends fluids and aspirin and Lipitor. He does question why patient is not on a stronger anticoagulant other than Plavix. 08/09/16 10:22 Patient refused CTA. EKG Findings - EKG Comments: EKG Findings:: A. fib with rate of 93. QRS 120. QT 370. QTc 460. Right axis. Right bundle branch block. No acute ST change. Medical Decision Making - Medical Decision Making Patient reexamined several times. Patient was updated and results and plan. No family present. Case discussed with Dr. Pires, who will admit for hospital call. Patient has received seen Dr. veras - Lab Data Result diagrams: 08/09/16 07:45 08/09/16 08:40 Lab Results 08/09/16 08/09/16 08/09/16 Range/Units 07:45 07:45 07:45 WBC 6.7 (3.8-10.6) k/uL RBC 3.38 L (3.80-5.40) m/uL Hgb 11.9 (11.4-16.0) gm/dL Hct 38.6 (34.0-46.0) % MCV 114.2 H D (80.0-100.0) fL MCH 35.3 H (25.0-35.0) pg MCHC 31.0 (31.0-37.0) g/dL RDW 14.9 (11.5-15.5) % Plt Count 163 (150-450) k/uL Neutrophils % 63 % Lymphocytes % 23 % Monocytes % 6 % Eosinophils % 3 % Basophils % 1 % Neutrophils # 4.2 (1.3-7.7) k/uL Lymphocytes # 1.6 (1.0-4.8) k/uL Monocytes # 0.4 (0-1.0) k/uL Eosinophils # 0.2 (0-0.7) k/uL Basophils # 0.0 (0-0.2) k/uL Manual Slide Review Performed Hypochromasia Moderate Macrocytosis Marked PT 12.1 H (9.0-12.0) sec INR 1.2 (<1.1) APTT 23.1 (22.0-30.0) sec Sodium (137-145) mmol/L Potassium (3.5-5.1) mmol/L Chloride (98-107) mmol/L Carbon Dioxide (22-30) mmol/L Anion Gap mmol/L BUN (7-17) mg/dL Creatinine (0.52-1.04) mg/dL Est GFR (MDRD) Af Amer (>60 ml/min/1.73 sqM) Est GFR (MDRD) Non-Af (>60 ml/min/1.73 sqM) Glucose (74-99) mg/dL POC Glucose (mg/dL) (75-99) mg/dL POC Glu Apparatus Repair Mechanic ID Calcium (8.4-10.2) mg/dL Total Bilirubin (0.2-1.3) mg/dL AST (14-36) U/L ALT (9-52) U/L Alkaline Phosphatase (38-126) U/L Total Creatine Kinase 41 (30-135) U/L CK-MB (CK-2) 2.0 (0.0-2.4) ng/mL CK-MB (CK-2) Rel Index 4.9 Troponin I 0.039 H* (0.000-0.034) ng/mL Total Protein (6.3-8.2) g/dL Albumin (3.5-5.0) g/dL 08/09/16 08/09/16 Range/Units 07:49 08:40 WBC (3.8-10.6) k/uL RBC (3.80-5.40) m/uL Hgb (11.4-16.0) gm/dL Hct (34.0-46.0) % MCV (80.0-100.0) fL MCH (25.0-35.0) pg MCHC (31.0-37.0) g/dL RDW (11.5-15.5) % Plt Count (150-450) k/uL Neutrophils % % Lymphocytes % % Monocytes % % Eosinophils % % Basophils % % Neutrophils # (1.3-7.7) k/uL Lymphocytes # (1.0-4.8) k/uL Monocytes # (0-1.0) k/uL Eosinophils # (0-0.7) k/uL Basophils # (0-0.2) k/uL Manual Slide Review Hypochromasia Macrocytosis PT (9.0-12.0) sec INR (<1.1) APTT (22.0-30.0) sec Sodium 137 (137-145) mmol/L Potassium 7.5 H* (3.5-5.1) mmol/L Chloride 98 (98-107) mmol/L Carbon Dioxide 26 (22-30) mmol/L Anion Gap 13 mmol/L BUN 41 H (7-17) mg/dL Creatinine 5.26 H* (0.52-1.04) mg/dL Est GFR (MDRD) Af Amer 10 (>60 ml/min/1.73 sqM) Est GFR (MDRD) Non-Af 8 (>60 ml/min/1.73 sqM) Glucose 159 H (74-99) mg/dL POC Glucose (mg/dL) 164 H (75-99) mg/dL POC Glu Apparatus Repair Mechanic ID Eugenio Ko Calcium 9.2 (8.4-10.2) mg/dL Total Bilirubin 1.4 H (0.2-1.3) mg/dL AST 27 (14-36) U/L ALT 27 (9-52) U/L Alkaline Phosphatase 123 (38-126) U/L Total Creatine Kinase (30-135) U/L CK-MB (CK-2) (0.0-2.4) ng/mL CK-MB (CK-2) Rel Index Troponin I (0.000-0.034) ng/mL Total Protein 7.4 (6.3-8.2) g/dL Albumin 3.6 (3.5-5.0) g/dL Critical Care Time Critical Care Time: Yes Total Critical Care Time: 33 Disposition Clinical Impression: Chronic renal failure, Hyperkalemia, CVA (cerebral vascular accident) Disposition: ADMITTED IP TO THIS [facility] Condition: Serious Referrals: None,Stated [Primary Care Provider] - 1-2 days Time of Disposition: 10:23
[2016-08-09 08:07] LABS: Basophils % (A) 1 %; CH 34.3; CHCM 30.2; Eosinophils # (A) 0.2 k/uL (0-0.7); Eosinophils % (A) 3 %; HCT 38.6 % (34.0-46.0); HDW 2.56; HGB 11.9 gm/dL (11.4-16.0); Hypochromasia Moderate; Luc # (Auto) 0.28; Luc % (Auto) 4; Lymphocytes # (A) 1.6 k/uL (1.0-4.8); Lymphocytes % (A) 23 %; MCH 35.3 pg (25.0-35.0); Macrocytosis Marked; Mean Platelet Volume 8.2; Monocytes # (A) 0.4 k/uL (0-1.0); Monocytes % (A) 6 %; Neutrophils # (A) 4.2 k/uL (1.3-7.7); Neutrophils % (A) 63 %; RBC 3.38 m/uL (3.80-5.40); RDW 14.9 % (11.5-15.5); WBC 6.7 k/uL (3.8-10.6); WBC (Perox) 7.02
[2016-08-09 08:08] LABS: MCV 114.2 fL (80.0-100.0)
[2016-08-09 08:08] LABS: Glucose,Whole Blood 164 mg/dL (75-99)
--- NOTE | 2016-08-09 08:18 | CT ---
EXAMINATION TYPE: CT brain wo con for TPA DATE OF EXAM: 08/09/2016 HISTORY: Fall, altered mental status CT DLP: 2292.5 mGycm. Automated Exposure Control for Dose Reduction was Utilized. TECHNIQUE: CT scan of the head is performed without contrast. COMPARISON: CT brain September 18, 2015. FINDINGS: Exam is suboptimal as is degraded by motion artifact even on repeat sequences There is no acute intracranial hemorrhage or midline shift identified. There is diffuse ventricular and sulcal p rominence consistent with diffuse age-related cerebral atrophy. There is low-attenuation in the bertha ventricular white matter consistent with chronic small vessel ischemic change. Area of old infarct h igh right frontal parietal region is redemonstrated, this is slightly more prominent in appearance, c annot exclude acute on chronic infarct at this level. The globes are intact and the visualized sinuse s are clear. IMPRESSION: Suboptimal study without acute intracranial hemorrhage or midline shift. There is modera te diffuse age-related cerebral atrophy and chronic small vessel ischemic change noted. There is old infarct high right frontal parietal region. Acute on chronic infarct cannot be excluded at this leve l as hypodense area is more prominent. Need to further investigate by MRI should be based on clinical correlation.
--- NOTE | 2016-08-09 08:22 | CT ---
EXAMINATION TYPE: CT cervical spine wo con DATE OF EXAM: 08/09/2016 COMPARISON: NONE HISTORY: Fall CT DLP: 433.5 mGycm. Automated Exposure Control for Dose Reduction was Utilized. TECHNIQUE: CT scan of the cervical spine is obtained without contrast, axial images are obtained, sa gittal and coronal reformatted images are also reviewed. FINDINGS: Exam is suboptimal as is degraded by patient motion. Cervical spine is visualized in its en tirety from C1 through upper thoracic levels, demonstrates exaggerated cervical curvature without con vincing evidence of acute fracture or dislocation. Prevertebral soft tissue appears within normal li mits. The C1-C2 articulation is within normal limits on the coronal images. Vertebral body heights a re maintained. There is mild to moderate disc space narrowing C4-C5 level. No large posterior disc he rniations are present. Osseous structures are demineralized. Review of axial images shows right-sided uncovertebral facet degenerative changes contributing to mil d to moderate right-sided neural foraminal narrowing at C2-C3 and C3-C4 levels. Uncovertebral facet d egenerative changes as well as marginal spurring contributes to moderate bilateral neural foraminal n arrowing at C4-C5 level. Right-sided uncovertebral facet degenerative changes at C5-C6 level are note d. Motion artifact in the lungs is identified making evaluation suboptimal. No pneumothorax is seen. Thyroid gland is somewhat small in size. Moderate calcified atherosclerotic change is seen in the ao rtic arch. IMPRESSION: Suboptimal study without acute fracture or dislocation clearly evident in the cervical sp ine.
[2016-08-09] MEDS ORDERED: ONDANSETRON 4 MG/2 ML VIAL IVP STA (08:29)
[2016-08-09 08:31] LABS: INR 1.2 (<1.1); Partial Thromboplastin Time 23.1 sec (22.0-30.0); Prothrombin Time 12.1 sec (9.0-12.0)
[2016-08-09 08:35] LABS: Troponin I 0.039 ng/mL (0.000-0.034)
[2016-08-09] MEDS ORDERED: ATORVASTATIN 80 MG TAB PO STA (08:39)
[2016-08-09] MEDS ORDERED: ASPIRIN 81 MG CHEW PO STA (08:39)
[2016-08-09] MEDS ORDERED: SODIUM CHLORIDE 0.9% 1,000 ML IV STA (08:39)
[2016-08-09] MEDS ORDERED: RX INFO: IV CONTRAST WAS GIVEN 1 EACH MISC MISCELLANE PRN (08:39)
[2016-08-09 08:45] LABS: Manual Review Performed
[2016-08-09] MEDS ORDERED: HYDROcodone/APAP 5-325MG 1 EACH TAB PO STA (09:07)
[2016-08-09 09:15] LABS: Calcium 9.2 mg/dL (8.4-10.2); Total Bilirubin 1.4 mg/dL (0.2-1.3); Total Protein 7.4 g/dL (6.3-8.2)
--- NOTE | 2016-08-09 09:24 | XR ---
EXAMINATION TYPE: XR chest 1V portable DATE OF EXAM: 08/09/2016 COMPARISON: Chest x-ray August 05, 2016. Older chest x-ray June 24, 2016. HISTORY: Altered mental status. TECHNIQUE: Single frontal view of the chest is obtained. FINDINGS: There is redemonstration of cardiomegaly with atherosclerotic thoracic aorta. Underlying s coliosis is present. Osseous structures are demineralized. Reticular interstitial changes are redemon strated bilaterally. There is persistent left basilar scarring and/or atelectasis. No new focal airsp jose de jesus opacity, pleural effusion, or pneumothorax is seen bilaterally. IMPRESSION: Chronic interstitial changes and cardiomegaly without suspicious acute infiltrate.
[2016-08-09 09:26] LABS: Potassium 7.5 mmol/L (3.5-5.1)
[2016-08-09] MEDS ORDERED: FUROSEMIDE 10 MG/ML 4 ML VIAL IV STA (09:53)
[2016-08-09] MEDS ORDERED: CALCIUM GLUCONATE 1,000 MG in SODIUM CHLORIDE 0.9% 100 ML IVPB ONE (10:00)
[2016-08-09] MEDS: SODIUM CHLORIDE 0.9% 1,000 ML IV SCH ×2 (10:29→21:20)
[2016-08-09] MEDS: SODIUM POLYSTYRENE SULFONATE 15 GM/60 ML BOTTLE PO STA ×2 (10:29→10:34)
[2016-08-09 11:45] LABS: Glucose,Whole Blood 154 mg/dL (75-99)
[2016-08-09] MEDS ORDERED: MIDODRINE 5 MG TAB PO ONE (13:37)
[2016-08-09] MEDS ORDERED: MIDODRINE 5 MG TAB PO PRN (13:49)
[2016-08-09] MEDS ORDERED: GELATIN SPONGE,ABSORB (SMALL) 1 EACH SPONGE ONE (14:30)
[2016-08-09] MEDS ORDERED: diphenhydrAMINE 25 MG CAP PO PRN (16:23)
[2016-08-09] MEDS ORDERED: NITROGLYCERIN SL TABS 0.4 MG TAB SUBLINGUAL PRN (16:23)
[2016-08-09] MEDS ORDERED: ACETAMINOPHEN TAB 500 MG TAB PO PRN (16:23)
[2016-08-09] MEDS ORDERED: CYCLOBENZAPRINE 5 MG TAB PO PRN (16:23)
[2016-08-09] MEDS ORDERED: NON-FORMULARY DRUG (Midodrine Hcl [Proamatine] 10 MG) PO SCH (16:30)
[2016-08-09 16:44] LABS: Hepatitis B Surface Ag Index 0.09
[2016-08-09 16:53] LABS: Glucose,Whole Blood 135 mg/dL (75-99)
[2016-08-09 17:02] LABS: Hepatitis B Surface Antibody Negative (Negative)
--- NOTE | 2016-08-09 17:37 | US ---
EXAMINATION TYPE: US carotid duplex BILAT DATE OF EXAM: 08/09/2016 COMPARISON: NONE CLINICAL HISTORY: Stenosis. EXAM MEASUREMENTS: RIGHT: Peak Systolic Velocity (PSV) cm/sec ----- Right CCA: 53.1 ----- Right ICA: 222.7 ----- Right ECA: 100.1 ICA/CCA ratio: 4.2 RIGHT: End Diastole cm/sec ----- Right CCA: 17.6 ----- Right ICA: 44.9 ----- Right ECA: 0.0 LEFT: Peak Systolic Velocity (PSV) cm/sec ----- Left CCA: 48.4 ----- Left ICA: 404.9 ----- Left ECA: 91.0 ICA/CCA ratio: 8.4 LEFT: End Diastole cm/sec ----- Left CCA: 9.1 ----- Left ICA: 83.4 ----- Left ECA: 0.0 VERTEBRALS (direction of flow): Right Vertebral: Antegrade Left Vertebral: Antegrade Patient unable to cooperate with examiner, had to sit upright during test, unable to stop snoring, pu lsatile vessels. High velocities in bilateral ICA's significant stenosis. Severe plaque. Arrythmia. IMPRESSION: There is a limited exam due to lack of patient cooperation. There are bilateral elevated velocities in the internal carotid arteries is suggested more than 70% stenosis and probably 90% aamir nosis in the internal carotid arteries. There is antegrade flow in the vertebral arteries. There is significant bilateral plaque formation. Criteria for Assigning % of Stenosis / Diameter reduction (Estimation based on the indirect measurements of the internal carotid artery velocities (ICA PSV). 1. Normal (no stenosis)=ICA PSV < 125 cm/s: ratio < 2.0: ICA EDV<40 cm/s. 2. Less than 50% stenosis=ICA PSV < 125 cm/s: ratio < 2.0: ICA EDV<40 cm/s. 3. 50 to 69% stenosis=ICA PSV of 125 to 230 cm/s: ration 2.0 ? 4.0: ICA EDV 40-100 cm/s. 4. Greater than 70% stenosis to near occlusion= ICA PSV > 230 cm/s: ratio > 4.0: ICA EDV > 100 cm/s. 5. Near occlusion= ICA PSV velocities may be low or undetectable: variable ratio and ICA EDV. 6. Total occlusion=unable to detect flow.
[2016-08-09] MEDS: MIDODRINE 5 MG TAB PO SCH (17:46)
[2016-08-09] MEDS: SEVELAMER 800 MG TAB PO SCH (17:46)
[2016-08-09] MEDS: INSULIN LISPRO (humaLOG) 300 UNIT/3 ML VIAL SQ SCH ×5 (17:46→21:20)
[2016-08-09] MEDS: METOLAZONE 2.5 MG TAB PO SCH (17:46)
[2016-08-09] MEDS: SYMBICORT 160-4.5 MCG INHALER INHALATION SCH (19:45)
[2016-08-09] MEDS: ALBUTEROL NEBULIZED 2.5 MG/3 ML INHALATION SCH (19:45)
[2016-08-09 20:33] LABS: Glucose,Whole Blood 126 mg/dL (75-99)
[2016-08-09] MEDS ORDERED: INSULIN DETEMIR 100 UNIT/ML 10 ML VIAL SQ SCH (21:00)
[2016-08-09] MEDS: HYDROcodone/APAP 10-325MG 1 EACH TAB PO PRN (21:09)
[2016-08-09] MEDS: PRAMIPEXOLE 0.5 MG TAB PO SCH (21:10)
[2016-08-09] MEDS: GABAPENTIN 300 MG CAP PO SCH (21:10)
[2016-08-09] MEDS: ALLOPURINOL 100 MG TAB PO SCH (21:10)
[2016-08-09] MEDS: EZETIMIBE 10 MG TAB PO SCH (21:10)
[2016-08-09] MEDS: ALPRAZolam 0.25 MG TAB PO SCH (21:10)
[2016-08-09] MEDS: METOPROLOL TARTRATE 12.5 MG TAB PO SCH (21:10)
[2016-08-09] MEDS: MONTELUKAST 10 MG TAB PO SCH (21:10)
--- NOTE | 2016-08-09 21:15 | P.CNNES ---
History of Present Illness Consult date: 08/09/16 Requesting physician: Lizandro Anderson Reason for Consult: CVA Chief complaint: CVA History of Present Illness: Neurology requested to consult on a 76-year-old female who was brought to the emergency department after she was found unable to get up and ambulate after a fall to the bathroom floor. EMS reported decreased responsiveness and snoring respirations. Patient did somewhat improve in the emergency department and was admitted for further follow-up and observation. Patient does have a known history of left upper and lower extremity weakness due to prior CVA. Patient stated that she is having ongoing falls while at home when attempting to ambulate. She also states she is having increased dizziness with positional changes. Patient has not followed up with primary car for any further investigation or diagnostic workup. Patient is an active dialysis patient. Patient states she is mostly compliant with her dialysis schedule, however nursing reports that the patient is largely noncompliant and has significant variation in her dialysis. At contact, patient was supine in bed, Alert and oriented 3, distribution technician present, patient's niece was also present at the bedside. Niece states that the patient is much more confused than normal. However, the niece does not see the patient on a regular basis. Upon speaking with the patient, she was noted to have mild dysarthria and mild dysphagia. Nursing and previously reported that she had failed a swallow study earlier today. Niece reports that patient's presentation with the exception of her increased confusion is consistent with her baseline. Review of Systems All systems not previously noted in HPI or negative Past Medical History Past Medical History: Atrial Fibrillation, Asthma, Heart Failure, CVA/TIA, Diabetes Mellitus, Dialysis, GERD/Reflux, Hyperlipidemia, Hypertension, Myocardial Infarction (CO), Osteoarthritis (OA), Renal Disease Additional Past Medical History / Comment(s): Obesity, hiatal hernia, 02-2 LITERS N/C, bronchial asthma, obstructive sleep apnea-"has cPAP but does'nt use it", peripheral neuropathy, congestion heart failure with ejection fraction of 35-40%, multivessel coronary artery disease with previous myocardial infarction , paroxysmal atrial fibrillation, history of CVA with some residual left-sided weakness, renal failure and the patient has end-stage renal disease and currently she is on hemodialysis 3 times a week(), diabetes mellitus type II, gout, chronic ulceration of the lower extremity with episodic cellulitis of the legs, no documented mrsa on record her but had history of MSSA ALONG WITH GRAM-NEGATIVE INFECTION INCLUDING ACINETOBACTER AND STENOTROPHOMONAS LT ANKLE 12-15- , previous history of Klebsiella pneumonia, UTI, osteoporsois, diverticular dx, hepatitis-type unknown. Last Myocardial Infarction Date:: September 22, 2007 History of Any Multi-Drug Resistant Organisms: None Reported Past Surgical History: Bowel Resection, Heart Catheterization With Stent, Hysterectomy Additional Past Surgical History / Comment(s): Spur removal in bilateral feet twice and left shoulder once , cataracts removed, bowel resection for a previous bowel obstruction, left oophorectomy for a benign tumor, hysterectomy, right oophorectomy, colonoscopy , fistulogram angioplasty arterial limb stenosis of fistual(lt arm) Past Anesthesia/Blood Transfusion Reactions: No Reported Reaction Date of Last Stent Placement:: September 22, 2007 Past Psychological History: Depression Additional Psychological History / Comment(s): Patient currently lives at home with her son. Patient states she uses a walker at home stated lt leg drags a bit since stroke, patient uses [place] bus to get to appointments. 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 O2 at 2L/NC ATC. PT stated has some depression d/t all medical problems but no thoughts of wanting to harm self. Smoking Status: Former smoker Past Alcohol Use History: None Reported Additional Past Alcohol Use History / Comment(s): STARTED SMOKING AT AGE 18 SMOKED 1.5 PPD ,QUIT 2007 Past Drug Use History: None Reported - Past Family History Mother Additional Family Medical History / Comment(s): pt stated was unknown. stated she had an iron lung. at age 31 Father Family Medical History: COPD, Diabetes Mellitus, Myocardial Infarction (CO) Additional Family Medical History / Comment(s): at age 90. Sister(s) Family Medical History: Diabetes Mellitus Son(s) Family Medical History: Deep Vein Thrombosis (DVT), Myocardial Infarction (CO) Medications and Allergies Home Medications Medication Instructions Recorded Confirmed Type Aspirin EC [Ecotrin Low Dose] 81 mg PO DAILY 03/10/15 08/09/16 History Budesonide/Formoterol Fumarate 2 puff INHALATION RT-BID 03/10/15 06/06/16 History [Symbicort 160-4.5 Mcg Inhaler] Clopidogrel [Plavix] 75 mg PO DAILY 03/10/15 08/09/16 History Cyanocobalamin [Vitamin B-12] 500 mcg PO DAILY 03/10/15 08/09/16 History Esomeprazole Magnesium [NexIUM] 40 mg PO DAILY 03/10/15 08/09/16 History Sevelamer [Renvela] 800 mg PO AC-TID 03/10/15 08/09/16 History Isosorbide Mononitrate ER [Imdur] 60 mg PO DAILY 09/14/15 08/09/16 History Ezetimibe [Zetia] 10 mg PO HS 01/17/16 08/09/16 History Allopurinol [Zyloprim] 100 mg PO TID 04/25/16 08/09/16 History Metolazone [Zaroxolyn] 2.5 mg PO Q48H 05/19/16 08/09/16 History Torsemide [Demadex] 20 mg PO DAILY 05/19/16 08/09/16 History ALPRAZolam [Xanax] 0.5 mg PO TID 08/09/16 08/09/16 History Acetaminophen Tab [Tylenol Tab] 500 mg PO Q6H PRN 08/09/16 History Albuterol Nebulized [Ventolin 2.5 mg INHALATION RT-Q4H PRN 08/09/16 08/09/16 History Nebulized] Cholecalciferol [Vitamin D3] 5,000 unit PO DAILY 08/09/16 08/09/16 History Cyclobenzaprine [Flexeril] 5 mg PO DAILY PRN 08/09/16 History Furosemide [Lasix] 40 mg PO DAILY PRN 08/09/16 History Gabapentin [Gabapentin] 600 mg PO BID 08/09/16 08/09/16 History Hydrocodone/Acetaminophen [[place] 1 tab PO Q4H PRN 08/09/16 08/09/16 History 10-325] Hydrocodone/Acetaminophen [[place] 1 each PO Q6H PRN 08/09/16 08/09/16 History 5-325 Tablet] Insulin Aspart [NovoLOG Flexpen] 13 units SQ AC-SUPPER 08/09/16 08/09/16 History Insulin Aspart [NovoLOG Flexpen] 14 units SQ AC-BRKFST 08/09/16 08/09/16 History Insulin Detemir [Levemir Flextouch] 26 units SQ HS 08/09/16 08/09/16 History Lidocaine-Prilocaine Cream [Emla 1 applic TOPICAL DIRECTED 08/09/16 History Cream 2.5%/2.5%] Metoprolol Tartrate [Lopressor] 12.5 mg PO BID 08/09/16 08/09/16 History Midodrine HCl [ProAmatine] 10 mg PO DIRECTED 08/09/16 08/09/16 History Montelukast Sodium [Singulair] 10 mg PO HS 08/09/16 08/09/16 History Pramipexole [Mirapex] 0.5 mg PO TID 08/09/16 08/09/16 History Spironolactone [Aldactone] 25 mg PO DAILY 08/09/16 History Zinc Oxide 20% Oint TOPICAL TID 08/09/16 History diphenhydrAMINE HCL [Benadryl] 25 - 50 mg PO HS PRN 08/09/16 History Allergies Allergy/AdvReac Type Severity Reaction Status Date / Time atropine sulfate Allergy Rash/Hives Verified 08/09/16 09:41 [From Lomotil] cephalexin monohydrate Allergy Rash/Hives Verified 08/09/16 09:41 [From Keflex] diphenoxylate HCl Allergy Rash/Hives Verified 08/09/16 09:41 [From Lomotil] ibuprofen Allergy Swelling Verified 08/09/16 09:41 baclofen AdvReac Hallucinati Verified 08/09/16 09:41 ons tramadol AdvReac Hallucinati Verified 08/09/16 09:41 ons Physical Examination - Vital Signs Vital Signs: Vital Signs Temp Pulse Pulse Resp BP BP Pulse Ox 08/09/16 20:01 68 08/09/16 19:49 68 08/09/16 16:37 96.3 F L 68 18 80/49 96 08/09/16 11:10 96.9 F L 59 L 20 105/58 95 08/09/16 10:45 96.9 F L 76 18 108/65 97 08/09/16 10:15 82 18 111/56 96 08/09/16 10:00 66 18 98/57 96 08/09/16 09:45 70 18 87/55 96 08/09/16 09:30 68 18 98/54 96 08/09/16 09:15 86 18 101/56 96 08/09/16 09:00 82 18 103/65 96 08/09/16 08:45 78 18 111/63 96 08/09/16 08:30 86 18 95 08/09/16 08:15 86 18 103/57 97 08/09/16 08:00 86 18 119/62 95 08/09/16 07:45 96.7 F L 97 22 119/82 97 Intake and Output 08/09/16 08/09/16 08/09/16 06:59 14:59 22:59 Intake Total 60 120 Balance 60 120 Intake: Intake, IV Titration 60 Amount Sodium Chloride 0.9% 1, 60 000 ml @ 100 mls/hr IV . Q10H ZAKI Rx#:[id number] Oral 120 Other: # Voids 0 Weight 172.3 kg Patient Weight 08/10/16 06:59 Weight 172.3 kg Constitutional: AOx3, cooperative HEENT: NC/AT, no facial asymmetry is seen. Throat: Supple, no masses Respiratory: increased work of breathing, Patient on supplemental oxygen Cardiac: Regular rate and Rhythm GI: non tender, non distended Musculoskeletal: Severe weakness the bilateral upper or lower extremities. Significant lower extremity edema and cellulitis noted. Neurological: CN II-XII in tact, patient was AOx3, speech Was slurred but appropriate, Left-sided upper and lower extremity unilateralizing weakness Greater than right, no seizure activity note on physical exam. Sensation was Greater in the right upper and lower extremities. Integementary: no rash, no erythema Psychiatric: mood and affect appropriate Results - Laboratory Findings CBC and BMP: 08/09/16 07:45 08/09/16 10:42 Abnormal Lab Findings: Abnormal Labs 08/09/16 08/09/16 08/09/16 07:45 07:45 07:45 RBC 3.38 L MCV 114.2 H D MCH 35.3 H PT 12.1 H Potassium BUN Creatinine Glucose POC Glucose (mg/dL) Total Bilirubin Troponin I 0.039 H* 08/09/16 08/09/16 08/09/16 07:49 08:40 10:42 RBC MCV MCH PT Potassium 7.5 H* 7.3 H* BUN 41 H Creatinine 5.26 H* Glucose 159 H POC Glucose (mg/dL) 164 H Total Bilirubin 1.4 H Troponin I 08/09/16 08/09/1617 11:43 16:47 20:31 RBC MCV MCH PT Potassium BUN Creatinine Glucose POC Glucose (mg/dL) 154 H 135 H 126 H Total Bilirubin Troponin I Assessment and Plan (1) Carotid stenosis Status: Acute (2) CVA (cerebral vascular accident) Status: Acute (3) Chronic renal failure Status: Acute (4) History of CVA (cerebrovascular accident) Status: Acute (5) Non-compliant behavior Status: Acute (6) Weakness Status: Acute Plan: History of prior CVA/rule out acute CVA: Patient has a history of left upper and lower extremity weakness due to prior infarct. CT of the brain noted acute on chronic infarct cannot be excluded and MRI correlation recommended. I did discuss with the patient risks, benefits and alternatives related to declining the MRI of the brain. Patient refused MRI of the brain multiple times. Serum homocysteine level, lipid panel and EEG have all been ordered and are pending. Continue neuro checks. Continue anticoagulation with aspirin and Plavix as previously ordered. Continue lipid management as previously ordered. Altered mental status/confusion: Patient's altered mental status/confusion appears to be multifactorial. Patient is only intermittently compliant with dialysis. Further, patient's carotid Doppler noted 70-90% occlusion in the internal carotid arteries. Recommend vascular consult. Patient does have a history of atrial fibrillation, although the patient does have documented significant carotid stenosis, the patient is having difficulty with balance and positional changes. Patient is also noted to have hyperkalemia based on laboratory results. Recommend cardiology consult. Weakness: Patient is known to have a history of left upper and lower extremity weakness secondary to CVA as well as underlying mobility difficulty secondary to cellulitis and lower extremity edema. Physical therapy is already on consult as well as occupational therapy. Continue management of the underlying etiology. Neurology will continue to follow and provide updates as needed or warranted. Feel free to contact our office with any questions.
--- NOTE | 2016-08-09 22:19 | CONS ---
DATE OF CONSULTATION: 08/09/2016 REASON FOR CONSULTATION: End-stage renal disease. HISTORY OF PRESENT ILLNESS: Patient is a 76-year-old white female with a history of end-stage renal disease on hemodialysis on a Monday, , Monday schedule. She was admitted to the hospital with complaints of weakness. The patient stated that she fell as her muscles just gave way, as her knees just gave way and she could not stand. Patient was found to have a potassium of 7.5 mEq/L. She was dialyzed this morning. Upon further questioning the patient did admit to increased intake of potassium -containing foods. No chest pains. No fever, chills, nausea, vomiting or abdominal pain. PAST MEDICAL HISTORY: End-stage renal disease, COPD, coronary artery disease, pulmonary hypertension, type 2 diabetes, obesity, cardiomyopathy with ejection fraction of 35% to 40%, history of CVA, previous history of urinary tract infection, osteoporosis, diverticular disease, anemia of chronic disease, chronic kidney disease bone mineral disorder. PAST SURGICAL HISTORY: Bowel resection, cardiac catheterization and coronary stent placement, hysterectomy, cataract surgery, left oophorectomy, hysterectomy, and right oophorectomy and colonoscopy, left arm AV fistula with fistulogram and angioplasty of the arterial end. SOCIAL HISTORY: The patient is an ex-smoker. No history of drug abuse or alcohol abuse. REVIEW OF SYSTEMS: As per HPI. Other systems negative. Medications at home included: 1. Aspirin. 2. Vitamin D3. 3. Plavix. 4. Vitamin B12. 5. Singulair. 6. Renvela. 7. Imdur. 8. Zyloprim. 9. Zetia. 10. Mirapex. 11. Colace. 12. Neurontin. 13. Zaroxolyn. 14. Demadex. 15. Nitrostat. 16. Ventolin. 17. Insulin. 18. Lopressor. 19. Midodrine. ALLERGIES: MULTIPLE INCLUDE BACLOFEN AND TRAMADOL, LOMOTIL, KEFLEX AND IBUPROFEN. On examination, the patient is currently comfortable. She is awake. She is not in any acute distress. Blood pressure has been around 105 systolic to 80 mmHg for systolic and diastolic ranging from 49 to 58 mmHg. Patient is afebrile. Heart rate about 68 per minute. Examination of the heart S1 and S2. Examination of the lungs: Bilateral breath sounds are heard. Decreased breath sounds in bases. ABDOMEN: Soft, obese, nontender. Examination of lower extremities shows chronic skin changes, chronic edema is noted which is fairly stable. SOLUTIONS DEVELOPMENT ANALYST exam is grossly intact. There is some residual right-sided weakness noted. Labs show sodium of 137, potassium 7.5, calcium was 9.2. ASSESSMENT: 1. End-stage renal disease on hemodialysis on a Monday, , Monday schedule via left arm AV fistula. Patient will be dialyzed today. 2. Severe hyperkalemia in a patient with end-stage renal disease and noncompliance with low potassium diet. She also does not have significant urine output which increases her risk for severe hyperkalemia. This is discussed with the patient and she seems to comprehend. I am not sure if she will continue to follow though. 3. Severe chronic obstructive pulmonary disease. 4. Previous history of fluid abuse and volume overload. 5. Chronic hypotension, maintained on Midodrine. 6. Cardiomyopathy with ejection fraction 35% to 40%. PLAN: Hemodialysis today and repeat labs in a.m. hopefully we will not need to repeat dialysis depending and this will be decided upon her potassium level.
--- NOTE | 2016-08-09 23:18 | HP ---
CHIEF COMPLAINTS: Weakness and hypotension. HISTORY OF PRESENT ILLNESS: This 76-year-old woman with a past medical history of multiple medical problems, including CHF acute exacerbation, chronic renal failure on hemodialysis, history of multiple electrolyte abnormalities, history of gait dysfunction, history of chronic intermittent asthma, CVA, TIA and diabetes mellitus type 2, hypertension, hyperlipidemia being followed by Dr. Hernandez in the outpatient setting, was admitted through the ER. The patient was brought to the emergency room by the EMS. The patient was found in the bathroom, unable to get up. Patient is also complaining of weakness and tiredness. EMS also noted some decreased responsiveness and ( ) also. The patient admitted for further evaluation and treatment. The blood pressure was found to be in the low ranges at 119/82 no acute distress the patient admitted with hemodialysis arranged with pulling of 1 L of ultrafiltration. No history of fevers, rigors, chills. PAST MEDICAL HISTORY: History of atrial fibrillation, history of asthma, CHF, CVA, TIA, diabetes mellitus type 2, hemodialysis, history of hypertension, hyperlipidemia, myocardial infarction, obesity, hiatal hernia, bowel resection. Medications prior to admission include home medications are: 1. Ecotrin 81 mg p.o. daily. 2. Zyloprim 100 mg p.o. daily. 3. Vitamin B12 500 mcg p.o. daily. 4. Plavix 75 mg p.o. daily. 5. Demadex 20 mg p.o. daily. 6. NovoLog FlexPen 14 units subcu a.c. breakfast, 8 units a.c. supper. 7. Imdur 60 mg p.o. daily. 8. Levemir 26 units subcu q.h.s. 9. Zaroxolyn 2.5 mg q.48 hours. 10. Nitrostat 0.4 sublingual p.r.n. 11. ( ) 0.4 t.i.d. 12. [place] 10 mg q.4 p.r.n. 13. Gabapentin 600 mg p.o. b.i.d. 14. Lopressor 25 mg p.o. b.i.d. 15. Renvela 10 mg p.o. a.c. t.i.d. 16. Albuterol 2.5 q.4 p.r.n. 17. Xanax 0.25 t.i.d. 18. Midodrine 10 mg p.r.n. 19. Benadryl. 20. Aldactone. 21. EMLA cream. 22. Lasix. 23. Nexium. 24. Flexeril. 25. Vitamin D3. 26. Symbicort. 27. Tylenol and 28. Zetia. FAMILY HISTORY: History of COPD, myocardial infarction, diabetes mellitus in the family. SOCIAL HISTORY: History of smoking. No history of current smoking or alcohol intake. REVIEW OF SYSTEMS: ENT: Diminishing hearing. Diminished vision. CARDIOVASCULAR: No angina, palpitations. RESPIRATORY: As mentioned earlier. GI: No nausea. : No dysuria. NERVOUS: As mentioned earlier. ALLERGY/IMMUNOLOGY: No asthma or hay fever. MUSCULOSKELETAL: As mentioned earlier. HEMATOLOGY/ONCOLOGY: No history of anemia. ENDOCRINE: As mentioned earlier. CONSTITUTIONAL: As mentioned earlier. DERMATOLOGY: Negative. RHEUMATOLOGY: Negative. PSYCHIATRY: As mentioned earlier. PHYSICAL EXAMINATION: Alert and oriented x3. Pulse 80, respirations 18, blood pressure 119/62, respirations 18, temperature 96.7, pulse ox 97% on 2L. HEENT: Conjunctivae normal. NECK: No jugular venous distension. CARDIOVASCULAR: S1 and S2 muffled. RESPIRATORY: Breath sounds diminished in the bases. A few scattered rhonchi and crackles. ABDOMEN: Soft and nontender. No mass palpable. LEGS: No edema. No swelling. NERVOUS SYSTEM: Higher function as mentioned. Moves all 4 limbs. No focal motor or sensory deficits. Diffusely weak. LYMPHATIC: No lymphadenopathy in neck, axillae or groins. SKIN: No ulcer, rash or bleeding. LABS: WBC 6.6, hemoglobin is 11.9, MCV 14.2. Potassium is 7.5 and creatinine 5.26. Troponin 0.039. The patient also had a CT scan of the brain, showed suboptimal study, moderate diffuse age-related atrophy, old infarct in the high right frontoparietal region and chronic infarct. ASSESSMENT: 1. Change in mental status, metabolic encephalopathy, possibly acute transient ischemic attack or stroke. 2. Old right frontal infarct on the CAT scan. 3. Relative hypotension. 4. History of congestive heart failure with chronic systolic dysfunction, ejection fraction 35% to 40%. 5. Chronic kidney disease stage 5 on hemodialysis. 6. Hyperkalemia secondary to chronic kidney disease. 7. History of atrioventricular fistula. 8. History of gait dysfunction. 9. History of degenerative joint disease. 10. Paroxysmal atrial fibrillation, not a candidate for anticoagulation. 11. History of chronic intermittent asthma. 12. History of cerebrovascular accident, transient ischemic attack. 13. History of essential hypertension. 14. Hyperlipidemia. 15. Multivessel coronary artery disease with a history of myocardial infarction and stent. 16. Sleep apnea. 17. Obesity, body mass index of 31.4. 18. Diabetic peripheral neuropathy. 19. Remote history of nicotine dependence. 20. Lower extremity cellulitis and edema. 21. Hypotension on Midrin. 22. Medical debility, declining extended care facility. 23. NO CODE, NO CARDIOPULMONARY RESUSCITATION, NO VENTILATOR. RECOMMENDATIONS AND DISCUSSION: In this 75-year-old woman who presented with multiple complex medical issues, will monitor the patient closely. Continue with current medications and symptomatic treatment. Will on the hemodialysis ultra filter only 1 L. Will continue the rest of the medications. The possibility of TIA is a consideration. I would recommend Neurology consultation and neurovascular workup. Continue to follow with Nephrology. Guarded prognosis because of multiple complex medical issues. Further recommendations to follow.
[2016-08-10 06:17] LABS: Basophils % (A) 1 %; CH 34.3; CHCM 29.5; Eosinophils # (A) 0.3 k/uL (0-0.7); Eosinophils % (A) 6 %; HGB 10.5 gm/dL (11.4-16.0); Hypochromasia Marked; Luc # (Auto) 0.17; Luc % (Auto) 4; Lymphocytes # (A) 0.8 k/uL (1.0-4.8); Lymphocytes % (A) 17 %; MCV 116.7 fL (80.0-100.0); Macrocytosis Marked; Mean Platelet Volume 7.9; Monocytes # (A) 0.4 k/uL (0-1.0); Monocytes % (A) 7 %; Neutrophils # (A) 3.1 k/uL (1.3-7.7); Neutrophils % (A) 66 %; RDW 14.7 % (11.5-15.5); WBC 4.8 k/uL (3.8-10.6); WBC (Perox) 4.69
[2016-08-10 06:20] LABS: Glucose,Whole Blood 68 mg/dL (75-99)
[2016-08-10 06:21] LABS: Calcium 8.7 mg/dL (8.4-10.2)
[2016-08-10 06:24] LABS: Potassium 6.7 mmol/L (3.5-5.1)
[2016-08-10] MEDS: INSULIN LISPRO (humaLOG) 300 UNIT/3 ML VIAL SQ SCH ×6 (06:24→21:05)
[2016-08-10] MEDS: SODIUM CHLORIDE 0.9% 1,000 ML IV SCH ×3 (06:24→23:13)
[2016-08-10] MEDS: PANTOPRAZOLE 40 MG TABLET PO SCH (06:27)
[2016-08-10] MEDS: MIDODRINE 5 MG TAB PO SCH ×3 (06:27→17:37)
[2016-08-10 06:37] LABS: Glucose,Whole Blood 85 mg/dL (75-99)
[2016-08-10] MEDS: SEVELAMER 800 MG TAB PO SCH ×3 (07:02→17:37)
[2016-08-10] MEDS: ALBUTEROL NEBULIZED 2.5 MG/3 ML INHALATION SCH ×4 (07:48→19:04)
[2016-08-10] MEDS: SYMBICORT 160-4.5 MCG INHALER INHALATION SCH ×2 (07:48→19:04)
[2016-08-10] MEDS ORDERED: ISOSORBIDE MONONITRATE ER 60 MG TAB.ER.24H PO SCH (09:00)
[2016-08-10] MEDS ORDERED: ASPIRIN 325 MG TAB PO SCH (09:00)
[2016-08-10] MEDS: ALPRAZolam 0.25 MG TAB PO SCH ×3 (09:10→23:13)
[2016-08-10] MEDS: PRAMIPEXOLE 0.5 MG TAB PO SCH ×3 (09:11→20:27)
[2016-08-10] MEDS: GABAPENTIN 300 MG CAP PO SCH ×2 (09:11→20:27)
[2016-08-10] MEDS: CHOLECALCIFEROL 1,000 UNIT TAB PO SCH (09:12)
[2016-08-10] MEDS: METOPROLOL TARTRATE 12.5 MG TAB PO SCH ×2 (09:12→20:31)
[2016-08-10] MEDS: CLOPIDOGREL 75 MG TAB PO SCH (09:12)
[2016-08-10] MEDS: ALLOPURINOL 100 MG TAB PO SCH ×2 (09:12→20:27)
[2016-08-10] MEDS: SPIRONOLACTONE 25 MG TAB PO SCH (09:13)
[2016-08-10] MEDS: CYANOCOBALAMIN 500 MCG TAB PO SCH (09:13)
[2016-08-10] MEDS: TORSEMIDE 20 MG TAB PO SCH (09:13)
[2016-08-10] MEDS: ASPIRIN 81 MG CHEW PO SCH ×2 (09:17→09:24)
[2016-08-10 11:55] LABS: Hemoglobin A1C 6.5 % (4.2-6.1)
[2016-08-10 12:08] VITALS: BMI 31.4
[2016-08-10 12:33] LABS: Glucose,Whole Blood 48 mg/dL (75-99)
[2016-08-10] MEDS ORDERED: DEXTROSE 50%-WATER 50 ML SYRINGE IVP STA ×2 (12:50→12:55)
[2016-08-10 13:06] LABS: Glucose,Whole Blood 58 mg/dL (75-99)
[2016-08-10 13:06] LABS: Glucose,Whole Blood 254 mg/dL (75-99)
[2016-08-10 13:06] LABS: Glucose,Whole Blood 50 mg/dL (75-99)
--- NOTE | 2016-08-10 13:14 | PN ---
Patient is seen for followup for end-stage renal disease. She was admitted to the hospital with weakness and fall. She was found to have a potassium of 7.7 when ( ) drawn at initial admission. Patient was dialyzed yesterday. Her potassium today is still at 6.7. We will plan for a short treatment again today. Patient did admit to increasing her potassium containing food, which I discussed with her yesterday as well as today. On examination, blood pressure 97/55, heart rate 59 per minute. She is afebrile. EXAMINATION OF THE HEART: S1 and S2. EXAMINATION OF LUNGS: Bilateral breath sounds are heard. ABDOMEN: Soft, obese. Examination of lower extremities shows chronic skin changes, chronic edema noted bilaterally. Labs show sodium 136, potassium 6.7. Hemoglobin 10.5. ASSESSMENT: 1. End-stage renal disease on hemodialysis on a Monday, , Monday schedule. Patient will be dialyzed again today secondary to hyperkalemia. 2. Severe hyperkalemia on initial admission with a history of noncompliance with potassium restriction and diet. This was discussed with the patient yesterday and again today and hopefully she will comply down the road. We will arrange for another treatment of hemodialysis today. Patient will be dialyzed again tomorrow, which will be her regular day. 3. Anemia of chronic disease. 4. Chronic lower extremity edema. 5. Chronic obstructive pulmonary disease, maintained on home oxygen. 6. Generalized debility. 7. Chronic hypotension, maintained on midodrine. PLAN: Hemodialysis today and then again in the a.m. Maintain patient on low potassium diet.
[2016-08-10 16:30] LABS: Glucose,Whole Blood 71 mg/dL (75-99)
[2016-08-10 16:51] LABS: ABG PCO2 47 mmHg (35-45); ABG PH 7.36 (7.35-7.45); ABG PO2 86 mmHg (83-108)
[2016-08-10 16:52] LABS: ABG Base Excess 0.8 mmol/L; ABG HCO3 26 mmol/L (21-25); ABG TCO2 27 mmol/L (19-24)
--- NOTE | 2016-08-10 17:07 | P.CNPUL ---
History of Present Illness Consult date: 08/10/16 Chief complaint: altered mental status History of present illness: 76-year-old female patient, multiple medical problems and comorbidities, multiple hospitalizations, coming in yesterday to the burst department with altered mental status. Apparently the patient had a fall to the bathroom floor and she was unable to ambulate. The patient also had diminished level of consciousness, lethargic, had a change in her speech and was dysarthric, feeling very weak and for that reason the patient was admitted to the hospital and neurology consultation was requested. CAT scan of the brain showed an old stroke involving the right frontal area and the patient is known to have extensive cardiac disease and chronic atrial fibrillation and she has not been on anticoagulation no she has been a good candidate for surgical repair of the carotid arteries due to her various medical found to comorbidities. At the same time, the patient was found to be hypokalemic and she underwent a session of hemodialysis yesterday. Potassium level is down to 6.7 and the patient will have a second session of hemodialysis. Earlier this morning, the patient was having episodes of hypoglycemia that was treated. The patient also is running a lower blood pressure. I was able to arouse the patient. She is able to communicate for a short period of time and then she will go back to sleep if left unstimulated. Her blood gases showed a pH of 7.36 with a pCO2 of 46 and pO2 of 86 and this was done on 3 L of oxygen by nasal cannula. No respiratory distress. No aspiration. No seizure activity. No focal neurological deficits. Extremities without any major limitation. EEG was done this morning. Review of Systems 12 point review of system was done. The patient is still very weak and lethargic and obtunded. She is having difficulty with his speech and she is dysarthric. No headache. No neck stiffness. No fever. She underwent hemodialysis yesterday and second session will be done today. She does not produce any urine output. She has chronic edema lower extremities and there is no evidence of any cellulitis. She was investigated for a breast mass which turned out to be benign based on the most recent fine-needle aspirate. She was treated for a previous mastitis which recovered. She has had difficulties to keep her with her dialysis. On multiple occasions was hospitalized after not being dialyzed for almost a week and she had hospitalizations for hyperkalemia and fluid overload. She denies having any chest pain. No signs of any respiratory distress at this point. No open wounds or sores. ROS unobtainable: due to mental status Past Medical History Past Medical History: Atrial Fibrillation, Asthma, Heart Failure, CVA/TIA, Diabetes Mellitus, Dialysis, GERD/Reflux, Hyperlipidemia, Hypertension, Myocardial Infarction (HI), Osteoarthritis (OA), Renal Disease Additional Past Medical History / Comment(s): Coronary artery disease, carotid artery stenosis with hemodynamically significant lesions bilaterally at the patient was deemed not to be a surgical candidate, chronic atrial fibrillation on a candidate for anticoagulation, previous history of GI bleed, previous history of epistaxis, Obesity, hiatal hernia, 02-2 LITERS N/C, bronchial asthma , obstructive sleep apnea-"has cPAP but does'nt use it", peripheral neuropathy, congestion heart failure with ejection fraction of 35-40%, multivessel coronary artery disease with previous myocardial infarction, paroxysmal atrial fibrillation, history of CVA with some residual left-sided weakness, end-stage renal disease and currently she is on hemodialysis 3 times a week([facility]), diabetes mellitus type II, gout, chronic ulceration of the lower extremity with episodic cellulitis of the legs, no documented mrsa on record her but had history of MSSA ALONG WITH GRAM-NEGATIVE INFECTION INCLUDING ACINETOBACTER AND STENOTROPHOMONAS LT ANKLE 12-16-15 , previous history of Klebsiella pneumonia, UTI, mastitis, osteoporsois, diverticular dx, hepatitis-type unknown, recurrent bouts of cigarettes of the lower extremities, chronic anemia Last Myocardial Infarction Date:: September 22, 2007 History of Any Multi-Drug Resistant Organisms: None Reported Past Surgical History: Bowel Resection, Heart Catheterization With Stent, Hysterectomy Additional Past Surgical History / Comment(s): Spur removal in bilateral feet twice and left shoulder once , cataracts removed, bowel resection for a previous bowel obstruction, left oophorectomy for a benign tumor, hysterectomy, right oophorectomy, colonoscopy , fistulogram angioplasty arterial limb stenosis of fistual(lt arm) Past Anesthesia/Blood Transfusion Reactions: No Reported Reaction Date of Last Stent Placement:: September 22, 2007 Past Psychological History: Depression Additional Psychological History / Comment(s): Patient currently lives at home with her son. Patient states she uses a walker at home stated lt leg drags a bit since stroke, patient uses senior bus to get to appointments. 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 O2 at 2L/NC ATC. PT stated has some depression d/t all medical problems but no thoughts of wanting to harm self. Smoking Status: Former smoker Past Alcohol Use History: None Reported Additional Past Alcohol Use History / Comment(s): STARTED SMOKING AT AGE 18 SMOKED 1.5 PPD ,QUIT 2007 Past Drug Use History: None Reported - Past Family History Mother Additional Family Medical History / Comment(s): pt stated was unknown. stated she had an iron lung. at age 31 Father Family Medical History: COPD, Diabetes Mellitus, Myocardial Infarction (HI) Additional Family Medical History / Comment(s): at age 90. Sister(s) Family Medical History: Diabetes Mellitus Son(s) Family Medical History: Deep Vein Thrombosis (DVT), Myocardial Infarction (HI) Medications and Allergies Home Medications Medication Instructions Recorded Confirmed Type Aspirin EC [Ecotrin Low Dose] 81 mg PO DAILY 03/10/15 08/09/16 History Budesonide/Formoterol Fumarate 2 puff INHALATION RT-BID 03/10/15 06/06/16 History [Symbicort 160-4.5 Mcg Inhaler] Clopidogrel [Plavix] 75 mg PO DAILY 03/10/15 08/09/16 History Cyanocobalamin [Vitamin B-12] 500 mcg PO DAILY 03/10/15 08/09/16 History Esomeprazole Magnesium [NexIUM] 40 mg PO DAILY 03/10/15 08/09/16 History Sevelamer [Renvela] 800 mg PO AC-TID 03/10/15 08/09/16 History Isosorbide Mononitrate ER [Imdur] 60 mg PO DAILY 09/14/15 08/09/16 History Ezetimibe [Zetia] 10 mg PO HS 01/17/16 08/09/16 History Allopurinol [Zyloprim] 100 mg PO TID 04/25/16 08/09/16 History Metolazone [Zaroxolyn] 2.5 mg PO Q48H 05/19/16 08/09/16 History Torsemide [Demadex] 20 mg PO DAILY 05/19/16 08/09/16 History ALPRAZolam [Xanax] 0.5 mg PO TID 08/09/16 08/09/16 History Acetaminophen Tab [Tylenol Tab] 500 mg PO Q6H PRN 08/09/16 History Albuterol Nebulized [Ventolin 2.5 mg INHALATION RT-Q4H PRN 08/09/16 08/09/16 History Nebulized] Cholecalciferol [Vitamin D3] 5,000 unit PO DAILY 08/09/16 08/09/16 History Cyclobenzaprine [Flexeril] 5 mg PO DAILY PRN 08/09/16 History Furosemide [Lasix] 40 mg PO DAILY PRN 08/09/16 History Gabapentin [Gabapentin] 600 mg PO BID 08/09/16 08/09/16 History Hydrocodone/Acetaminophen [[place] 1 tab PO Q4H PRN 08/09/16 08/09/16 History 10-325] Hydrocodone/Acetaminophen [[place] 1 each PO Q6H PRN 08/09/16 08/09/16 History 5-325 Tablet] Insulin Aspart [NovoLOG Flexpen] 13 units SQ AC-SUPPER 08/09/16 08/09/16 History Insulin Aspart [NovoLOG Flexpen] 14 units SQ AC-BRKFST 08/09/16 08/09/16 History Insulin Detemir [Levemir Flextouch] 26 units SQ HS 08/09/16 08/09/16 History Lidocaine-Prilocaine Cream [[place] 1 applic TOPICAL DIRECTED 08/09/16 History Cream 2.5%/2.5%] Metoprolol Tartrate [Lopressor] 12.5 mg PO BID 08/09/16 08/09/16 History Midodrine HCl [ProAmatine] 10 mg PO DIRECTED 08/09/16 08/09/16 History Montelukast Sodium [Singulair] 10 mg PO HS 08/09/16 08/09/16 History Pramipexole [Mirapex] 0.5 mg PO TID 08/09/16 08/09/16 History Spironolactone [Aldactone] 25 mg PO DAILY 08/09/16 History Zinc Oxide 20% Oint TOPICAL TID 08/09/16 History diphenhydrAMINE HCL [Benadryl] 25 - 50 mg PO HS PRN 08/09/16 History Allergies Allergy/AdvReac Type Severity Reaction Status Date / Time atropine sulfate Allergy Rash/Hives Verified 08/09/16 09:41 [From Lomotil] cephalexin monohydrate Allergy Rash/Hives Verified 08/09/16 09:41 [From Keflex] diphenoxylate HCl Allergy Rash/Hives Verified 08/09/16 09:41 [From Lomotil] ibuprofen Allergy Swelling Verified 08/09/16 09:41 baclofen AdvReac Hallucinati Verified 08/09/16 09:41 ons tramadol AdvReac Hallucinati Verified 08/09/16 09:41 ons Physical Exam Vitals: Vital Signs Temp Pulse Pulse Resp BP Pulse Ox 08/10/16 16:04 60 08/10/16 16:00 63 18 89/52 95 08/10/16 15:52 60 08/10/16 12:39 60 08/10/16 12:30 60 08/10/16 12:00 61 18 99/65 97 08/10/16 08:06 72 08/10/16 08:00 97.5 F L 59 L 18 97/55 96 08/10/16 07:49 72 08/10/16 03:42 97.5 F L 62 18 85/57 97 08/10/16 00:00 97.4 F L 65 17 76/42 99 08/09/16 20:01 68 08/09/16 20:00 97.7 F 69 18 101/54 97 08/09/16 19:49 68 Intake and Output 08/10/16 08/10/16 08/10/16 06:59 14:59 22:59 Intake Total 100 240 Balance 100 240 Intake: Oral 100 240 Other: # Voids 0 1 Weight 80.5 kg 80.5 kg Patient Weight 08/11/16 06:59 Weight 80.5 kg Patient is lethargic, sick looking, arousable, goes back to sleep if left unstimulated, nonacute respiratory distress, very debilitated and sick looking.Head exam was generally normal. There was no scleral icterus or corneal arcus. Mucous membranes were moist. Neck is supple and there is no stridor. Tongue is a bit swollen. She is able to move her tongue and there is no limitation. No thrush. Mucus from veins are dry. No neck stiffness. No adenopathy in the neck area. Lung sounds are diminished bilaterally along with some few bibasilar crackles. Heart sounds are irregular, possible sinus stool, faint grade 2/6 murmur heard throughout the precordium.Abdominal exam revealed normal bowel sounds. The abdomen was soft, non-tender, and without masses, organomegaly, or appreciable enlargement of the abdominal aorta. Organs cannot be accurately palpated due to obesity. Extremities show trace edema and it'll cyanosis or clubbing in lower extremities bilaterally. Neurologically, the patient has chronic weakness on the left compared to the right related to previous CVA. Pupils are equal and reactive to light. No facial asymmetry. She is able to swallow fine. Gait was not assessed. Speech is slurred and the patient is dysarthric. No aphasia. Results - Laboratory Findings CBC and BMP: 08/10/16 05:55 08/10/16 05:55 PT/INR, D-dimer PT 12.1 sec (9.0-12.0) H 08/09/16 07:45 INR 1.2 (<1.1) 08/09/16 07:45 Abnormal lab findings: Abnormal Labs 08/09/16 08/09/16 08/09/16 07:45 07:45 07:45 RBC 3.38 L Hgb MCV 114.2 H D MCH 35.3 H MCHC Plt Count Lymphocytes # PT 12.1 H Sodium Potassium BUN Creatinine Glucose POC Glucose (mg/dL) Hemoglobin A1c Total Bilirubin Troponin I 0.039 H* Homocysteine 08/09/16 08/09/16 08/09/16 07:49 08:40 10:42 RBC Hgb MCV MCH MCHC Plt Count Lymphocytes # PT Sodium Potassium 7.5 H* 7.3 H* BUN 41 H Creatinine 5.26 H* Glucose 159 H POC Glucose (mg/dL) 164 H Hemoglobin A1c Total Bilirubin 1.4 H Troponin I Homocysteine 08/09/16 08/09/16 08/09/16 11:43 16:47 20:31 RBC Hgb MCV MCH MCHC Plt Count Lymphocytes # PT Sodium Potassium BUN Creatinine Glucose POC Glucose (mg/dL) 154 H 135 H 126 H Hemoglobin A1c Total Bilirubin Troponin I Homocysteine 08/10/16 08/10/16 08/10/16 05:55 05:55 05:55 RBC Hgb MCV MCH MCHC Plt Count Lymphocytes # PT Sodium 136 L Potassium 6.7 H* BUN 25 H Creatinine 4.01 H Glucose 72 L POC Glucose (mg/dL) Hemoglobin A1c 6.5 H Total Bilirubin Troponin I Homocysteine 19.94 H 06/09/1908/10/16 08/10/16 05:55 06:18 12:23 RBC 3.00 L Hgb 10.5 L MCV 116.7 H MCH MCHC 30.0 L Plt Count 130 L Lymphocytes # 0.8 L PT Sodium Potassium BUN Creatinine Glucose POC Glucose (mg/dL) 68 L 48 L Hemoglobin A1c Total Bilirubin Troponin I Homocysteine 08/10/16 08/10/16 08/10/16 12:43 12:53 13:02 RBC Hgb MCV MCH MCHC Plt Count Lymphocytes # PT Sodium Potassium BUN Creatinine Glucose POC Glucose (mg/dL) 50 L 58 L 254 H Hemoglobin A1c Total Bilirubin Troponin I Homocysteine 08/10/16 16:28 RBC Hgb MCV MCH MCHC Plt Count Lymphocytes # PT Sodium Potassium BUN Creatinine Glucose POC Glucose (mg/dL) 71 L Hemoglobin A1c Total Bilirubin Troponin I Homocysteine - Diagnostic Findings Chest x-ray: image reviewed Assessment and Plan Plan: Assessment 1 altered mentation with slurred speech and dysarthria. Rule out underlying CVA. Rule out metabolic encephalopathy. CAT scan of the brain showed old chronic findings of a previous CVA. 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 She has a DNR/DNI CODE STATUS Plan Pulmonate status is stable. We will consult with nephrology regarding the hyperkalemia and the need for dialysis. We'll consult with urology regarding the altered mental status. The hypoglycemia was treated and the patient's insulin dose has been lowered and the Levemir is being given a dose of 15 units daily at bedtime in addition to Humalog with meals and a sliding scale coverage. Outpatient medication been ordered resume. Will monitor progress. May consider hospice if no improvement in her condition knowing that the patient has chronic debilitating illness and her life expectancy is very short. She is on a candidate for anticoagulation pH is not a candidate for any surgical intervention regarding the carotids. Treatment will be essentially supportive and medical.
[2016-08-10 17:25] LABS: Glucose,Whole Blood 129 mg/dL (75-99)
[2016-08-10] MEDS ORDERED: GELATIN SPONGE,ABSORB (SMALL) 1 EACH SPONGE ONE (19:00)
[2016-08-10] MEDS: EZETIMIBE 10 MG TAB PO SCH (20:27)
[2016-08-10] MEDS: MONTELUKAST 10 MG TAB PO SCH (20:27)
[2016-08-10] MEDS: HYDROcodone/APAP 10-325MG 1 EACH TAB PO PRN (20:38)
[2016-08-10 20:59] LABS: Glucose,Whole Blood 82 mg/dL (75-99)
[2016-08-10] MEDS ORDERED: INSULIN DETEMIR 100 UNIT/ML 10 ML VIAL SQ SCH (21:00)
--- NOTE | 2016-08-10 21:30 | CONS ---
DATE OF CONSULTATION: Patient is a 76-year-old female. She is known to me from the past. She has history of chronic renal failure on dialysis. Patient had multiple fistula placed in the past. The patient was at home and she noticed weakness and she could not get up and she was brought by the EMS to the emergency room. Patient has a history of CVA in the past which affected her left side involving upper and lower extremity. No recent history of amaurosis fugax or any evidence of any TIA. Patient had an ultrasound of the carotids which shows right side 70% left side about 90%. CT scan of the head showed no acute infarct or bleeding. Medical history includes history of atrial fibrillation, history of ( ), history of congestive heart failure, history of diabetes mellitus, history of hypertension, history of myocardial infarction. On examination, patient was seen in her room. Patient is having dialysis. Neck is cephalic. Chest has bilateral rhonchi. ABDOMEN: Soft. The patient has right-sided decent motor function, left side mild weakness noted. Ultrasound of the carotids showed right side 70, left side 90%. Patient refused to have MRI and according to the patient, she has difficulty in balancing. At this point, patient has multifactorial reason to have confusion. She is high risk for surgical intervention. We will discuss with the patient and we will discuss with the internal medicine about the pros and cons and we will follow with you.
--- NOTE | 2016-08-10 22:01 | P.PN ---
Subjective Principal diagnosis: CVA Neurology is following a 76-year-old female who presented to the ED after she was found unable to get up from and ambulated from a fall to the bathroom floor. EMS reported decreased responsiveness and snoring respirations. Patient did improve somewhat while in the ED but was admitted for further follow -up and observation. Patient does have a known history of left upper and left lower extremity weakness due to prior CVA. Patient stated that she is having ongoing falls while at home when attempting to ambulate. She also states she is having increased dizziness with positional changes. Patient has not followed up with primary care for any further investigation or diagnostic workup. Patient is an active dialysis patient. Patient states she is mostly compliant with her dialysis schedule however nursing reports that the patient is largely noncompliant and has significant variation in her dialysis. On contact today, the patient was supine in bed, alert and oriented 3. Upon speaking with the patient she was noted to have mild dysarthria and mild dysphagia. Patient had failed a swallow study yesterday. Patient does appear to be more alert and oriented since last seen. Other than patient's confusion, she had already returned to baseline previously on consult yesterday. Lengthy discussion occurred yesterday with the patient and family at the bedside regarding obtaining the recommended MRI of the brain. Patient declined MRI of the brain. Remaining neurological workup was requested which included EEG which has been taken and is pending, laboratory blood work including serum homocystine level, fasting lipid panel. Patient's serum homocystine level was found to be elevated and B12 was started by her primary care provider. Lipid panel was reviewed. Primary care provider has already started Lipitor 80 mg. Objective - Vital Signs Vital signs: Vital Signs Temp 97.2 F L 08/10/16 20:00 Pulse 67 08/10/16 20:00 Resp 18 08/10/16 20:00 BP 141/91 08/10/16 20:00 Pulse Ox 98 08/10/16 20:00 Intake & Output 08/10/16 08/10/16 08/11/16 06:59 18:59 06:59 Intake Total 385 360 100 Balance 385 360 100 Weight 80.5 kg 80.5 kg Intake: IV 160 100 Sodium Chloride 0.9% 1, 160 100 000 ml @ 100 mls/hr IV . Q10H ZAKI Rx#:[id number] Oral 225 360 Other: # Voids 0 1 - Exam Constitutional: AOx3, cooperative HEENT: NC/AT, no facial asymmetry is seen. Throat: Supple, no masses Respiratory: No increased work of breathing Cardiac: Regular rate and Rhythm GI: non tender, non distended Musculoskeletal: Dry End Operator strengths are Unequal bilaterally UE and LE: Right 4/5, left 3/5. Neurological: CN II-XII in tact, patient was AOx3, speech and language are Mildly dysarthric, Known unilateralizing weakness The left side involving upper and lower extremities, no seizure activity note on physical exam. Sensation was normal. Integementary: no rash, no erythema Psychiatric: mood and affect appropriate - Labs CBC & Chem 7: 08/10/16 05:55 08/10/16 05:55 Labs: Abnormal Lab Results - Last 24 Hours (Table) 08/10/16 08/10/16 08/10/16 Range/Units 05:55 05:55 05:55 RBC (3.80-5.40) m/uL Hgb (11.4-16.0) gm/dL MCV (80.0-100.0) fL MCHC (31.0-37.0) g/dL Plt Count (150-450) k/uL Lymphocytes # (1.0-4.8) k/uL ABG pCO2 (35-45) mmHg ABG HCO3 (21-25) mmol/L ABG Total CO2 (19-24) mmol/L Sodium 136 L (137-145) mmol/L Potassium 6.7 H* (3.5-5.1) mmol/L BUN 25 H (7-17) mg/dL Creatinine 4.01 H (0.52-1.04) mg/dL Glucose 72 L (74-99) mg/dL POC Glucose (mg/dL) (75-99) mg/dL Hemoglobin A1c 6.5 H (4.2-6.1) % Homocysteine 19.94 H (4.00-14.00) umol/L 08/10/16 08/10/16 08/10/16 Range/Units 05:55 06:18 12:23 RBC 3.00 L (3.80-5.40) m/uL Hgb 10.5 L (11.4-16.0) gm/dL MCV 116.7 H (80.0-100.0) fL MCHC 30.0 L (31.0-37.0) g/dL Plt Count 130 L (150-450) k/uL Lymphocytes # 0.8 L (1.0-4.8) k/uL ABG pCO2 (35-45) mmHg ABG HCO3 (21-25) mmol/L ABG Total CO2 (19-24) mmol/L Sodium (137-145) mmol/L Potassium (3.5-5.1) mmol/L BUN (7-17) mg/dL Creatinine (0.52-1.04) mg/dL Glucose (74-99) mg/dL POC Glucose (mg/dL) 68 L 48 L (75-99) mg/dL Hemoglobin A1c (4.2-6.1) % Homocysteine (4.00-14.00) umol/L 08/10/16 08/10/16 08/10/16 Range/Units 12:43 12:53 13:02 RBC (3.80-5.40) m/uL Hgb (11.4-16.0) gm/dL MCV (80.0-100.0) fL MCHC (31.0-37.0) g/dL Plt Count (150-450) k/uL Lymphocytes # (1.0-4.8) k/uL ABG pCO2 (35-45) mmHg ABG HCO3 (21-25) mmol/L ABG Total CO2 (19-24) mmol/L Sodium (137-145) mmol/L Potassium (3.5-5.1) mmol/L BUN (7-17) mg/dL Creatinine (0.52-1.04) mg/dL Glucose (74-99) mg/dL POC Glucose (mg/dL) 50 L 58 L 254 H (75-99) mg/dL Hemoglobin A1c (4.2-6.1) % Homocysteine (4.00-14.00) umol/L 08/10/16 08/10/16 08/10/16 Range/Units 16:28 16:41 17:13 RBC (3.80-5.40) m/uL Hgb (11.4-16.0) gm/dL MCV (80.0-100.0) fL MCHC (31.0-37.0) g/dL Plt Count (150-450) k/uL Lymphocytes # (1.0-4.8) k/uL ABG pCO2 47 H (35-45) mmHg ABG HCO3 26 H (21-25) mmol/L ABG Total CO2 27 H (19-24) mmol/L Sodium (137-145) mmol/L Potassium (3.5-5.1) mmol/L BUN (7-17) mg/dL Creatinine (0.52-1.04) mg/dL Glucose (74-99) mg/dL POC Glucose (mg/dL) 71 L 129 H (75-99) mg/dL Hemoglobin A1c (4.2-6.1) % Homocysteine (4.00-14.00) umol/L Assessment and Plan (1) Carotid stenosis Narrative/Plan: On carotid Doppler study, patient was noted has bilateral carotid stenosis at 70 -90% occlusion bilaterally. Vascular has been consulted. Defer to vascular for further treatment options. Status: Acute (2) CVA (cerebral vascular accident) Narrative/Plan: At this time the patient will not permit any further imaging of the head. We are unable to confirm or rule out the presence of an acute infarct. Limited neurological workup was conducted including EEG and laboratory blood work as discussed previously in HPI. EEG has been taken but has not been read. Continue Plavix and Lipitor per existing regimen. 325 mg aspirin has been discontinued. Continue 81 mg aspirin per existing regimen as well. Status: Acute (3) Chronic renal failure Status: Acute (4) History of CVA (cerebrovascular accident) Status: Acute (5) Non-compliant behavior Status: Acute (6) Weakness Narrative/Plan: Patient does have a history of prior CVA, chronic kidney disease and dialysis. Patient did have significant electrolyte imbalances and the etiology related to her weakness appears to be multifactorial. Continue to manage underlying etiology. The patient can be cleared from a neurological standpoint at this time. Continue physical therapy and occupational therapy treatment plan. Defer to PT and OT for further recommendations. Status: Acute Plan: Patient can be cleared for discharge from a neurological standpoint. If the patient is only waiting for results of the EEG, results can be discussed at the follow-up visit. Please advise patient to follow up in our office within 14 days. Neurology will follow on an as-needed basis. Feel free to contact our office with any further questions.
--- NOTE | 2016-08-10 22:18 | PN ---
DATE OF SERVICE: 08/10/2016 This 76-year-old woman was admitted with a change in mental status, also had tiredness and weakness. The patient also had relative hypotension. Multiple consultants, including Neurology as well as Nephrology are following the patient closely. Hemodynamically is being continued at this time. The neurologist recommended neurovascular workup and bilateral carotid stenosis also noted. The patient apparently would like to go back home rather than ECF. PAST MEDICAL HISTORY: Reviewed. REVIEW OF SYSTEMS: CARDIOVASCULAR: No angina, palpitations. RESPIRATORY: As mentioned earlier. : As mentioned earlier. : No dysuria. NERVOUS: No numbness, weakness. Current medications are reviewed and include: 1. Tylenol 500 mg every 6 hours p.r.n. 2. [place] 10 mg q.4 p.r.n. 3. Ventolin 2.5 q.i.d. 4. Zyloprim 100 mg b.i.d. 5. Xanax 0.5 t.i.d. 6. Aspirin 325 mg daily. 7. Symbicort 160/4.5, 2 puffs b.i.d. 8. Vitamin D3, 5000 daily. 9. Plavix 75 mg p.o. daily. 10. Vitamin B12 100 mg p.o. daily. 11. Flexeril 5 mg p.o. daily. 12. Benadryl 25 to 50 mg p.o. q.h.s. p.r.n. 13. Zetia 10 mg q.h.s. 14. Neurontin 600 mg p.o. b.i.d. 15. Levemir 13 subcu q.h.s. and 16. Humalog 13 q.supper. 17. Humalog scale. 18. Human Lispro. 19. Humalog 40 units subcu daily. 20. Imdur 60 mg daily. 21. EMLA. 22. Zaroxolyn 2.5 q.48 hours. 23. Lopressor 12.5 mg daily. 24. Midodrine 10 mg p.o. Monday, . 25. Singulair 10 mg p.o. every 6 hours. 26. Nitrostat 0.4 sublingual p.r.n. 27. Protonix 40 mg daily. 28. Mirapex 0.5. daily. 29. Renvela 800 mg t.i.d. 30. Aldactone. 31. Demadex. PHYSICAL EXAM: Patient is alert and oriented x3. Pulse 63, blood pressure 89/52, respirations 18, temperature normal, pulse ox 94% on 2L. HEENT: Conjunctivae normal. Oral mucosa moist. NECK: No jugular venous distension. No carotid bruits. No lymph node enlargement. CARDIOVASCULAR: S1 and S2 muffled. RESPIRATORY: Breath sounds diminished in the bases. Bilateral scattered rhonchi and crackles. Expiratory wheezing also present. ABDOMEN: Soft. No tenderness. No mass palpable. LEGS: Bilateral swelling of the legs present. NERVOUS SYSTEM: Higher functions as mentioned above. Mild diffuse weakness. LYMPHATIC: No lymphadenopathy in neck, axillae and groins. LABS: ABG is noted, pH of 7.36. Glucose 71, 58. Hemoglobin 10.5. ASSESSMENT: 1. Change in mental status, metabolic encephalopathy, possibly acute transient ischemic attack or stroke. 2. Old right frontal infarct on the CAT scan. 3. Bilateral carotid artery stenosis. 4. Relative hypotension. 5. History of congestive heart failure with chronic systolic dysfunction, ejection fraction 35% to 40%. 6. Hypoglycemia. 7. 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 8. Hyperkalemia secondary to chronic kidney disease. 9. History of atrioventricular fistula. 10. History of gait dysfunction. 11. History of degenerative joint disease. 12. Paroxysmal atrial fibrillation, not a candidate for anticoagulation. 13. History of chronic intermittent asthma. 14. History of cerebrovascular accident, transient ischemic attack. 15. History of essential hypertension. 16. Hyperlipidemia. 17. Multivessel coronary artery disease with a history of myocardial infarction and stent. 18. Sleep apnea. 19. Obesity with body mass index of 31.4. 20. Diabetic peripheral neuropathy. 21. Remote history of nicotine dependence. 22. Lower extremity cellulitis and edema. 23. Hypertension on Midrin. 24. Medical debility, declining extended care facility. 25. NO CODE, NO CARDIOPULMONARY RESUSCITATION, NO VENTILATOR. RECOMMENDATIONS AND DISCUSSION: Recommend to continue current medications. Continue symptomatic treatment. Otherwise, at this time I recommend repeat labs. Continue with the rest of the medications. Monitor blood pressure closely and avoid hypertensive medications. Continue with midodrine. Guarded prognosis because of multiple complex medical issues. Further recommendations to follow. Please see orders for further details.
[2016-08-11] MEDS: PANTOPRAZOLE 40 MG TABLET PO SCH (05:52)
[2016-08-11] MEDS: MIDODRINE 5 MG TAB PO SCH ×4 (05:52→18:33)
[2016-08-11] MEDS: INSULIN LISPRO (humaLOG) 300 UNIT/3 ML VIAL SQ SCH ×5 (06:28→21:01)
[2016-08-11 06:43] LABS: Aty Lym Flag Slight; CH 34.1; CHCM 29.8; HCT 35.3 % (34.0-46.0); HDW 2.54; HGB 10.9 gm/dL (11.4-16.0); Hypochromasia Marked; MCH 35.3 pg (25.0-35.0); MCHC 30.8 g/dL (31.0-37.0); MCV 114.8 fL (80.0-100.0); Macrocytosis Marked; Mean Platelet Volume 7.8; RBC 3.07 m/uL (3.80-5.40); RDW 14.4 % (11.5-15.5); WBC 6.6 k/uL (3.8-10.6); WBC (Perox) 6.82
[2016-08-11 06:43] LABS: Glucose,Whole Blood 60 mg/dL (75-99)
[2016-08-11 06:43] LABS: Glucose,Whole Blood 48 mg/dL (75-99)
[2016-08-11 06:43] LABS: Glucose,Whole Blood 44 mg/dL (75-99)
[2016-08-11 06:55] LABS: Glucose,Whole Blood 80 mg/dL (75-99)
[2016-08-11 06:56] LABS: Calcium 8.5 mg/dL (8.4-10.2)
[2016-08-11 06:59] LABS: Potassium 6.8 mmol/L (3.5-5.1)
[2016-08-11] MEDS: ALBUTEROL NEBULIZED 2.5 MG/3 ML INHALATION SCH ×4 (07:09→20:01)
[2016-08-11] MEDS: SYMBICORT 160-4.5 MCG INHALER INHALATION SCH ×2 (07:09→20:01)
[2016-08-11] MEDS: SEVELAMER 800 MG TAB PO SCH ×3 (07:30→16:58)
[2016-08-11 08:06] LABS: Add Differential Manual Differential
[2016-08-11 08:08] LABS: Nucleated Red Blood Cells 0 /100 WBC (0-0); Total Cells Counted 100
[2016-08-11 08:10] LABS: Toxic Vacuolation Present
[2016-08-11] MEDS: METOPROLOL TARTRATE 12.5 MG TAB PO SCH ×2 (08:40→21:08)
[2016-08-11] MEDS: PRAMIPEXOLE 0.5 MG TAB PO SCH ×3 (08:40→21:08)
[2016-08-11] MEDS: TORSEMIDE 20 MG TAB PO SCH (08:40)
[2016-08-11] MEDS: CHOLECALCIFEROL 1,000 UNIT TAB PO SCH (08:40)
[2016-08-11] MEDS: ALPRAZolam 0.25 MG TAB PO SCH ×3 (08:40→21:32)
[2016-08-11] MEDS: CYANOCOBALAMIN 500 MCG TAB PO SCH (08:41)
[2016-08-11] MEDS: CLOPIDOGREL 75 MG TAB PO SCH (08:41)
[2016-08-11] MEDS: ISOSORBIDE MONONITRATE ER 30 MG TAB.ER.24H PO SCH (08:41)
[2016-08-11] MEDS: ALLOPURINOL 100 MG TAB PO SCH ×2 (08:42→21:08)
[2016-08-11] MEDS: SPIRONOLACTONE 25 MG TAB PO SCH (08:42)
[2016-08-11] MEDS: GABAPENTIN 300 MG CAP PO SCH ×2 (08:42→21:07)
[2016-08-11] MEDS: ASPIRIN 81 MG CHEW PO SCH (08:42)
--- NOTE | 2016-08-11 10:12 | EEG ---
DATE OF SERVICE: 08/10/2016 INDICATIONS FOR EXAMINATION: Stroke. AGE: 76Y DESCRIPTION OF THE PROCEDURE: This EEG was performed using a 21-channel digital electroencephalograph, following the international 10-20 system. DESCRIPTION OF THE RECORDING: From the beginning of the tracing, and with the patient's eyes closed, the background rhythm was mostly consisting of 8 Hz alpha frequency in the posterior occipital leads. No obvious asymmetry is seen. Photic stimulation was performed with a minimal driving response seen. No pathological waves were elicited. Hyperventilation was not performed. The patient remains awake throughout the tracing. No epileptiform discharges were seen. Her EKG lead showed an irregularly irregular rhythm with a normal rate. INTERPRETATION: This awake EEG can be considered within normal limits, except her EKG lead showed an irregularly irregular rhythm. No epileptiform discharges were seen. The absence of epileptiform discharges does not rule out the diagnosis of epilepsy; therefore, clinical correlation is recommended.
--- NOTE | 2016-08-11 11:29 | P.PN ---
Subjective Patient is seen in follow-up for end-stage renal disease. She is maintained on hemodialysis on a Monday schedule. Patient presented with generalized weakness and falls. She is noted to be persistently hyperkalemic with potassium of 6.8 this morning. She did undergo dialysis yesterday. She is currently resting in bed. Denies chest pain or shortness of breath. No vomiting or diarrhea. Vital signs are stable. General: The patient appeared well nourished and normally developed. HEENT: Head exam is unremarkable. Neck is without jugular venous distension. LUNGS: Lungs are clear to auscultation and percussion. Breath sounds decreased. HEART: Rate and Rhythm are regular. First and second heart sounds normal. No murmurs, rubs or gallops. ABDOMEN: Abdominal exam reveals normal bowel sounds. Non-tender and non- distended. No evidence of peritonitis. EXTREMITITES: 1+ edema. Chronic changes noted. Objective - Vital Signs Vital signs: Vital Signs Temp 98.4 F 08/11/16 08:00 Pulse 66 08/11/16 08:00 Resp 18 08/11/16 08:00 BP 81/52 08/11/16 08:00 Pulse Ox 93 L 08/11/16 08:00 Intake & Output 08/10/16 08/11/16 08/11/16 18:59 06:59 18:59 Intake Total 360 400 Balance 360 400 Weight 80.5 kg 81.5 kg Intake: IV 400 Sodium Chloride 0.9% 1, 400 000 ml @ 100 mls/hr IV . Q10H ZAKI Rx#:[id number] Oral 360 Other: # Voids 1 0 - Labs CBC & Chem 7: 08/11/16 06:15 08/11/16 06:15 Labs: Abnormal Lab Results - Last 24 Hours (Table) 08/10/16 08/10/16 08/10/16 Range/Units 05:55 05:55 12:23 RBC (3.80-5.40) m/uL Hgb (11.4-16.0) gm/dL MCV (80.0-100.0) fL MCH (25.0-35.0) pg MCHC (31.0-37.0) g/dL Plt Count (150-450) k/uL Lymphocytes # (Manual) (1.0-4.8) k/uL ABG pCO2 (35-45) mmHg ABG HCO3 (21-25) mmol/L ABG Total CO2 (19-24) mmol/L Sodium (137-145) mmol/L Potassium (3.5-5.1) mmol/L BUN (7-17) mg/dL Creatinine (0.52-1.04) mg/dL Glucose (74-99) mg/dL POC Glucose (mg/dL) 48 L (75-99) mg/dL Hemoglobin A1c 6.5 H (4.2-6.1) % Homocysteine 19.94 H (4.00-14.00) umol/L 08/10/16 08/10/16 08/10/16 Range/Units 12:43 12:53 13:02 RBC (3.80-5.40) m/uL Hgb (11.4-16.0) gm/dL MCV (80.0-100.0) fL MCH (25.0-35.0) pg MCHC (31.0-37.0) g/dL Plt Count (150-450) k/uL Lymphocytes # (Manual) (1.0-4.8) k/uL ABG pCO2 (35-45) mmHg ABG HCO3 (21-25) mmol/L ABG Total CO2 (19-24) mmol/L Sodium (137-145) mmol/L Potassium (3.5-5.1) mmol/L BUN (7-17) mg/dL Creatinine (0.52-1.04) mg/dL Glucose (74-99) mg/dL POC Glucose (mg/dL) 50 L 58 L 254 H (75-99) mg/dL Hemoglobin A1c (4.2-6.1) % Homocysteine (4.00-14.00) umol/L 08/10/16 08/10/16 08/10/16 Range/Units 16:28 16:41 17:13 RBC (3.80-5.40) m/uL Hgb (11.4-16.0) gm/dL MCV (80.0-100.0) fL MCH (25.0-35.0) pg MCHC (31.0-37.0) g/dL Plt Count (150-450) k/uL Lymphocytes # (Manual) (1.0-4.8) k/uL ABG pCO2 47 H (35-45) mmHg ABG HCO3 26 H (21-25) mmol/L ABG Total CO2 27 H (19-24) mmol/L Sodium (137-145) mmol/L Potassium (3.5-5.1) mmol/L BUN (7-17) mg/dL Creatinine (0.52-1.04) mg/dL Glucose (74-99) mg/dL POC Glucose (mg/dL) 71 L 129 H (75-99) mg/dL Hemoglobin A1c (4.2-6.1) % Homocysteine (4.00-14.00) umol/L 08/11/16 08/11/16 08/11/16 Range/Units 06:15 06:15 06:19 RBC 3.07 L (3.80-5.40) m/uL Hgb 10.9 L (11.4-16.0) gm/dL MCV 114.8 H (80.0-100.0) fL MCH 35.3 H (25.0-35.0) pg MCHC 30.8 L (31.0-37.0) g/dL Plt Count 113 L (150-450) k/uL Lymphocytes # (Manual) 0.5 L (1.0-4.8) k/uL ABG pCO2 (35-45) mmHg ABG HCO3 (21-25) mmol/L ABG Total CO2 (19-24) mmol/L Sodium 136 L (137-145) mmol/L Potassium 6.8 H* (3.5-5.1) mmol/L BUN 24 H (7-17) mg/dL Creatinine 3.69 H (0.52-1.04) mg/dL Glucose 45 L* (74-99) mg/dL POC Glucose (mg/dL) 44 L (75-99) mg/dL Hemoglobin A1c (4.2-6.1) % Homocysteine (4.00-14.00) umol/L 08/11/16 08/11/16 Range/Units 06:20 06:30 RBC (3.80-5.40) m/uL Hgb (11.4-16.0) gm/dL MCV (80.0-100.0) fL MCH (25.0-35.0) pg MCHC (31.0-37.0) g/dL Plt Count (150-450) k/uL Lymphocytes # (Manual) (1.0-4.8) k/uL ABG pCO2 (35-45) mmHg ABG HCO3 (21-25) mmol/L ABG Total CO2 (19-24) mmol/L Sodium (137-145) mmol/L Potassium (3.5-5.1) mmol/L BUN (7-17) mg/dL Creatinine (0.52-1.04) mg/dL Glucose (74-99) mg/dL POC Glucose (mg/dL) 48 L 60 L (75-99) mg/dL Hemoglobin A1c (4.2-6.1) % Homocysteine (4.00-14.00) umol/L Assessment and Plan Plan: Assessment: #1. End-stage renal disease maintained on hemodialysis on a Monday schedule. #2. Hyperkalemia secondary to high potassium intake along with use of Aldactone. #3. Chronic kidney disease mineral bone disease. #4. Insulin-dependent diabetes mellitus. #5. Generalized debility. #6. Chronic hypotension related to her underlying cardiac status. Maintained on Midodrine. #7. Chronic kidney disease mineral bone disease. Plan: Discontinue Aldactone. Hemodialysis today. Maintain low potassium diet. Maintain Renvela with meals.
[2016-08-11] MEDS: LIDOCAINE-PRILOCAINE 2.5-2.5% CREAM 5 GM TUBE TOPICAL SCH (11:41)
[2016-08-11 12:03] LABS: Glucose,Whole Blood 62 mg/dL (75-99)
[2016-08-11 12:24] LABS: Glucose,Whole Blood 87 mg/dL (75-99)
[2016-08-11] MEDS: SODIUM CHLORIDE 0.9% 1,000 ML IV SCH ×2 (12:56→21:09)
[2016-08-11] MEDS ORDERED: GELATIN SPONGE,ABSORB (SMALL) 1 EACH SPONGE ONE (14:45)
--- NOTE | 2016-08-11 16:13 | P.PN ---
Subjective Principal diagnosis: Altered mental status 76-year-old female patient, multiple medical problems and comorbidities, multiple hospitalizations, coming in yesterday to the burst department with altered mental status. Apparently the patient had a fall to the bathroom floor and she was unable to ambulate. The patient also had diminished level of consciousness, lethargic, had a change in her speech and was dysarthric, feeling very weak and for that reason the patient was admitted to the hospital and neurology consultation was requested. CAT scan of the brain showed an old stroke involving the right frontal area and the patient is known to have extensive cardiac disease and chronic atrial fibrillation and she has not been on anticoagulation no she has been a good candidate for surgical repair of the carotid arteries due to her various medical found to comorbidities. At the same time, the patient was found to be hypokalemic and she underwent a session of hemodialysis yesterday. Potassium level is down to 6.7 and the patient will have a second session of hemodialysis. Earlier this morning, the patient was having episodes of hypoglycemia that was treated. The patient also is running a lower blood pressure. I was able to arouse the patient. She is able to communicate for a short period of time and then she will go back to sleep if left unstimulated. Her blood gases showed a pH of 7.36 with a pCO2 of 46 and pO2 of 86 and this was done on 3 L of oxygen by nasal cannula. No respiratory distress. No aspiration. No seizure activity. No focal neurological deficits. Extremities without any major limitation. EEG was done this morning. The patient was seen and evaluated again today 08/11/2016 in follow-up on the selective care unit. She is actually much more awake and alert today as compared to yesterday. Her speech is less garbled. She is oriented 3. She does remain quite weak however her potassium remains elevated at 6.8 despite receiving hemodialysis yesterday. Her creatinine is 3.69. She denies any worsening shortness of breath, cough or congestion. No dizziness or lightheadedness. She's been afebrile. Blood pressures borderline. She is maintaining O2 saturations in the 90s on 2 L/m per nasal cannula. She has had issues with some drops in blood sugar. She is currently eating lunch and swallowing well. Objective - Vital Signs Vital signs: Vital Signs Temp 98.4 F 08/11/16 08:00 Pulse 58 L 08/11/16 12:47 Resp 18 08/11/16 11:55 BP 83/40 08/11/16 11:55 Pulse Ox 94 L 08/11/16 11:55 Intake & Output 08/10/16 08/11/16 08/11/16 18:59 06:59 18:59 Intake Total 360 400 400 Balance 360 400 400 Weight 80.5 kg 81.5 kg Intake: IV 400 400 Sodium Chloride 0.9% 1, 400 400 000 ml @ 100 mls/hr IV . Q10H ZAKI Rx#:[id number] Oral 360 Other: # Voids 1 0 - Exam GENERAL EXAM: Alert, active, comfortable in no apparent distress. HEAD: Normocephalic. EYES: Normal reaction of pupils, equal size. NOSE: Clear with pink turbinates. THROAT: There is crowding the posterior pharynx. No erythema or exudates. NECK: Short. No masses, no JVD. CHEST: No chest wall deformity. LUNGS: Equal air entry with echoes in the posterior bases. Diminished. CVS: S1 and S2 normal with no audible murmurs, irregular rhythm. ABDOMEN: Normal bowel sounds, no guarding or rigidity. Extremities: Chronic left-sided weakness from previous CVA. There is trace peripheral edema. No clubbing, no cyanosis. Peripheral pulses are intact. - Labs CBC & Chem 7: 08/11/16 06:15 08/11/16 06:15 Labs: Abnormal Lab Results - Last 24 Hours (Table) 08/10/16 08/10/16 08/10/16 Range/Units 16:28 16:41 17:13 RBC (3.80-5.40) m/uL Hgb (11.4-16.0) gm/dL MCV (80.0-100.0) fL MCH (25.0-35.0) pg MCHC (31.0-37.0) g/dL Plt Count (150-450) k/uL Lymphocytes # (Manual) (1.0-4.8) k/uL ABG pCO2 47 H (35-45) mmHg ABG HCO3 26 H (21-25) mmol/L ABG Total CO2 27 H (19-24) mmol/L Sodium (137-145) mmol/L Potassium (3.5-5.1) mmol/L BUN (7-17) mg/dL Creatinine (0.52-1.04) mg/dL Glucose (74-99) mg/dL POC Glucose (mg/dL) 71 L 129 H (75-99) mg/dL 08/11/16 08/11/16 08/11/16 Range/Units 06:15 06:15 06:19 RBC 3.07 L (3.80-5.40) m/uL Hgb 10.9 L (11.4-16.0) gm/dL MCV 114.8 H (80.0-100.0) fL MCH 35.3 H (25.0-35.0) pg MCHC 30.8 L (31.0-37.0) g/dL Plt Count 113 L (150-450) k/uL Lymphocytes # (Manual) 0.5 L (1.0-4.8) k/uL ABG pCO2 (35-45) mmHg ABG HCO3 (21-25) mmol/L ABG Total CO2 (19-24) mmol/L Sodium 136 L (137-145) mmol/L Potassium 6.8 H* (3.5-5.1) mmol/L BUN 24 H (7-17) mg/dL Creatinine 3.69 H (0.52-1.04) mg/dL Glucose 45 L* (74-99) mg/dL POC Glucose (mg/dL) 44 L (75-99) mg/dL 08/11/16 08/11/16 08/11/16 Range/Units 06:20 06:30 11:53 RBC (3.80-5.40) m/uL Hgb (11.4-16.0) gm/dL MCV (80.0-100.0) fL MCH (25.0-35.0) pg MCHC (31.0-37.0) g/dL Plt Count (150-450) k/uL Lymphocytes # (Manual) (1.0-4.8) k/uL ABG pCO2 (35-45) mmHg ABG HCO3 (21-25) mmol/L ABG Total CO2 (19-24) mmol/L Sodium (137-145) mmol/L Potassium (3.5-5.1) mmol/L BUN (7-17) mg/dL Creatinine (0.52-1.04) mg/dL Glucose (74-99) mg/dL POC Glucose (mg/dL) 48 L 60 L 62 L (75-99) mg/dL Assessment and Plan Plan: Assessment 1 altered mentation with slurred speech and dysarthria. Rule out underlying CVA. Rule out metabolic encephalopathy. CAT scan of the brain showed old chronic findings of a previous CVA. No acute abnormalities noted. 08/11/2016 the patient is much more awake and alert today as compared to yesterday. Mentation has improved. 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 She has a DNR/DNI CODE STATUS Plan The patient was seen and evaluated by Dr. Hernandez. She has improved mentally. She is alert. She is realizing she is unable to continue to reside at home and the plan of the for extended care facility placement upon discharge. In the interim, she'll continue with hemodialysis for her hyperkalemia. We'll continue to monitor her blood glucose levels closely and make adjustments as needed. We'll continue to follow.
[2016-08-11] MEDS: METOLAZONE 2.5 MG TAB PO SCH (16:58)
[2016-08-11 17:02] LABS: Glucose,Whole Blood 84 mg/dL (75-99)
[2016-08-11 20:57] LABS: Glucose,Whole Blood 82 mg/dL (75-99)
[2016-08-11] MEDS: EZETIMIBE 10 MG TAB PO SCH (21:07)
[2016-08-11] MEDS: MONTELUKAST 10 MG TAB PO SCH (21:08)
--- NOTE | 2016-08-11 21:55 | PN ---
DATE OF SERVICE: 08/11/2016 This 76-year-old woman who was admitted with change in mental status as well as metabolic encephalopathy with possibly acute TIA and stroke is being closely monitored. The patient had old right frontal infarct, also. The patient had hypoglycemic episodes as well. The patient also had renal failure. Patient is being closely monitored. Patient is also relatively hypotensive. Past medical history reviewed. REVIEW OF SYSTEMS: CARDIOVASCULAR SYSTEM: No angina, palpitations. RESPIRATORY SYSTEM: Short of breath. GI: No nausea, vomiting. : As mentioned earlier. NERVOUS SYSTEM: No numbness or weakness. Current medications are reviewed and include: 1. Tylenol 500 mg q.6 p.r.n. 2. Fortine 10 mg q.4 p.r.n. 3. Ventolin 2.5 q.i.d. 4. Zyloprim 100 mg p.o. b.i.d. 5. Xanax 0.25 t.i.d. 6. Aspirin 81 mg daily. 7. Symbicort 160/4.5 two puffs b.i.d. 8. Vitamin D3 5000 daily. 9. Plavix 75 mg p.o. daily. 10. Vitamin B12 500 mcg p.o. daily. 11. Flexeril 5 mg p.o. daily. 12. Benadryl 25 to 50 mg at bedtime. 13. Zetia 10 mg at bedtime. 14. Neurontin 600 mg b.i.d. 15. Humalog. 16. Imdur 30 mg daily. 17. Zaroxolyn 2.5 mg q.48 hours. 18. Lopressor 12.5 mg b.i.d. 19. Proamatine 10 mg. 20. Singulair 10 mg at bedtime. 21. Nitrostat 0.4 sublingually p.r.n. 22. Mirapex 0.5 t.i.d. 23. Renvela 800 mg t.i.d. 24. Demadex 20 mg p.o. daily. PHYSICAL EXAMINATION: Patient is alert and oriented x3. Pulse 66, blood pressure 91/44, respiration 18, temperature normal, pulse ox 94% on 2 L. HEENT: Conjunctivae normal. Oral mucosa moist. NECK: No jugular venous distention. No carotid bruit. No lymph node enlargement. CARDIOVASCULAR SYSTEM: S1, S2 muffled. No S3. No S4. RESPIRATORY SYSTEM: Breath sounds diminished at the bases. A few scattered rhonchi and crackles. Expiratory wheezing also present. ABDOMEN: Soft, nontender. No mass palpable. LEGS: Bilateral leg edema. NERVOUS SYSTEM: Diffusely weak. LABS: Accu-Cheks 80, 62, 84. WBC 6.6, hemoglobin 10.9, platelets 113. Sodium 136, potassium 3.2. Creatinine is 3.69. ASSESSMENT: 1. Change in mental status, metabolic encephalopathy; possible acute transient ischemic attack or stroke, present on admission. 2. Old right frontal infarct on the CT scan. 3. Bilateral carotid artery stenosis. 4. Relative hypotension. 5. Hypoglycemia with diabetes, type 2. 6. History of congestive heart failure with chronic systolic dysfunction, ejection fraction 35% to 40%. 7. Hyper- and hypokalemia. 8. Chronic kidney disease, stage V, on hemodialysis. 9. History of AV fistula. 10. History of gait dysfunction. 11. History of degenerative joint disease. 12. Paroxysmal atrial fibrillation; not a candidate for anticoagulation. 13. History of chronic intermittent asthma. 14. History of cerebrovascular accident, transient ischemic attack. 15. History of essential hypertension. 16. Hyperlipidemia. 17. Multi-vessel coronary artery disease with history of myocardial infarction and stenting. 18. Sleep apnea history. 19. Obesity with a body mass index of 31.4. 20. Diabetic peripheral neuropathy. 21. Remote history of nicotine dependence. 22. Lower extremity cellulitis and edema. 23. Hypotension, on Midodrine. 24. Medical debility; declining ECF. 25. NO CODE, NO CPR, NO VENTILATOR. RECOMMENDATIONS AND DISCUSSION: In this 76-year-old woman who presented with multiple complex medical issues, we will monitor the patient closely, continue the current medications, continue with symptomatic treatment. Supplement potassium. Monitor closely. Continue with hemodialysis, which will be continued. PT, OT evaluation. I would also recommend ECF rehab because of multiple complex medical issues. Discussed with psychiatric social worker supervisor. Discussed with the patient. See orders for further details. Further recommendations to follow. Prognosis guarded.
[2016-08-12 02:24] LABS: Glucose,Whole Blood 81 mg/dL (75-99)
[2016-08-12 06:31] LABS: Calcium 8.9 mg/dL (8.4-10.2); Potassium 5.8 mmol/L (3.5-5.1)
[2016-08-12 06:35] LABS: Basophils # (A) 0.1 k/uL (0-0.2); Basophils % (A) 1 %; CH 34.4; Eosinophils # (A) 0.1 k/uL (0-0.7); Eosinophils % (A) 1 %; HCT 36.8 % (34.0-46.0); HDW 2.73; HGB 11.6 gm/dL (11.4-16.0); Hypochromasia Marked; Luc # (Auto) 0.28; Luc % (Auto) 4; Lymphocytes # (A) 0.9 k/uL (1.0-4.8); Lymphocytes % (A) 14 %; MCH 36.1 pg (25.0-35.0); MCHC 31.4 g/dL (31.0-37.0); MCV 114.8 fL (80.0-100.0); Macrocytosis Marked; Mean Platelet Volume 8.5; Monocytes # (A) 0.5 k/uL (0-1.0); Monocytes % (A) 8 %; Neutrophils # (A) 4.6 k/uL (1.3-7.7); Neutrophils % (A) 72 %; RDW 14.5 % (11.5-15.5); WBC 6.4 k/uL (3.8-10.6); WBC (Perox) 6.64
[2016-08-12 06:52] LABS: Glucose,Whole Blood 67 mg/dL (75-99)
[2016-08-12] MEDS: INSULIN LISPRO (humaLOG) 300 UNIT/3 ML VIAL SQ SCH ×4 (06:55→21:23)
[2016-08-12 06:56] LABS: Manual Review Performed
[2016-08-12 07:00] LABS: Glucose,Whole Blood 69 mg/dL (75-99)
[2016-08-12] MEDS: PANTOPRAZOLE 40 MG TABLET PO SCH (07:01)
[2016-08-12] MEDS: MIDODRINE 5 MG TAB PO SCH ×3 (07:01→16:30)
[2016-08-12] MEDS: SEVELAMER 800 MG TAB PO SCH ×3 (07:01→16:30)
[2016-08-12 07:13] LABS: Glucose,Whole Blood 87 mg/dL (75-99)
[2016-08-12] MEDS: ALBUTEROL NEBULIZED 2.5 MG/3 ML INHALATION SCH ×4 (08:16→20:15)
[2016-08-12] MEDS: SYMBICORT 160-4.5 MCG INHALER INHALATION SCH ×2 (08:16→20:15)
[2016-08-12] MEDS: SODIUM CHLORIDE 0.9% 1,000 ML IV SCH (08:30)
[2016-08-12] MEDS: HYDROcodone/APAP 10-325MG 1 EACH TAB PO PRN (08:33)
[2016-08-12] MEDS: ALLOPURINOL 100 MG TAB PO SCH ×2 (08:36→21:21)
[2016-08-12] MEDS: ASPIRIN 81 MG CHEW PO SCH (08:36)
[2016-08-12] MEDS: CLOPIDOGREL 75 MG TAB PO SCH (08:37)
[2016-08-12] MEDS: GABAPENTIN 300 MG CAP PO SCH ×2 (08:37→21:22)
[2016-08-12] MEDS: ISOSORBIDE MONONITRATE ER 30 MG TAB.ER.24H PO SCH (08:37)
[2016-08-12] MEDS: METOPROLOL TARTRATE 12.5 MG TAB PO SCH ×2 (08:37→21:23)
[2016-08-12] MEDS: PRAMIPEXOLE 0.5 MG TAB PO SCH ×3 (08:38→21:24)
[2016-08-12] MEDS: TORSEMIDE 20 MG TAB PO SCH (08:38)
[2016-08-12] MEDS: ALPRAZolam 0.25 MG TAB PO SCH ×3 (08:40→21:27)
[2016-08-12] MEDS ORDERED: SODIUM POLYSTYRENE SULFONATE 15 GM/60 ML BOTTLE PO STA (09:05)
[2016-08-12 11:25] LABS: Glucose,Whole Blood 115 mg/dL (75-99)
--- NOTE | 2016-08-12 11:52 | P.PN ---
Subjective Principal diagnosis: Altered mental status 76-year-old female patient, multiple medical problems and comorbidities, multiple hospitalizations, coming in yesterday to the burst department with altered mental status. Apparently the patient had a fall to the bathroom floor and she was unable to ambulate. The patient also had diminished level of consciousness, lethargic, had a change in her speech and was dysarthric, feeling very weak and for that reason the patient was admitted to the hospital and neurology consultation was requested. CAT scan of the brain showed an old stroke involving the right frontal area and the patient is known to have extensive cardiac disease and chronic atrial fibrillation and she has not been on anticoagulation no she has been a good candidate for surgical repair of the carotid arteries due to her various medical found to comorbidities. At the same time, the patient was found to be hypokalemic and she underwent a session of hemodialysis yesterday. Potassium level is down to 6.7 and the patient will have a second session of hemodialysis. Earlier this morning, the patient was having episodes of hypoglycemia that was treated. The patient also is running a lower blood pressure. I was able to arouse the patient. She is able to communicate for a short period of time and then she will go back to sleep if left unstimulated. Her blood gases showed a pH of 7.36 with a pCO2 of 46 and pO2 of 86 and this was done on 3 L of oxygen by nasal cannula. No respiratory distress. No aspiration. No seizure activity. No focal neurological deficits. Extremities without any major limitation. EEG was done this morning. The patient was seen and evaluated again today 08/11/2016 in follow-up on the selective care unit. She is actually much more awake and alert today as compared to yesterday. Her speech is less garbled. She is oriented 3. She does remain quite weak however her potassium remains elevated at 6.8 despite receiving hemodialysis yesterday. Her creatinine is 3.69. She denies any worsening shortness of breath, cough or congestion. No dizziness or lightheadedness. She's been afebrile. Blood pressures borderline. She is maintaining O2 saturations in the 90s on 2 L/m per nasal cannula. She has had issues with some drops in blood sugar. She is currently eating lunch and swallowing well. The patient was seen again today 08/12/2016 in follow-up on the selective care unit. She is awake and alert in no acute distress currently. She denies any worsening shortness of breath, cough or congestion. Her potassium is down to 5.8 today she is status post hemodialysis. Creatinine 3.2. Her appetite has improved. Her blood glucose levels are more stable. No specific complaints today. Objective - Vital Signs Vital signs: Vital Signs Temp 97.1 F L 08/12/16 08:00 Pulse 64 08/12/16 11:33 Resp 20 08/12/16 08:00 BP 107/58 08/12/16 08:00 Pulse Ox 97 08/12/16 08:00 Intake & Output 08/11/16 08/12/16 08/12/16 18:59 06:59 18:59 Intake Total 400 700 240 Balance 400 700 240 Weight 82 kg Intake: IV 400 700 Sodium Chloride 0.9% 1, 400 700 000 ml @ 100 mls/hr IV . Q10H ZAKI Rx#:[id number] Oral 240 Other: # Voids 0 - Exam GENERAL EXAM: Alert, active, comfortable in no apparent distress. HEAD: Normocephalic. EYES: Normal reaction of pupils, equal size. NOSE: Clear with pink turbinates. THROAT: There is crowding the posterior pharynx. No erythema or exudates. NECK: Short. No masses, no JVD. CHEST: No chest wall deformity. LUNGS: Equal air entry with echoes in the posterior bases. Diminished. CVS: S1 and S2 normal with no audible murmurs, irregular rhythm. ABDOMEN: Normal bowel sounds, no guarding or rigidity. Extremities: Chronic left-sided weakness from previous CVA. There is trace peripheral edema. No clubbing, no cyanosis. Peripheral pulses are intact. - Labs CBC & Chem 7: 08/12/16 05:27 08/12/16 05:27 Labs: Abnormal Lab Results - Last 24 Hours (Table) 08/11/16 08/11/16 08/12/16 Range/Units 11:53 16:08 05:27 RBC 3.20 L (3.80-5.40) m/uL MCV 114.8 H (80.0-100.0) fL MCH 36.1 H (25.0-35.0) pg Plt Count 113 L (150-450) k/uL Lymphocytes # 0.9 L (1.0-4.8) k/uL Sodium (137-145) mmol/L Potassium 3.2 L (3.5-5.1) mmol/L Carbon Dioxide (22-30) mmol/L BUN (7-17) mg/dL Creatinine (0.52-1.04) mg/dL POC Glucose (mg/dL) 62 L (75-99) mg/dL 08/12/16 08/12/16 08/12/16 Range/Units 05:27 06:46 06:58 RBC (3.80-5.40) m/uL MCV (80.0-100.0) fL MCH (25.0-35.0) pg Plt Count (150-450) k/uL Lymphocytes # (1.0-4.8) k/uL Sodium 133 L (137-145) mmol/L Potassium 5.8 H (3.5-5.1) mmol/L Carbon Dioxide 21 L (22-30) mmol/L BUN 19 H (7-17) mg/dL Creatinine 3.20 H (0.52-1.04) mg/dL POC Glucose (mg/dL) 67 L 69 L (75-99) mg/dL 08/12/16 Range/Units 11:23 RBC (3.80-5.40) m/uL MCV (80.0-100.0) fL MCH (25.0-35.0) pg Plt Count (150-450) k/uL Lymphocytes # (1.0-4.8) k/uL Sodium (137-145) mmol/L Potassium (3.5-5.1) mmol/L Carbon Dioxide (22-30) mmol/L BUN (7-17) mg/dL Creatinine (0.52-1.04) mg/dL POC Glucose (mg/dL) 115 H (75-99) mg/dL Assessment and Plan Plan: Assessment 1 altered mentation with slurred speech and dysarthria. Rule out underlying CVA. Rule out metabolic encephalopathy. CAT scan of the brain showed old chronic findings of a previous CVA. No acute abnormalities noted. 08/11/2016 the patient is much more awake and alert today as compared to yesterday. Mentation has improved. 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 She has a DNR/DNI CODE STATUS Plan The patient was seen and evaluated by Dr. Hernandez. She continues to improve daily. Her overall prognosis still remains quite guarded based on the above mentioned multiple comorbidities. The plan is for transfer to an extended care facility on Monday. Discharge planning is in place.
[2016-08-12] MEDS: CHOLECALCIFEROL 1,000 UNIT TAB PO SCH (11:54)
[2016-08-12] MEDS: CYANOCOBALAMIN 500 MCG TAB PO SCH (11:55)
--- NOTE | 2016-08-12 12:50 | PN ---
Patient is seen for followup for end-stage renal disease. She was admitted with a history of fall and severe hyperkalemia. Patient remains hyperkalemic in the hospital. He is routinely on a Monday, , Monday schedule for dialysis and is scheduled for hemodialysis tomorrow; however, this morning, potassium is 5.8. I ordered some Kayexalate and patient has refused to take it. She is maintained on a low-potassium diet in the hospital and there is no evidence of ongoing GI bleed. Patient had been noncompliant with diet as outpatient prior to admission. On examination today, blood pressure is 107/58, heart rate 76 per minute. Patient is afebrile. HEART: S1 and S2. LUNGS: Bilateral breath sounds are heard. ABDOMEN: Soft, obese. Lower extremities show chronic skin changes, chronic edema which is stable at this time. Labs show sodium 133, potassium 5.8. Hemoglobin 11.6 g/dL. ASSESSMENT: 1. End-stage renal disease on hemodialysis on a Monday, , Monday schedule. The patient will be dialyzed tomorrow. 2. Hyperkalemia on initial admission, currently improved. However, patient will need to be maintained on Kayexalate for at least 1 to 2 times per week as outpatient. She is refusing the Kayexalate today, but she will also need to comply with strict low-potassium diet as outpatient. This has been discussed with her on multiple occasions previously. 3. Generalized debility. 4. Severe chronic obstructive pulmonary disease, maintained on home oxygen. 5. Pulmonary hypertension 6. History of cerebrovascular accident. 7. Chronic atrial fibrillation. PLAN: Hemodialysis in a.m. Continue to maintain strict low-potassium diet.
[2016-08-12 16:44] LABS: Glucose,Whole Blood 145 mg/dL (75-99)
--- NOTE | 2016-08-12 19:52 | PN ---
DATE OF SERVICE: 08/12/2016 This 76-year-old woman who was admitted with change in mental status, metabolic encephalopathy also acute on chronic renal failure. The patient also had old right frontal infarct. The patient also complains of weakness and tiredness. The patient is confused. Multiple consultants are following the patient closely, the patient hyperkalemic. The patient is on Monday, , Monday cycle hemodialysis. PT, OT evaluation for possible ECF rehab. Past medical history reviewed. REVIEW OF SYSTEMS: CARDIOVASCULAR: No angina. RESPIRATORY: As mentioned earlier. GASTROINTESTINAL: No nausea or vomiting. GENITOURINARY: No dysuria. CENTRAL NERVOUS SYSTEM: Diffusely weak. Current medications are: 1. Tylenol 500 mg q6h p.r.n. 2. [place] 10 mg q4h. 3. Ventolin 2.5 q.i.d. 4. Zyloprim 100 mg p.o. b.i.d. 5. Xanax 0.5 t.i.d. 6. Aspirin 81 mg p.o. daily. 7. Symbicort 160/4.5 two puffs b.i.d. 8. Vitamin D3, 5000 daily. 9. Plavix 75 mg p.o. daily. 10. Vitamin B12 500 mg p.o. daily. 11. Flexeril 5 mg p.o. daily. 12. Benadryl 25 p.o. q.h.s. 13. Zetia 10 mg q6h p.r.n. 14. Neurontin 600 mg p.o. b.i.d. 16. Imdur 30 mg p.o. daily. 17. Zaroxolyn 2.5 mg q.48 hours. 18. Lopressor 12.5 mg b.i.d. 19. ProAmatine 10 mg Monday, and Monday. 20. ProAmatine 10 mg a.c. t.i.d. 21. Singulair 10 mg q.h.s. 22. Nitrostat 0.4 sublingual p.r.n. 23. Protonix 40 mg q.h.s. 24. Mirapex. 26. Demadex 20 mg p.o. daily. PHYSICAL EXAMINATION: The patient is alert and oriented times two. Pulse 61, blood pressure 107/58, respiratory rate 20, temperature 97.1, pulse ox 97% on 3 L. HEENT: Conjunctivae normal. NECK: No jugular venous distention. CARDIOVASCULAR: S1, S2 muffled. RESPIRATORY: Breath sounds diminished at the bases. Bilateral scattered rhonchi and crackles. ABDOMEN: Soft, nontender. LEGS: No edema. No swelling. CENTRAL NERVOUS SYSTEM: Diffusely weak. LABS: WBC 6.4, MCV 114 and 0.8. Sodium 130, potassium 5.8. ASSESSMENT: 1. Change in mental status, metabolic encephalopathy, acute. Possibly secondary to hypoglycemia. 2. Possible acute transient ischemic attack present on admission. 3. Old right frontal stroke on CAT scan. 4. Bilateral carotid artery stenosis. 5. Relative hypotension. 6. Hypoglycemic with diabetes type 2. 7. History of congestive heart failure with chronic systolic dysfunction, ejection fraction 35 to 40%. 8. Hyperkalemia and hypokalemia. 9. Chronic disease, stage V, on hemodialysis. 10. History of AV fistula. 11. History of gait dysfunction. 12. History of degenerative joint disease. 13. History of paroxysmal atrial fibrillation, not a candidate for anticoagulation. 15. History of cerebrovascular accident, transient ischemic attack. 16. History of essential hypertension. 17. Hyperlipidemia. 18. Multivessel coronary artery disease with history of myocardial infarction and stenting. 19. Sleep apnea, history. 20. Obesity with body mass index of 31.4. 21. Diabetic peripheral neuropathy. 22. Remote history of nicotine dependence. 23. Lower extremity cellulitis and edema. 24. Hypotension on Midodrine. 25. Medical debility. 26. Gait dysfunction. 27. NO CODE, NO CPR, NO VENT. RECOMMENDATIONS AND DISCUSSION: In this 76 -year-old woman who presented with multiple complex medical issues, we will monitor the patient closely, continue with dialysis, low potassium diet. Monitor lytes closely. PT, OT evaluation. Possible ECF rehab, blood pressure is improved. Sugar has also been improved. We will monitor closely. Overall prognosis extremely guarded. Sensorium was definitely improved but still the patient is mildly confused. Discussed with the patient. Closely follow with the case management team regarding ECF referral. Once again, the prognosis is guarded. Further recommendations to follow. [facility]
[2016-08-12] MEDS: EZETIMIBE 10 MG TAB PO SCH (21:21)
[2016-08-12 21:22] LABS: Glucose,Whole Blood 107 mg/dL (75-99)
[2016-08-12] MEDS: MONTELUKAST 10 MG TAB PO SCH (21:23)
[2016-08-13 02:06] LABS: Glucose,Whole Blood 98 mg/dL (75-99)
[2016-08-13 06:24] LABS: Glucose,Whole Blood 83 mg/dL (75-99)
[2016-08-13 06:34] LABS: Potassium 6.6 mmol/L (3.5-5.1)
[2016-08-13 06:37] LABS: Basophils # (A) 0.1 k/uL (0-0.2); Basophils % (A) 1 %; CH 34.4; CHCM 29.8; Eosinophils # (A) 0.1 k/uL (0-0.7); Eosinophils % (A) 2 %; HCT 36.6 % (34.0-46.0); HGB 11.6 gm/dL (11.4-16.0); Hypochromasia Marked; Luc # (Auto) 0.25; Luc % (Auto) 4; Lymphocytes # (A) 0.9 k/uL (1.0-4.8); Lymphocytes % (A) 14 %; MCH 36.6 pg (25.0-35.0); MCHC 31.6 g/dL (31.0-37.0); MCV 115.8 fL (80.0-100.0); Macrocytosis Marked; Mean Platelet Volume 8.6; Monocytes # (A) 0.6 k/uL (0-1.0); Monocytes % (A) 10 %; Neutrophils # (A) 4.4 k/uL (1.3-7.7); Neutrophils % (A) 70 %; RBC 3.16 m/uL (3.80-5.40); RDW 14.7 % (11.5-15.5); WBC 6.3 k/uL (3.8-10.6); WBC (Perox) 6.27
[2016-08-13] MEDS: INSULIN LISPRO (humaLOG) 300 UNIT/3 ML VIAL SQ SCH ×4 (06:46→22:17)
[2016-08-13 06:55] LABS: Manual Review Performed
[2016-08-13] MEDS: SEVELAMER 800 MG TAB PO SCH ×3 (07:11→17:08)
[2016-08-13] MEDS: PANTOPRAZOLE 40 MG TABLET PO SCH (07:11)
[2016-08-13] MEDS: MIDODRINE 5 MG TAB PO SCH ×3 (07:12→17:07)
[2016-08-13] MEDS: METOPROLOL TARTRATE 12.5 MG TAB PO SCH ×2 (08:15→22:15)
[2016-08-13] MEDS: ALPRAZolam 0.25 MG TAB PO SCH ×3 (08:15→22:25)
[2016-08-13] MEDS: LIDOCAINE-PRILOCAINE 2.5-2.5% CREAM 5 GM TUBE TOPICAL SCH (08:19)
[2016-08-13] MEDS: ALLOPURINOL 100 MG TAB PO SCH ×2 (08:20→22:14)
[2016-08-13] MEDS: ISOSORBIDE MONONITRATE ER 30 MG TAB.ER.24H PO SCH (08:21)
[2016-08-13] MEDS: GABAPENTIN 300 MG CAP PO SCH ×2 (08:21→22:15)
[2016-08-13] MEDS: PRAMIPEXOLE 0.5 MG TAB PO SCH ×3 (08:22→22:16)
[2016-08-13] MEDS: HYDROcodone/APAP 10-325MG 1 EACH TAB PO PRN ×2 (08:22)
[2016-08-13] MEDS: ALBUTEROL NEBULIZED 2.5 MG/3 ML INHALATION SCH ×4 (08:46→19:59)
[2016-08-13] MEDS: SYMBICORT 160-4.5 MCG INHALER INHALATION SCH ×2 (08:46→19:59)
[2016-08-13] MEDS ORDERED: DARBEPOETIN ALFA 25 MCG/0.42 ML SYRINGE SQ SCH (09:00)
[2016-08-13] MEDS: FLUDROCORTISONE 0.1 MG TAB PO SCH ×2 (10:00→22:15)
[2016-08-13] MEDS: ASPIRIN 81 MG CHEW PO SCH (11:44)
[2016-08-13] MEDS: CYANOCOBALAMIN 500 MCG TAB PO SCH (11:44)
[2016-08-13] MEDS: CHOLECALCIFEROL 1,000 UNIT TAB PO SCH (11:45)
[2016-08-13] MEDS: CLOPIDOGREL 75 MG TAB PO SCH (11:45)
[2016-08-13 11:46] LABS: Glucose,Whole Blood 71 mg/dL (75-99)
--- NOTE | 2016-08-13 12:13 | PN ---
The patient is a 76-year-old female being followed for end stage renal disease currently on hemodialysis Monday, , Monday via left arm AV fistula. Patient initially admitted status post fall along with severe hyperkalemia with persistent issues with potassium even during the hospital stay. She is going ( ). Potassium this morning was also high at 6.6 getting hemodialysis today on ( ). No other overnight events. Currently resting comfortably and in no acute distress. VITAL SIGNS: Afebrile, blood pressure is 85/49, temperature 96.8, respiratory 65 per minute. GENERAL APPEARANCE: The patient lying comfortably in bed. No acute distress. LUNGS: Clear to auscultation bilaterally. CARDIOVASCULAR: Regular rate and rhythm. S1, S2. ABDOMEN: Soft, nontender. EXTREMITIES: Bilateral pulses, trace edema. Hemoglobin 11.6, WBC 6.3, platelet count is 121, sodium 131, potassium 6.6, chloride 101, CO2 of 21, BUN 28, creatinine 4.2, calcium 9.0. IMPRESSION: 1. End-stage renal disease on hemodialysis Monday, , Monday, likely etiology from age-related nephrosclerosis. Scheduled for hemodialysis today via left arm AV fistula. 2. Recurrent hyperkalemia. No overt risk factors other than patient's end-stage renal disease, however, she has been dialyzed with low potassium ( ) given the patient's minimal ability to make urine, Torsemide and Metalazone unlikely to help much at this point. 3. Chronic hypotension on Midodrine 10 mg t.i.d. blood pressure continues to remain low. 4. Metabolic bone disease on Nephrocaps and Renvela. 5. Anemia second to underlying chronic kidney disease, stable. 6. Chronic atrial fibrillation rate control currently on low dose Metoprolol, not on any anticoagulation. 7. Remote history of cerebrovascular accident no residual effect. RECOMMENDATIONS: 1. Given the patient's hyperkalemia and persistent hypotension while on Midodrine, recommending adding Florinef 0.1 mg b.i.d. as it will further help in improving patient's potassium and improving blood pressure. 2. Emphasized patient again for a low potassium diet. 3. While the patient does not make much urine, recommend checking a PVR x1 if possible to make sure no retention of urine contributing to high potassium although unlikely. 4. Given patient's ESRD and not making much urine, would recommend discontinuing Metalazone and Torsemide. 5. Repeat BMP in the morning.
--- NOTE | 2016-08-13 12:31 | P.PN ---
Subjective Principal diagnosis: Altered mental status 76-year-old female patient, multiple medical problems and comorbidities, multiple hospitalizations, coming in yesterday to the burst department with altered mental status. Apparently the patient had a fall to the bathroom floor and she was unable to ambulate. The patient also had diminished level of consciousness, lethargic, had a change in her speech and was dysarthric, feeling very weak and for that reason the patient was admitted to the hospital and neurology consultation was requested. CAT scan of the brain showed an old stroke involving the right frontal area and the patient is known to have extensive cardiac disease and chronic atrial fibrillation and she has not been on anticoagulation no she has been a good candidate for surgical repair of the carotid arteries due to her various medical found to comorbidities. At the same time, the patient was found to be hypokalemic and she underwent a session of hemodialysis yesterday. Potassium level is down to 6.7 and the patient will have a second session of hemodialysis. Earlier this morning, the patient was having episodes of hypo Hypoglycemia that was treated. The patient also is running a lower blood pressure. I was able to arouse the patient. She is able to communicate for a short period of time and then she will go back to sleep if left unstimulated. Her blood gases showed a pH of 7.36 with a pCO2 of 46 and pO2 of 86 and this was done on 3 L of oxygen by nasal cannula. No respiratory distress. No aspiration. No seizure activity. No focal neurological deficits. Extremities without any major limitation. EEG was done this morning. The patient was seen and evaluated again today 08/11/2016 in follow-up on the selective care unit. She is actually much more awake and alert today as compared to yesterday. Her speech is less garbled. She is oriented 3. She does remain quite weak however her potassium remains elevated at 6.8 despite receiving hemodialysis yesterday. Her creatinine is 3.69. She denies any worsening shortness of breath, cough or congestion. No dizziness or lightheadedness. She's been afebrile. Blood pressures borderline. She is maintaining O2 saturations in the 90s on 2 L/m per nasal cannula. She has had issues with some drops in blood sugar. She is currently eating lunch and swallowing well. The patient was seen again today 08/12/2016 in follow-up on the selective care unit. She is awake and alert in no acute distress currently. She denies any worsening shortness of breath, cough or congestion. Her potassium is down to 5.8 today she is status post hemodialysis. Creatinine 3.2. Her appetite has improved. Her blood glucose levels are more stable. No specific complaints today. The patient was seen again today 08/13/2016 in follow-up on the selective care unit. She is just completing a dialysis treatment. Her potassium was up again today to 6.6. Creatinine 4.20. Her hemoglobin is stable at 11.6. No leukocytosis. Hemodynamically stable. She is maintaining good O2 saturations in the mid 90s on 2 L/m per nasal cannula. She's afebrile. She is awake and alert in no acute distress. Objective - Vital Signs Vital signs: Vital Signs Temp 96.8 F L 08/13/16 04:00 Pulse 68 08/13/16 11:48 Resp 18 08/13/16 04:00 BP 85/49 08/13/16 04:00 Pulse Ox 96 08/13/16 04:00 Intake & Output 08/12/16 08/13/16 08/13/16 18:59 06:59 18:59 Intake Total 947 Balance 947 Weight 83 kg Intake: IV 245 Sodium Chloride 0.9% 1, 245 000 ml @ 100 mls/hr IV . Q10H ZAKI Rx#:[id number] Oral 702 Other: # Voids 0 - Exam GENERAL EXAM: Alert, active, comfortable in no apparent distress. HEAD: Normocephalic. EYES: Normal reaction of pupils, equal size. NOSE: Clear with pink turbinates. THROAT: There is crowding the posterior pharynx. No erythema or exudates. NECK: Short. No masses, no JVD. CHEST: No chest wall deformity. LUNGS: Equal air entry with echoes in the posterior bases. Diminished. CVS: S1 and S2 normal with no audible murmurs, irregular rhythm. ABDOMEN: Normal bowel sounds, no guarding or rigidity. Extremities: Chronic left-sided weakness from previous CVA. There is trace peripheral edema. No clubbing, no cyanosis. Peripheral pulses are intact. - Labs CBC & Chem 7: 08/13/16 06:02 08/13/16 06:02 Labs: Abnormal Lab Results - Last 24 Hours (Table) 08/12/16 08/12/16 08/13/16 Range/Units 16:36 21:21 06:02 RBC 3.16 L (3.80-5.40) m/uL MCV 115.8 H (80.0-100.0) fL MCH 36.6 H (25.0-35.0) pg Plt Count 121 L (150-450) k/uL Lymphocytes # 0.9 L (1.0-4.8) k/uL Sodium (137-145) mmol/L Potassium (3.5-5.1) mmol/L Carbon Dioxide (22-30) mmol/L BUN (7-17) mg/dL Creatinine (0.52-1.04) mg/dL POC Glucose (mg/dL) 145 H 107 H (75-99) mg/dL 08/13/16 08/13/16 Range/Units 06:02 11:44 RBC (3.80-5.40) m/uL MCV (80.0-100.0) fL MCH (25.0-35.0) pg Plt Count (150-450) k/uL Lymphocytes # (1.0-4.8) k/uL Sodium 131 L (137-145) mmol/L Potassium 6.6 H* (3.5-5.1) mmol/L Carbon Dioxide 21 L (22-30) mmol/L BUN 28 H (7-17) mg/dL Creatinine 4.20 H (0.52-1.04) mg/dL POC Glucose (mg/dL) 71 L (75-99) mg/dL Assessment and Plan Plan: Assessment 1 altered mentation with slurred speech and dysarthria. Rule out underlying CVA. Rule out metabolic encephalopathy. CAT scan of the brain showed old chronic findings of a previous CVA. No acute abnormalities noted. 08/13/2016 she is awake and alert and oriented 3. 2 end stage renal disease on hemodialysis 3 times a week. Current creatinine 4.20. 3 acute hyperkalemia not improving with dialysis, current potassium 6.6. 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 She has a DNR/DNI CODE STATUS Plan The patient was seen and evaluated by Dr. Hernandez. She continues to improve daily mentally. Her overall prognosis still remains quite guarded based on the above mentioned multiple comorbidities. Still having ongoing issues with hyperkalemia despite hemodialysis treatments. The plan is for transfer to an extended care facility on Monday. Discharge planning is in place.
[2016-08-13 16:52] LABS: Glucose,Whole Blood 107 mg/dL (75-99)
[2016-08-13 21:12] LABS: Glucose,Whole Blood 107 mg/dL (75-99)
[2016-08-13] MEDS: EZETIMIBE 10 MG TAB PO SCH (22:14)
[2016-08-13] MEDS: MONTELUKAST 10 MG TAB PO SCH (22:16)
--- NOTE | 2016-08-13 23:20 | PN ---
DATE OF SERVICE: 08/13/2016 This 76 -year-old who was admitted with change in mental status, metabolic encephalopathy, with possible hypoglycemia, also had multiple medical problems, including possible transient ischemic attack and/old stroke and gait dysfunction. No chest pain. No palpitations. No fever. On exam, alert and oriented times two. Pulse 65, blood pressure 85/48, respiratory rate 18, temperature 97.8, pulse ox 97% on 2 L. HEENT: Conjunctivae normal . NECK: No jugular venous distention. CARDIOVASCULAR: S1, S2 muffled RESPIRATORY: Breath sounds diminished at the bases. A few scattered rhonchi and crackles. respiratory wheezing also present. LEGS: Bilateral leg edema also noted. CENTRAL NERVOUS SYSTEM: No focal deficits. ABDOMEN: Soft, obese. Labs are MC 115, sodium 132, potassium 6.6. Creatinine is 4.20. ASSESSMENT: 1. Change in mental status, metabolic encephalopathy, acute possibly secondary to hypoglycemia and multifactorial, possible acute transient ischemic attack present on admission. 2. Old right frontal stroke on the CAT scan. 3. Bilateral carotid artery stenosis. 4. Relative hypotension. 5. Hypoglycemia, with diabetes type 2. 6. History of congestive heart failure with chronic systolic dysfunction, ejection fraction 35 to 40%. 7. Hyperkalemia and hypokalemia. 8. Chronic kidney disease, stage V on hemodialysis. 9. History of AV fistula. 10. History of gait dysfunction. 11. History of degenerative joint disease. 12. History of paroxysmal atrial fibrillation, not a candidate for anticoagulation. 13. History of cerebrovascular accident, transient ischemic attack. 14. History of essential hypertension. 15. Hyperlipidemia. 16. Multivessel coronary artery disease with a history of myocardial infarction and stenting. 17. Sleep apnea history. 18. Obesity with body mass index of 31.4. 19. Diabetic peripheral neuropathy. 20. Remote history of nicotine dependence. 21. Lower extremity cellulitis and edema. 22. Hypotension on Midodrine. 23. Medical debility. 24. Gait dysfunction. 25. NO CODE, NO CPR, NO VENTILATOR. RECOMMENDATIONS AND DISCUSSION: Recommend to continue the current medication. Continue symptomatic treatment. Otherwise, closely follow with nephrology regarding hyperkalemia. Low potassium diet. Otherwise Kayexalate has been given. Follow up and see orders for further details. Further recommendations to follow.
[2016-08-14 02:22] LABS: Glucose,Whole Blood 109 mg/dL (75-99)
[2016-08-14 06:27] LABS: Glucose,Whole Blood 107 mg/dL (75-99)
[2016-08-14] MEDS: INSULIN LISPRO (humaLOG) 300 UNIT/3 ML VIAL SQ SCH ×4 (06:27→22:15)
[2016-08-14] MEDS: SEVELAMER 800 MG TAB PO SCH ×3 (06:30→17:00)
[2016-08-14] MEDS: PANTOPRAZOLE 40 MG TABLET PO SCH (06:30)
[2016-08-14] MEDS: MIDODRINE 5 MG TAB PO SCH ×3 (06:31→17:00)
[2016-08-14 06:49] LABS: Basophils % (A) 0 %; CH 34.2; CHCM 29.9; Eosinophils # (A) 0.1 k/uL (0-0.7); Eosinophils % (A) 2 %; HCT 37.3 % (34.0-46.0); HDW 2.99; HGB 11.5 gm/dL (11.4-16.0); Hypochromasia Marked; Luc # (Auto) 0.19; Luc % (Auto) 3; Lymphocytes # (A) 0.4 k/uL (1.0-4.8); Lymphocytes % (A) 6 %; MCH 35.6 pg (25.0-35.0); MCV 114.9 fL (80.0-100.0); Macrocytosis Marked; Mean Platelet Volume 7.6; Monocytes # (A) 0.4 k/uL (0-1.0); Monocytes % (A) 6 %; Neutrophils # (A) 5.5 k/uL (1.3-7.7); Neutrophils % (A) 83 %; RBC 3.24 m/uL (3.80-5.40); RDW 14.8 % (11.5-15.5); WBC 6.7 k/uL (3.8-10.6); WBC (Perox) 7.18
[2016-08-14 07:30] LABS: Calcium 8.9 mg/dL (8.4-10.2)
[2016-08-14 07:33] LABS: Potassium 5.6 mmol/L (3.5-5.1)
[2016-08-14 07:59] LABS: Polychromasia Present
[2016-08-14] MEDS: ALBUTEROL NEBULIZED 2.5 MG/3 ML INHALATION SCH ×4 (08:00→21:04)
[2016-08-14] MEDS: SYMBICORT 160-4.5 MCG INHALER INHALATION SCH ×3 (08:02→21:04)
[2016-08-14] MEDS: ALPRAZolam 0.25 MG TAB PO SCH (09:12)
[2016-08-14] MEDS: METOPROLOL TARTRATE 12.5 MG TAB PO SCH (09:13)
[2016-08-14] MEDS: CLOPIDOGREL 75 MG TAB PO SCH (09:19)
[2016-08-14] MEDS: PRAMIPEXOLE 0.5 MG TAB PO SCH ×3 (09:19→20:19)
[2016-08-14] MEDS: GABAPENTIN 300 MG CAP PO SCH ×2 (09:19→20:19)
[2016-08-14] MEDS: FLUDROCORTISONE 0.1 MG TAB PO SCH ×2 (09:20→20:19)
[2016-08-14] MEDS: ASPIRIN 81 MG CHEW PO SCH (09:20)
[2016-08-14] MEDS: ISOSORBIDE MONONITRATE ER 30 MG TAB.ER.24H PO SCH (09:20)
[2016-08-14] MEDS: ALLOPURINOL 100 MG TAB PO SCH ×2 (09:20→20:19)
[2016-08-14 11:39] LABS: Glucose,Whole Blood 113 mg/dL (75-99)
--- NOTE | 2016-08-14 12:06 | P.PN ---
Subjective 76-year-old female patient, multiple medical problems and comorbidities, multiple hospitalizations, coming in yesterday to the burst department with altered mental status. Apparently the patient had a fall to the bathroom floor and she was unable to ambulate. The patient also had diminished level of consciousness, lethargic, had a change in her speech and was dysarthric, feeling very weak and for that reason the patient was admitted to the hospital and neurology consultation was requested. CAT scan of the brain showed an old stroke involving the right frontal area and the patient is known to have extensive cardiac disease and chronic atrial fibrillation and she has not been on anticoagulation no she has been a good candidate for surgical repair of the carotid arteries due to her various medical found to comorbidities. At the same time, the patient was found to be hypokalemic and she underwent a session of hemodialysis yesterday. Potassium level is down to 6.7 and the patient will have a second session of hemodialysis. Earlier this morning, the patient was having episodes of hypo Hypoglycemia that was treated. The patient also is running a lower blood pressure. I was able to arouse the patient. She is able to communicate for a short period of time and then she will go back to sleep if left unstimulated. Her blood gases showed a pH of 7.36 with a pCO2 of 46 and pO2 of 86 and this was done on 3 L of oxygen by nasal cannula. No respiratory distress. No aspiration. No seizure activity. No focal neurological deficits. Extremities without any major limitation. EEG was done this morning. The patient was seen and evaluated again today 08/11/2016 in follow-up on the selective care unit. She is actually much more awake and alert today as compared to yesterday. Her speech is less garbled. She is oriented 3. She does remain quite weak however her potassium remains elevated at 6.8 despite receiving hemodialysis yesterday. Her creatinine is 3.69. She denies any worsening shortness of breath, cough or congestion. No dizziness or lightheadedness. She's been afebrile. Blood pressures borderline. She is maintaining O2 saturations in the 90s on 2 L/m per nasal cannula. She has had issues with some drops in blood sugar. She is currently eating lunch and swallowing well. The patient was seen again today 08/12/2016 in follow-up on the selective care unit. She is awake and alert in no acute distress currently. She denies any worsening shortness of breath, cough or congestion. Her potassium is down to 5.8 today she is status post hemodialysis. Creatinine 3.2. Her appetite has improved. Her blood glucose levels are more stable. No specific complaints today. The patient was seen again today 08/13/2016 in follow-up on the selective care unit. She is just completing a dialysis treatment. Her potassium was up again today to 6.6. Creatinine 4.20. Her hemoglobin is stable at 11.6. No leukocytosis. Hemodynamically stable. She is maintaining good O2 saturations in the mid 90s on 2 L/m per nasal cannula. She's afebrile. She is awake and alert in no acute distress. On 08/14/2016 the patient is being seen in follow-up. The patient is in a same condition. No significant complaints for now. She underwent hemodialysis her potassium level is lower. Upon further questioning it seems that the patient is not following a strict renal diet and appropriate dietary modifications was made. No new onset focal neurological deficit. She is awake and alert and communicating. She is also breathing well. The patient will be transferred tomorrow with by Monday for further rehabilitation. Objective - Vital Signs Vital signs: Vital Signs Temp 97.7 F 08/14/16 04:00 Pulse 76 08/14/16 11:31 Resp 20 08/14/16 04:00 BP 84/48 08/14/16 04:00 Pulse Ox 93 L 08/14/16 08:03 Intake & Output 08/13/16 08/14/16 08/14/16 18:59 06:59 18:59 Intake Total 50 Balance 50 Intake: IV 10 Invasive Line 1 5 Invasive Line 2 5 Oral 40 Other: # Voids 0 0 0 - Exam GENERAL EXAM: Alert, active, comfortable in no apparent distress. HEAD: Normocephalic. EYES: Normal reaction of pupils, equal size. NOSE: Clear with pink turbinates. THROAT: There is crowding the posterior pharynx. No erythema or exudates. NECK: Short. No masses, no JVD. CHEST: No chest wall deformity. LUNGS: Equal air entry with echoes in the posterior bases. Diminished. CVS: S1 and S2 normal with no audible murmurs, irregular rhythm. ABDOMEN: Normal bowel sounds, no guarding or rigidity. Extremities: Chronic left-sided weakness from previous CVA. There is trace peripheral edema. No clubbing, no cyanosis. Peripheral pulses are intact. - Labs CBC & Chem 7: 08/14/16 05:57 08/14/16 05:57 Labs: Abnormal Lab Results - Last 24 Hours (Table) 08/13/16 08/13/16 08/14/16 Range/Units 16:42 21:10 02:20 RBC (3.80-5.40) m/uL MCV (80.0-100.0) fL MCH (25.0-35.0) pg Plt Count (150-450) k/uL Lymphocytes # (1.0-4.8) k/uL Potassium (3.5-5.1) mmol/L BUN (7-17) mg/dL Creatinine (0.52-1.04) mg/dL Glucose (74-99) mg/dL POC Glucose (mg/dL) 107 H 107 H 109 H (75-99) mg/dL 08/14/16 08/14/16 08/14/16 Range/Units 05:57 05:57 06:26 RBC 3.24 L (3.80-5.40) m/uL MCV 114.9 H (80.0-100.0) fL MCH 35.6 H (25.0-35.0) pg Plt Count 129 L (150-450) k/uL Lymphocytes # 0.4 L (1.0-4.8) k/uL Potassium 5.6 H (3.5-5.1) mmol/L BUN 25 H (7-17) mg/dL Creatinine 3.60 H (0.52-1.04) mg/dL Glucose 101 H (74-99) mg/dL POC Glucose (mg/dL) 107 H (75-99) mg/dL 08/14/16 Range/Units 11:37 RBC (3.80-5.40) m/uL MCV (80.0-100.0) fL MCH (25.0-35.0) pg Plt Count (150-450) k/uL Lymphocytes # (1.0-4.8) k/uL Potassium (3.5-5.1) mmol/L BUN (7-17) mg/dL Creatinine (0.52-1.04) mg/dL Glucose (74-99) mg/dL POC Glucose (mg/dL) 113 H (75-99) mg/dL Assessment and Plan Plan: Assessment 1 altered mentation with slurred speech and dysarthria. Rule out underlying CVA. Rule out metabolic encephalopathy. CAT scan of the brain showed old chronic findings of a previous CVA. No acute abnormalities noted. 08/14/2016 she is awake and alert and oriented 3. 2 end stage renal disease on hemodialysis 3 times a week. Current creatinine 4.20. 3 acute hyperkalemia improved and the potassium level is down to 5.6. There is obviously a dietary component as the patient is eating freely and she is not following a strict renal diet. 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 She has a DNR/DNI CODE STATUS\ Plan Condition is stable. Blood sugars of been well controlled. Discontinue nitroglycerin drip and use only sliding scale coverage based on the observed episodes of hypoglycemia. Monitor the potassium level. Strict renal diet. We' ll follow. ECF transferred in a.m.
[2016-08-14] MEDS: CHOLECALCIFEROL 1,000 UNIT TAB PO SCH (12:33)
[2016-08-14] MEDS: CYANOCOBALAMIN 500 MCG TAB PO SCH (12:34)
--- NOTE | 2016-08-14 13:51 | PN ---
Patient is being followed for end-stage renal disease management. She has been having issues with persistent hyperkalemia along with her acute on chronic hypertension. Patient was dialyzed yesterday with 1K potassium bath and repeat potassium this morning 5.6. I did start her on Florinef also for low blood pressure in addition to Midodrine also hoping it will further help in lowering the potassium. No other overnight events. Currently being maintained on renal diet. PHYSICAL EXAMINATION: VITAL SIGNS: Afebrile, blood pressure is 84/48, sats 92 on 2 liters nasal cannula. Respiratory per minute. GENERAL APPEARANCE: Patient is ( ) comfortably in bed. No acute distress. LUNGS: Clear to auscultation bilaterally. CARDIOVASCULAR: Regular rate and rhythm. S1, S2. ABDOMEN: Soft, nontender. EXTREMITIES: Bilateral pulses, no edema. LABS: Hemoglobin 11.5, WBC 6.7, RBCs 3.24, sodium 138, potassium 5.6, chloride 104, CO2 of 23, anion gap 11, BUN 25, creatinine 3.6, calcium 8.9. IMPRESSION: 1. End-stage renal disease Monday, , Monday, secondary to age-related arterionephrosclerosis. Last hemodialysis yesterday August 13, 2016 via left arm AV fistula, tolerated well. It was done on 1L potassium bed. 2. Hyperkalemia. No overt risk factors other than end stage renal disease. Patient started on Florinef ES today to help with chronic hypertension and it might indirectly help with hyperkalemia also. 3. Acute on chronic hypotension persistent on Midodrine 10 mg t.i.d. started Florinef 0.1 b.i.d. yesterday. 4. Metabolic bone disease on Nephrocaps and Renvela. 5. Anemia secondary to underlying chronic kidney disease stable. 6. Chronic atrial fibrillation on low-dose metoprolol, not a candidate for anticoagulation. 7. Remote history of cerebrovascular accident. RECOMMENDATIONS: 1. Repeat BMP in the morning. 2. Increase Florinef 0.2 mg twice a day. 3. Bladder scan x1 in the setting of recurrent high potassium. Thank you, Dr. Cunningham for allowing me to participate in the care of the patient. We will follow the patient.
[2016-08-14] MEDS ORDERED: ALPRAZolam 0.25 MG TAB PO PRN (15:52)
[2016-08-14 17:00] LABS: Glucose,Whole Blood 126 mg/dL (75-99)
[2016-08-14 18:58] VITALS: RESP 18
[2016-08-14] MEDS: MONTELUKAST 10 MG TAB PO SCH (20:19)
[2016-08-14] MEDS: EZETIMIBE 10 MG TAB PO SCH (20:19)
[2016-08-14] MEDS: HYDROcodone/APAP 10-325MG 1 EACH TAB PO PRN (20:27)
[2016-08-14 21:32] LABS: Glucose,Whole Blood 144 mg/dL (75-99)
[2016-08-15 06:15] LABS: Glucose,Whole Blood 97 mg/dL (75-99)
[2016-08-15] MEDS: INSULIN LISPRO (humaLOG) 300 UNIT/3 ML VIAL SQ SCH ×2 (06:38→11:44)
[2016-08-15] MEDS: SEVELAMER 800 MG TAB PO SCH ×2 (06:52→11:43)
[2016-08-15] MEDS: PANTOPRAZOLE 40 MG TABLET PO SCH (06:52)
[2016-08-15] MEDS: MIDODRINE 5 MG TAB PO SCH ×2 (06:52→11:43)
[2016-08-15] MEDS: SYMBICORT 160-4.5 MCG INHALER INHALATION SCH (08:02)
[2016-08-15] MEDS: ALBUTEROL NEBULIZED 2.5 MG/3 ML INHALATION SCH ×2 (08:02→11:56)
[2016-08-15 08:33] LABS: Calcium 8.8 mg/dL (8.4-10.2); Potassium 5.4 mmol/L (3.5-5.1)
[2016-08-15] MEDS: ISOSORBIDE MONONITRATE ER 30 MG TAB.ER.24H PO SCH (08:35)
[2016-08-15] MEDS: FLUDROCORTISONE 0.1 MG TAB PO SCH (08:35)
[2016-08-15] MEDS: CLOPIDOGREL 75 MG TAB PO SCH (08:35)
[2016-08-15] MEDS: GABAPENTIN 300 MG CAP PO SCH (08:36)
[2016-08-15] MEDS: ASPIRIN 81 MG CHEW PO SCH (08:36)
[2016-08-15] MEDS: ALLOPURINOL 100 MG TAB PO SCH (08:36)
[2016-08-15] MEDS: PRAMIPEXOLE 0.5 MG TAB PO SCH (08:36)
[2016-08-15] MEDS ORDERED: METOPROLOL TARTRATE 12.5 MG TAB PO SCH (09:00)
[2016-08-15 11:40] LABS: Glucose,Whole Blood 151 mg/dL (75-99)
[2016-08-15] MEDS: CHOLECALCIFEROL 1,000 UNIT TAB PO SCH (11:41)
[2016-08-15] MEDS: CYANOCOBALAMIN 500 MCG TAB PO SCH (11:43)
[2016-08-15 11:49] VITALS: BP 89/48; TEMP 96.6
--- NOTE | 2016-08-15 12:04 | PN ---
Patient is seen for follow-up for end-stage renal disease She is normally maintained on a Monday, , Monday schedule for dialysis. Currently, she is comfortable, not in any acute distress. Patient has been hyperkalemic. We have discussed a low potassium diet on multiple occasions. On examination, blood pressure is 92/52, heart rate 80 per minute. The patient is afebrile. Examination of the heart: S1 and S2. Examination of the lungs: Bilateral breath sounds are heard. Abdomen is soft, obese. Examination of lower extremities shows chronic skin changes, chronic edema. [employer] exam is grossly intact. Labs show sodium 139, potassium 5.4. ASSESSMENT: 1. End-stage renal disease on hemodialysis on a Monday, , Monday schedule. 2. Hyperkalemia initial admission, currently improved. 3. Severe chronic obstructive pulmonary disease, fairly stable. 4. Asthma. 5. Cardiomyopathy with ejection fraction of 35%. PLAN: Hemodialysis in a.m. Patient could be discharged today and should maintain her outpatient dialysis tomorrow.
[2016-08-15 12:09] VITALS: PULSE 68
--- NOTE | 2016-08-15 12:20 | P.PN ---
Subjective Principal diagnosis: Acute metabolic encephalopathy 76-year-old female patient, multiple medical problems and comorbidities, multiple hospitalizations, coming in yesterday to the burst department with altered mental status. Apparently the patient had a fall to the bathroom floor and she was unable to ambulate. The patient also had diminished level of consciousness, lethargic, had a change in her speech and was dysarthric, feeling very weak and for that reason the patient was admitted to the hospital and neurology consultation was requested. CAT scan of the brain showed an old stroke involving the right frontal area and the patient is known to have extensive cardiac disease and chronic atrial fibrillation and she has not been on anticoagulation no she has been a good candidate for surgical repair of the carotid arteries due to her various medical found to comorbidities. At the same time, the patient was found to be hypokalemic and she underwent a session of hemodialysis yesterday. Potassium level is down to 6.7 and the patient will have a second session of hemodialysis. Earlier this morning, the patient was having episodes of hypo Hypoglycemia that was treated. The patient also is running a lower blood pressure. I was able to arouse the patient. She is able to communicate for a short period of time and then she will go back to sleep if left unstimulated. Her blood gases showed a pH of 7.36 with a pCO2 of 46 and pO2 of 86 and this was done on 3 L of oxygen by nasal cannula. No respiratory distress. No aspiration. No seizure activity. No focal neurological deficits. Extremities without any major limitation. EEG was done this morning. The patient was seen and evaluated again today 08/11/2016 in follow-up on the selective care unit. She is actually much more awake and alert today as compared to yesterday. Her speech is less garbled. She is oriented 3. She does remain quite weak however her potassium remains elevated at 6.8 despite receiving hemodialysis yesterday. Her creatinine is 3.69. She denies any worsening shortness of breath, cough or congestion. No dizziness or lightheadedness. She's been afebrile. Blood pressures borderline. She is maintaining O2 saturations in the 90s on 2 L/m per nasal cannula. She has had issues with some drops in blood sugar. She is currently eating lunch and swallowing well. The patient was seen again today 08/12/2016 in follow-up on the selective care unit. She is awake and alert in no acute distress currently. She denies any worsening shortness of breath, cough or congestion. Her potassium is down to 5.8 today she is status post hemodialysis. Creatinine 3.2. Her appetite has improved. Her blood glucose levels are more stable. No specific complaints today. The patient was seen again today 08/13/2016 in follow-up on the selective care unit. She is just completing a dialysis treatment. Her potassium was up again today to 6.6. Creatinine 4.20. Her hemoglobin is stable at 11.6. No leukocytosis. Hemodynamically stable. She is maintaining good O2 saturations in the mid 90s on 2 L/m per nasal cannula. She's afebrile. She is awake and alert in no acute distress. On 08/14/2016 the patient is being seen in follow-up. The patient is in a same condition. No significant complaints for now. She underwent hemodialysis her potassium level is lower. Upon further questioning it seems that the patient is not following a strict renal diet and appropriate dietary modifications was made. No new onset focal neurological deficit. She is awake and alert and communicating. She is also breathing well. The patient will be transferred tomorrow with by Monday for rehabilitation. On 08/15/2016, patient seems to be doing better, in no form of respiratory distress, patient is being considered for discharge today to a rehab facility, pulmonary-hong she is about the same. No cough no wheezing no shortness of breath at this point, her condition overall is basically about the same. Patient has been on dialysis for intermittent episodes of congestive heart failure. And fluid overload. Labs were reviewed potassium is 5.4 BUN is 36 creatinine is 4.66 Objective - Vital Signs Vital signs: Vital Signs Temp 96.6 F L 08/15/16 11:48 Pulse 68 08/15/16 12:09 Resp 18 08/15/16 11:49 BP 89/48 08/15/16 11:48 Pulse Ox 97 08/15/16 11:48 Intake & Output 08/14/16 08/15/16 08/15/16 18:59 06:59 18:59 Intake Total 110 50 220 Output Total 0 Balance 110 50 220 Weight 79.1 kg Intake: Oral 110 50 220 Output: Urine 0 Other: # Voids 0 - Exam GENERAL EXAM: Alert, active, comfortable in no apparent distress. HEAD: Normocephalic. EYES: Normal reaction of pupils, equal size. NOSE: Clear with pink turbinates. THROAT: There is crowding the posterior pharynx. No erythema or exudates. NECK: Short. No masses, no JVD. CHEST: No chest wall deformity. LUNGS: Equal air entry with echoes in the posterior bases. Diminished. CVS: S1 and S2 normal with no audible murmurs, irregular rhythm. ABDOMEN: Normal bowel sounds, no guarding or rigidity. Extremities: Chronic left-sided weakness from previous CVA. There is trace peripheral edema. No clubbing, no cyanosis. Peripheral pulses are intact. - Labs CBC & Chem 7: 08/14/16 05:57 08/15/16 06:44 Labs: Abnormal Lab Results - Last 24 Hours (Table) 08/14/16 08/14/16 08/15/16 Range/Units 16:58 21:28 06:44 Potassium 5.4 H (3.5-5.1) mmol/L BUN 36 H (7-17) mg/dL Creatinine 4.66 H (0.52-1.04) mg/dL Glucose 102 H (74-99) mg/dL POC Glucose (mg/dL) 126 H 144 H (75-99) mg/dL 08/15/16 Range/Units 11:36 Potassium (3.5-5.1) mmol/L BUN (7-17) mg/dL Creatinine (0.52-1.04) mg/dL Glucose (74-99) mg/dL POC Glucose (mg/dL) 151 H (75-99) mg/dL Assessment and Plan Plan: 1 altered mentation with slurred speech and dysarthria. Resolved, this is likely related to acute metabolic encephalopathy. 2 end stage renal disease on hemodialysis 3 times a week. Current creatinine 4.20. 3 acute hyperkalemia improved and the potassium level is down to 5.6. There is obviously a dietary component as the patient is eating freely and she is not following a strict renal diet. 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 She has a DNR/DNI CODE STATUS\ Plan agree with discharge planning to rehab facility today, we'll follow when necessary. Time with Patient: Less than 30
--- NOTE | 2016-08-15 12:59 | DS ---
DATE OF ADMISSION: 08/09/2016 DATE OF DISCHARGE: FINAL DIAGNOSES: 1. Change in mental status, metabolic encephalopathy, acute, possibly secondary to hypoglycemia and multifactorial, possibly acute transient ischemic attack, present on admission. 2. Old right frontal stroke on CAT scan. 3. Bilateral carotid artery stenosis. 4. Relative hypotension. 5. Hypoglycemic with diabetes mellitus type 2. 6. History of congestive heart failure with chronic systolic dysfunction, ejection fraction 35% to 40%,. 7. Hyperkalemia and then hypokalemia. 8. Chronic kidney disease, stage V on hemodialysis. 9. History of AV fistula. 10. History of gait dysfunction. 11. History of degenerative joint disease. 12. History of paroxysmal atrial fibrillation, not a candidate for anticoagulation. 13. History of cerebrovascular accident, transient ischemic attack. 14. History of essential hypertension. 15. Hyperlipidemia. 16. Multivessel coronary artery disease and history of myocardial infarction with stenting. 17. Sleep apnea history. 18. Obesity with body mass index of 31.4. 19. Diabetic peripheral neuropathy. 20. Remote history of nicotine dependence. 21. Lower extremity cellulitis and edema. 22. Hypotension on midodrine. 23. Medical debility. 24. Gait dysfunction. 25. NO CODE, NO CARDIOPULMONARY RESUSCITATION, NO VENT. DISCHARGE DISPOSITION: The patient will be discharged in stable condition with guarded prognosis. The patient will be transferred to [facility] under Dr. Martinez or Dr. Black. Total time taken is 35 minutes. This 76-year-old woman with a past medical history of multiple medical problems with change in mental status possibly metabolic encephalopathy and hypoglycemia and multiple medical problems. The patient had old frontal stroke and renal failure, relative hypotension, multiple other medical problems, which were treated symptomatically. Seen by multiple consultants. Medications adjusted. Patient improved significantly. On exam, vitals are stable. CARDIOVASCULAR SYSTEM: S1, S2. RESPIRATORY: A few scattered rhonchi. NERVOUS SYSTEM: Diffusely weak. The patient will be discharged to [facility] in stable condition with guarded prognosis with the following advice: 1. Diet is cardiac. 2. Activity as tolerated. 3. Follow up with Dr. Martinez in 2 to 3 days. 4. Follow up with Dr. Hernandez after discharge from [facility]. 5. Follow up with Dr. Riddle and continue hemodialysis. 6. Follow with Dr. Pope as recommended. MEDICATIONS: 1. Tylenol 500 mg q.6 p.r.n. 2. Albuterol 2.5 q.i.d. and p.r.n. 3. Zyloprim 100 mg p.o. b.i.d. 4. Xanax 0.5 t.i.d. p.r.n. for anxiety. 5. Ecotrin 81 mg p.o. daily. 6. Symbicort 2 puffs b.i.d. 7. Vitamin D3, 5000 daily. 8. Plavix 75 mg p.o. daily. 9. Vitamin B12 500 mcg p.o. daily. 10. Flexeril 5 mg daily p.r.n. 11. Aranesp 12.5 mg q.7 days. 12. Nexium 40 mg p.o. daily. 13. Zetia 10 mg q.h.s. 14. Florinef 0.2 mg p.o. b.i.d. 15. Gabapentin 600 mg p.o. b.i.d. 16. Hydrocodone 10 mg q.4 p.r.n. 17. Accu-Cheks a.c. 18. Humalog scale. The scale will be 150 to 200 two units, 201 to 250 four units, 251 to 300 six units, 301 to 350 eight units, 351 to 400 ten units, more than 400 call. 19. Imdur ER 30 mg p.o. daily. 20. Lidocaine local application. 21. Lopressor 12.5 mg p.o. daily. 22. Hold if the systolic blood pressure is less than 100. 23. Midodrine 10 mg a.c. t.i.d. 24. Singulair 10 mg p.o. q.h.s. 25. Nitrostat 0.4 sublingual p.r.n. 26. Mirapex 0.5 mg t.i.d. 27. Renvela 800 mg p.o. t.i.d. 28. Zinc oxide for local application. Once again, the patient will be discharged in a stable condition with guarded prognosis.
--- NOTE | 2016-08-15 14:03 | PN ---
DATE OF SERVICE: 08/14/2016 This 76-year-old woman with a past medical history of multiple medical problems admitted with significant mental status changes and as well as hypoglycemia. The patient also had old right frontal stroke. Patient also had relative hypotension. Patient is being closely monitored. PT, OT. Patient possible going to rehab. No chest pain, no palpitations. No fever. On exam, pulse is 70, blood pressure 93/53, respirations 18, temperature 99.4, pulse ox 93% on 2-liters. HEENT: Conjunctivae normal. NECK: No jugular venous distention. CARDIOVASCULAR: S1 and S2, muffled. RESPIRATORY: Breath sounds diminished at the bases. A few scattered rhonchi and crackles. ABDOMEN: Soft, obese. LEGS: No edema, no swelling. NERVOUS SYSTEM: No focal deficits. LABS: MCV 114, creatinine 3.6. ASSESSMENT: 1. Change in mental status with acute metabolic encephalopathy, possibly secondary to hypoglycemia and multifactorial, possible acute transient ischemic attack, present on admission. 2. Old right frontal stroke and CAT scan. 3. Bilateral carotid artery stenosis, relative hypotension. 4. Hypoglycemia with diabetes mellitus type 2. 5. History of congestive heart failure with chronic systolic dysfunction, ejection fraction 35% to 40%. 6. Hyperkalemia and hypokalemia. 7. Chronic kidney disease, stage V on hemodialysis. 9. History of gait dysfunction. 10. History of degenerative joint disease. 11. History of paroxysmal atrial fibrillation, not a candidate for anticoagulation. 12. Cerebrovascular accident, transient ischemic attack. 13. History of essential hypertension. 14. Hyperlipidemia. 15. Multivessel coronary artery disease with history of myocardial infarction and stenting. 16. Sleep apnea history. 17. Obesity with body mass index of 31.4. 18. Diabetic neuropathy. 19. Remote nicotine dependence. 20. Lower extremity cellulitis and edema. 21. Hypotension on midodrine. 22. Medical debility. 23. Gait dysfunction. 24. NO CODE, NO CARDIOPULMONARY RESUSCITATION, NO VENT. RECOMMENDATIONS AND DISCUSSION: I recommend to continue the current medications, continue monitoring and symptomatic treatment. PT, OT evaluation. Monitor blood pressure closely once the patient is stabilized. ECF rehab. Guarded prognosis. Further recommendations to follow. [facility]
== END 2016-08-15 15:00 | DRG 67 ==
LOC: EC 07:41 → 6SEL 10:25
PROVIDERS: ADMIT Internal Medicine; ATTEND Internal Medicine
PROC: 5A1D60Z (ICD-10-PCS; principal; 2016-08-09)
DX: I65.23 Occlusion and stenosis of bilateral carotid arteries (principal); G93.41 Metabolic encephalopathy; N18.6 End stage renal disease; I13.2 Hypertensive heart and chronic kidney disease with heart failure and with stage 5 chronic kidney disease, or end stage renal disease; N17.9 Acute kidney failure, unspecified; I42.9 Cardiomyopathy, unspecified; I50.22 Chronic systolic (congestive) heart failure; I69.354 Hemiplegia and hemiparesis following cerebral infarction affecting left non-dominant side; L03.119 Cellulitis of unspecified part of limb; E11.649 Type 2 diabetes mellitus with hypoglycemia without coma; R13.10 Dysphagia, unspecified; D63.1 Anemia in chronic kidney disease; E88.89 Other specified metabolic disorders; I95.89 Other hypotension; E11.22 Type 2 diabetes mellitus with diabetic chronic kidney disease; E11.42 Type 2 diabetes mellitus with diabetic polyneuropathy; I27.2 Other secondary pulmonary hypertension; E87.5 Hyperkalemia; E87.6 Hypokalemia; G47.33 Obstructive sleep apnea (adult) (pediatric); I25.10 Atherosclerotic heart disease of native coronary artery without angina pectoris; I25.2 Old myocardial infarction; I48.0 Paroxysmal atrial fibrillation; I48.2 Chronic atrial fibrillation; J44.9 Chronic obstructive pulmonary disease, unspecified; E78.5 Hyperlipidemia, unspecified; E66.9 Obesity, unspecified; J45.20 Mild intermittent asthma, uncomplicated; K21.9 Gastro-esophageal reflux disease without esophagitis; K57.90 Diverticulosis of intestine, part unspecified, without perforation or abscess without bleeding; M10.9 Gout, unspecified; M81.0 Age-related osteoporosis without current pathological fracture; F32.9 Major depressive disorder, single episode, unspecified; K44.9 Diaphragmatic hernia without obstruction or gangrene; M19.90 Unspecified osteoarthritis, unspecified site; H91.90 Unspecified hearing loss, unspecified ear; H54.7 Unspecified visual loss; Z66 Do not resuscitate; Z68.31 Body mass index [BMI] 31.0-31.9, adult; Z87.891 Personal history of nicotine dependence; Z95.5 Presence of coronary angioplasty implant and graft; Z99.2 Dependence on renal dialysis; Z99.81 Dependence on supplemental oxygen; Z79.02 Long term (current) use of antithrombotics/antiplatelets; Z79.4 Long term (current) use of insulin; Z79.82 Long term (current) use of aspirin; Z79.899 Other long term (current) drug therapy; Z91.11 Patient's noncompliance with dietary regimen; Z91.19 Patient's noncompliance with other medical treatment and regimen; Z88.6 Allergy status to analgesic agent; Z88.1 Allergy status to other antibiotic agents; Z88.8 Allergy status to other drugs, medicaments and biological substances; Z82.49 Family history of ischemic heart disease and other diseases of the circulatory system; W19.XXXA Unspecified fall, initial encounter
CPT/HCPCS: 36415; 36600; 70450; 71010; 72125; 80048; 80053; 80061; 82550; 82553; 82805; 83036; 83090; 84132; 84484; 85025; 85610; 85730; 86704; 86706; 87340; 90935; 93005; 93880; 94640; 94760; 95819; 96361; 96365; 96375; 99291

== ENCOUNTER 2016-08-17 23:00 | Inpatient (IN) | payer MEDICARE, BC ==
--- NOTE | 2016-08-18 00:36 | XR ---
EXAM: XR Chest, 1 View CLINICAL HISTORY: Reason: Shortness of breath, chest pain, pneumonia, pulmonary edema, dialysis patient. TECHNIQUE: Frontal view of the chest. COMPARISON: No relevant prior studies available. FINDINGS: Lungs/pleura: Multiple leads noted overlying the chest. Low lung volumes with increased mid and lower lung opacities compared to prior exam on 08/09/2016. Similar background of diffuse hazy and interstitial opacities bilaterally. New small bilateral pleural effusions. Heart/mediastinum: Stable enlargement of the cardiac silhouette. Soft tissues: Unremarkable. Bones: No acute fracture. Upper abdomen: Normal. IMPRESSION: Low lung volumes with increased mid and lower lung zone opacities superimposed on similar background of diffuse hazy and interstitial opacities compared to prior exam on 08/09/2016. Findings may represent increased pulmonary edema with possible superimposed pneumonia. New small bilateral pleural effusions. Similar enlargement of the cardiac silhouette.
[2016-08-18 00:50] LABS: Basophils % (A) 1 %; CH 34.8; CHCM 30.2; Eosinophils # (A) 0.3 k/uL (0-0.7); Eosinophils % (A) 5 %; HGB 11.2 gm/dL (11.4-16.0); Hypochromasia Marked; Luc # (Auto) 0.23; Luc % (Auto) 4; Lymphocytes # (A) 0.7 k/uL (1.0-4.8); Lymphocytes % (A) 12 %; MCH 35.1 pg (25.0-35.0); MCHC 30.3 g/dL (31.0-37.0); MCV 115.8 fL (80.0-100.0); Macrocytosis Marked; Mean Platelet Volume 7.6; Monocytes # (A) 0.3 k/uL (0-1.0); Monocytes % (A) 6 %; Neutrophils # (A) 4.3 k/uL (1.3-7.7); Neutrophils % (A) 73 %; RBC 3.19 m/uL (3.80-5.40); RDW 15.3 % (11.5-15.5); WBC 5.9 k/uL (3.8-10.6); WBC (Perox) 6.03
[2016-08-18 00:51] LABS: Calcium 9.1 mg/dL (8.4-10.2); Total Bilirubin 1.1 mg/dL (0.2-1.3); Total Protein 6.4 g/dL (6.3-8.2)
[2016-08-18 00:53] LABS: INR 1.3 (<1.1); Partial Thromboplastin Time 24.4 sec (22.0-30.0); Prothrombin Time 12.6 sec (9.0-12.0)
[2016-08-18 01:11] LABS: Manual Review Performed; Ovalocytes Present; Polychromasia Present
[2016-08-18] MEDS ORDERED: LEVOFLOXACIN 750 MG TAB PO STA (02:30)
[2016-08-18] MEDS ORDERED: NITROGLYCERIN OINT 1 INCH/GM PACKET TOPICAL STA (02:31)
[2016-08-18] MEDS ORDERED: NALOXONE 0.4 MG/ML 1 ML VIAL IV PRN (02:31)
[2016-08-18] MEDS ORDERED: ACETAMINOPHEN TAB 500 MG TAB PO PRN (02:35)
[2016-08-18] MEDS ORDERED: ALBUTEROL NEBULIZED 2.5 MG/3 ML INHALATION PRN (02:35)
[2016-08-18] MEDS ORDERED: BISACODYL 10 MG SUPP RECTAL PRN (02:35)
[2016-08-18] MEDS ORDERED: NITROGLYCERIN SL TABS 0.4 MG TAB SUBLINGUAL PRN (02:35)
[2016-08-18] MEDS ORDERED: CYCLOBENZAPRINE 5 MG TAB PO PRN (02:35)
[2016-08-18] MEDS ORDERED: ALPRAZolam 0.25 MG TAB PO PRN (02:35)
[2016-08-18] MEDS ORDERED: NA PHOS,M-B/NA PHOS,DI-BA 133 ML ENEMA RECTAL PRN (02:35)
[2016-08-18] MEDS ORDERED: MAGNESIUM HYDROXIDE 2,400 MG/10 ML CUP PO PRN (02:35)
--- NOTE | 2016-08-18 02:38 | ED ---
SOB HPI - General Chief Complaint: Shortness of Breath Stated Complaint: Abnormal labs Time Seen by Provider: 08/17/16 23:03 Source: EMS Mode of arrival: EMS Limitations: physical limitation - History of Present Illness Initial Comments: This patient is a 76-year-old woman sent from the correction where they felt she was short of breath. They state that she appeared to be breathing more rapidly than usual. The patient when I interview her has been placed on oxygen and she is not feeling short of breath, nor is she having chest pain. History is somewhat limited. MD Complaint: shortness of breath -: hour(s) Improves With: oxygen Worsens With: nothing Known History Of: congestive heart failure Associated Symptoms: denies other symptoms Treatments Prior to Arrival: oxygen - Related Data Home Oxygen Therapy: No Home Medications Medication Instructions Recorded Confirmed Aspirin EC [Ecotrin Low Dose] 81 mg PO DAILY 03/10/15 08/18/16 Budesonide/Formoterol Fumarate 2 puff INHALATION RT-BID 03/10/15 08/18/16 [Symbicort 160-4.5 Mcg Inhaler] Clopidogrel [Plavix] 75 mg PO DAILY 03/10/15 08/18/16 Cyanocobalamin [Vitamin B-12] 500 mcg PO DAILY 03/10/15 08/18/16 Esomeprazole Magnesium [NexIUM] 40 mg PO DAILY 03/10/15 08/18/16 Sevelamer [Renvela] 800 mg PO AC-TID 03/10/15 08/18/16 Ezetimibe [Zetia] 10 mg PO HS 01/17/16 08/18/16 Acetaminophen Tab [Tylenol] 500 mg PO Q6H PRN 08/09/16 08/18/16 Albuterol Nebulized [Ventolin 2.5 mg INHALATION RT-Q4H PRN 08/09/16 08/18/16 Nebulized] Cholecalciferol [Vitamin D3] 5,000 unit PO DAILY 08/09/16 08/18/16 Cyclobenzaprine [Flexeril] 5 mg PO DAILY PRN 08/09/16 08/18/16 Lidocaine-Prilocaine Cream [Emla 1 applic TOPICAL TUTHSA 08/09/16 08/18/16 Cream 2.5%/2.5%] Montelukast Sodium [Singulair] 10 mg PO HS 08/09/16 08/18/16 Pramipexole [Mirapex] 0.5 mg PO TID 08/09/16 08/18/16 B Complex & C No.20/Folic Acid 1 mg PO DAILY 08/17/16 08/18/16 [Nephrocaps Softgel] Bisacodyl [Dulcolax] 10 mg RECTAL DAILY PRN 08/17/16 08/18/16 Gabapentin Oral Soln [Neurontin 150 mg PO DAILY 08/17/16 08/18/16 Oral Soln] INSULIN LISPRO (humaLOG) [HumaLOG] See Protocol SQ ACHS 08/17/16 08/18/16 Magnesium Hydroxide [Milk of 2,400 mg PO DAILY PRN 08/17/16 08/18/16 Magnesia Concentrate] Na Phos,M-B/Na Phos,Di-Ba [Fleet 133 ml RECTAL DAILY PRN 08/17/16 08/18/16 Adult] Zinc Oxide 10% Ointment 1 applic TOPICAL TID 08/17/16 08/18/16 Albuterol Nebulized [Ventolin 2.5 mg INHALATION RT-QID 08/18/16 08/18/16 Nebulized] Allopurinol [Zyloprim] 100 mg PO DAILY 08/18/16 08/18/16 Previous Rx's Medication Instructions Recorded Nitroglycerin Sl Tabs [Nitrostat] 0.4 mg SUBLINGUAL Q5M PRN #0 tab 03/26/15 ALPRAZolam [Xanax] 0.25 mg PO TID PRN #20 tab 08/15/16 Fludrocortisone [Florinef] 0.2 mg PO BID tab 08/15/16 Hydrocodone/Acetaminophen [[place] 1 tab PO Q4H PRN #20 08/15/16 10-325] Isosorbide Mononitrate ER [Imdur] 30 mg PO DAILY tab 08/15/16 Metoprolol Tartrate [Lopressor] 12.5 mg PO DAILY tab 08/15/16 Midodrine [ProAmatine] 10 mg PO AC-TID tab 08/15/16 Allergies Allergy/AdvReac Type Severity Reaction Status Date / Time atropine sulfate Allergy Rash/Hives Verified 08/17/16 23:19 [From Lomotil] cephalexin monohydrate Allergy Rash/Hives Verified 08/17/16 23:19 [From Keflex] diphenoxylate HCl Allergy Rash/Hives Verified 08/17/16 23:19 [From Lomotil] ibuprofen Allergy Swelling Verified 08/17/16 23:19 baclofen AdvReac Hallucinati Verified 08/17/16 23:19 ons tramadol AdvReac Hallucinati Verified 08/17/16 23:19 ons Review of Systems ROS Statement: Those systems with pertinent positive or pertinent negative responses have been documented in the HPI. ROS Other: All systems not noted in ROS Statement are negative. Limitations: ROS unobtainable due to patients medical condition Constitutional: Denies: fever, chills Respiratory: Reports: as per HPI, dyspnea Cardiovascular: Denies: chest pain Gastrointestinal: Denies: abdominal pain Neurological: Denies: headache Past Medical History Past Medical History: Atrial Fibrillation, Asthma, Heart Failure, CVA/TIA, Diabetes Mellitus, Dialysis, GERD/Reflux, Hyperlipidemia, Hypertension, Myocardial Infarction (MA), Osteoarthritis (OA), Renal Disease Additional Past Medical History / Comment(s): Coronary artery disease, carotid artery stenosis with hemodynamically significant lesions bilaterally at the patient was deemed not to be a surgical candidate, chronic atrial fibrillation on a candidate for anticoagulation, previous history of GI bleed, previous history of epistaxis, Obesity, hiatal hernia, 02-2 LITERS N/C, bronchial asthma , obstructive sleep apnea-"has cPAP but does'nt use it", peripheral neuropathy, congestion heart failure with ejection fraction of 35-40%, multivessel coronary artery disease with previous myocardial infarction, paroxysmal atrial fibrillation, history of CVA with some residual left-sided weakness, end-stage renal disease and currently she is on hemodialysis 3 times a week(), diabetes mellitus type II, gout, chronic ulceration of the lower extremity with episodic cellulitis of the legs, no documented mrsa on record her but had history of MSSA ALONG WITH GRAM-NEGATIVE INFECTION INCLUDING ACINETOBACTER AND STENOTROPHOMONAS LT ANKLE 12-16-15 , previous history of Klebsiella pneumonia, UTI, mastitis, osteoporsois, diverticular dx, hepatitis-type unknown, recurrent bouts of cigarettes of the lower extremities, chronic anemia Last Myocardial Infarction Date:: September 22, 2007 History of Any Multi-Drug Resistant Organisms: None Reported Past Surgical History: Bowel Resection, Heart Catheterization With Stent, Hysterectomy Additional Past Surgical History / Comment(s): Spur removal in bilateral feet twice and left shoulder once , cataracts removed, bowel resection for a previous bowel obstruction, left oophorectomy for a benign tumor, hysterectomy, right oophorectomy, colonoscopy , fistulogram angioplasty arterial limb stenosis of fistual(lt arm) Past Anesthesia/Blood Transfusion Reactions: No Reported Reaction Date of Last Stent Placement:: September 22, 2007 Past Psychological History: Depression Additional Psychological History / Comment(s): Patient currently lives at home with her son. Patient states she uses a walker at home stated lt leg drags a bit since stroke, patient uses [employer] bus to get to appointments. 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 O2 at 2L/NC ATC. PT stated has some depression d/t all medical problems but no thoughts of wanting to harm self. Smoking Status: Former smoker Past Alcohol Use History: None Reported Additional Past Alcohol Use History / Comment(s): STARTED SMOKING AT AGE 18 SMOKED 1.5 PPD ,QUIT 2007 Past Drug Use History: None Reported - Past Family History Mother Additional Family Medical History / Comment(s): pt stated was unknown. stated she had an iron lung. at age 31 Father Family Medical History: COPD, Diabetes Mellitus, Myocardial Infarction (MA) Additional Family Medical History / Comment(s): at age 90. Sister(s) Family Medical History: Diabetes Mellitus Son(s) Family Medical History: Deep Vein Thrombosis (DVT), Myocardial Infarction (MA) General Exam Limitations: physical limitation General appearance: alert, in no apparent distress Head exam: Present: atraumatic, normocephalic Eye exam: Present: normal appearance. Absent: scleral icterus, conjunctival injection Neck exam: Present: normal inspection Respiratory exam: Present: respiratory distress (Mild tachypnea), rales ( Bilateral bases), rhonchi. Absent: wheezes, accessory muscle use, decreased breath sounds, prolonged expiratory Cardiovascular Exam: Present: regular rate, normal rhythm, normal heart sounds. Absent: systolic murmur, diastolic murmur, rubs, gallop GI/Abdominal exam: Present: soft. Absent: distended, tenderness, guarding, rebound, mass Extremities exam: Present: normal capillary refill, pedal edema, other (Patient is wearing inflatable boots, no wound infections.). Absent: calf tenderness Back exam: Absent: CVA tenderness (R), CVA tenderness (L), vertebral tenderness Neurological exam: Present: alert Skin exam: Present: warm, dry, other (Sacral ulcer). Absent: rash Course Vital Signs 08/17/16 08/18/16 08/18/16 23:06 00:00 00:43 Temperature 98.4 F Pulse Rate 72 72 73 Pulse Rate [ Right Pulse Oximetery] Respiratory 22 18 18 Rate Blood Pressure 94/50 88/47 90/52 Blood Pressure [Right Arm Supine] O2 Sat by Pulse 94 L 92 L 92 L Oximetry 08/18/16 08/18/16 08/18/16 01:15 01:45 02:45 Temperature Pulse Rate 80 78 67 Pulse Rate [ Right Pulse Oximetery] Respiratory 22 22 22 Rate Blood Pressure 92/49 88/49 93/52 Blood Pressure [Right Arm Supine] O2 Sat by Pulse 90 L 92 L 93 L Oximetry 08/18/16 08/18/16 03:12 03:49 Temperature 97.0 F L 97.0 F L Pulse Rate Pulse Rate [ 63 64 Right Pulse Oximetery] Respiratory 18 18 Rate Blood Pressure Blood Pressure 99/53 99/53 [Right Arm Supine] O2 Sat by Pulse 96 96 Oximetry Medical Decision Making - Medical Decision Making This is 76-year-old woman in from correction. She has history of end-stage renal disease taking hemodialysis and appears there is some volume overload. There may be small infiltrate present, however the patient is not febrile, white count not elevated. She is given 1 dose of antibiotics and x-ray can be rechecked following the dialysis for the volume overload. - Lab Data Result diagrams: 08/17/16 23:15 08/17/16 23:15 Lab Results 08/17/16 08/17/16 08/17/16 Range/Units 23:15 23:15 23:15 WBC 5.9 (3.8-10.6) k/uL RBC 3.19 L (3.80-5.40) m/uL Hgb 11.2 L (11.4-16.0) gm/dL Hct 37.0 (34.0-46.0) % MCV 115.8 H (80.0-100.0) fL MCH 35.1 H (25.0-35.0) pg MCHC 30.3 L (31.0-37.0) g/dL RDW 15.3 (11.5-15.5) % Plt Count 133 L (150-450) k/uL Neutrophils % 73 % Lymphocytes % 12 % Monocytes % 6 % Eosinophils % 5 % Basophils % 1 % Neutrophils # 4.3 (1.3-7.7) k/uL Lymphocytes # 0.7 L (1.0-4.8) k/uL Monocytes # 0.3 (0-1.0) k/uL Eosinophils # 0.3 (0-0.7) k/uL Basophils # 0.0 (0-0.2) k/uL Manual Slide Review Performed Polychromasia Present Hypochromasia Marked Macrocytosis Marked Ovalocytes Present PT 12.6 H (9.0-12.0) sec INR 1.3 (<1.1) APTT 24.4 (22.0-30.0) sec Sodium 139 (137-145) mmol/L Potassium 5.0 (3.5-5.1) mmol/L Chloride 100 (98-107) mmol/L Carbon Dioxide 27 (22-30) mmol/L Anion Gap 12 mmol/L BUN 27 H (7-17) mg/dL Creatinine 4.30 H (0.52-1.04) mg/dL Est GFR (MDRD) Af Amer 12 (>60 ml/min/1.73 sqM) Est GFR (MDRD) Non-Af 10 (>60 ml/min/1.73 sqM) Glucose 94 (74-99) mg/dL POC Glucose (mg/dL) (75-99) mg/dL POC Glu [employer] ID Plasma Lactic Acid Wally (0.7-2.0) mmol/L Calcium 9.1 (8.4-10.2) mg/dL Total Bilirubin 1.1 (0.2-1.3) mg/dL AST 19 (14-36) U/L ALT 33 (9-52) U/L Alkaline Phosphatase 108 (38-126) U/L Troponin I (0.000-0.034) ng/mL NT-Pro-B Natriuret Pep pg/mL Total Protein 6.4 (6.3-8.2) g/dL Albumin 3.1 L (3.5-5.0) g/dL 08/17/16 08/17/16 08/17/16 Range/Units 23:15 23:15 23:15 WBC (3.8-10.6) k/uL RBC (3.80-5.40) m/uL Hgb (11.4-16.0) gm/dL Hct (34.0-46.0) % MCV (80.0-100.0) fL MCH (25.0-35.0) pg MCHC (31.0-37.0) g/dL RDW (11.5-15.5) % Plt Count (150-450) k/uL Neutrophils % % Lymphocytes % % Monocytes % % Eosinophils % % Basophils % % Neutrophils # (1.3-7.7) k/uL Lymphocytes # (1.0-4.8) k/uL Monocytes # (0-1.0) k/uL Eosinophils # (0-0.7) k/uL Basophils # (0-0.2) k/uL Manual Slide Review Polychromasia Hypochromasia Macrocytosis Ovalocytes PT (9.0-12.0) sec INR (<1.1) APTT (22.0-30.0) sec Sodium (137-145) mmol/L Potassium (3.5-5.1) mmol/L Chloride (98-107) mmol/L Carbon Dioxide (22-30) mmol/L Anion Gap mmol/L BUN (7-17) mg/dL Creatinine (0.52-1.04) mg/dL Est GFR (MDRD) Af Amer (>60 ml/min/1.73 sqM) Est GFR (MDRD) Non-Af (>60 ml/min/1.73 sqM) Glucose (74-99) mg/dL POC Glucose (mg/dL) (75-99) mg/dL POC Glu [employer] Consultant ID Plasma Lactic Acid Wally 1.0 (0.7-2.0) mmol/L Calcium (8.4-10.2) mg/dL Total Bilirubin (0.2-1.3) mg/dL AST (14-36) U/L ALT (9-52) U/L Alkaline Phosphatase (38-126) U/L Troponin I 0.082 H* (0.000-0.034) ng/mL NT-Pro-B Natriuret Pep [id number] pg/mL Total Protein (6.3-8.2) g/dL Albumin (3.5-5.0) g/dL 08/18/16 08/18/16 Range/Units 05:45 06:00 WBC (3.8-10.6) k/uL RBC (3.80-5.40) m/uL Hgb (11.4-16.0) gm/dL Hct (34.0-46.0) % MCV (80.0-100.0) fL MCH (25.0-35.0) pg MCHC (31.0-37.0) g/dL RDW (11.5-15.5) % Plt Count (150-450) k/uL Neutrophils % % Lymphocytes % % Monocytes % % Eosinophils % % Basophils % % Neutrophils # (1.3-7.7) k/uL Lymphocytes # (1.0-4.8) k/uL Monocytes # (0-1.0) k/uL Eosinophils # (0-0.7) k/uL Basophils # (0-0.2) k/uL Manual Slide Review Polychromasia Hypochromasia Macrocytosis Ovalocytes PT (9.0-12.0) sec INR (<1.1) APTT (22.0-30.0) sec Sodium (137-145) mmol/L Potassium (3.5-5.1) mmol/L Chloride (98-107) mmol/L Carbon Dioxide (22-30) mmol/L Anion Gap mmol/L BUN (7-17) mg/dL Creatinine (0.52-1.04) mg/dL Est GFR (MDRD) Af Amer (>60 ml/min/1.73 sqM) Est GFR (MDRD) Non-Af (>60 ml/min/1.73 sqM) Glucose (74-99) mg/dL POC Glucose (mg/dL) 77 (75-99) mg/dL POC Glu [employer] Consultant ID [place] Plasma Lactic Acid Wally (0.7-2.0) mmol/L Calcium (8.4-10.2) mg/dL Total Bilirubin (0.2-1.3) mg/dL AST (14-36) U/L ALT (9-52) U/L Alkaline Phosphatase (38-126) U/L Troponin I 0.077 H* (0.000-0.034) ng/mL NT-Pro-B Natriuret Pep pg/mL Total Protein (6.3-8.2) g/dL Albumin (3.5-5.0) g/dL - EKG Data -: EKG Interpreted by Me EKG shows normal: axis (Normal), intervals (Normal), QRS complexes (Normal) Rate: normal (73 bpm the proximal) Interpretation: nonspecific ST-T wave changes, other (Underlying rhythm appears to be atrial fibrillation.) Disposition Clinical Impression: CHF (congestive heart failure), ESRD on dialysis, Elevated troponin I measurement, Pneumonia Disposition: ADMITTED IP TO THIS HOSP Condition: Poor Referrals: Gurdeep Black MD [Primary Care Provider] - 1-2 days
[2016-08-18 03:49] VITALS: BMI 33.2
[2016-08-18 06:03] LABS: Glucose,Whole Blood 77 mg/dL (75-99)
[2016-08-18] MEDS: SEVELAMER 800 MG TAB PO SCH ×3 (07:04→16:58)
[2016-08-18] MEDS: PANTOPRAZOLE 40 MG TABLET PO SCH (07:05)
[2016-08-18] MEDS: MIDODRINE 5 MG TAB PO SCH ×3 (07:05→16:58)
[2016-08-18] MEDS: ALBUTEROL NEBULIZED 2.5 MG/3 ML INHALATION SCH ×4 (08:22→20:42)
[2016-08-18] MEDS: SYMBICORT 160-4.5 MCG INHALER INHALATION SCH ×2 (08:33→20:42)
[2016-08-18] MEDS: CYANOCOBALAMIN 500 MCG TAB PO SCH (08:59)
[2016-08-18] MEDS: HEPARIN SODIUM,PORCINE 5,000 UNIT/ML 1 ML VIAL SQ SCH ×2 (08:59→20:07)
[2016-08-18] MEDS: METOPROLOL TARTRATE 12.5 MG TAB PO SCH (08:59)
[2016-08-18] MEDS: ASPIRIN 81 MG CHEW PO SCH (08:59)
[2016-08-18] MEDS: PRAMIPEXOLE 0.5 MG TAB PO SCH ×3 (08:59→21:24)
[2016-08-18] MEDS: ALLOPURINOL 100 MG TAB PO SCH (08:59)
[2016-08-18] MEDS: FLUDROCORTISONE 0.1 MG TAB PO SCH ×2 (09:00→20:07)
[2016-08-18] MEDS: CLOPIDOGREL 75 MG TAB PO SCH (09:00)
[2016-08-18] MEDS: ISOSORBIDE MONONITRATE ER 30 MG TAB.ER.24H PO SCH (09:00)
[2016-08-18] MEDS: ZINC OXIDE 20% OINT 28.4 GM TUBE TOPICAL SCH ×3 (09:01→21:25)
[2016-08-18] MEDS: FOLIC ACID-VIT B COMPLEX-VIT C 1 CAP PO SCH (09:01)
[2016-08-18] MEDS: CHOLECALCIFEROL 1,000 UNIT TAB PO SCH (09:15)
[2016-08-18 11:58] LABS: Glucose,Whole Blood 84 mg/dL (75-99)
[2016-08-18] MEDS: LIDOCAINE-PRILOCAINE 2.5-2.5% CREAM 5 GM TUBE TOPICAL SCH (13:21)
--- NOTE | 2016-08-18 15:06 | CONS ---
DATE OF CONSULTATION: REASON FOR CONSULT: End-stage renal disease. HISTORY OF PRESENT ILLNESS: Patient is a 76-year-old female with history of end-stage renal disease on hemodialysis on a Monday, , Monday schedule. Patient was admitted to the hospital with complaints of shortness of breath. She states she is not sure what happened. She denied any chest pain. Patient was recently discharged from the hospital after admission for hyperkalemia. Her potassium this time is much better at 5.0. Patient will be scheduled for dialysis today. She denies any fevers, chills, nausea, vomiting, no diarrhea. No abdominal pain. PAST MEDICAL HISTORY: End-stage renal disease, COPD, coronary artery disease, CKD, bone mineral disorder, anemia of chronic disease, chronic hypotension, neuropathy, atrial fibrillation, type 2 diabetes, osteoarthritis, cardiomyopathy, ejection fraction 35% to 40%. PAST SURGICAL HISTORY: Bowel resection, cardiac catheterization, coronary stent placement, hysterectomy, foot surgery, colonoscopy, right nephrectomy, hysterectomy, angioplasty of the fistula on the left arm. SOCIAL HISTORY: Patient is an ex-smoker. No history of drug abuse or alcohol abuse. Medications at home prior to admission included aspirin, Plavix, inhalers, Nexium, vitamin B12, Renvela, Zetia, Tylenol, vitamin D3, Singulair, Mirapex, Neurontin, insulin, Ventolin, Zyloprim, Nitrostat, Lopressor, midodrine, [place], Florinef. Allergies are multiple include LOMOTIL, KEFLEX, IBUPROFEN, BACLOFEN, TRAMADOL. On examination, patient is comfortable, awake, she is not in any acute distress. She is alert and oriented x3 right now. Blood pressure is 83/46, heart rate 73 per minute. She is afebrile. Examination of the heart, S1 and S2. Examination of the lungs, bilateral breath sounds are heard. Abdomen is soft, nontender, obese. Examination of lower extremities shows chronic skin changes, chronic edema bilaterally which appears to be stable. [employer]LE [employer]ER exam is grossly intact. Patient is moving all 4 extremities. Labs show sodium 139, potassium 5.0, hemoglobin 11.2 g/dL. ASSESSMENT: 1. End-stage renal disease on hemodialysis on a Monday, , Monday schedule. Will arrange for hemodialysis today. 2. Dyspnea on exertion, possibly related to mild volume overload, although patient does not clinically look worse than her usual condition. The x-ray showed lower lung volumes with suggestion of interstitial opacities bilaterally. 3. Chronic kidney disease bone mineral disorder. 4. Cardiomyopathy. 5. Chronic hypotension, maintained on midodrine. PLAN: Hemodialysis today. Will try to increase UF as tolerated. Will make sure patient gets midodrine prior to her dialysis. Thank you for this consultation. Will continue to follow the patient with you during her hospitalization.
[2016-08-18 16:52] LABS: Glucose,Whole Blood 66 mg/dL (75-99)
[2016-08-18 17:13] LABS: Glucose,Whole Blood 61 mg/dL (75-99)
[2016-08-18 17:31] LABS: Glucose,Whole Blood 70 mg/dL (75-99)
[2016-08-18] MEDS: MONTELUKAST 10 MG TAB PO SCH (20:07)
[2016-08-18] MEDS: EZETIMIBE 10 MG TAB PO SCH (20:07)
[2016-08-18] MEDS: HYDROcodone/APAP 10-325MG 1 EACH TAB PO PRN ×2 (20:12→23:29)
--- NOTE | 2016-08-18 21:07 | HP ---
DATE OF ADMISSION: 08/18/2016 PRESENTING COMPLAINT: Shortness of breath. HISTORY OF PRESENTING COMPLAINT: This is a 76-year-old patient who is a resident of an [facility] with a rather extensive medical history. Patient is pretty much bedbound and was sent in because she was increasingly short of breath. Patient's feeding is supervised because of prior aspiration, and patient at her baseline has tremors. Patient's chronic stable medical conditions include end-stage kidney disease, on hemodialysis, diabetes mellitus, type 2, peripheral neuropathy, obesity, hyperlipidemia, sleep apnea, atrial fibrillation, coronary artery disease, mild hemiplegia from old stroke, on oxygen at 2 liters. CODE STATUS: DNR. REVIEW OF SYSTEMS: CONSTITUTIONAL: Weak, tired. HEENT: Decreased hearing. RESPIRATORY: Shortness of breath. CARDIOVASCULAR: None. GASTROINTESTINAL: None. GENITOURINARY: None. MUSCULOSKELETAL: Aches and pains in joints. DERMATOLOGICAL: None. HEMATOLOGICAL: None. LYMPHATICS: None. PSYCHIATRY: Some anxiety. NEUROLOGICAL: Peripheral neuropathy. PAST MEDICAL HISTORY: 1. CHF; EF 55%. 2. End-stage kidney disease. 3. Diabetes mellitus, type 2. 4. Obesity. 5. Hyperlipidemia. 6. Sleep apnea. 7. Atrial fibrillation. 8. Coronary artery disease with stent. 9. Chronic hypoxic respiratory failure. 10. Osteoarthritis in multiple joints. 11. Carotid stenosis with 70% lesions bilaterally. Not felt to be a candidate for any surgery. 12. Chronic atrial fibrillation. 13. History of GI bleed. 14. Hiatal hernia. 15. Chronic ulcerations in the lower extremities. 16. Osteoporosis. 17. Diverticulosis. PAST SURGICAL HISTORY: 1. Bowel resection. 2. Cardiac cath with stent. 3. Hysterectomy. 4. Spur removal from bilateral feet twice. 5. Cataracts removed. 6. Bowel resection for previous bowel obstruction. 7. Left oophorectomy. 8. Right oophorectomy. 9. Fistulogram. SOCIAL HISTORY: Patient currently lives at home with her son. Sometimes may use a walker and left leg drags because of a stroke. Home oxygen at 2 liters. Patient smoked from the age of 18 until 2007; smoked a pack and a half a day. FAMILY HISTORY: COPD, diabetes, IN. HOME MEDICATIONS: 1. Zinc oxide 10% topically t.i.d. 2. Renvela 800 mg p.o. before meals t.i.d. 3. Mirapex 0.5 p.o. t.i.d. 4. Nitrostat 0.4 sublingually q.5 p.r.n. 5. Adult Fleet 133 mL rectally daily p.r.n. 6. Singulair 10 mg p.o. at bedtime. 7. Midodrine 10 mg p.o. before meals t.i.d. 8. Lopressor 12.5 p.o. daily. 9. Milk of Magnesia 2400 mg daily p.r.n. 10. Emla cream 2.5% topically Monday, , Monday. 11. Imdur ER 30 mg p.o. daily. 12. [place] 10 one tablet q.4 p.r.n. 13. Neurontin 150 mg p.o. daily. 14. Florinef 0.2 mg p.o. b.i.d. 15. Zetia 10 mg at bedtime. 16. Nexium 40 mg p.o. daily. 17. Flexeril 5 mg daily p.r.n. 18. Vitamin B12 500 mcg p.o. daily. 19. Plavix 75 mg p.o. daily. 20. Vitamin D3 5000 units p.o. daily. 21. Symbicort 160/4.5 two puffs b.i.d. 22. Nephrocaps 1 mg p.o. daily. 23. Aspirin 81 mg p.o. daily. 24. Allopurinol 100 mg p.o. daily. 25. Ventolin 2.5 p.o. q.i.d. 26. Xanax 0.25 t.i.d. p.r.n. ALLERGIES: 1. ATROPINE. 2. KEFLEX. 3. LOMOTIL. 4. IBUPROFEN. 5. BACLOFEN. 6. ULTRAM. PHYSICAL EXAMINATION: VITAL SIGNS ON PRESENTATION: Temperature 98.4, pulse 72, respiration 22, blood pressure 94/50, pulse ox 94% on 2 L. GENERAL APPEARANCE: Well built; BMI of 33.6. Sitting in bed, tired-appearing. EYES: Pupils equal. Conjunctivae normal. HEENT: External appearance of nose and ears normal. Oral cavity has many missing dentition. NECK: Short, thick. JVD unable to assess. Mass not palpable. RESPIRATORY: Effort increased. LUNGS: Diminished breath sounds. Some crackles. CARDIOVASCULAR: First and second sounds normal. Some edema present. ABDOMEN: Soft, nontender. Liver and spleen not palpable. LYMPHATIC: No lymph node palpable in neck or axillae. PSYCHIATRY: Patient is able answer questions. NEUROLOGICAL: Pupils equal. No facial asymmetry. Some weakness on the left side. Patient has got some shakes and tremors at times. INVESTIGATIONS: White count 5.5, hemoglobin 11.2, platelets 133. Potassium 5.0. BUN 27, creatinine 4.30. Troponin 0.082, 0.077. Chest x-ray reported to show fluid prominence. EKG shows atrial fibrillation, rate controlled. ASSESSMENT: 1. Acute on chronic congestive heart failure exacerbation from diastolic dysfunction; ejection fraction 55%; underlying coronary artery disease, somewhat dialysis-responsive. 2. Acute fluid overload, probably from incomplete dialysis. 3. End-stage kidney disease from hypertensive nephrosclerosis and diabetic nephropathy, on dialysis. 4. Diabetes mellitus, type 2, causing peripheral neuropathy. 5. Obesity; body mass index greater than 30. 6. Hyperlipidemia. 7. Obstructive sleep apnea; does not use CPAP machine. 8. Persistent atrial fibrillation; not a candidate for anticoagulation. 9. Coronary artery disease with prior history of stent. 10. Mild left-sided hemiparesis from oral stroke. 11. Chronic hypoxic respiratory failure, on 2 liters of oxygen at home. 12. CODE STATUS: DNR. 13. Gastroesophageal reflux disease. 14. 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 15. Carotid artery stenosis with hemodynamically significant lesions bilaterally; not felt to be a surgical candidate. 16. Colonic diverticulosis. 17. Osteoporosis, chronic. 18. Chronic anemia, probably related to end-stage kidney disease. 19. Troponin leak in a patient with renal failure; not coronary in nature. PLAN: Home medications will be resumed. Patient will have dialysis today. Will get Speech Therapy to evaluate the patient, given her swallowing. She has also supervised swallowing with aspiration precautions. Care was discussed with the patient.
[2016-08-18 21:14] LABS: Glucose,Whole Blood 133 mg/dL (75-99)
[2016-08-19 06:10] LABS: Glucose,Whole Blood 83 mg/dL (75-99)
[2016-08-19] MEDS: SEVELAMER 800 MG TAB PO SCH ×3 (06:15→16:44)
[2016-08-19] MEDS: MIDODRINE 5 MG TAB PO SCH ×3 (06:15→16:33)
[2016-08-19] MEDS: PANTOPRAZOLE 40 MG TABLET PO SCH (06:15)
[2016-08-19] MEDS: MORPHINE SULFATE 4 MG/ML SYRINGE IV PRN ×2 (06:22→16:36)
[2016-08-19] MEDS: SYMBICORT 160-4.5 MCG INHALER INHALATION SCH ×2 (08:12→21:00)
[2016-08-19] MEDS: ALBUTEROL NEBULIZED 2.5 MG/3 ML INHALATION SCH ×4 (08:12→21:00)
[2016-08-19] MEDS: METOPROLOL TARTRATE 12.5 MG TAB PO SCH (08:29)
[2016-08-19] MEDS: HEPARIN SODIUM,PORCINE 5,000 UNIT/ML 1 ML VIAL SQ SCH ×3 (08:29→22:29)
[2016-08-19] MEDS: CYANOCOBALAMIN 500 MCG TAB PO SCH (08:29)
[2016-08-19] MEDS: CLOPIDOGREL 75 MG TAB PO SCH (08:30)
[2016-08-19] MEDS: FOLIC ACID-VIT B COMPLEX-VIT C 1 CAP PO SCH (08:31)
[2016-08-19] MEDS: ALLOPURINOL 100 MG TAB PO SCH (08:31)
[2016-08-19] MEDS: FLUDROCORTISONE 0.1 MG TAB PO SCH ×2 (08:31→22:27)
[2016-08-19] MEDS: CHOLECALCIFEROL 1,000 UNIT TAB PO SCH (08:31)
[2016-08-19] MEDS: ASPIRIN 81 MG CHEW PO SCH (08:31)
[2016-08-19] MEDS: PRAMIPEXOLE 0.5 MG TAB PO SCH ×3 (08:32→22:27)
[2016-08-19] MEDS: ZINC OXIDE 20% OINT 28.4 GM TUBE TOPICAL SCH ×3 (08:32→22:29)
[2016-08-19] MEDS: ISOSORBIDE MONONITRATE ER 30 MG TAB.ER.24H PO SCH (08:32)
[2016-08-19] MEDS: HYDROcodone/APAP 10-325MG 1 EACH TAB PO PRN (10:51)
[2016-08-19 11:56] LABS: Glucose,Whole Blood 123 mg/dL (75-99)
--- NOTE | 2016-08-19 12:46 | PN ---
Patient is seen for followup for end-stage renal disease. She was admitted to the hospital with shortness of breath. There was mild fluid overload, which has improved now. Patient had close to 3 L of ultrafiltration yesterday with dialysis. She is currently sitting up in bed this morning, comfortable, not in any acute distress. Blood pressure was 90/52, heart rate 70 per minute. She is afebrile. Examination of the heart, S1 and S2. Examination of the lungs, Bilateral breath sounds are heard. Abdomen is soft, obese. Examination of the lower extremities shows chronic skin changes. Patient is moving all 4 extremities. Labs are not available from today. ASSESSMENT: 1. End-stage renal disease on hemodialysis on a Monday, , Monday schedule. Patient will be dialyzed again tomorrow if she is still in the hospital. 2. Mild fluid overload, currently improved. 3. Anemia of chronic disease. 4. Severe chronic obstructive pulmonary disease. 5. Cardiomyopathy with ejection fraction of 35% to 40% on echocardiogram done in April of 2015. 6. Moderate pulmonary hypertension. 7. Chronic hypotension, maintained on midodrine. PLAN: Hemodialysis in a.m. If patient is discharged, she will follow up for dialysis as outpatient tomorrow.
--- NOTE | 2016-08-19 15:22 | P.PN ---
Progress Note - Text DATE OF SERVICE: 08/19/2016 PRESENTING COMPLAINT: Shortness of breath INTERVAL HISTORY: This is a 76-year-old female who presented with an acute on chronic exacerbation of CHF. Sitting up in the bed today, breathing easier, family members at the bedside. Appetite improving, moves around with some assistance, Patient was talking about the possibility of going hospice today as she no longer wants to continue to be admitted to the hospital. Awaiting for additional family members to arrive. REVIEW OF SYSTEMS: Done for constitutional ,cardiovascular, GI, pulmonary with relevant findings as above. CURRENT MEDICATIONS Lopressor, midodrine, Florinef, Nephrocaps, Mirapex, Renvela, allopurinol. PHYSICAL EXAM: VITAL SIGNS: 98.0, pulse 70 respirations 18 blood pressure 100/53, oxygen saturation 93% on 3 L GENERAL APPEARANCE: . Lying in bed, comfortable. EYES: Pupils equal. Conjunctiva normal. NECK: JVD not raised. Mass not palpable. RESPIRATORY: Respiratory mildly labored. Lungs diminished bilaterally with diffuse crackles noted on auscultation. CARDIOVASCULAR: First and second sounds normal. No edema. ABDOMEN: Soft. Liver and spleen not palpable. No tenderness. No mass palpable. PSYCHIATRY: Alert and oriented x3. Mood and affect normal. INVESTIGATIONS: Hemoglobin 11.2, platelets 133, INR 1.3, BUN 27, creatinine 4.3, Accu-Cheks noted. ASSESSMENT: Acute on chronic congestive heart failure exacerbation from diastolic dysfunction, ejection fraction 55%, underlying coronary artery disease, somewhat dialysis responsive. Acute fluid overload, probably from incomplete dialysis. End-stage kidney disease from hypertensive nephrosclerosis and diabetic nephropathy on dialysis. Diabetes mellitus type 2, causing peripheral neuropathy. Obesity, body mass index greater than 30. Hyperlipidemia. Obstructive sleep apnea does not wear CPAP machine. Persistent atrial fibrillation, not a candidate for anticoagulation. Coronary artery disease with prior history of stent. Mild left sided hemiparesis from previous stroke Chronic hypoxic respiratory failure, on 2 L of oxygen at home. CODE STATUS DO NOT RESUSCITATE Gastroesophageal reflux disease. Primary osteoarthritis in multiple joints bilaterally. Carotid artery stenosis with hemodynamically significant lesion bilaterally, not felt to be a surgical candidate. Colonic diverticulosis. Osteoporosis, chronic. Chronic anemia., Probably related to end-stage kidney disease. Troponin leak in a patient with renal failure, not coronary in nature. PLAN: Patient would like to engage in a discussion about hospice but would like first to have a discussion with family. Patient receives dialysis Monday, per nephrology may go home on Monday after dialysis. We'll continue current medication and treatment plan. We'll monitor closely SHOE HANDLER statement: Patient was seen and examined by nurse practitioner Riri Bradley in all elements of the case discussed with attending is Dr. Slade
[2016-08-19 16:05] LABS: Basophils % (A) 1 %; CH 34.6; CHCM 29.4; Eosinophils # (A) 0.4 k/uL (0-0.7); Eosinophils % (A) 7 %; HCT 38.3 % (34.0-46.0); HDW 2.66; HGB 11.3 gm/dL (11.4-16.0); Hypochromasia Marked; Luc # (Auto) 0.15; Luc % (Auto) 3; Lymphocytes # (A) 0.6 k/uL (1.0-4.8); Lymphocytes % (A) 11 %; MCH 34.9 pg (25.0-35.0); MCHC 29.4 g/dL (31.0-37.0); MCV 118.4 fL (80.0-100.0); Macrocytosis Marked; Mean Platelet Volume 8.2; Monocytes # (A) 0.5 k/uL (0-1.0); Monocytes % (A) 8 %; Neutrophils # (A) 3.9 k/uL (1.3-7.7); Neutrophils % (A) 70 %; RBC 3.23 m/uL (3.80-5.40); RDW 15.9 % (11.5-15.5); WBC 5.6 k/uL (3.8-10.6); WBC (Perox) 5.57
[2016-08-19 16:14] LABS: Potassium 4.6 mmol/L (3.5-5.1)
[2016-08-19 17:08] LABS: Glucose,Whole Blood 101 mg/dL (75-99)
[2016-08-19] MEDS: DICLOFENAC SODIUM GEL 100 GM TUBE TOPICAL SCH ×2 (18:27→22:27)
[2016-08-19 20:21] LABS: Glucose,Whole Blood 109 mg/dL (75-99)
[2016-08-19] MEDS: EZETIMIBE 10 MG TAB PO SCH (22:27)
[2016-08-19] MEDS: MONTELUKAST 10 MG TAB PO SCH (22:27)
[2016-08-20] MEDS: LIDOCAINE-PRILOCAINE 2.5-2.5% CREAM 5 GM TUBE TOPICAL SCH (05:54)
[2016-08-20 06:05] LABS: Glucose,Whole Blood 97 mg/dL (75-99)
[2016-08-20] MEDS: PANTOPRAZOLE 40 MG TABLET PO SCH (06:47)
[2016-08-20] MEDS: SEVELAMER 800 MG TAB PO SCH ×3 (06:48→17:16)
[2016-08-20] MEDS: MIDODRINE 5 MG TAB PO SCH ×3 (06:48→17:16)
[2016-08-20 06:55] LABS: Basophils # (A) 0.1 k/uL (0-0.2); Basophils % (A) 1 %; CH 34.9; CHCM 29.9; Eosinophils # (A) 0.4 k/uL (0-0.7); Eosinophils % (A) 5 %; HCT 38.5 % (34.0-46.0); HDW 2.81; HGB 11.7 gm/dL (11.4-16.0); Hypochromasia Marked; Luc # (Auto) 0.25; Luc % (Auto) 3; Lymphocytes # (A) 0.7 k/uL (1.0-4.8); Lymphocytes % (A) 9 %; MCH 35.7 pg (25.0-35.0); MCHC 30.5 g/dL (31.0-37.0); MCV 117.3 fL (80.0-100.0); Macrocytosis Marked; Mean Platelet Volume 7.8; Monocytes # (A) 0.6 k/uL (0-1.0); Monocytes % (A) 7 %; Neutrophils # (A) 5.7 k/uL (1.3-7.7); Neutrophils % (A) 74 %; RBC 3.28 m/uL (3.80-5.40); RDW 15.8 % (11.5-15.5); WBC 7.7 k/uL (3.8-10.6); WBC (Perox) 7.32
[2016-08-20 07:10] LABS: Manual Review Performed; Ovalocytes Present; Polychromasia Present
[2016-08-20 07:21] LABS: Calcium 9.1 mg/dL (8.4-10.2); Potassium 5.2 mmol/L (3.5-5.1)
[2016-08-20] MEDS: ALBUTEROL NEBULIZED 2.5 MG/3 ML INHALATION SCH ×4 (07:47→19:47)
[2016-08-20] MEDS: SYMBICORT 160-4.5 MCG INHALER INHALATION SCH ×2 (07:47→19:47)
--- NOTE | 2016-08-20 07:58 | PN ---
DATE OF SERVICE: 08/19/2016 ATTENDING NOTE: This patient was seen and examined by me earlier today. Reviewed the note of my nurse practitioner, Ms. Bradley. Reviewed, discussed and additional findings below. This is a patient who presented with CHF exacerbation, fluid overload, getting hemodialysis. Weak and tired. The patient is on a pureed diet. Patient expressed wishes earlier to my BUSINESS LAW TEACHER about possible hospice. On examination, lying in bed, lethargic. LUNGS: Diminished breath sounds. Some crackles. Edema present. ABDOMEN: Soft. Patient is arousable, answering questions. INVESTIGATIONS: Labs are noted. ASSESSMENT: 1. Congestive heart failure exacerbation from diastolic dysfunction, acute fluid overload. 2. Endstage kidney disease. PLAN: Continue current medication and treatment plan and dialysis as scheduled. At this point, will discuss with the patient advanced care planning. ADVANCED CARE PLANNING: End of life care was discussed with the patient. Patient at this point feels tired with multiple problems and I do agree that her quality of life is not good given the multiple comorbidities from what I have known before. The patient wants to go in hospice. Will arrange for the same. Patient wishes to go home with her son. She wants me to chose something for her. Hence, will continue to do so. Time spent for advance care planning was about 20 to 25 minutes in addition to the progress note.
[2016-08-20] MEDS: ASPIRIN 81 MG CHEW PO SCH (08:02)
[2016-08-20] MEDS: ALLOPURINOL 100 MG TAB PO SCH (08:02)
[2016-08-20] MEDS: PRAMIPEXOLE 0.5 MG TAB PO SCH ×3 (08:03→22:43)
[2016-08-20] MEDS: CHOLECALCIFEROL 1,000 UNIT TAB PO SCH (08:03)
[2016-08-20] MEDS: HEPARIN SODIUM,PORCINE 5,000 UNIT/ML 1 ML VIAL SQ SCH (08:03)
[2016-08-20] MEDS: FLUDROCORTISONE 0.1 MG TAB PO SCH (08:03)
[2016-08-20] MEDS: ISOSORBIDE MONONITRATE ER 30 MG TAB.ER.24H PO SCH (08:03)
[2016-08-20] MEDS: CLOPIDOGREL 75 MG TAB PO SCH (08:03)
[2016-08-20] MEDS: FOLIC ACID-VIT B COMPLEX-VIT C 1 CAP PO SCH (08:03)
[2016-08-20] MEDS: CYANOCOBALAMIN 500 MCG TAB PO SCH (08:03)
[2016-08-20] MEDS: METOPROLOL TARTRATE 12.5 MG TAB PO SCH (08:03)
[2016-08-20] MEDS: DICLOFENAC SODIUM GEL 100 GM TUBE TOPICAL SCH ×4 (08:11→22:43)
[2016-08-20] MEDS: ZINC OXIDE 20% OINT 28.4 GM TUBE TOPICAL SCH ×3 (10:07→22:43)
[2016-08-20 12:09] LABS: Glucose,Whole Blood 81 mg/dL (75-99)
[2016-08-20] MEDS: HYDROcodone/APAP 10-325MG 1 EACH TAB PO PRN ×2 (15:01→19:09)
[2016-08-20 17:35] LABS: Glucose,Whole Blood 79 mg/dL (75-99)
[2016-08-20 20:54] LABS: Glucose,Whole Blood 99 mg/dL (75-99)
[2016-08-20] MEDS: MORPHINE SULFATE 4 MG/ML SYRINGE IV PRN (22:43)
[2016-08-21 05:52] VITALS: RESP 16
[2016-08-21] MEDS: ALBUTEROL NEBULIZED 2.5 MG/3 ML INHALATION SCH ×4 (07:21→20:58)
[2016-08-21] MEDS: MONTELUKAST 10 MG TAB PO SCH (07:38)
[2016-08-21] MEDS: HEPARIN SODIUM,PORCINE 5,000 UNIT/ML 1 ML VIAL SQ SCH (07:38)
[2016-08-21] MEDS: EZETIMIBE 10 MG TAB PO SCH (07:39)
[2016-08-21] MEDS: GABAPENTIN 150 MG PO SCH ×2 (07:39→08:29)
[2016-08-21] MEDS: FLUDROCORTISONE 0.1 MG TAB PO SCH (07:39)
[2016-08-21] MEDS: ISOSORBIDE MONONITRATE ER 30 MG TAB.ER.24H PO SCH (10:34)
[2016-08-21] MEDS: PANTOPRAZOLE 40 MG TABLET PO SCH (10:34)
[2016-08-21] MEDS: ZINC OXIDE 20% OINT 28.4 GM TUBE TOPICAL SCH ×2 (10:35→18:10)
[2016-08-21] MEDS: DICLOFENAC SODIUM GEL 100 GM TUBE TOPICAL SCH ×3 (10:35→18:09)
[2016-08-21] MEDS: PRAMIPEXOLE 0.5 MG TAB PO SCH ×3 (10:35→20:43)
[2016-08-21] MEDS: MORPHINE SULFATE 4 MG/ML SYRINGE IV PRN ×2 (10:44→20:43)
--- NOTE | 2016-08-21 11:58 | PN ---
DATE OF SERVICE: 08/20/2016 Presented with shortness of breath. INTERVAL HISTORY: This is a patient who presented with CHF exacerbation, hemodialysis.. The patient yesterday decided to become hospice. Patient is tolerating some diet. Several family members at the bedside. I have called the hospice person in for baseline visit. REVIEW OF SYSTEMS: For constitutional, cardiovascular, GI and pulmonary, relevant findings as above. Current medications are reviewed. Patient has not been taking a lot of her medications. On examination, temperature 97, pulse 74, respirations 18, blood pressure 89/50, pulse ox 92% on liters. GENERAL APPEARANCE: Sitting up but tired-appearing. EYES: Pupils equal. Conjunctivae normal. NECK: JVD unable to assess. Mass not palpable. RESPIRATORY: Effort increased. LUNGS: Decreased breath sounds. CARDIOVASCULAR: First and second sounds normal. Edema present. ABDOMEN: Soft, nontender. PSYCH: Awake, answering questions, able to participate in the discussion. ASSESSMENT: 1. Acute on chronic congestive heart failure exacerbation from diastolic dysfunction; ejection fraction 55%, from underlying coronary artery disease. 2. Acute fluid overload, probably from incomplete dialysis. 3. End-stage kidney disease from hypertensive nephrosclerosis and diabetic nephropathy on hemodialysis, now stopped. 4. Diabetes mellitus type 2 causing peripheral neuropathy. 5. Obesity, body mass index 30. 6. Hyperlipidemia. 7. Obstructive sleep apnea, does not using CPAP machine. 8. Persistent atrial fibrillation, not a candidate for anticoagulation. 9. Coronary artery disease with prior history of stent. 10. Mild left-sided hemiparesis from old stroke. 11. Chronic respiratory failure, uses oxygen at home. 12. Gastroesophageal reflux disease. 13. Osteoarthritis of multiple joints bilaterally. 14. Carotid artery stenosis with hemodynamically significant lesions bilaterally, not felt to be a surgical candidate. 15. Chronic diverticulosis. 16. Osteoporosis, chronic. 17. Chronic anemia, probably related to end-stage kidney disease. PLAN: Had a family meeting with patient's son and other family members, the documentation liaison, the nurse practitioner and the patient. At this point it was decided to see how the patient does for the next couple of days. On Monday we will be able to see if patient qualifies for [facility] or patient can go home for hospice. In the meantime, supportive medications will be done. Other medications will be discontinued. Patient also has clearly identified that she does not want any further dialysis. Total time spent today was about 45 minutes with over 30 minutes of discussion.
[2016-08-21] MEDS: HYDROcodone/APAP 10-325MG 1 EACH TAB PO PRN (14:13)
--- NOTE | 2016-08-21 15:16 | PN ---
Patient is seen for follow-up for end-stage renal disease. Patient has been considering discontinuation of dialysis for a few weeks now and this morning she tells me she decided yesterday to stop dialysis and proceed with hospice care. She is currently comfortable. She understands the consequences of her decision. I have discussed with her regarding her decision and especially the fact that we respect her wishes given her multiple comorbidities, and poor quality of life. On examination today, blood pressure 95/50, heart rate 67 per minute. The patient is afebrile. She has significant chronic skin changes bilaterally in the lower extremities. Abdomen is soft and obese. No crackles are heard on lung exam. Labs show from yesterday potassium was 5.2. Hemoglobin was 11.7 g/dL. ASSESSMENT: 1. End-stage renal disease on hemodialysis on a Monday, , Monday schedule. Patient will be stopping dialysis and proceeding with hospice care. 2. Chronic obstructive pulmonary disease. 3. Congestive heart failure, volume overload. 4. History of hyperkalemia. 5. Generalized debility. PLAN: May continue with further plans for hospice care. I respect patient's wishes given her significant comorbidities and poor quality of life.
--- NOTE | 2016-08-21 22:09 | P.PN ---
Progress Note - Text DATE OF SERVICE: 08/21/2016 PRESENTING COMPLAINT: Shortness of breath INTERVAL HISTORY: This 76-year-old female with CHF, hemodialysis. Currently a hospice patient. Patient is able to tolerate some of her diet, has some difficulty swallowing uses a straw. Appears comfortable, family at the bedside. Patient overall is in good spirits and quite talkative. REVIEW OF SYSTEMS: Done for constitutional ,cardiovascular, GI, pulmonary with relevant findings as above. CURRENT MEDICATIONS Xanax, Flexeril, Voltaren gel, [place], Tylenol, PHYSICAL EXAM VITAL SIGNS: Temperature 97.9, pulse 96, respirations 16, blood pressure 86/50, oxygen saturation 96% on 2 L . GENERAL APPEARANCE: . Lying in bed, not in distress, tired-appearing. EYES: Pupils equal. Conjunctiva normal. NECK: JVD unable raised. Mass not palpable. RESPIRATORY: Respiratory effort increased. Lungs decreased to auscultation. CARDIOVASCULAR: First and second sounds normal. Edema noted. ABDOMEN: Soft. Liver and spleen not palpable. No tenderness. No mass palpable. PSYCHIATRY: Awake alert and able to participate and answer questions. INVESTIGATIONS: No labs or further testing being done at this time. ASSESSMENT: Acute on chronic congestive heart failure exacerbation from diastolic dysfunction, ejection fraction 55%, from underlying coronary artery disease. Acute fluid overload, probably from incomplete dialysis. End-stage kidney disease from hypertensive nephrosclerosis and diabetic nephropathy on hemodialysis now stopped. Diabetes mellitus type 2 causing peripheral neuropathy. Obesity, body mass index of 30. Hyperlipidemia. Obstructive sleep apnea, does not use CPAP machine. Persist atrial fibrillation, not a candidate for anticoagulation. Coronary artery disease with prior history of stent. Mild left-sided hemiparesis from old stroke. Chronic respiratory failure uses oxygen at home. Gastroesophageal reflux disease. Osteoarthritis of multiple joints bilaterally. Carotid artery stenosis with hemodynamically significant lesions bilaterally not felt to be sick a surgical candidate. Chronic diverticulosis. Osteoporosis, chronic. Chronic anemia, probably related to end-stage renal disease PLAN: Patient will either be transferred to the hospice house tomorrow or will transition on to home with home hospice. HEAD GAUGE UNIT OPERATOR statement: Patient was seen and examined by nurse practitioner Riri Bradley and all elements of the case discussed with attending Dr. Slade
[2016-08-22] MEDS: DICLOFENAC SODIUM GEL 100 GM TUBE TOPICAL SCH ×3 (05:48→13:35)
[2016-08-22] MEDS: ZINC OXIDE 20% OINT 28.4 GM TUBE TOPICAL SCH ×2 (05:49→09:50)
[2016-08-22] MEDS: ALBUTEROL NEBULIZED 2.5 MG/3 ML INHALATION SCH ×2 (07:40→11:23)
[2016-08-22 07:46] VITALS: BP 104/55; TEMP 97.2
--- NOTE | 2016-08-22 08:28 | PN ---
DATE OF SERVICE: 08/21/2016 ATTENDING NOTE: This patient was seen and examined by me earlier today. I reviewed the note of my nurse practitioner, Ms. Bradley. Reviewed, discussed and additional findings as below. INTERVAL HISTORY: This patient decided to go into hospice. Awaiting transfer tomorrow to either home or hospice in [place]. Patient is tolerating his diet. She sometimes chokes but still wants to eat and she wants to feel comfortable about that. Family is at the bedside and are keen for that to continue. On exam, LUNGS: Decreased breath sounds. Edema is present. Patient is awake, answering simple questions. ASSESSMENT: Multiple medical problems including congestive heart failure and end-stage kidney disease. Tomorrow will finalize patient disposition. Pain control was discussed.
[2016-08-22] MEDS: PRAMIPEXOLE 0.5 MG TAB PO SCH (09:38)
[2016-08-22] MEDS: PANTOPRAZOLE 40 MG TABLET PO SCH (09:38)
[2016-08-22] MEDS: ISOSORBIDE MONONITRATE ER 30 MG TAB.ER.24H PO SCH (09:38)
[2016-08-22] MEDS: HYDROcodone/APAP 10-325MG 1 EACH TAB PO PRN (09:39)
[2016-08-22 11:38] VITALS: PULSE 72
--- NOTE | 2016-08-26 13:31 | DS ---
DATE OF ADMISSION: 08/18/2016 DATE OF DISCHARGE: 08/22/2016 FINAL DIAGNOSIS(ES): 1. Chronic congestive heart failure exacerbation from diastolic dysfunction, ejection fraction 55%, from underlying coronary artery disease. 2. Acute fluid overload, multifactorial. 3. End-stage kidney disease from hypertensive nephrosclerosis and diabetic nephropathy on hemodialysis. 4. Diabetes mellitus type 2, causing peripheral neuropathy. 5. Obesity, body mass index of 30. 6. Hyperlipidemia. 7. Obstructive sleep apnea does not use CPAP. 8. Persistent atrial fibrillation, not a candidate for anticoagulation. 9. Coronary artery disease with prior history of stent. 10. Mild left hemiparesis from old stroke. 11. Chronic respiratory failure hypoxic using oxygen at home. 12. Gastroesophageal reflux disease. 13. Primary osteoarthrosis of multiple joints, bilaterally. 14. Carotid artery stenosis ( ) lesions bilaterally. Not a candidate for surgery. 15. Chronic diverticulosis. 16. Osteoporosis, chronic. 17. Chronic anemia, ( ). 18. Medical debility. Patient is pretty much bed bound. 19. Additional diagnosis: Hospice. Patient with multiple medical problems presented with fluid overload. Appropriately, the patient decided to become hospice. Family discussion was held. Patient will be going down to the hospice house in [place]. Care was discussed with the patient and family, social media assistant and party planner. LUNGS: Decreased breath sounds. Patient very tired. DISCHARGE MEDICATIONS: 1. Ventolin 2.5 nebulizer q.4 p.r.n. 2. Dulcolax 20 mg rectal daily p.r.n. 3. Voltaren gel 2 grams q.i.d. 4. ( ) 2.5 topical Monday, and Monday. 5. Zinc oxide 10% topically t.i.d. 6. Roxanol as directed p.r.n. 7. Ativan 1 mg q.4 p.r.n. for anxiety. 8. Scopolamine patch as directed p.r.n. DISPOSITION: Hospice house. Discharge planning more than 35 minutes.
== END 2016-08-22 14:42 | disposition hospice, inpatient (51) | DRG 291 ==
LOC: EC 23:00 → 6SEL 08-18 02:31 → 5MS5E 08-21 07:00
PROVIDERS: ADMIT Hospitalist; ATTEND Hospitalist
PROC: 5A1D00Z (ICD-10-PCS; principal; 2016-08-18)
DX: I13.2 Hypertensive heart and chronic kidney disease with heart failure and with stage 5 chronic kidney disease, or end stage renal disease (principal); I50.33 Acute on chronic diastolic (congestive) heart failure; J96.11 Chronic respiratory failure with hypoxia; I95.89 Other hypotension; N18.6 End stage renal disease; J44.0 Chronic obstructive pulmonary disease with (acute) lower respiratory infection; R13.10 Dysphagia, unspecified; I48.1 Persistent atrial fibrillation; I69.354 Hemiplegia and hemiparesis following cerebral infarction affecting left non-dominant side; Z66 Do not resuscitate; I27.2 Other secondary pulmonary hypertension; E11.21 Type 2 diabetes mellitus with diabetic nephropathy; E11.22 Type 2 diabetes mellitus with diabetic chronic kidney disease; E87.5 Hyperkalemia; E11.42 Type 2 diabetes mellitus with diabetic polyneuropathy; I65.29 Occlusion and stenosis of unspecified carotid artery; I42.9 Cardiomyopathy, unspecified; D63.8 Anemia in other chronic diseases classified elsewhere; I25.10 Atherosclerotic heart disease of native coronary artery without angina pectoris; Z99.2 Dependence on renal dialysis; E66.9 Obesity, unspecified; Z68.32 Body mass index [BMI] 32.0-32.9, adult; E78.5 Hyperlipidemia, unspecified; G47.33 Obstructive sleep apnea (adult) (pediatric); K21.9 Gastro-esophageal reflux disease without esophagitis; M19.91 Primary osteoarthritis, unspecified site; K57.30 Diverticulosis of large intestine without perforation or abscess without bleeding; F32.9 Major depressive disorder, single episode, unspecified; K44.9 Diaphragmatic hernia without obstruction or gangrene; I25.2 Old myocardial infarction; M81.0 Age-related osteoporosis without current pathological fracture; Z99.81 Dependence on supplemental oxygen; Z95.5 Presence of coronary angioplasty implant and graft; Z87.891 Personal history of nicotine dependence; Z90.710 Acquired absence of both cervix and uterus; Z90.5 Acquired absence of kidney; Z88.1 Allergy status to other antibiotic agents; Z88.5 Allergy status to narcotic agent; Z88.8 Allergy status to other drugs, medicaments and biological substances; Z86.19 Personal history of other infectious and parasitic diseases; Z98.42 Cataract extraction status, left eye; Z98.41 Cataract extraction status, right eye; Z79.82 Long term (current) use of aspirin; Z79.51 Long term (current) use of inhaled steroids; Z79.02 Long term (current) use of antithrombotics/antiplatelets; Z79.4 Long term (current) use of insulin; Z79.899 Other long term (current) drug therapy; Z83.3 Family history of diabetes mellitus; Z82.49 Family history of ischemic heart disease and other diseases of the circulatory system
CPT/HCPCS: 36415; 71010; 80048; 80053; 83605; 83880; 84484; 85025; 85610; 85730; 90935; 93005; 94640; 94760; 99285